=== PATIENT | male | born 1970 | race Caucasian/White ===

== ENCOUNTER → 2016-09-28 | Outpatient (CLI) | payer OTHER ==
[~2016-09-28] MED LIST: METO25TA2 PO; VALA500T17 PO
[2016-09-29 13:08] LABS: EHRLICHIA CHAFFEENSIS G ABY <1:16 (<1:16)
[2016-09-29 15:44] LABS: IGG ROCKY MOUNTAIN SPOTTED FEV <1:16 (<1:16); IGM ROCKY MOUNTAIN SPOTTED FEV <1:10 (<1:10); TULAREMIA ANTIBODY <1:20
== END ==
LOC: LAB 13:13
PROVIDERS: ATTEND Nurse Practitioner Community Health
DX: R53.82 Chronic fatigue, unspecified (principal); G89.29 Other chronic pain
CPT/HCPCS: 36415; 86618; 86666; 86668; 86757

== ENCOUNTER → 2017-06-21 | Outpatient (CLI) | payer SELFPAY ==
--- NOTE | 2017-06-21 13:15 | Diagnostic Imaging Report ---
CLINICAL INDICATION: Patient states he has neck/back pain with bilateral arm/hand numbness x6 months. Patient has bilateral hand/arm swelling upon waking up in the mornings. EXAM: MRI of the cervical spine performed without IV contrast. Sequences include sagittal T2, sagittal T1, sagittal T2 fat-sat, and axial T2. COMPARISON: None. FINDINGS: There is incompletely imaged left curvature of the thoracic spine. Limited visualization of the posterior fossa shows no significant abnormality. Cervical spinal cord has normal anatomic appearance and cord caliber. There is no significant paraspinal soft tissue abnormality. There is cervical spine degenerative disease with vertebral body spurs and facet arthropathy. C1-C2: Unremarkable. C2-C3: There is no significant central spinal canal or neuroforamen narrowing. C3-C4: There is a small left paracentral disc spur which causes mild central canal narrowing. There is mild bilateral facet arthropathy. There is rkeg-tb-gjvqicgc left neuroforamen narrowing. There is no significant right neuroforamen narrowing. C4-C5: There is a mild diffuse disc bulge and mild bilateral facet arthropathy. There is at least moderate left neuroforamen narrowing and hhts-qb-abfarknv right neuroforamen narrowing. There is no significant central canal narrowing. C5-C6: There is a mild diffuse disc bulge with small left paracentral and subarticular disc spur. There is at least moderate left neuroforamen narrowing. There is bilateral facet arthropathy (left side more than the right). There is mild central canal narrowing. C6-C7: There is diffuse disc bulge, moderate loss of intervertebral disc height. There is mild bilateral facet arthropathy. There is mild ligamentum flavum buckling. There is moderate central canal narrowing and moderate bilateral neuroforamen narrowing. C7-T1: Unremarkable. IMPRESSION: There is moderate multilevel cervical spine degenerative disc disease, described in detail above. Dictated by: Dictated on workstation # [id number]
== END ==
LOC: RAD 11:34
PROVIDERS: ATTEND Internal Medicine
DX: M50.121 Cervical disc disorder at C4-C5 level with radiculopathy (principal); M48.02 Spinal stenosis, cervical region; M46.92 Unspecified inflammatory spondylopathy, cervical region; M79.89 Other specified soft tissue disorders; R20.0 Anesthesia of skin
CPT/HCPCS: 72141

== ENCOUNTER 2018-10-10 05:39 | Outpatient (CLI) | payer OTHER ==
[~2018-10-10] VITALS: Ht 177.8 cm; Wt 113.4 kg
[2018-10-10] MEDS ORDERED: METO50TA15 PO (15:42)
[2018-10-10] MEDS ORDERED: DULO60CA58 PO (15:42)
[2018-10-10] MEDS ORDERED: BACL20TA PO (15:42)
== END 2018-10-10 15:43 | disposition home or self-care (01) ==
LOC: PREOP 05:39
PROVIDERS: ATTEND Surgery
DX: Z01.818 Encounter for other preprocedural examination (principal)

== ENCOUNTER 2018-10-14 10:46 | Day surgery (SDC) | payer OTHER ==
[~2018-10-14] VITALS: Ht 177.8 cm; Wt 113.4 kg
[~2018-10-14 10:46] MED LIST changes: +BACL20TA PO; +DULO60CA58 PO; +METO50TA15 PO
--- OUTSIDE RECORDS SUMMARY | 2018-10-14 10:54 | XMS REPORT ---
Author Author Migration, Doctor Organization [facility] Address Unknown Phone Unavailable Care Team Providers Care Interactive Account Manager Name Role Phone Migration, Doctor Unavailable Unavailable PROBLEMS Type Condition ICD9-CM Code PPW24-FS Code Onset Dates Condition Status SNOMED Code Problem Lumbago with sciatica, left side M54.42 Active 714136114 Problem Other chronic pain G89.29 Active 93145942 Problem Arthritis M19.90 Active 3804808 Problem Degenerative disc disease at L5-S1 level M51.36 Active 35095708 Problem Seasonal allergic rhinitis due to other allergic trigger J30.89 Active 815207174 Problem Polyneuropathy G62.9 Active 20272324 Problem Anxiety F41.9 Active 11219245 Problem Neuropathy G62.9 Active 134282328 Problem Cervical radiculopathy M54.12 Active 06081760 Problem Mucopurulent chronic bronchitis J41.1 Active 40632758 Problem Gingivitis K05.10 Active 24359270 Problem Hypertension, unspecified type I10 Active 92003971 ALLERGIES No Information ENCOUNTERS Encounter Location Date Diagnosis [facility] [id number] [place] [address] 65290- 7729 Sep, Hiatal hernia K44.9 ; Arthritis M19.90 and Anxiety F41.9 [facility] [id number] [place] [address] 24285 -5013 Jul, Strain of lumbar region, initial encounter S39.012A [facility] [id number] [place] [address] 37061- 8031 Dec, Polyneuropathy G62.9 ; 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 and Seasonal allergic rhinitis due to other allergic trigger J30.89 [facility] [id number] [place] [address] 79319- 6805 Sep, Common wart B07.8 and Hypertension, unspecified type I10 [facility] [id number] [place] [address] 40511- 2118 Aug, Dental examination Z01.20 ; Gingivitis K05.10 and Xerostomia R68.2 [facility] [id number] [place] [address] 28053- 5946 Aug, Dental caries extending into dentin K02.62 [facility] [address] 11636- 1612 Jul, Dental examination Z01.20 [facility] [id number] [place] [address] 54060- 3862 Jul, Mucopurulent chronic bronchitis J41.1 [facility] [id number] [place] [address] 82377- 4227 15 Jul, 2017 Cervical neuritis M54.12 ; Common wart B07.8 ; Actinic keratosis L57.0 ; Encounter for immunization Z23 and Mucopurulent chronic bronchitis J41.1 [facility] [id number] [place] [address] 82915- 7096 Jun, Radiculopathy of cervical region M54.12 [facility] [id number] [place] [address] 13145- 5945 May, Arthritis M19.90 ; Cervical radiculopathy M54.12 and Mucopurulent chronic bronchitis J41.1 [facility] [id number] [place] [address] 11573- 1347 Feb, Arthritis M19.90 [facility] [id number] [place] [address] 89303- 1316 Feb, Other chronic pain G89.29 [facility] [id number] [place] [address] 27910- 0362 19 Feb, 2017 Other chronic pain G89.29 [facility] [address] [place] [id number] [place] [address] [id number] 15 Feb, 2017 Dental examination Z01.20 [facility] [address] [address] 9979 07 Feb, 2017 Polyneuropathy G62.9 [facility] [id number] [place] [address] [id number] Jan, Dental examination Z01.20 [facility] [id number] [place] [address] 45785- 7706 Jan, Arthritis M19.90 [facility] [id number] [place] [address] [id number] Jan, Dental examination Z01.20 [facility] [id number] [place] [address] 50034- 5642 Dec, [facility] [id number] [place] [address] 97258- 6496 Dec, Arthritis M19.90 [facility] [id number] [place] [address] 13981- 3839 Dec, Sebaceous cyst L72.3 [facility] [id number] [place] [address] 73471- 4824 Dec, Sebaceous cyst L72.3 and Common wart B07.8 [facility] [id number] [place] [address] 90270- 0358 Nov, Arthritis M19.90 [facility] [id number] [place] [address] 31563- 9705 Nov, [facility] [id number] [place] [address] 52148- 4905 October, Arthritis M19.90 [facility] [id number] [place] [address] 95184- 3662 October, Polyneuropathy G62.9 and Arthritis M19.90 [facility] [address] [place] [address] 62491- 6552 October, Polyneuropathy G62.9 and Arthritis M19.90 [facility] [address] [facility] [id number] [address] 2851 October, Arthritis M19.90 and Polyneuropathy G62.9 [facility] [address] [address] [place] [address] [id number] October, Dental examination Z01.20 [facility] [id number] [place] [address] 54446- 9164 Sep, Polyuria R35.8 [facility] [id number] [place] [address] [id number] Sep, Dental examination Z01.20 [facility] [id number] [place] [address] 82062- 9921 Sep, [facility] [id number] [place] [address] 49730- 4145 Sep, Polyneuropathy G62.9 [facility] [id number] [place] [address] 17832- 9423 Aug, Polyuria R35.8 [facility] [address] [place] [address] [id number] Aug, Dental examination Z01.20 [facility] [address] [place] [address] 00603- 9127 Aug, Polyneuropathy G62.9 [facility] [id number] [place] [address] 29931- 7873 Aug, Polyuria R35.8 [facility] [address] [place] [address] [id number] Jul, Dental examination Z01.20 [facility] [id number] [place] [address] [id number] Jul, Dental examination Z01.20 [facility] [id number] [place] [address] 70463- 7421 Jul, Polyneuropathy G62.9 [facility] [id number] [place] [address] 58834- 0407 Jul, Polyuria R35.8 [facility] [id number] [place] [address] 37139 -5867 Jun, Lumbago with sciatica, left side M54.42 and Other chronic pain G89.29 [facility] [address] 49053- 6419 Jun, Polyneuropathic pain M79.2 and Other infective acute otitis externa of left ear H60.392 [facility] [id number] [place] [address] 83325- 7460 Jun, Polyuria R35.8 [facility] [address] 64157- 3902 May, Dental examination Z01.20 [facility] [address] 94202- 3178 May, Polyneuropathy G62.9 [facility] [id number] [place] [address] 35397- 2602 May, Polyuria R35.8 [facility] [id number] [place] [address] 36372- 2054 Apr, Polyuria R35.8 ; Weight loss R63.4 ; Arthralgia, unspecified joint M25.50 and Neuropathy G62.9 [facility] [id number] [place] [address] 82178- 1560 Apr, [facility] [id number] [place] [address] 85241- 4326 Apr, Dental examination Z01.20 [facility] [address] 94590- 1043 Mar, Polyuria R35.8 ; Weight loss R63.4 ; Arthralgia, unspecified joint M25.50 ; Neuropathy G62.9 ; Family history of rheumatoid arthritis Z82.61 and Family history of diabetes mellitus Z83.3 [facility] [address] [address]- 7843 Mar, [facility] [id number] [address]- 0555 Feb, [facility] [address] [address]- 2717 Feb, Encounter for dental examination and cleaning without abnormal findings Z01.20 [facility] [address] [address]- 8726 Jan, [facility] [id number] [place] [address] 34327- 2775 Dec, Degenerative disc disease at L5-S1 level M51.36 [facility] [address] [address] -6870 Dec, Degenerative disc disease at L5-S1 level M51.36 [facility] [address] [address]- 6351 Dec, [facility] [id number] [place] [address] 27201- 9073 Nov, [facility] [address] [address]- 5870 October, Arthritis M19.90 [facility] [address] [address]- 8560 07 Sep, 2015 Arthritis M19.90 and Family history of diabetes mellitus Z83.3 [facility] [address] [address]- 9118 08 Jul, 2015 [facility] [id number] 4976 Jun, [facility] [address] 3270 08 May, 2015 [facility] [id number] [address]- 7147 Apr, [facility] [id number] [place] [address] 50158- 3340 Feb, Actinic keratitis 370.24 [facility] [id number] [place] [address] 057827- 5586 Jan, Common wart 078.19 ; Back pain 724.5 and Fibromyalgia 729.1 [facility] [id number] [place] [address] 46327- 7783 Dec, Alcohol abuse 305.00 [facility] [id number] [place] [address] 19070- 3778 Dec, Lesion of neck 709.9 [facility] [id number] [place] [address] 95660- 7483 Dec, Back pain 724.5 [facility] [id number] [place] [address] 05725- 2711 Nov, Alcohol abuse 305.00 ; Basal cell carcinoma 173.91 and Common wart 078.19 [facility] [id number] [place] [address] 67087- 1348 Nov, [facility] [id number] [place] [address] 01633- 3097 Sep, [facility] [id number] [place] [address] 45177- 5050 Sep, [facility] [id number] [place] [address] 93221- 1025 Jun, [facility] [id number] [place] [address] 24405- 9722 Jun, [facility] [id number] [place] [address] 443253- 7045 May, [facility] [id number] [place] [address] 714961- 0677 May, [facility] [address] [facility] [id number] [place] [address]- 3939 Feb, [facility] [place] [facility] [address] [id number] [place] [address]- 7240 Feb, [facility] [place] [facility] [address] [id number] [place] [address]- 3155 Feb, [facility] [place] [facility] [address] [id number] [place] [address]- 8419 Feb, [facility] [place] [facility] [address] [id number] [place] [address]- 1402 Sep, [facility] [place] [facility] [address] [id number] [place] [address]- 0948 Sep, [facility] [place] [facility] [address] [id number] [place] [address]- 0949 Sep, [facility] [place] [facility] [address] [id number] [place] [address]- 9224 Sep, [facility] [place] [facility] [address] [id number] [place] [address]- 2743 Aug, [facility] [place] [facility] [address] [id number] [place] [address]- 5783 Aug, [facility] [place] [facility] [address] [id number] [place] [address]- 3201 Jul, [facility] [place] [facility] [address] [id number] [place] [address]- 4708 Jul, [facility] [place] [facility] [address] [id number] [place] [address]- 4950 Jul, [facility] [place] [facility] [address] [id number] [place] [address]- 8050 Jul, [facility] [place] [facility] [address] [id number] [place] [address]- 6884 Jun, [facility] [place] [facility] [address] [id number] [place] [address]- 6692 Jun, [facility] [place] [facility] [address] [id number] [place] [address]- 8262 Jun, [facility] [place] [facility] [address] [id number] [place] [address]- 2663 Jun, [facility] [place] [facility] [address] [id number] [place] [address]- 8540 May, [facility] [place] [facility] [address] [id number] [place] [address]- 3469 May, [facility] [place] [facility] [address] [id number] [place] [address]- 3928 Apr, [facility] [place] [facility] [address] [id number] [place] [address]- 7806 Apr, [facility] [place] [facility] [address] [id number] [place] [address]- 8399 Apr, [facility] [place] [facility] [address] [id number] [address]- 5207 Apr, [facility] [place] [facility] [address] [id number] [place] [address]- 6603 Apr, [facility] [place] [facility] [address] [id number] [place] [address]- 3514 Apr, [facility] [place] [facility] [address] [id number], [place] [address]- 8425 Mar, [facility] [place] [facility] [address] [id number] [address]- 2460 Mar, [facility] [place] [facility] [address] [id number] [place] [address]- 8227 Mar, [facility] [place] [facility] [address] [id number] [address]- 9619 Mar, [facility] [place] [facility] [address] [id number] [address]- 7231 Jan, [facility] [place] [facility] [address] [id number] [place] [address]- 7595 Jan, [facility] [place] [facility] [address] [id number] [place] [address]- 1104 Aug, [facility] [place] [facility] [address] [id number] [place] [address]- 2044 Aug, [facility] [place] [facility] [address] [id number] [place] [address]- 8821 Mar, [facility] [place] [facility] [address] [id number] [place] [address]- 9569 Mar, [facility] [place] [facility] [address] [id number] [place] [address]- 4114 Mar, [facility] [place] [facility] [address] [id number] [place] [address]- 8392 Mar, [facility] [place] [facility] [address] [id number] [place] [address]- 3370 Mar, [facility] [place] [facility] [address] [id number] [place] [address]- 8034 Mar, [facility] [place] [facility] [address] [id number] [place] [address]- 9852 Mar, [facility] [place] [facility] [address] [id number] [place] [address]- 2148 Mar, [facility] [place] [facility] [address] [id number] [place] [address]- 6492 Jan, [facility] [place] [facility] [address] [id number] [place] [address]- 3238 Jan, [facility] [place] [facility] [address] [id number] [place] [address]- 6942 Nov, [facility] [place] [facility] [address] [id number] [place] [address]- 7782 Nov, [facility] [place] [facility] [address] [id number] [place] [address]- 7519 October, [facility] [id number] [address]- 4443 Aug, [facility] [address], [place] [address]- 9676 Aug, [facility] [address] [address]- 0306 Aug, [facility] [address] [address] 2546 Jul, [facility] [address] [address]- 0665 Jul, [facility] [address] [address]- 6686 Apr, [facility] [address] [address]- 4091 Apr, [facility] [address], [place] [address]- 5534 Apr, [facility] [address] [address]- 8178 Jul, [facility] [address] [address]- 3568 Jun, [facility] [id number] [address]- 7806 Apr, IMMUNIZATIONS No Known Immunizations SOCIAL HISTORY Never Assessed REASON FOR VISIT [facility] PLAN OF CARE VITAL SIGNS MEDICATIONS Unknown Medications RESULTS No Results PROCEDURES No Known procedures INSTRUCTIONS MEDICATIONS ADMINISTERED No Known Medications MEDICAL (GENERAL) HISTORY Type Description Date Medical History irritable bowel syndrome Medical History orthopedic disorder-herniated disc, DJD Medical History esophageal reflux Medical History headache Medical History herpes (genital) Medical History backache Medical History fibromyalgia Surgical History tonsillectomy Hospitalization History Hospitalization for surgery only
--- OUTSIDE RECORDS SUMMARY | 2018-10-14 10:55 | XMS REPORT ---
Author Author Migration, Doctor Organization [facility] Address Unknown Phone Unavailable Care Team Providers Care Auditor Supervisor Name Role Phone Migration, Doctor Unavailable Unavailable PROBLEMS Type Condition ICD9-CM Code LNC20-FQ Code Onset Dates Condition Status SNOMED Code Problem Polyneuropathy G62.9 Active 96881808 Problem Lumbago with sciatica, left side M54.42 Active 388745412 Problem Other chronic pain G89.29 Active 00790217 Problem Hypertension, unspecified type I10 Active 14543062 Problem Neuropathy G62.9 Active 012434263 Problem Seasonal allergic rhinitis due to other allergic trigger J30.89 Active 011575215 Problem Degenerative disc disease at L5-S1 level M51.36 Active 18796439 Problem Arthritis M19.90 Active 4347244 Problem Cervical radiculopathy M54.12 Active 72601025 Problem Mucopurulent chronic bronchitis J41.1 Active 72613242 Problem Gingivitis K05.10 Active 81482141 ALLERGIES No Information ENCOUNTERS Encounter Location Date Diagnosis [place] [id number] [address] Sep, [facility] [id number] [place] [address]100 -7706 Jul, Strain of lumbar region, initial encounter S39.012A [facility] [id number] [place] [address] 41565- 1883 Dec, Polyneuropathy G62.9 ; 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 and Seasonal allergic rhinitis due to other allergic trigger J30.89 [facility] [address] 09047- 5589 Sep, Common wart B07.8 and Hypertension, unspecified type I10 [facility] [address] 91061- 4581 Aug, Dental examination Z01.20 ; Gingivitis K05.10 and Xerostomia R68.2 [facility] [id number] [place] [address] 97202- 8323 Aug, Dental caries extending into dentin K02.62 [facility] [id number] [place] [address] 69879- 2297 20 Jul, 2017 Dental examination Z01.20 [facility] [address] 97875- 9752 15 Jul, 2017 Mucopurulent chronic bronchitis J41.1 [place] [address] 12756- 9567 Jul, Cervical neuritis M54.12 ; Common wart B07.8 ; Actinic keratosis L57.0 ; Encounter for immunization Z23 and Mucopurulent chronic bronchitis J41.1 [facility] [address] 09461- 9846 Jun, Radiculopathy of cervical region M54.12 [facility] [id number] [place] [address] 50328- 3537 May, Arthritis M19.90 ; Cervical radiculopathy M54.12 and Mucopurulent chronic bronchitis J41.1 [place] [address] [id number] [place] [address] 23646- 2290 20 Feb, 2017 Arthritis M19.90 [facility] [id number] [place] [address] 73861- 2631 Feb, Other chronic pain G89.29 [facility] [id number] [place] [address] 75243- 0885 19 Feb, 2017 Other chronic pain G89.29 [facility] [address] [place] [address] [phone] 15 Feb, 2017 Dental examination Z01.20 [facility] [id number] [place] [address] 41088- 9001 Feb, Polyneuropathy G62.9 [facility] [address] [id number] Jan, Dental examination Z01.20 [facility] [id number] [place] [address] 35212- 9957 Jan, Arthritis M19.90 [facility] [address] [place] [address] [phone] Jan, Dental examination Z01.20 [facility] [id number] [place] [address] 09631- 6280 Dec, [facility] [address] 07358- 6760 Dec, Arthritis M19.90 [facility] [id number] [place] [address] 03940- 4302 Dec, Sebaceous cyst L72.3 [facility] [id number] [place] [address] 73651- 5478 Dec, Sebaceous cyst L72.3 and Common wart B07.8 [facility] [id number] [place] [address] 43536- 5272 Nov, Arthritis M19.90 [facility] [id number] [place] [address] 25087- 3461 Nov, [facility] [id number] [place] [address] 68957- 8021 October, Arthritis M19.90 [facility] [id number] [place] [address] 77286- 4927 October, Polyneuropathy G62.9 and Arthritis M19.90 [facility] [id number] [place] [address] 35594- 2468 October, Polyneuropathy G62.9 and Arthritis M19.90 [facility] [id number] [place] [address] 49226- 4980 October, Arthritis M19.90 and Polyneuropathy G62.9 [facility] [address] [place] [address] [phone] October, Dental examination Z01.20 [facility] [id number] [place] [address] 48829- 3025 Sep, Polyuria R35.8 [facility] [address] [id number] [place] [address] [phone] Sep, Dental examination Z01.20 [facility] [address] 35501- 5186 Sep, [facility] [address] 23982- 9822 Sep, Polyneuropathy G62.9 [facility] [id number] [place] [address] 94215- 1383 Aug, Polyuria R35.8 [facility] [id number] [place] [address] [phone] Aug, Dental examination Z01.20 [facility] [id number] [place] [address] 45116- 6207 Aug, Polyneuropathy G62.9 [facility] [id number] [place] [address] 05320- 6717 Aug, Polyuria R35.8 [facility] [id number] [place] [address] [phone] Jul, Dental examination Z01.20 [facility] [address] [place] [address] [phone] Jul, Dental examination Z01.20 [facility] [id number] [place] [address] 73630- 2061 Jul, Polyneuropathy G62.9 [facility] [id number] [place] [address] 97872- 1868 Jul, Polyuria R35.8 [facility] [id number] [place] [address] 02405 -0910 Jun, Lumbago with sciatica, left side M54.42 and Other chronic pain G89.29 [place] [address] [id number] [place] [address] 79027- 9012 Jun, Polyneuropathic pain M79.2 and Other infective acute otitis externa of left ear H60.392 [place] [address] 82035- 9509 Jun, Polyuria R35.8 [place] [address] 38788- 7565 May, Dental examination Z01.20 [place] [address] 17545- 7803 May, Polyneuropathy G62.9 [place] [address] 86639- 2437 May, Polyuria R35.8 [place] [address] 56118- 5196 Apr, Polyuria R35.8 ; Weight loss R63.4 ; Arthralgia, unspecified joint M25.50 and Neuropathy G62.9 [place] [address] [id number] [place] [address] 31708- 2065 Apr, [place] [address] [place] [id number] [place] [address] 98007- 3706 Apr, Dental examination Z01.20 [place] [address] [place] [id number] [place] [address] 91780- 1023 Mar, Polyuria R35.8 ; Weight loss R63.4 ; Arthralgia, unspecified joint M25.50 ; Neuropathy G62.9 ; Family history of rheumatoid arthritis Z82.61 and Family history of diabetes mellitus Z83.3 [place] [address] 52855- 7836 Mar, [facility] [address] [address]- 4028 Feb, [facility] [id number] [place] [address] 39856- 6892 Feb, Encounter for dental examination and cleaning without abnormal findings Z01.20 [facility] [id number] [place] [address] 59592- 4236 Jan, [facility] [id number] [place] [address] 08356- 4120 Dec, Degenerative disc disease at L5-S1 level M51.36 [facility] [id number] [place] [address] 13314 -1953 Dec, Degenerative disc disease at L5-S1 level M51.36 [facility] [id number] [place] [address] 74949- 2591 Dec, [facility] [id number] [place] [address] 95853- 4978 Nov, [facility] [id number] [place] [address] 16761- 0932 October, Arthritis M19.90 [facility] [id number] [place] [address] 64600- 1647 Sep, Arthritis M19.90 and Family history of diabetes mellitus Z83.3 [facility] [address] [address]- 9972 Jul, [facility] [address] [address]- 1235 Jun, [facility] [id number] [place] [address] 50247- 5826 May, [facility] [address], [place] [address]- 8536 Apr, [facility] [id number] [place] [address] 91985- 0322 29 Feb, 2015 Actinic keratitis 370.24 [facility] [id number] [place] [address] 72412- 6050 Jan, Common wart 078.19 ; Back pain 724.5 and Fibromyalgia 729.1 [facility] [id number] [place] [address] 43724- 9402 Dec, Alcohol abuse 305.00 [facility] [address] 67838- 3705 Dec, Lesion of neck 709.9 [facility] [address] 91331- 7191 Dec, Back pain 724.5 [facility] [id number] [place] [address] 60011- 4406 Nov, Alcohol abuse 305.00 ; Basal cell carcinoma 173.91 and Common wart 078.19 [facility] [id number] [place] [address] 41636- 0778 Nov, [facility] [id number] [place] [address] 42110- 4539 Sep, [facility] [id number] [place] [address] 99433- 6442 Sep, [facility] [id number] [place] [address] 06999- 9793 Jun, [facility] [id number] [place] [address] 92833- 2973 Jun, [facility] [id number] [place] [address] 990810- 5927 May, [facility] [id number] [place] [address] 712224- 0603 May, [facility] [id number] [place] [address] 02632- 9656 Feb, [facility] [place] [facility] [address] [id number] [place] [address]- 3631 Feb, [facility] [place] [facility] [address] [id number] [place] [address]- 1755 Feb, [facility] [place] [facility] [address] [id number] [place] [address]- 2905 Feb, [facility] [place] [facility] [address] [id number] [place] [address]- 8069 Sep, [facility] [place] [facility] [address] [id number] [place] [address]- 7303 Sep, [facility] [place] [facility] [address] [id number] [place] [address]- 7567 Sep, [facility] [place] [facility] [address] [id number] [place] [address]- 2386 Sep, [facility] [place] [facility] [address] [id number] [place] [address]- 0971 Aug, [facility] [place] [facility] [address] [id number] [place] [address]- 2095 Aug, [facility] [place] [facility] [address] [id number] [place] [address]- 9868 Jul, [facility] [place] [facility] [address] [id number] [place] [address]- 4220 Jul, [facility] [place] [facility] [address] [id number] [place] [address]- 5280 Jul, [facility] [place] [facility] [address] [id number] [place] [address]- 0076 Jul, [facility] [place] [facility] [address] [id number] [place] [address]- 1303 Jun, [facility] [place] [facility] [address] [id number] [place] [address]- 2248 Jun, [facility] [place] [facility] [address] [id number] [address]- 3900 Jun, [facility] [place] [facility] [address] [id number] [place] [address]- 2886 Jun, [facility] [place] [facility] [address] [id number] [place] [address]- 0926 May, [facility] [place] [facility] [address] [id number] [place] [address]- 7736 May, [facility] [place] [facility] [address] [id number] [place] [address]- 4837 Apr, [facility] [place] [facility] [address] [id number] [place] [address]- 0548 Apr, [facility] [place] [facility] [address] [id number] [place] [address]- 4567 Apr, [facility] [place] [facility] [address] [id number] [place] [address]- 3824 Apr, [facility] [place] [facility] [address] [id number] [place] [address]- 3222 Apr, [facility] [place] [facility] [address] [id number] [place] [address]- 7500 Apr, [facility] [place] [facility] [address] [id number] [place] [address]- 2728 Mar, [facility] [place] [facility] [address] [id number], [place] [address]- 1291 Mar, [facility] [place] [facility] [address] [id number], [place] [address]- 3363 Mar, [facility] [place] [facility] [address] [id number] [place] [address]- 7573 Mar, [facility] [place] [facility] [address] [id number] [place] [address]- 5952 Jan, [facility] [place] [facility] [address] [id number] [place] [address]- 8650 Jan, [facility] [place] [facility] [address] [id number] [place] [address]- 0951 Aug, [facility] [place] [facility] [address] [id number] [place] [address]- 9822 Aug, [facility] [place] [facility] [address] [id number] [place] [address]- 4236 Mar, [facility] [place] [facility] [address] [id number] [place] [address]- 8969 Mar, [facility] [place] [facility] [address] [id number] [place] [address]- 9859 Mar, [facility] [place] [facility] [address] [id number] [place] [address]- 6702 Mar, [facility] [place] [facility] [address] [id number] [place] [address]- 1260 Mar, [facility] [place] [facility] [address] [id number] [place] [address]- 6841 Mar, [facility] [place] [facility] [address] [id number] [place] [address]- 3723 Mar, [facility] [place] [facility] [address] [id number] [place] [address]- 6443 Mar, [facility] [place] [facility] [address] [id number] [place] [address]- 8645 Jan, [facility] [place] [facility] [address] [id number] [place] [address]- 9758 Jan, [facility] [place] [facility] [address] [id number] [place] [address]- 7617 Nov, [facility] [place] [facility] [address] [id number] [place] [address]- 6537 Nov, [facility] [place] [facility] [address] [id number] [place] [address]- 4976 October, [facility] [place] [facility] [address] [id number] [place] [address]- 7697 Aug, [facility] [id number] [address]- 0223 Aug, [facility] [address], [place] [address]- 1376 Aug, [facility] [address], [place] [address]- 2906 Jul, [facility] [address], [place] [address]- 3913 Jul, [facility] [address], [place] [address]- 5777 Apr, [facility] [address], [place] [address]- 0196 Apr, [facility] [address], [place] [address]- 5231 Apr, [facility] [address], [place] [address]- 5453 Jul, [facility] [id number], [place] [address]- 5045 Jun, [facility] [id number] [address]- 2961 Apr, IMMUNIZATIONS No Known Immunizations SOCIAL HISTORY Never Assessed REASON FOR VISIT EMR-[facility] PLAN OF CARE VITAL SIGNS MEDICATIONS Unknown [...]
--- OUTSIDE RECORDS SUMMARY | 2018-10-14 10:55 | XMS REPORT ---
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 Role Phone Migration, Doctor Unavailable Unavailable PROBLEMS Type Condition ICD9-CM Code GFR09-EU Code Onset Dates Condition Status SNOMED Code Problem Polyneuropathy G62.9 Active 20198269 Problem Lumbago with sciatica, left side M54.42 Active 411307155 Problem Other chronic pain G89.29 Active 77613554 Problem Hypertension, unspecified type I10 Active 73958204 Problem Neuropathy G62.9 Active 563626426 Problem Seasonal allergic rhinitis due to other allergic trigger J30.89 Active 686205930 Problem Degenerative disc disease at L5-S1 level M51.36 Active 41286155 Problem Arthritis M19.90 Active 9802162 Problem Cervical radiculopathy M54.12 Active 46535732 Problem Mucopurulent chronic bronchitis J41.1 Active 23357809 Problem Gingivitis K05.10 Active 95573105 ALLERGIES No Information ENCOUNTERS Encounter Location Date Diagnosis [place] [id number] [address] Sep, [facility] [address] [id number] [address] -[address]20 Jul, Strain of lumbar region, initial encounter S39.012A 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 [address] [address]- [address]369 Sep, Common wart B07.8 and Hypertension, unspecified type I10 [facility] [address] [address]- 8598 Aug, Dental examination Z01.20 ; Gingivitis K05.10 and Xerostomia R68.2 [facility] [id number] [place] [address] 11901- 9284 Aug, Dental caries extending into dentin K02.62 [facility] [id number] [address] 39575- 5420 20 Jul, 2017 Dental examination Z01.20 [facility] [address] [address]- 3986 15 Jul, 2017 Mucopurulent chronic bronchitis J41.1 [place] [address] [address]- 2334 Jul, Cervical neuritis M54.12 ; Common wart B07.8 ; Actinic keratosis L57.0 ; Encounter for immunization Z23 and Mucopurulent chronic bronchitis J41.1 [facility] [address] [address]- 6814 Jun, Radiculopathy of cervical region M54.12 [facility] [id number] [address] 87322- 0658 May, Arthritis M19.90 ; Cervical radiculopathy M54.12 and Mucopurulent chronic bronchitis J41.1 [place] [address] [id number] [address] 21133- 8654 20 Feb, 2017 Arthritis M19.90 [facility] [id number] [address] 38360- 4524 Feb, Other chronic pain G89.29 [facility] [id number] [address] 23715- 2211 19 Feb, 2017 Other chronic pain G89.29 [facility] [id number] [address] [phone] 15 Feb, 2017 Dental examination Z01.20 [facility] [id number] [address] 59140- 2818 Feb, Polyneuropathy G62.9 [facility] [address] [id number] Jan, Dental examination Z01.20 [facility] [id number] [address] 68690- 8630 Jan, Arthritis M19.90 [facility] [address] [address] [id number] Jan, Dental examination Z01.20 [facility] [id number] [place] [address] 53098- 8494 Dec, [facility] [address] 7[address]30- 2165 Dec, Arthritis M19.90 [facility] [id number] [place] [address] 39487- 2238 Dec, Sebaceous cyst L72.3 [facility] [id number] [address] 94109- 3036 Dec, Sebaceous cyst L72.3 and Common wart B07.8 [facility] [id number] [address] 58590- 0477 Nov, Arthritis M19.90 [facility] [id number] [address] 32156- 9234 Nov, [facility] [id number] [address] 56164- 1698 October, Arthritis M19.90 [facility] [id number] [place] [address] 61791- 9072 October, Polyneuropathy G62.9 and Arthritis M19.90 [facility] [id number] [place] [address] 15313- 3159 October, Polyneuropathy G62.9 and Arthritis M19.90 [facility] [id number] [address] 66671- 6778 October, Arthritis M19.90 and Polyneuropathy G62.9 [facility] [address] [address] [id number] October, Dental examination Z01.20 [facility] [id number] [address] 92537- 7471 Sep, Polyuria R35.8 [facility] [address] [place] [id number] [address] [phone] Sep, Dental examination Z01.20 [facility] [address] 20555- 3888 Sep, [facility] [address] 84183- 5128 Sep, Polyneuropathy G62.9 [facility] [id number] [address] 10220- 8271 Aug, Polyuria R35.8 [facility] [address] [place] [id number] [address] [id number] Aug, Dental examination Z01.20 [facility] [id number] [place] [address] 61349- 1480 Aug, Polyneuropathy G62.9 [facility] [id number] [place] [address] 27576- 8185 Aug, Polyuria R35.8 [facility] [address] [place] [id number] [place] [address] [id number] Jul, Dental examination Z01.20 [facility] [address] [address] [id number] Jul, Dental examination Z01.20 [facility] [id number] [place] [address] 56009- 9498 Jul, Polyneuropathy G62.9 [facility] [id number] [place] [address] 90903- 3076 Jul, Polyuria R35.8 [facility] [id number] [address] 84879 -6402 Jun, Lumbago with sciatica, left side M54.42 and Other chronic pain G89.29 [place] [address] [id number] [place] [address] 47978- 2755 Jun, Polyneuropathic pain M79.2 and Other infective acute otitis externa of left ear H60.392 [place] [address] 93424- 7338 Jun, Polyuria R35.8 [place] [address] 50460- 7358 May, Dental examination Z01.20 [place] [address] 41079- 2106 May, Polyneuropathy G62.9 [place] [address] 48495- 8302 May, Polyuria R35.8 [place] [address] 24579- 8032 Apr, Polyuria R35.8 ; Weight loss R63.4 ; Arthralgia, unspecified joint M25.50 and Neuropathy G62.9 [place] [address] [place] [id number] [place] [address] 62453- 7959 Apr, [place] [address] [id number] [address] 52753- 2251 Apr, Dental examination Z01.20 [place] [address] [id number] [place] [address] 61387- 7940 Mar, Polyuria R35.8 ; Weight loss R63.4 ; Arthralgia, unspecified joint M25.50 ; Neuropathy G62.9 ; Family history of rheumatoid arthritis Z82.61 and Family history of diabetes mellitus Z83.3 [place] [address] 14622- 4336 Mar, [facility] [address] [address]- 5821 Feb, [facility] [id number] [address] 87247- 4839 Feb, Encounter for dental examination and cleaning without abnormal findings Z01.20 [facility] [id number] [address] 15935- 5008 Jan, [facility] [id number] [place] [address] 27237- 3457 Dec, Degenerative disc disease at L5-S1 level M51.36 [facility] [id number] [address] 53933 -3212 Dec, Degenerative disc disease at L5-S1 level M51.36 [facility] [id number] [address] 07561- 1440 Dec, [facility] [id number] [place] [address] 47206- 7852 Nov, [facility] [id number] [address] 19287- 8172 October, Arthritis M19.90 [facility] [id number] [place] [address] 54833- 2984 Sep, Arthritis M19.90 and Family history of diabetes mellitus Z83.3 [facility] [address] [address]- 8403 Jul, [facility] [address] [address]- 7728 Jun, [facility] [id number] [address] 55898- 5966 May, [facility] [address] [address]- 2106 Apr, [facility] [id number] [address] 08508- 2682 29 Feb, 2015 Actinic keratitis 370.24 [facility] [id number] [address] 89028- 5221 Jan, Common wart 078.19 ; Back pain 724.5 and Fibromyalgia 729.1 [facility] [id number] [address] 00725- 3193 Dec, Alcohol abuse 305.00 [facility] [address] 63430- 2314 Dec, Lesion of neck 709.9 [facility] [address] 34163- 6501 Dec, Back pain 724.5 [facility] [id number] [address] 44193- 5366 Nov, Alcohol abuse 305.00 ; Basal cell carcinoma 173.91 and Common wart 078.19 [facility] [id number] [address] 91116- 3751 Nov, [facility] [id number] [place] [address] 78771- 8541 Sep, [facility] [id number] [address] 79101- 1418 Sep, [facility] [id number] [place] [address] 77739- 0309 Jun, [facility] [id number] [place] [address] 21424- 4352 Jun, [facility] [id number] [place] [address] 476679- 0922 May, [facility] [id number] [place] [address] 304109- 9539 May, [facility] [id number] [place] [address] 56710- 6410 Feb, [facility] [place] [facility] [address] [id number] [place] [address]- 9181 Feb, [facility] [place] [facility] [address] [id number] [place] [address]- 3199 Feb, [facility] [place] [facility] [address] [id number] [place] [address]- 3646 Feb, [facility] [place] [facility] [address] [id number] [place] [address]- 3395 Sep, [facility] [place] [facility] [address] [id number] [place] [address]- 9114 Sep, [facility] [place] [facility] [address] [id number] [place] [address]- 2394 Sep, [facility] [place] [facility] [address] [id number] [place] [address]- 2506 Sep, [facility] [place] [facility] [address] [id number] [place] [address]- 6555 Aug, [facility] [place] [facility] [address] [id number] [place] [address]- 6561 Aug, [facility] [place] [facility] [address] [id number] [place] [address]- 6679 Jul, [facility] [place] [facility] [address] [id number] [place] [address]- 9348 Jul, [facility] [place] [facility] [address] [id number] [place] [address]- 0465 Jul, [facility] [place] [facility] [address] [id number] [place] [address]- 0186 Jul, [facility] [place] [facility] [address] [id number] [place] [address]- 2212 Jun, [facility] [place] [facility] [address] [id number] [place] [address]- 1697 Jun, [facility] [place] [facility] [address] [id number] [place] [address]- 4595 Jun, [facility] [place] [facility] [address] [id number] [place] [address]- 4913 Jun, [facility] [place] [facility] [address] [id number] [place] [address]- 0301 May, [facility] [place] [facility] [address] [id number] [place] [address]- 0775 May, [facility] [place] [facility] [address] [id number] [place] [address]- 3509 Apr, [facility] [place] [facility] [address] [id number] [place] [address]- 6424 Apr, [facility] [place] [facility] [address] [id number] [place] [address]- 9751 Apr, [facility] [place] [facility] [address] [id number] [place] [address]- 5254 Apr, [facility] [place] [facility] [address] [id number] [place] [address]- 6341 Apr, [facility] [place] [facility] [address] [id number] [place] [address]- 8667 Apr, [facility] [place] [facility] [address] [id number] [place] [address]- 4326 Mar, [facility] [place] [facility] [address] [id number] [place] [address]- 1128 Mar, [facility] [place] [facility] [address] [id number] [place] [address]- 9080 Mar, [facility] [place] [facility] [address] [id number] [place] [address]- 5076 Mar, [facility] [place] [facility] [address] [id number] [place] [address]- 2874 Jan, [facility] [place] [facility] [address] [id number] [place] [address]- 0742 Jan, [facility] [place] [facility] [address] [id number] [place] [address]- 3449 Aug, [facility] [place] [facility] [address] [id number] [place] [address]- 9064 Aug, [facility] [place] [facility] [address] [id number] [place] [address]- 5727 Mar, [facility] [place] [facility] [address] [id number] [place] [address]- 2597 Mar, [facility] [place] [facility] [address] [id number] [place] [address]- 6070 Mar, [facility] [place] [facility] [address] [id number] [place] [address]- 1186 Mar, [facility] [place] [facility] [address] [id number] [place] [address]- 9467 Mar, [facility] [place] [facility] [address] [id number] [place] [address]- 5599 Mar, [facility] [place] [facility] [address] [id number] [place] [address]- 8894 Mar, [facility] [place] [facility] [address] [id number] [place] [address]- 7296 Mar, [facility] [place] [facility] [address] [id number] [place] [address]- 9314 Jan, [facility] [place] [facility] [address] [id number] [place] [address]- 3104 Jan, [facility] [place] [facility] [address] [id number] [place] [address]- 9607 Nov, [facility] [place] [facility] [address] [id number] [place] [address]- 5220 Nov, [facility] [place] [facility] [address] [id number] [place] [address]- 6526 October, [facility] [place] [facility] [address] [id number] [place] [address]- 8552 Aug, [facility] [id number] [address]- 0428 Aug, [facility] [address] [address]- 8046 Aug, [facility] [address] [address]- 9408 Jul, [facility] [address] [address]- 5487 Jul, [facility] [address] [address]- 4403 Apr, [facility] [address] [address]- 0869 Apr, [facility] [address] [address]- 3579 Apr, [facility] [address] [address]- 6063 Jul, [facility] [address] [address]- 7034 Jun, [facility] [id number] [address]- 3601 Apr, IMMUNIZATIONS No Known Immunizations SOCIAL HISTORY Never Assessed REASON FOR VISIT E[place] [place]AN OF CARE VITAL SIGNS MEDICATIONS Medication Instructions Dosage Frequency Start Date End Date Duration Status Metoprolol Tartrate 50 mg 1 tablet by Oral route 2 times per day MUST HAVE F/U APPT FOR REFILLS May, Active amitriptyline 150 mg 1 tablet by Oral route 1 time per day Feb, Active Flonase 50 mcg/actuation 1 sprays by Nasal route 2 times per day in each nostril May, Active Famotidine 20 mg 1 tablet by Oral route 2 times per day Sep, Active tramadol 50 mg take 1 tablet (50 mg) by oral route every 6 hours as needed PRN pain Jun, Active Baclofen 20 mg take 1 tablet (20 mg) by oral route 3 times per day PRN Aug, Active PredniSONE 20 mg 1 tablet by Oral route 2 times per day for 5 day(s) Aug, Active Acyclovir 400 mg take 1 tablet by Oral route 1 time per day Mar, Active Naprosyn 500 mg 1 tablet by Oral route 2 times per day Feb, Active RESULTS No Results PROCEDURES No Known procedures INSTRUCTIONS MEDICATIONS ADMINISTERED No Known Medications MEDICAL (GENERAL) HISTORY Type Description Date Medical History irritable bowel syndrome Medical History orthopedic disorder-herniated disc, DJD Medical History esophageal reflux Medical History headache Medical History herpes (genital) Medical History backache Medical History fibromyalgia Surgical History tonsillectomy Hospitalization History Hospitalization for surgery only
--- OUTSIDE RECORDS SUMMARY | 2018-10-14 10:55 | XMS REPORT ---
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 Name Role Phone Migration, Doctor Unavailable Unavailable PROBLEMS Type Condition ICD9-CM Code [id number] Code Onset Dates Condition Status SNOMED Code Problem Polyneuropathy G62.9 Active 52940011 Problem Lumbago with sciatica, left side M54.42 Active 773339667 Problem Other chronic pain G89.29 Active 22127141 Problem Hypertension, unspecified type I10 Active 05640758 Problem Neuropathy G62.9 Active 164046622 Problem Seasonal allergic rhinitis due to other allergic trigger J30.89 Active 380272882 Problem Degenerative disc disease at L5-S1 level M51.36 Active 60515934 Problem Arthritis M19.90 Active 4339823 Problem Cervical radiculopathy M54.12 Active 06335117 Problem Mucopurulent chronic bronchitis J41.1 Active 20542773 Problem Gingivitis K05.10 Active 46986713 ALLERGIES No Information ENCOUNTERS Encounter Location Date Diagnosis [place] [id number] [address] Sep, [facility] [id number] [place] [address]133 -8001 Jul, Strain of lumbar region, initial encounter S39.012A [facility] [place] [id number] [place] [address] 89732- 2787 Dec, Polyneuropathy G62.9 ; 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 and Seasonal allergic rhinitis due to other allergic trigger J30.89 [facility] [place] [address] [address]- [address] Sep, Common wart B07.8 and Hypertension, unspecified type I10 [facility] [place] [address] [address]- 7062 Aug, Dental examination Z01.20 ; Gingivitis K05.10 and Xerostomia R68.2 [facility] [place] [id number] [place] [address] 97786- 7617 Aug, Dental caries extending into dentin K02.62 [facility] [place] [id number] [place] [address] 38419- 3070 20 Jul, 2017 Dental examination Z01.20 [facility] [place] [address] 96204- 0613 15 Jul, 2017 Mucopurulent chronic bronchitis J41.1 [place] [address] [address]47- 1875 Jul, Cervical neuritis M54.12 ; Common wart B07.8 ; Actinic keratosis L57.0 ; Encounter for immunization Z23 and Mucopurulent chronic bronchitis J41.1 [facility] [place] [address] 97486- 6868 Jun, Radiculopathy of cervical region M54.12 [facility] [place] [id number] [place] [address] 58052- 2886 May, Arthritis M19.90 ; Cervical radiculopathy M54.12 and Mucopurulent chronic bronchitis J41.1 [place] [address] [id number] [place] [address] 45580- 2817 20 Feb, 2017 Arthritis M19.90 [facility] [place] [id number] [place] [address] 49162- 5445 Feb, Other chronic pain G89.29 [facility] [place] [id number] [place] [address] 08795- 0127 19 Feb, 2017 Other chronic pain G89.29 [facility] [address] [place] [address] [id number] 15 Feb, 2017 Dental examination Z01.20 [facility] [place] [id number] [place] [address] 68764- 2335 Feb, Polyneuropathy G62.9 [facility] [address] [id number] Jan, Dental examination Z01.20 [facility] [place] [id number] [place] [address] 51570- 4419 Jan, Arthritis M19.90 [facility] [id number] [place] [address] [id number] Jan, Dental examination Z01.20 [facility] [place] [id number] [place] [address] 43006- 1674 Dec, [facility] [place] [address] 15616- 4338 Dec, Arthritis M19.90 [facility] [place] [id number] [place] [address] 08238- 0676 Dec, Sebaceous cyst L72.3 [facility] [place] [id number] [place] [address] 39934- 1359 Dec, Sebaceous cyst L72.3 and Common wart B07.8 [facility] [place] [id number] [place] [address] 86492- 3532 Nov, Arthritis M19.90 [facility] [place] [id number] [place] [address] 13577- 7789 Nov, [facility] [place] [id number] [place] [address] 84509- 7351 October, Arthritis M19.90 [facility] [place] [id number] [place] [address] 52659- 8716 October, Polyneuropathy G62.9 and Arthritis M19.90 [facility] [place] [id number] [place] [address] 42217- 9184 October, Polyneuropathy G62.9 and Arthritis M19.90 [facility] [place] [id number] [place] [address] 49006- 5565 October, Arthritis M19.90 and Polyneuropathy G62.9 [facility] [address] [place] [address] [id number] October, Dental examination Z01.20 [facility] [place] [id number] [place] [address] 75600- 0084 Sep, Polyuria R35.8 [facility] [address] [place] [id number] [place] [address] [id number] Sep, Dental examination Z01.20 [facility] [place] [address] 44701- 4090 Sep, [facility] [place] [address] 32317- 2198 Sep, Polyneuropathy G62.9 [facility] [place] [id number] [place] [address] 52553- 2190 Aug, Polyuria R35.8 [facility] [id number] [place] [address] [id number] Aug, Dental examination Z01.20 [facility] [place] [id number] [place] [address] 89745- 5736 Aug, Polyneuropathy G62.9 [facility] [place] [id number] [place] [address] 64572- 1758 Aug, Polyuria R35.8 [facility] [id number] [place] [address] [id number] Jul, Dental examination Z01.20 [facility] [address] [place] [address] [id number] Jul, Dental examination Z01.20 [facility] [place] [id number] [place] [address] 56259- 4265 Jul, Polyneuropathy G62.9 [facility] [place] [id number] [place] [address] 27636- 3429 Jul, Polyuria R35.8 [facility] [id number] [place] [address] 86175 -9956 Jun, Lumbago with sciatica, left side M54.42 and Other chronic pain G89.29 [place] [address] [place] [id number] [place] [address] 69590- 5785 Jun, Polyneuropathic pain M79.2 and Other infective acute otitis externa of left ear H60.392 [place] [address] 03070- 3033 Jun, Polyuria R35.8 [place] [address] 68973- 7579 May, Dental examination Z01.20 [place] [address] 90022- 2228 May, Polyneuropathy G62.9 [place] [address] 93646- 9153 May, Polyuria R35.8 [place] [address] 56491- 8272 Apr, Polyuria R35.8 ; Weight loss R63.4 ; Arthralgia, unspecified joint M25.50 and Neuropathy G62.9 [place] [address] [id number] [place] [address] 56585- 9305 Apr, [place] [address] [id number] [place] [address] 40742- 0501 Apr, Dental examination Z01.20 [place] [address] [id number] [place] [address] 90655- 0271 Mar, Polyuria R35.8 ; Weight loss R63.4 ; Arthralgia, unspecified joint M25.50 ; Neuropathy G62.9 ; Family history of rheumatoid arthritis Z82.61 and Family history of diabetes mellitus Z83.3 [place] [address] 32707- 8566 Mar, [facility] [place] [address] [address]- 6625 Feb, [facility] [place] [id number] [place] [address] 09548- 3753 Feb, Encounter for dental examination and cleaning without abnormal findings Z01.20 [facility] [place] [id number] [place] [address] 79155- 7919 Jan, [facility] [place] [id number] [place] [address] 29500- 2760 Dec, Degenerative disc disease at L5-S1 level M51.36 [facility] [id number] [place] [address] 85822 -8168 Dec, Degenerative disc disease at L5-S1 level M51.36 [facility] [place] [id number] [place] [address] 12173- 7601 Dec, [facility] [place] [id number] [place] [address] 14646- 6439 Nov, [facility] [place] [id number] [place] [address] 67217- 6256 October, Arthritis M19.90 [facility] [place] [id number] [place] [address] 10671- 8773 Sep, Arthritis M19.90 and Family history of diabetes mellitus Z83.3 [facility] [place] [address] [address]- 8566 Jul, [facility] [place] [address] [address]- 4031 Jun, [facility] [place] [id number] [place] [address] 06359- 7406 May, [facility] [place] [address] [address]- 9326 Apr, [facility] [place] [id number] [place] [address] 88501- 8740 29 Feb, 2015 Actinic keratitis 370.24 [facility] [place] [id number] [place] [address] 79604- 9640 Jan, Common wart 078.19 ; Back pain 724.5 and Fibromyalgia 729.1 [facility] [place] [id number] [place] [address] 42580- 5212 Dec, Alcohol abuse 305.00 [facility] [place] [address] 85843- 0617 Dec, Lesion of neck 709.9 [facility] [place] [address] 75387- 3242 Dec, Back pain 724.5 [facility] [place] [id number] [place] [address] 63570- 7812 Nov, Alcohol abuse 305.00 ; Basal cell carcinoma 173.91 and Common wart 078.19 [facility] [place] [id number] [place] [address] 90982- 1930 Nov, [facility] [place] [id number] [place] [address] 85992- 0823 Sep, [facility] [place] [id number] [place] [address] 63144- 7779 Sep, [facility] [place] [id number] [place] [address] 62138- 7623 Jun, [facility] [place] [id number] [place] [address] 25895- 5459 Jun, [facility] [place] [id number] [place] [address] 574207- 5917 May, [facility] [place] [id number] [place] [address] 621569- 7912 May, [facility] [place] [id number] [place] [address] 15342- 9573 Feb, [facility] [place] [facility] [address] [id number] [place] [address]- 5458 Feb, [facility] [place] [facility] [address] [id number] [place] [address]- 7001 Feb, [facility] [place] [facility] [address] [id number] [place] [address]- 5289 Feb, [facility] [place] [facility] [address] [id number] [place] [address]- 1548 Sep, [facility] [place] [facility] [address] [id number] [place] [address]- 4547 Sep, [facility] [place] [facility] [address] [id number] [place] [address]- 9351 Sep, [facility] [place] [facility] [address] [id number] [place] [address]- 8479 Sep, [facility] [place] [facility] [address] [id number] [place] [address]- 0269 Aug, [facility] [place] [facility] [address] [id number] [place] [address]- 6013 Aug, [facility] [place] [facility] [address] [id number] [place] [address]- 3983 Jul, [facility] [place] [facility] [address] [id number] [place] [address]- 5752 Jul, [facility] [place] [facility] [address] [id number] [place] [address]- 3427 Jul, [facility] [place] [facility] [address] [id number] [place] [address]- 4583 Jul, [facility] [place] [facility] [address] [id number] [place] [address]- 4231 Jun, [facility] [place] [facility] [address] [id number] [place] [address]- 9356 Jun, [facility] [place] [facility] [address] [id number] [address]- 7673 Jun, [facility] [place] [facility] [address] [id number] [place] [address]- 6800 Jun, [facility] [place] [facility] [address] [id number] [place] [address]- 6168 May, [facility] [place] [facility] [address] [id number] [place] [address]- 3198 May, [facility] [place] [facility] [address] [id number] [place] [address]- 6447 Apr, [facility] [place] [facility] [address] [id number] [place] [address]- 6234 Apr, [facility] [place] [facility] [address] [id number] [place] [address]- 2495 Apr, [facility] [place] [facility] [address] [id number] [place] [address]- 3333 Apr, [facility] [place] [facility] [address] [id number] [place] [address]- 8203 Apr, [facility] [place] [facility] [address] [id number] [place] [address]- 4640 Apr, [facility] [place] [facility] [address] [id number] [place] [address]- 9392 Mar, [facility] [place] [facility] [address] [id number] [address]- 1506 Mar, [facility] [place] [facility] [address] [id number] [address]- 2326 Mar, [facility] [place] [facility] [address] [id number] [place] [address]- 7221 Mar, [facility] [place] [facility] [address] [id number] [place] [address]- 9685 Jan, [facility] [place] [facility] [address] [id number] [place] [address]- 1029 Jan, [facility] [place] [facility] [address] [id number] [place] [address]- 9033 Aug, [facility] [place] [facility] [address] [id number] [place] [address]- 0478 Aug, [facility] [place] [facility] [address] [id number] [place] [address]- 6801 Mar, [facility] [place] [facility] [address] [id number] [place] [address]- 1768 Mar, [facility] [place] [facility] [address] [id number] [place] [address]- 9646 Mar, [facility] [place] [facility] [address] [id number] [place] [address]- 8881 Mar, [facility] [place] [facility] [address] [id number] [place] [address]- 1809 Mar, [facility] [place] [facility] [address] [id number] [place] [address]- 1789 Mar, [facility] [place] [facility] [address] [id number] [place] [address]- 7672 Mar, [facility] [place] [facility] [address] [id number] [place] [address]- 9516 Mar, [facility] [place] [facility] [address] [id number] [place] [address]- 9442 Jan, [facility] [place] [facility] [address] [id number] [place] [address]- 5852 Jan, [facility] [place] [facility] [address] [id number] [place] [address]- 0198 Nov, [facility] [place] [facility] [address] [id number] [place] [address]- 2531 Nov, [facility] [place] [facility] [address] [id number] [place] [address]- 1246 October, [facility] [place] [facility] [address] [id number] [place] [address]- 6783 Aug, [facility] [place] [id number] [address]- 0619 Aug, [facility] [place] [address] [address]- 1456 Aug, [facility] [place] [address] [address]- 2005 Jul, [facility] [place] [address] [address]- 2258 Jul, [facility] [place] [address] [address]- 1488 Apr, [facility] [place] [address] [address]- 4334 Apr, [facility] [place] [address] [address]- 1046 Apr, [facility] [place] [address] [address]- 8859 Jul, [facility] [place] [id number] [address]- 7774 Jun, [facility] [place] [id number] [address]- 2298 Apr, IMMUNIZATIONS No Known Immunizations SOCIAL HISTORY Never Assessed REASON FOR VISIT EMR-[facility] [place] PLAN OF CARE VITAL SIGNS MEDICATIONS Unknown [...]
[2018-10-14] MEDS ORDERED: LACTATED RINGERS 1,000 ML IV STA (10:56)
--- OUTSIDE RECORDS SUMMARY | 2018-10-14 10:56 | XMS REPORT ---
Author Author Migration, Doctor Organization [facility] Address Unknown Phone Unavailable Care Team Providers Care Roll Forming Supervisor Name Role Phone Migration, Doctor Unavailable Unavailable PROBLEMS Type Condition ICD9-CM Code [id number] Code Onset Dates Condition Status SNOMED Code Problem Polyneuropathy G62.9 Active 84111751 Problem Lumbago with sciatica, left side M54.42 Active 579895545 Problem Other chronic pain G89.29 Active 72860124 Problem Hypertension, unspecified type I10 Active 86835169 Problem Neuropathy G62.9 Active 494903309 Problem Seasonal allergic rhinitis due to other allergic trigger J30.89 Active 242419659 Problem Degenerative disc disease at L5-S1 level M51.36 Active 53860544 Problem Arthritis M19.90 Active 0120922 Problem Cervical radiculopathy M54.12 Active 50519567 Problem Mucopurulent chronic bronchitis J41.1 Active 09658847 Problem Gingivitis K05.10 Active 34170556 ALLERGIES No Information ENCOUNTERS Encounter Location Date Diagnosis [place] [address] [address] Sep, [facility] [id number] [place] [address]23 -5741 Jul, Strain of lumbar region, initial encounter S39.012A [facility] [id number] [place] [address] 06557- 6217 Dec, Polyneuropathy G62.9 ; 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 and Seasonal allergic rhinitis due to other allergic trigger J30.89 [facility] [id number] [place] [address] 03798- 9556 Sep, Common wart B07.8 and Hypertension, unspecified type I10 [facility] [address] 7[address]- 8731 Aug, Dental examination Z01.20 ; Gingivitis K05.10 and Xerostomia R68.2 [facility] [id number] [place] [address] 45273- 3164 Aug, Dental caries extending into dentin K02.62 [facility] [id number] [place] [address] 43355- 8165 20 Jul, 2017 Dental examination Z01.20 [facility] [address] 52935- 8529 15 Jul, 2017 Mucopurulent chronic bronchitis J41.1 [place] [address] 6[address]- 4515 Jul, Cervical neuritis M54.12 ; Common wart B07.8 ; Actinic keratosis L57.0 ; Encounter for immunization Z23 and Mucopurulent chronic bronchitis J41.1 [facility] [address] 38038- 5613 Jun, Radiculopathy of cervical region M54.12 [facility] [id number] [place] [address] 46481- 2398 May, Arthritis M19.90 ; Cervical radiculopathy M54.12 and Mucopurulent chronic bronchitis J41.1 [place] [address] [id number] [place] [address] 53339- 6086 20 Feb, 2017 Arthritis M19.90 [facility] [id number] [place] [address] 83276- 5778 Feb, Other chronic pain G89.29 [facility] [id number] [place] [address] 55990- 2764 19 Feb, 2017 Other chronic pain G89.29 [facility] [address] [place] [address] [phone] 15 Feb, 2017 Dental examination Z01.20 [facility] [id number] [place] [address] 58004- 6603 Feb, Polyneuropathy G62.9 [facility] [address] [id number] Jan, Dental examination Z01.20 [facility] [id number] [place] [address] 52157- 0617 Jan, Arthritis M19.90 [facility] [address] [place] [address] [id number] Jan, Dental examination Z01.20 [facility] [id number] [place] [address] 96606- 6474 Dec, [facility] [address] 67031- 7398 Dec, Arthritis M19.90 [facility] [id number] [place] [address] 76124- 2182 Dec, Sebaceous cyst L72.3 [facility] [id number] [place] [address] 61011- 1589 Dec, Sebaceous cyst L72.3 and Common wart B07.8 [facility] [id number] [place] [address] 65470- 9967 Nov, Arthritis M19.90 [facility] [id number] [place] [address] 56698- 1592 Nov, [facility] [id number] [place] [address] 68667- 3791 October, Arthritis M19.90 [facility] [id number] [place] [address] 51303- 5732 October, Polyneuropathy G62.9 and Arthritis M19.90 [facility] [id number] [place] [address] 05793- 0981 October, Polyneuropathy G62.9 and Arthritis M19.90 [facility] [id number] [place] [address] 97312- 9212 October, Arthritis M19.90 and Polyneuropathy G62.9 [facility] [address] [place] [address] [phone] October, Dental examination Z01.20 [facility] [id number] [place] [address] 18813- 5533 Sep, Polyuria R35.8 [facility] [address] [id number] [place] [address] [phone] Sep, Dental examination Z01.20 [facility] [address] 78275- 6801 Sep, [facility] [address] 97097- 7627 Sep, Polyneuropathy G62.9 [facility] [id number] [place] [address] 27818- 6543 Aug, Polyuria R35.8 [facility] [id number] [place] [address] [id number] Aug, Dental examination Z01.20 [facility] [id number] [place] [address] 59520- 4354 Aug, Polyneuropathy G62.9 [facility] [id number] [place] [address] 83371- 4031 Aug, Polyuria R35.8 [facility] [address] [address] [id number] [place] [address] [id number] Jul, Dental examination Z01.20 [facility] [address] [place] [address] [phone] Jul, Dental examination Z01.20 [facility] [id number] [place] [address] 83048- 7129 Jul, Polyneuropathy G62.9 [facility] [id number] [place] [address] 93520- 7205 Jul, Polyuria R35.8 [facility] [id number] [place] [address] 97564 -0981 Jun, Lumbago with sciatica, left side M54.42 and Other chronic pain G89.29 [place] [address] [id number] [place] [address] 00420- 4291 Jun, Polyneuropathic pain M79.2 and Other infective acute otitis externa of left ear H60.392 [place] [address] 25705- 2798 Jun, Polyuria R35.8 [place] [address] 72994- 1197 May, Dental examination Z01.20 [place] [address] 68890- 4097 May, Polyneuropathy G62.9 [place] [address] 08769- 1594 May, Polyuria R35.8 [place] [address] 53956- 1135 Apr, Polyuria R35.8 ; Weight loss R63.4 ; Arthralgia, unspecified joint M25.50 and Neuropathy G62.9 [place] [address] [place] [id number] [place] [address] 06034- 8106 Apr, [place] [address] [place] [id number] [place] [address] 49348- 6220 Apr, Dental examination Z01.20 [place] [address] [place] [id number] [place] [address] 32891- 7242 Mar, Polyuria R35.8 ; Weight loss R63.4 ; Arthralgia, unspecified joint M25.50 ; Neuropathy G62.9 ; Family history of rheumatoid arthritis Z82.61 and Family history of diabetes mellitus Z83.3 [place] [address] 38770- 2316 Mar, [facility] [address] [address]- 7573 Feb, [facility] [id number] [place] [address] 15665- 9913 Feb, Encounter for dental examination and cleaning without abnormal findings Z01.20 [facility] [id number] [place] [address] 28201- 7444 Jan, [facility] [id number] [place] [address] 25055- 8496 Dec, Degenerative disc disease at L5-S1 level M51.36 [facility] [id number] [place] [address] 57095 -5793 Dec, Degenerative disc disease at L5-S1 level M51.36 [facility] [id number] [place] [address] 65238- 3670 Dec, [facility] [id number] [place] [address] 19124- 7302 Nov, [facility] [id number] [place] [address] 35691- 1753 October, Arthritis M19.90 [facility] [id number] [place] [address] 23008- 6167 Sep, Arthritis M19.90 and Family history of diabetes mellitus Z83.3 [facility] [address] [address]- 8965 Jul, [facility] [address] [address]- 3138 Jun, [facility] [id number] [place] [address] 54920- 3716 May, [facility] [address], [place] [address]- 0036 Apr, [facility] [id number] [place] [address] 22973- 5132 29 Feb, 2015 Actinic keratitis 370.24 [facility] [id number] [place] [address] 21704- 4477 Jan, Common wart 078.19 ; Back pain 724.5 and Fibromyalgia 729.1 [facility] [id number] [place] [address] 88716- 6087 Dec, Alcohol abuse 305.00 [facility] [address] 30827- 6231 Dec, Lesion of neck 709.9 [facility] [address] 12801- 4107 Dec, Back pain 724.5 [facility] [id number] [place] [address] 76426- 8302 Nov, Alcohol abuse 305.00 ; Basal cell carcinoma 173.91 and Common wart 078.19 [facility] [id number] [place] [address] 10802- 1245 Nov, [facility] [id number] [place] [address] 10275- 1255 Sep, [facility] [id number] [place] [address] 90525- 5515 Sep, [facility] [id number] [place] [address] 19141- 6501 Jun, [facility] [id number] [place] [address] 01148- 0921 Jun, [facility] [id number] [place] [address] 385547- 3631 May, [facility] [id number] [place] [address] 783793- 9103 May, [facility] [id number] [place] [address] 07611- 0597 Feb, [facility] [place] [facility] [address] [id number] [place] [address]- 3510 Feb, [facility] [place] [facility] [address] [id number] [place] [address]- 0831 Feb, [facility] [place] [facility] [address] [id number] [place] [address]- 4407 Feb, [facility] [place] [facility] [address] [id number] [place] [address]- 7652 Sep, [facility] [place] [facility] [address] [id number] [place] [address]- 4301 Sep, [facility] [place] [facility] [address] [id number] [place] [address]- 9274 Sep, [facility] [place] [facility] [address] [id number] [place] [address]- 8350 Sep, [facility] [place] [facility] [address] [id number] [place] [address]- 7042 Aug, [facility] [place] [facility] [address] [id number] [place] [address]- 4279 Aug, [facility] [place] [facility] [address] [id number] [place] [address]- 5535 Jul, [facility] [place] [facility] [address] [id number] [place] [address]- 6714 Jul, [facility] [place] [facility] [address] [id number] [place] [address]- 9606 Jul, [facility] [place] [facility] [address] [id number] [place] [address]- 1389 Jul, [facility] [place] [facility] [address] [id number] [place] [address]- 4971 Jun, [facility] [place] [facility] [address] [id number] [place] [address]- 1397 Jun, [facility] [place] [facility] [address] [id number], [place] [address]- 9178 Jun, [facility] [place] [facility] [address] [id number] [place] [address]- 1374 Jun, [facility] [place] [facility] [address] [id number] [place] [address]- 5464 May, [facility] [place] [facility] [address] [id number] [place] [address]- 5696 May, [facility] [place] [facility] [address] [id number] [place] [address]- 9226 Apr, [facility] [place] [facility] [address] [id number] [place] [address]- 8686 Apr, [facility] [place] [facility] [address] [id number] [place] [address]- 3668 Apr, [facility] [place] [facility] [address] [id number] [place] [address]- 9867 Apr, [facility] [place] [facility] [address] [id number] [place] [address]- 6433 Apr, [facility] [place] [facility] [address] [id number] [place] [address]- 3683 Apr, [facility] [place] [facility] [address] [id number] [place] [address]- 9451 Mar, [facility] [place] [facility] [address] [id number], [place] [address]- 3270 Mar, [facility] [place] [facility] [address] [id number], [place] [address]- 9484 Mar, [facility] [place] [facility] [address] [id number] [place] [address]- 4384 Mar, [facility] [place] [facility] [address] [id number] [place] [address]- 0840 Jan, [facility] [place] [facility] [address] [id number] [place] [address]- 7393 Jan, [facility] [place] [facility] [address] [id number] [place] [address]- 7903 Aug, [facility] [place] [facility] [address] [id number] [place] [address]- 1299 Aug, [facility] [place] [facility] [address] [id number] [place] [address]- 1602 Mar, [facility] [place] [facility] [address] [id number] [place] [address]- 2161 Mar, [facility] [place] [facility] [address] [id number] [place] [address]- 0792 Mar, [facility] [place] [facility] [address] [id number] [place] [address]- 5917 Mar, [facility] [place] [facility] [address] [id number] [place] [address]- 3323 Mar, [facility] [place] [facility] [address] [id number] [place] [address]- 1886 Mar, [facility] [place] [facility] [address] [id number] [place] [address]- 9122 Mar, [facility] [place] [facility] [address] [id number] [place] [address]- 2953 Mar, [facility] [place] [facility] [address] [id number] [place] [address]- 2838 Jan, [facility] [place] [facility] [address] [id number] [place] [address]- 5686 Jan, [facility] [place] [facility] [address] [id number] [place] [address]- 2761 Nov, [facility] [place] [facility] [address] [id number] [place] [address]- 0935 Nov, [facility] [place] [facility] [address] [id number] [place] [address]- 7896 October, [facility] [place] [facility] [address] [id number] [place] [address]- 4563 Aug, [facility] [id number] [address]- 1704 Aug, [facility] [address], [place] [address]- 3466 Aug, [facility] [address] [address]- 1712 Jul, [facility] [address], [place] [address]- 6372 Jul, [facility] [address], [place] [address]- 1946 Apr, [facility] [address], [place] [address]- 0993 Apr, [facility] [address], [place] [address]- 5640 Apr, [facility] [address] [place] [address]- 1122 Jul, [facility] [id number] [address]- 1536 Jun, [facility] [id number] [address]- 1597 Apr, IMMUNIZATIONS No Known Immunizations SOCIAL HISTORY Never Assessed REASON FOR VISIT EMR-[facility] PLAN OF CARE VITAL SIGNS MEDICATIONS Unknown [...]
--- OUTSIDE RECORDS SUMMARY | 2018-10-14 10:56 | XMS REPORT ---
Author Author SRINI LIMON Organization [facility] Address [address] [place] [address] Care Team Providers Care Animal Nurse Name Role Phone SRINI LIMON Unavailable PROBLEMS Type Condition ICD9-CM Code [id number] Code Onset Dates Condition Status SNOMED Code Problem Polyneuropathy G62.9 Active 02313414 Problem Other chronic pain G89.29 Active 31651222 Problem Lumbago with sciatica, left side M54.42 Active 375102746 Problem Degenerative disc disease at L5-S1 level M51.36 Active 84100688 Problem Neuropathy G62.9 Active 314688681 Problem Seasonal allergic rhinitis due to other allergic trigger J30.89 Active 112193374 Problem Hypertension, unspecified type I10 Active 58429687 Problem Cervical radiculopathy M54.12 Active 41545712 Problem Arthritis M19.90 Active 5325271 Problem Gingivitis K05.10 Active 78894300 Problem Mucopurulent chronic bronchitis J41.1 Active 87431878 ALLERGIES No Known Allergies ENCOUNTERS Encounter Location Date Diagnosis [address] [address] Dec, Polyneuropathy G62.9 ; 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 [id number] [place] [address] 75043- 4588 20 Jul, [address] [facility] [id number] [place] [address] 97967- 2881 15 Jul, 2017 Mucopurulent chronic bronchitis J41.1 [facility] [id number] [place] [address] 22267- 8348 15 Jul, 2017 Cervical neuritis M54.12 ; Common wart B07.8 ; Actinic keratosis L57.0 ; Encounter for immunization Z23 and Mucopurulent chronic bronchitis J41.1 [place] [address] [place] [id number] [place] [address] 62338- 0032 Jun, Radiculopathy of cervical region M54.12 [place] [address] [address]- [address] May, Arthritis M19.90 ; Cervical radiculopathy M54.12 and Mucopurulent chronic bronchitis J41.1 [place] [address] [id number] [place] [address] 62330- 8145 Feb, [address]19.90 [facility] [id number] [place] [address] 19168- 2895 20 Feb, 2017 Other chronic pain G89.29 [facility] [id number] [place] [address] 89449- 1519 19 Feb, 2017 Other chronic pain G89.29 [facility] [id number] [place] [address] [id number] 15 Feb, [address] [facility] [id number] [place] [address] 89676- 3211 07 Feb, 2017 Polyneuropathy G62.9 [facility] [id number] [place] [address] [id number] Jan, Dental examination Z01.20 [facility] [id number] [place] [address] 74159- 9890 Jan, Arthritis M19.90 [facility] [id number] [place] [address] [phone] Jan, Dental examination Z01.20 [facility] [id number] [place] [address] 33575- 9077 Dec, [facility] [id number] [place] [address] 05908- 1556 Dec, Arthritis [address]19.90 [facility] [id number] [place] [address] 59869- 7031 Dec, Sebaceous cyst L72.3 [facility] [id number] [place] [address] 32255- 3406 Dec, Sebaceous cyst L72.3 and Common wart B07.8 [facility] [id number] [place] [address] 60257- 5461 Nov, Arthritis M19.90 [facility] [id number] [place] [address] 42761- 3603 Nov, [facility] [id number] [place] [address] 96173- 5037 October, Arthritis M19.90 [facility] [id number] [place] [address] 39134- 9262 October, Polyneuropathy G62.[address] [facility] [id number] [place] [address] 40593- 0054 October, Polyneuropathy G62.[address] [facility] [id number] [place] [address] 93434- 7782 October, Arthritis M19.90 and Polyneuropathy G62.9 [facility] [address] [place] [address] [phone] October, Dental examination Z01.20 [place] [address] [address] 0[address] Sep, Polyuria R35.8 [facility] [id number] [place] [address] [phone] Sep, Dental examination Z01.20 [facility] [id number] [place] [address] 76420- 2874 Sep, [facility] [id number] [place] [address] 65139- 6195 Sep, Polyneuropathy G62.9 [facility] [id number] [place] [address] 89562- 3827 Aug, Polyuria R35.8 [facility] [id number] [place] [address] [phone] Aug, Dental examination Z01.20 [facility] [id number] [place] [address] 79586- 3492 Aug, Polyneuropathy G62.9 [facility] [id number] [place] [address] 62316- 2767 Aug, Polyuria R35.8 [facility] [id number] [place] [address] [id number] Jul, Dental examination Z01.20 [facility] [address] [place] [address] [id number] Jul, Dental examination Z01.20 [facility] [address] [place] [address] 51653- 2566 Jul, Polyneuropathy G62.9 [facility] [id number] [place] [address] 50950- 6801 Jul, Polyuria R35.8 [facility] [id number] [place] [address] 79567 -7887 Jun, Lumbago with sciatica, left side M54.42 and Other chronic pain G89.29 [place] [address] [id number] [place] [address] 41173- 8119 Jun, Polyneuropathic pain M79.2 and Other infective acute otitis externa of left ear H60.392 [place] [address] [id number] [place] [address] 36718- 5943 Jun, Polyuria R35.8 [place] [address] [address]- 1953 May, Dental examination Z01.20 [place] [address] 22822- 0486 May, Polyneuropathy G62.9 [place] [address] 04555- 4036 May, Polyuria R35.8 [place] [address] 49541- 1470 Apr, Polyuria R35.8 ; Weight loss R63.4 ; Arthralgia, unspecified joint M25.50 and Neuropathy G62.9 [place] [address] 44085- 5414 Apr, [place] [address] [id number] [place] [address] 89362- 9649 Apr, Dental examination Z01.20 [place] [address] [id number] [place] [address] 54128- 7624 Mar, Polyuria R35.8 ; Weight loss R63.4 ; Arthralgia, unspecified joint M25.50 ; Neuropathy G62.9 ; Family history of rheumatoid arthritis Z82.61 and Family history of diabetes mellitus Z83.3 [place] [address] 38446- 1140 24 Mar, 2016 [place] [address] [id number] [place] [address] 47162- 3961 Feb, [place] [address] [place] [address]- 2392 Feb, Encounter for dental examination and cleaning without abnormal findings Z01.20 [facility] [id number] [place] [address] 33348- 2160 Jan, [facility] [id number] [place] [address] 42714- 9211 Dec, Degenerative disc disease at L5-S1 level M51.36 [facility] [id number] [place] [address] 59876 -9915 Dec, Degenerative disc disease at L5-S1 level M51.36 [facility] [address] [id number] [place] [address] 98981- 0520 Dec, [facility] [id number] [place] [address] 38727- 0522 Nov, [facility] [id number] [place] [address] 94259- 1228 October, Arthritis M19.90 [facility] [id number] [place] [address] 89810- 4898 Sep, Arthritis M19.90 and Family history of diabetes mellitus Z83.3 [facility] [id number] [place] [address] 50776- 4513 Jul, [facility] [id number] [place] [address] 94740- 8497 Jun, [facility] [id number] [place] [address] 84748- 4795 May, [facility] [id number] [place] [address] 97083- 7774 Apr, [facility] [id number] [place] [address] 21338- 1560 Feb, Actinic keratitis 370.24 [facility] [id number] [place] [address] 60805- 4749 Jan, Common wart 078.19 ; Back pain 724.[address] [facility] [id number] [place] [address] 21800- 7526 Dec, Alcohol abuse 305.00 [facility] [id number] [address]- 2546 Dec, Lesion of neck 709.9 [facility] [id number] [place] [address] 42154 2546 Dec, Back pain 724.5 [facility] [id number] [place] [address] 70984- 4560 Nov, Alcohol abuse 305.00 ; Basal cell carcinoma 173.91 and Common wart 078.19 [facility] [id number] [place] [address] 25962- 8479 Nov, [facility] [id number] [place] [address] 36872- 0853 Sep, [facility] [address] [place] [address] 77885- 9710 Sep, [facility] [id number] [place] [address] 53171- 9881 Jun, [facility] [address] [address]- 3294 Jun, [facility] [id number] [address]- 7538 May, [facility] [address] [address] 2546 May, [facility] [id number] [place] [address] 68895 [address], [facility] [address] [place] [address] 2546 Feb, [facility] [id number] [place] [address] 47770- 6345 Feb, [facility] [place] [facility] [address] [id number] [place] [address]- 9367 Feb, [facility] [place] [facility] [address] [id number] [place] [address]- 4905 Sep, [facility] [place] [facility] [address] [id number] [place] [address]- 8410 Sep, [facility] [place] [facility] [address] [id number] [place] [address]- 9504 Sep, [facility] [place] [facility] [address] [id number] [place] [address]- 5909 Sep, [facility] [place] [facility] [address] [id number] [place] [address]- 6038 Aug, [facility] [place] [facility] [address] [id number] [place] [address]- 5926 Aug, [facility] [place] [facility] [address] [id number] [place] [address]- 5085 Jul, [facility] [place] [facility] [address] [id number] [place] [address]- 4835 Jul, [facility] [place] [facility] [address] [id number] [place] [address]- 6926 Jul, [facility] [place] [facility] [address] [id number] [place] [address]- 7059 Jul, [facility] [place] [facility] [address] [id number] [place] [address]- 9521 Jun, [facility] [place] [facility] [address] [id number] [place] [address]- 5797 Jun, [facility] [place] [facility] [address] [id number] [place] [address]- 5074 Jun, [facility] [place] [facility] [address] [id number] [place] [address]- 4738 Jun, [facility] [place] [facility] [address] [id number] [place] [address]- 7962 May, [facility] [address] [id number] [place] [address]- 4354 May, [facility] [place] [facility] [address] [id number] [place] [address]- 2979 Apr, [facility] [address] [id number] [place] 7351 Apr, [facility] [place] [facility] [address] [id number] [place] [address]- 2214 Apr, [facility] [address] [id number] [place] [address]- 6614 Apr, [facility] [address] [id number] [place] [address]- 4926 Apr, [facility] [address] [id number] [place] [address]- 7510 Apr, [facility] [address] [id number] [place] [address]- 3411 Mar, [facility] [place] [facility] [address] [id number] [place] [address]- 0338 Mar, [facility] [address] [id number] [place] [address]- 7256 Mar, [facility] [place] [facility] [address] [id number] [place] [address]- 6309 Mar, [facility] [place] [facility] [address] [id number] [place] [address]- 7478 Jan, [facility] [place] [facility] [address] [id number] [place] [address]- 1464 Jan, [facility] [place] [facility] [address] [id number] [place] [address]- 7992 Aug, [facility] [place] [facility] [address] [id number] [place]- 3621 Aug, [facility] [place] [facility] [address] [id number] [place] [address]- 7838 Mar, [facility] [place] [facility] [address] [id number] [place] [address]- 5096 Mar, [facility] [place] [facility] [address] [id number] [place]- 2128 Mar, [facility] [place] [facility] [address] [id number] [place] [address]- 0176 Mar, [facility] [place] [facility] [address] [id number] [place] [address]- 1867 Mar, [facility] [place] [facility] [address] [id number] [place] [address]- 3783 Mar, [facility] [place] [facility] [address] [id number] [place] [address]- 2516 Mar, [facility] [place] [facility] [address] [id number] [place] [address]- 2679 Mar, [facility] [place] [facility] [address] [id number] [place] [address]- 0855 Jan, [facility] [place] [facility] [address] [id number] [place] [address]- 4728 Jan, [facility] [place] [facility] [address] [id number] [place] [address]- 9679 Nov, [facility] [place] [facility] [address] [id number] [address]- 8592 Nov, [facility] [place] [facility] [address] [id number] [place] [address]- 7841 October, [facility] [place] [facility] [address] [id number] [place] [address]- 6946 Aug, [facility] [place] [facility] [address] [id number] [place] [address]- 8836 Aug, [facility] [place] [facility] [address] [id number], [place] [address]- 2536 Aug, [facility] [id number] [address]- 3006 Jul, [facility] [address] [address] 7826 Jul, [facility] [id number] [address] 3776 Apr, [facility] [address] [address]- 2961 Apr, [facility] [id number] [address]- 2889 Apr, [facility] [address] [place] [address]- 45[address] Jul, [facility] [id number] [address]- 0045 Jun, [facility] [id number] [address]- 1626 Apr, IMMUNIZATIONS No Known Immunizations SOCIAL HISTORY Never Assessed REASON FOR VISIT Pain management (chronic)-Arianna WERNER PLAN OF CARE VITAL SIGNS Height 70 in 2018-01-14 Weight 238.2 lbs 2018-01-14 Temperature 98.0 degrees Fahrenheit 2018-01-14 Heart Rate 76 bpm 2018-01-14 Respiratory Rate 18 2018-01-14 BMI 34.17 kg/m2 2018-01-14 Blood pressure systolic 132 mmHg 2018-01-14 Blood pressure diastolic 80 mmHg 2018-01-14 MEDICATIONS Medication Instructions Dosage Frequency Start Date End Date Duration Status Valtrex 1 GM Orally Once a day 1 tablet 24h Dec, Active Cymbalta 60 MG TAKE ONE CAPSULE BY MOUTH ONCE DAILY 30 Active Baclofen 20 MG TAKE ONE TABLET BY MOUTH THREE TIMES DAILY NEEDED 30 Active Naproxen 500 MG TAKE ONE TABLET BY MOUTH TWICE DAILY 30 Active Viagra 100 MG TAKE ONE TABLET BY MOUTH ONCE DAILY NEEDED (PROGRAM LIMITS 10 TABS/30 DAYS) 10 30 Active Gabapentin 400 mg Orally Three times a day 1 capsule 8h Dec, 30 day(s) Active Metoprolol Tartrate 100 mg Orally Twice a day TAKE ONE TABLET BY MOUTH TWICE DAILY (MUST HAVE APPOINTMENT FOR REFILL) 12h 30 Active Cetirizine HCl 10 mg Orally Once a day 1 tablet 24h Dec, May, 30 day(s) Active RESULTS No Results PROCEDURES No Known [...]
--- OUTSIDE RECORDS SUMMARY | 2018-10-14 10:57 | XMS REPORT ---
Author Author SRINI LIMON Organization [facility] Address [address] [place] [address] Care Team Providers Care Lock Setter Name Role Phone SRINI LIMON Unavailable PROBLEMS Type Condition ICD9-CM Code GCR67-ET Code Onset Dates Condition Status SNOMED Code Problem Polyneuropathy G62.9 Active 03295423 Problem Other chronic pain G89.29 Active 98738136 Problem Lumbago with sciatica, left side M54.42 Active 681499754 Problem Degenerative disc disease at L5-S1 level M51.36 Active 51116489 Problem Neuropathy G62.9 Active 697036266 Problem Seasonal allergic rhinitis due to other allergic trigger J30.89 Active 885196020 Problem Hypertension, unspecified type I10 Active 57033721 Problem Cervical radiculopathy M54.12 Active 69556623 Problem Arthritis M19.90 Active 2111031 Problem Gingivitis K05.10 Active 96262403 Problem Mucopurulent chronic bronchitis J41.1 Active 95794920 ALLERGIES No Known Allergies ENCOUNTERS Encounter Location Date Diagnosis [address] [address] Dec, Polyneuropathy G62.9 ; 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 and Seasonal allergic rhinitis due to other allergic trigger J30.89 [place] [id number] [place] [id number] [place] [address] 20772- 7746 Sep, Common wart B07.8 and Hypertension, unspecified type I10 [address] [address]- [address] Aug, Dental examination Z01.20 ; Gingivitis K05.10 and Xerostomia R68.2 [place] [id number] [place] [address] 51997- 3035 Aug, Dental caries extending into dentin K02.62 [facility] [id number] [place] [address] 66589- 7046 20 Jul, 2017 Dental examination Z01.20 [facility] [id number] [place] [address] 74654- 8457 15 Jul, 2017 Mucopurulent chronic bronchitis J41.1 [facility] [id number] [place] [address] 00743- 6594 15 Jul, 2017 Cervical neuritis M54.12 ; Common wart B07.8 ; Actinic keratosis L57.0 ; Encounter for immunization Z23 and Mucopurulent chronic bronchitis J41.1 [place] [address] [id number] [place] [address] 65648- 9230 Jun, Radiculopathy of cervical region M54.12 [place] [address] [address]37- 7409 May, Arthritis M19.90 ; Cervical radiculopathy M54.12 and Mucopurulent chronic bronchitis J41.1 [place] [address] [place] [id number] [place] [address] 60600- 3071 Feb, Arthritis M19.90 [facility] [id number] [place] [address] 73118- 2497 20 Feb, 2017 Other chronic pain G89.29 [facility] [id number] [place] [address] 26588- 3266 19 Feb, 2017 Other chronic pain G89.29 [facility] [id number] [place] [address] [phone] 15 Feb, 2017 Dental examination Z01.20 [facility] [id number] [place] [address] 80440- 4808 07 Feb, 2017 Polyneuropathy G62.9 [facility] [id number] [place] [address] [id number] Jan, Dental examination Z01.20 [facility] [id number] [place] [address] 26031- 4468 Jan, Arthritis M19.90 [facility] [id number] [place] [address] [id number] Jan, Dental examination Z01.20 [facility] [id number] [place] [address] 51030- 5296 Dec, [facility] [id number] [place] [address] 12174- 3007 Dec, Arthritis M19.90 [facility] [id number] [place] [address] 94645- 6362 Dec, Sebaceous cyst L72.3 [facility] [id number] [place] [address] 73322- 8829 Dec, Sebaceous cyst L72.3 and Common wart B07.8 [facility] [id number] [place] [address] 93276- 3153 Nov, Arthritis M19.90 [facility] [id number] [place] [address] 78380- 1772 Nov, [facility] [id number] [place] [address] 78557- 8086 October, Arthritis M19.90 [facility] [id number] [place] [address] 90636- 1851 October, Polyneuropathy G62.9 and Arthritis M19.90 [facility] [address] [place] [address] 95141- 8459 October, Polyneuropathy G62.9 and Arthritis M19.90 [facility] [id number] [place] [address] 77364- 2380 October, Arthritis M19.90 and Polyneuropathy G62.9 [facility] [address] [place] [address] [id number] October, Dental examination Z01.20 [place] [address], [place] [address]- 8394 Sep, Polyuria R35.8 [facility] [id number] [place] [address] [id number] Sep, Dental examination Z01.20 [facility] [id number] [place] [address] 45386- 0835 Sep, [facility] [id number] [place] [address] 67360- 9334 Sep, Polyneuropathy G62.9 [facility] [id number] [place] [address] 73085- 7720 Aug, Polyuria R35.8 [facility] [id number] [place] [address] [phone] Aug, Dental examination Z01.20 [facility] [id number] [place] [address] 79273- 0819 Aug, Polyneuropathy G62.9 [facility] [id number] [place] [address] 50703- 6903 Aug, Polyuria R35.8 [facility] [id number] [place] [address] [id number] Jul, Dental examination Z01.20 [facility] [address] [place] [address] [phone] Jul, Dental examination Z01.20 [facility] [address] [place] [address] 77247- 3479 Jul, Polyneuropathy G62.9 [facility] [id number] [place] [address] 98786- 4427 Jul, Polyuria R35.8 [facility] [address] [place] [address] 72183 -7801 Jun, Lumbago with sciatica, left side M54.42 and Other chronic pain G89.29 [place] [address] [id number] [place] [address] 62528- 1837 Jun, Polyneuropathic pain M79.2 and Other infective acute otitis externa of left ear H60.392 [place] [address] [id number] [place] [address] 98605- 2718 Jun, Polyuria R35.8 [place] [address] 86293- 1103 May, Dental examination Z01.20 [place] [address] 62149- 0228 May, Polyneuropathy G62.9 [place] [address] 38876- 1923 May, Polyuria R35.8 [place] [address] 79940- 8502 Apr, Polyuria R35.8 ; Weight loss R63.4 ; Arthralgia, unspecified joint M25.50 and Neuropathy G62.9 [place] [address] 54928- 3806 Apr, [place] [address] [place] [id number] [place] [address] 08694- 8804 Apr, Dental examination Z01.20 [place] [address] [id number] [place] [address] 06390- 0462 Mar, Polyuria R35.8 ; Weight loss R63.4 ; Arthralgia, unspecified joint M25.50 ; Neuropathy G62.9 ; Family history of rheumatoid arthritis Z82.61 and Family history of diabetes mellitus Z83.3 [place] [address] 23558- 9344 24 Mar, 2016 [place] [address] [place] [id number] [place] [address] 85280- 4381 Feb, [place] [address] [place] [address]- 1290 Feb, Encounter for dental examination and cleaning without abnormal findings Z01.20 [facility] [id number] [place] [address] 79003- 7766 Jan, [facility] [id number] [place] [address] 04351- 5421 Dec, Degenerative disc disease at L5-S1 level M51.36 [facility] [id number] [place] [address] 39763 -6928 Dec, Degenerative disc disease at L5-S1 level M51.36 [facility] [address] [id number] [place] [address] 80077- 4380 Dec, [facility] [id number] [place] [address] 28692- 1082 Nov, [facility] [address] [id number] [place] [address] 22326- 2329 October, Arthritis M19.90 [facility] [address] [id number] [place] [address] 84967- 8364 Sep, Arthritis M19.90 and Family history of diabetes mellitus Z83.3 [facility] [id number] [place] [address] 78696- 1118 Jul, [facility] [id number] [place] [address] 16768- 2710 Jun, [facility] [id number] [place] [address] 80249- 9515 May, [facility] [id number] [place] [address] 71352- 3380 Apr, [facility] [id number] [place] [address] 57822- 7007 Feb, Actinic keratitis 370.24 [facility] [id number] [place] [address] 79331- 2062 Jan, Common wart 078.19 ; Back pain 724.5 and Fibromyalgia 729.1 [facility] [id number] [place] [address] 78779- 2606 Dec, Alcohol abuse 305.00 [facility] [id number] [address]- 2546 Dec, Lesion of neck 709.9 [facility] [id number] [place] [address] 11047 2546 Dec, Back pain 724.5 [facility] [id number] [place] [address] 39082- 8202 Nov, Alcohol abuse 305.00 ; Basal cell carcinoma 173.91 and Common wart 078.19 [facility] [id number] [place] [address] 29771- 0035 Nov, [facility] [id number] [place] [address] 60736- 7374 Sep, [facility] [address] [place] [address] 46532- 0932 Sep, [facility] [id number] [place] [address] 00782- 7572 Jun, [facility] [address], [place] [address]- 8088 Jun, [facility] [id number] [address]- 9311 May, [facility] [address] [address] 2546 May, [facility] [id number] [place] [address] 72951 2546 Feb, [facility] [address] [address] 2546 Feb, [facility] [id number] [place] [address] 39912- 4959 Feb, [facility] [place] [facility] [address] [id number] [place] [address]- 8693 Feb, [facility] [place] [facility] [address] [id number] [place] [address]- 4019 Sep, [facility] [place] [facility] [address] [id number] [place] [address]- 2829 Sep, [facility] [place] [facility] [address] [id number] [place] [address]- 9091 Sep, [facility] [place] [facility] [address] [id number] [place] [address]- 8987 Sep, [facility] [place] [facility] [address] [id number] [place] [address]- 2398 Aug, [facility] [place] [facility] [address] [id number] [place] [address]- 7091 Aug, [facility] [place] [facility] [address] [id number] [place] [address]- 9013 Jul, [facility] [place] [facility] [address] [id number] [place] [address]- 6174 Jul, [facility] [place] [facility] [address] [id number] [place] [address]- 0432 Jul, [facility] [place] [facility] [address] [id number] [place] [address]- 7519 Jul, [facility] [place] [facility] [address] [id number] [place] [address]- 4398 Jun, [facility] [place] [facility] [address] [id number] [place] [address]- 9546 Jun, [facility] [place] [facility] [address] [id number] [place] [address]- 6663 Jun, [facility] [place] [facility] [address] [id number] [place] [address]- 0320 Jun, [facility] [place] [facility] [address] [id number] [place] [address]- 4489 May, [facility] [address] [id number] [place] [address]- 6124 May, [facility] [place] [facility] [address] [id number] [place] [address]- 2357 Apr, [facility] [address] [id number] [place]- 9784 Apr, [facility] [place] [facility] [address] [id number] [place] [address]- 0645 Apr, [facility] [address] [id number] [place] [address]- 7772 Apr, [facility] [address] [id number] [place] [address]- 1893 Apr, [facility] [address] [id number] [place] [address]- 9205 Apr, [facility] [address] [id number] [place] [address]- 4626 Mar, [facility] [place] [facility] [address] [id number] [place] [address]- 6399 Mar, [facility] [address] [id number] [place] [address]- 3879 Mar, [facility] [place] [facility] [address] [id number] [place] [address]- 0608 Mar, [facility] [place] [facility] [address] [id number] [place] [address]- 3391 Jan, [facility] [place] [facility] [address] [id number] [place] [address]- 8070 Jan, [facility] [place] [facility] [address] [id number] [place] [address]- 8115 Aug, [facility] [place] [facility] [address] [id number] [place] 2363 Aug, [facility] [place] [facility] [address] [id number] [place] [address]- 3113 Mar, [facility] [place] [facility] [address] [id number] [place] [address]- 4473 Mar, [facility] [place] [facility] [address] [id number] [place] 7224 Mar, [facility] [place] [facility] [address] [id number] [place] [address]- 5152 Mar, [facility] [place] [facility] [address] [id number] [place] [address]- 3180 Mar, [facility] [place] [facility] [address] [id number] [place] [address]- 5352 Mar, [facility] [place] [facility] [address] [id number] [place] [address]- 3049 Mar, [facility] [place] [facility] [address] [id number] [place] [address]- 3936 Mar, [facility] [place] [facility] [address] [id number] [place] [address]- 2056 Jan, [facility] [place] [facility] [address] [id number] [place] [address]- 8012 Jan, [facility] [place] [facility] [address] [id number] [place] [address]- 8548 Nov, [facility] [place] [facility] [address] [id number], [place] [address]- 7757 Nov, [facility] [place] [facility] [address] [id number] [place] [address]- 0711 October, [facility] [place] [facility] [address] [id number] [place] [address]- 1346 Aug, [facility] [place] [facility] [address] [id number] [place] [address]- 7986 Aug, [facility] [place] [facility] [address] [id number], [place] [address]- 2546 Aug, [facility] [id number] [address]- 7856 Jul, [facility] [id number] [address] 2546 Jul, [facility] [id number] [address] 2546 Apr, [facility] [address] [address] 2546 Apr, [facility] [id number] [address]- 3456 Apr, [facility] [id number] [address]- 8236 Jul, [facility] [id number], [place] [address]- 5536 Jun, [facility] [id number] [address]- 4736 Apr, IMMUNIZATIONS No Known Immunizations SOCIAL HISTORY Never Assessed REASON FOR VISIT Wart removal on right forearm and right hand. Has had cryo therapy on the one on forearm., Dental wanted him to ask Willem about his blood pressure. Reports always high when he goes in to them. CBrumbackRN PLAN OF CARE VITAL SIGNS Height 70 in 2017-09-25 Weight 248.1 lbs 2017-09-25 Temperature 97.7 degrees Fahrenheit 2017-09-25 Heart Rate 84 bpm 2017-09-25 Respiratory Rate 20 2017-09-25 BMI 35.59 kg/m2 2017-09-25 Blood pressure systolic 122 mmHg 2017-09-25 Blood pressure diastolic 76 mmHg 2017-09-25 MEDICATIONS Medication Instructions Dosage Frequency Start Date End Date Duration Status Viagra 100 MG TAKE ONE TABLET BY MOUTH ONCE DAILY NEEDED (PROGRAM LIMITS 10 TABS/30 DAYS) 30 Active Metoprolol Tartrate 100 mg Orally Twice a day TAKE ONE TABLET BY MOUTH TWICE DAILY (MUST HAVE APPOINTMENT FOR REFILL) 12h 30 Active Cymbalta 60 mg Orally Once a day 1 capsule 24h 30 Active Acyclovir 400 MG TAKE ONE TABLET BY MOUTH TWICE DAILY 30 Active Naproxen 500 MG TAKE ONE TABLET BY MOUTH TWICE DAILY 30 Active Neurontin 600 MG Orally 3 times a day 1 capsule 8h 30 Active Wellbutrin SR 150 MG Orally Twice a day 1 tablet 12h October, 30 day(s) Active Doxepin HCl 50 mg Orally Once a day at night 1 capsule Jun, Not-Taking Baclofen 20 MG TAKE ONE TABLET BY MOUTH THREE TIMES DAILY NEEDED 30 Active Neurontin 300 MG Orally Three times a day 1 capsule 8h 30 Not-Taking Metoprolol Tartrate 50 MG TAKE ONE TABLET BY MOUTH TWICE DAILY (MUST HAVE APPOINTMENT FOR REFILL) 30 Active RESULTS No Results PROCEDURES No Known [...]
--- OUTSIDE RECORDS SUMMARY | 2018-10-14 10:57 | XMS REPORT ---
Author Author ELISABETH CABA [facility] Address [address] [place] [address] Care Team Providers Care Software Design Engineer Name Role Phone ELISABETH CABA Unavailable PROBLEMS Type Condition ICD9-CM Code VIZ82-NS Code Onset Dates Condition Status SNOMED Code Problem Neuropathy G62.9 Active 374193454 Problem Lumbago with sciatica, left side M54.42 Active 891942023 Problem Polyneuropathy G62.9 Active 52594094 Problem Degenerative disc disease at L5-S1 level M51.36 Active 02456362 Problem Hypertension, unspecified type I10 Active 78031901 Problem Gingivitis K05.10 Active 42007158 Problem Arthritis M19.90 Active 3059845 Problem Other chronic pain G89.29 Active 54686268 Problem Cervical radiculopathy M54.12 Active 99450881 Problem Mucopurulent chronic bronchitis J41.1 Active 95401842 ALLERGIES No Known Allergies ENCOUNTERS Encounter Location Date Diagnosis [place] [address] [address] Dec, [place] [address] [address]- [address] Sep, Common wart B07.8 and Hypertension, unspecified type I10 [place] [address] [place] [id number] [place] [address] 65606- 2463 Aug, Dental examination Z01.20 ; Gingivitis K05.10 and Xerostomia R68.2 [place] [address] [place] [id number] [place] [address] 67052- 7450 Aug, Dental caries extending into dentin K02.62 [place] [address] 76878- 7727 Jul, Dental examination Z01.20 [facility] [address] [id number] [place] [address] 79561- 4155 15 Jul, 2017 Mucopurulent chronic bronchitis J41.1 [facility] [address] [address] [id number] [place] [address] 97367- 6582 15 Jul, 2017 Cervical neuritis M54.12 ; Common wart B07.8 ; Actinic keratosis L57.0 ; Encounter for immunization Z23 and Mucopurulent chronic bronchitis J41.1 [facility] [address] [address] [id number] [place] [address] 87008- 3894 Jun, Radiculopathy of cervical region M54.12 [facility] [address] 75496- 5071 May, Arthritis M19.90 ; Cervical radiculopathy M54.12 and Mucopurulent chronic bronchitis J41.1 [facility] [address] 16417- 2306 Feb, Arthritis M19.90 [facility] [address] 79363- 8376 Feb, Other chronic pain G89.29 [facility] [id number] [place] [address] 65358- 0037 19 Feb, 2017 Other chronic pain G89.29 [facility] [address] [place] [id number] [place] [address] [phone] 15 Feb, 2017 Dental examination Z01.20 [facility] [id number] [place] [address] 96907- 2474 07 Feb, 2017 Polyneuropathy G62.9 [facility] [address] [place] [address] [id number] [place] [address] [phone] Jan, Dental examination Z01.20 [facility] [address] [place] [id number] [place] [address] 76351- 4989 Jan, Arthritis M19.90 [facility] [address] [id number] Jan, Dental examination Z01.20 [facility] [address] [place] [id number] [place] [address] 58005- 4876 Dec, [facility] [address] [place] [id number] [place] [address] 75650- 0840 Dec, Arthritis M19.90 [facility] [address] 67292- 6252 Dec, Sebaceous cyst L72.3 [facility] [address] [place] [id number] [place] [address] 44837- 1469 Dec, Sebaceous cyst L72.3 and Common wart B07.8 [facility] [address] [id number] [place] [address] 24526- 1779 Nov, Arthritis M19.90 [facility] [address] [address] [id number] [place] [address] 53939- 5172 Nov, [facility] [address] [place] [id number] [place] [address] 22707- 1605 October, Arthritis M19.90 [facility] [address] [place] [id number] [place] [address] 01878- 9414 October, Polyneuropathy G62.9 and Arthritis M19.90 [facility] [address] [place] [id number] [place] [address] 92396- 7310 October, Polyneuropathy G62.9 and Arthritis M19.90 [facility] [address] [place] [id number] [place] [address] 50628- 6734 October, Arthritis M19.90 and Polyneuropathy G62.9 [facility] [address] [place] [address] [phone] October, Dental examination Z01.20 [facility] [address] [place] [address] 90443- 2128 Sep, Polyuria R35.8 [facility] [address] [place] [address] [id number] Sep, Dental examination Z01.20 [facility] [address] [place] [id number] [place] [address] [id number]- 4716 Sep, [facility] [address] [place] [id number] [place] [address] 87739- 2580 Sep, Polyneuropathy G62.9 [facility] [address] [place] [id number] [place] [address] 00732- 2713 Aug, Polyuria R35.8 [facility] [address] [place] [id number] [place] [address] [phone] Aug, Dental examination Z01.20 [facility] [address] [place] [id number] [place] [address] 46266- 7998 Aug, Polyneuropathy G62.9 [facility] [address] [place] [id number] [place] [address] 44476- 6008 Aug, Polyuria R35.8 [facility] [address] [place] [address] [phone] Jul, Dental examination Z01.20 [facility] [address] [place] [id number] [place] [address] [phone] Jul, Dental examination Z01.20 [facility] [address] [place] [address] 86972- 1956 Jul, Polyneuropathy G62.9 [facility] [address] [place] [id number] [place] [address] 58538- 4261 Jul, Polyuria R35.8 [facility] [address] [place] [id number] [place] [address] 87778 -1604 Jun, Lumbago with sciatica, left side M54.42 and Other chronic pain G89.29 [facility] [address] [place] [id number] [place] [address] 29478- 3625 Jun, Polyneuropathic pain M79.2 and Other infective acute otitis externa of left ear H60.392 [place] [address] [place] [id number] [place] [address] 58917- 5084 Jun, Polyuria R35.8 [place] [address] [place] [id number] [place] [address] 49297- 4668 May, Dental examination Z01.20 [place] [address] 57007- 8047 08 May, 2016 Polyneuropathy G62.9 [place] [address] [place] [id number] [place] [address] 63730- 8815 May, Polyuria R35.8 [place] [address] 70232- 6631 Apr, Polyuria R35.8 ; Weight loss R63.4 ; Arthralgia, unspecified joint M25.50 and Neuropathy G62.9 [place] [address] [place] [id number] [place] [address] 57832- 8105 Apr, [place] [address] [place] [id number] [place] [address] 34036- 5493 Apr, Dental examination Z01.20 [place] [address] [place] [id number] [place] [address] 06165- 0285 31 Mar, 2016 Polyuria R35.8 ; Weight loss R63.4 ; Arthralgia, unspecified joint M25.50 ; Neuropathy G62.9 ; Family history of rheumatoid arthritis Z82.61 and Family history of diabetes mellitus Z83.3 [place] [address] [place] [id number] [place] [address] 67750- 8088 Mar, [place] [address] 17531- 7325 Feb, [place] [address] [place] [id number] [place] [address] 65639- 6682 Feb, Encounter for dental examination and cleaning without abnormal findings Z01.20 [place] [address] [address]- 7[address] Jan, [facility] [address] [place] [id number] [place] [address] 99313- 7775 Dec, Degenerative disc disease at L5-S1 level M51.36 [facility] [address] [place] [address] 43070 -3491 Dec, Degenerative disc disease at L5-S1 level M51.36 [facility] [address] [place] [id number] [place] [address] 37524- 1721 Dec, [facility] [address] [place] [id number] [place] [address] 67333- 6269 Nov, [facility] [address] [place] [id number] [place] [address] 05820- 0619 October, Arthritis M19.90 [facility] [address] [place] [id number] [place] [address] 40592- 0736 Sep, Arthritis M19.90 and Family history of diabetes mellitus Z83.3 [facility] [address] [place] [id number] [place] [address] 88107- 8817 Jul, [facility] [address] [place] [id number] [place] [address] 43930- 1717 Jun, [facility] [address] [place] [id number] [place] [address] 57761- 5651 May, [facility] [address] [place] [id number] [place] [address] 44199- 1071 Apr, [facility] [address] [place] [address] 28202- 8000 Feb, Actinic keratitis 370.24 [facility] [address] [place] [id number] [place] [address] 29075- 0837 Jan, Common wart 078.19 ; Back pain 724.5 and Fibromyalgia 729.1 [facility] [address] [place] [id number] [place] [address] 02832- 8547 Dec, Alcohol abuse 305.00 [facility] [address] [address]- 1933 Dec, Lesion of neck 709.9 [facility] [address] [address]- 2756 Dec, Back pain 724.5 [facility] [address] [place] [id number] [place] [address] 09842- 0288 Nov, Alcohol abuse 305.00 ; Basal cell carcinoma 173.91 and Common wart 078.19 [facility] [address] [place] [id number] [place] [address] 03608- 6101 Nov, [facility] [address] [place] [id number] [place] [address] 83086- 4776 Sep, [facility] [address] [place] [id number] [place] [address] 75252- 0782 Sep, [facility] [address] [address]- 6732 Jun, [facility] [address] [place] [address] 76136- 2515 Jun, [facility] [address] [address]- 9299 May, [facility] [address] [address]- 1043 May, [facility] [address] [address]- 5209 Feb, [facility] [address] [address]- 4692 Feb, [facility] [address] [address]- 2541 Feb, [facility] [address] [address]- 2291 Feb, [facility] [address] [id number] [place] [address]- 9683 Sep, [facility] [place] [facility] [address] [id number] [place] [address]- 6006 Sep, [facility] [place] [facility] [address] [id number] [place] [address]- 8074 Sep, [facility] [place] [facility] [address] [id number] [place] [address]- 8037 Sep, [facility] [place] [facility] [address] [id number] [place] [address]- 6767 Aug, [facility] [place] [facility] [address] [id number] [place] [address]- 9352 Aug, [facility] [place] [facility] [address] [id number] [place] [address]- 5391 Jul, [facility] [place] [facility] [address] [id number] [place] [address]- 8861 Jul, [facility] [place] [facility] [address] [id number] [place] [address]- 9680 Jul, [facility] [place] [facility] [address] [id number] [place] [address]- 4183 Jul, [facility] [place] [facility] [address] [id number] [place] [address]- 8936 Jun, [facility] [place] [facility] [address] [id number] [address]- 5879 Jun, [facility] [place] [facility] [address] [id number] [place] [address]- 4125 Jun, [facility] [place] [facility] [address] [id number] [place] [address]- 3824 Jun, [facility] [place] [facility] [address] [id number] [place] [address]- 9594 May, [facility] [place] [facility] [address] [id number] [place] [address]- 8516 May, [facility] [place] [facility] [address] [id number] [place] [address]- 9424 Apr, [facility] [place] [facility] [address] [id number] [place] [address]- 6946 18 Apr, 2013 [facility] [place] [facility] [address] [id number] [place] [address]- 2845 14 Apr, 2013 [facility] [place] [facility] [address] [id number] [place] [address]- 2007 14 Apr, 2013 [facility] [place] [facility] [address] [id number] [place] [address]- 8511 Apr, [facility] [place] [facility] [address] [id number] [place] [address]- 7207 Apr, [facility] [place] [facility] [address] [id number] [place] [address]- 6231 Mar, [facility] [place] [facility] [address] [id number] [place] [address]- 3417 Mar, [facility] [place] [facility] [address] [id number] [place] [address]- 6836 Mar, [facility] [place] [facility] [address] [id number] [place] [address]- 0318 Mar, [facility] [place] [facility] [address] [id number] [place] [address]- 3290 Jan, [facility] [place] [facility] [address] [id number] [place] [address]- 7837 Jan, [facility] [place] [facility] [address] [id number] [place] [address]- 1816 Aug, [facility] [place] [facility] [address] [id number] [place] [address]- 1538 Aug, [facility] [place] [facility] [address] [id number] [place] [address]- 1244 Mar, [facility] [place] [facility] [address] [id number] [place] [address]- 1047 Mar, [facility] [place] [facility] [address] [id number] [place] [address]- 7552 Mar, [facility] [place] [facility] [address] [id number] [place] [address]- 9443 Mar, [facility] [place] [facility] [address] [id number] [place] [address]- 2149 Mar, [facility] [place] [facility] [address] [id number] [place] [address]- 2562 Mar, [facility] [place] [facility] [address] [id number] [place] [address]- 7694 Mar, [facility] [place] [facility] [address] [id number] [place] [address]- 8085 Mar, [facility] [place] [facility] [address] [id number] [place] [address]- 1053 Jan, [facility] [place] [facility] [address] [id number] [place] [address]- 9518 Jan, [facility] [place] [facility] [address] [id number] [place] [address]- 4102 Nov, [facility] [place] [facility] [address] [id number] [place] [address]- 5502 Nov, [facility] [place] [facility] [address] [id number] [place] [address]- 3791 October, [facility] [place] [facility] [address] [id number] [place] [address]- 1292 Aug, [facility] [place] [facility] [address] [id number] [place] [address]- 1360 Aug, [facility] [place] [facility] [address] [id number] [place] [address] 2546 Aug, [facility] [place] [facility] [address] [id number] [place] [address]- 8192 Jul, [facility] [address] [facility] [id number] [address]- 4057 Jul, [facility] [address] [id number] [address]- 8375 Apr, [facility] [address] [address]- 4680 Apr, [facility] [address] [address]- 2560 Apr, [facility] [address] [address]- 6629 Jul, [facility] [address] [address]- 1823 Jun, [facility] [address] [id number] [address]- 9321 Apr, IMMUNIZATIONS No Known Immunizations SOCIAL HISTORY Never Assessed REASON FOR VISIT Dental Hygiene/Exam PLAN OF CARE Activity Details Follow Up prn Reason:Restorative Care VITAL SIGNS Blood pressure systolic 140 mmHg 2017-09-13 Blood pressure diastolic 90 mmHg 2017-09-13 MEDICATIONS Medication Instructions Dosage Frequency Start Date End Date Duration Status Neurontin 600 MG Orally 3 times a day 1 capsule 8h 30 Active Neurontin 300 MG Orally Three times a day 1 capsule 8h 30 Not-Taking Cymbalta 60 mg Orally Once a day 1 capsule 24h 30 Active Metoprolol Tartrate 50 MG TAKE ONE TABLET BY MOUTH TWICE DAILY (MUST HAVE APPOINTMENT FOR REFILL) 30 Active Wellbutrin SR 150 MG Orally Twice a day 1 tablet 12h October, 30 day(s) Active Baclofen 20 MG TAKE ONE TABLET BY MOUTH THREE TIMES DAILY NEEDED 30 Active Viagra 100 MG TAKE ONE TABLET BY MOUTH ONCE DAILY NEEDED (PROGRAM LIMITS 10 TABS/30 DAYS) 30 Active Naproxen 500 MG TAKE ONE TABLET BY MOUTH TWICE DAILY 30 Active Doxepin HCl 50 mg Orally Once a day at night 1 capsule Jun, Not-Taking Acyclovir 400 MG TAKE ONE TABLET BY MOUTH TWICE DAILY 30 Active RESULTS No Results PROCEDURES Procedure Date Ordered Result Body Site PERIODIC ORAL EXAMINATION September 13, 2017 INTRAORL - CMPL SERIES CODE 57177 September 13, 2017 TOPICAL FLUORIDE VARNISH September 13, 2017 PROPHYLAXIS - ADULT September 13, 2017 INSTRUCTIONS MEDICATIONS ADMINISTERED No Known Medications MEDICAL (GENERAL) HISTORY Type Description Date Medical History irritable bowel syndrome Medical History orthopedic disorder-herniated disc, DJD Medical History esophageal reflux Medical History headache Medical History herpes (genital) Medical History backache Medical History fibromyalgia Surgical History tonsillectomy Hospitalization History Hospitalization for surgery only
--- OUTSIDE RECORDS SUMMARY | 2018-10-14 10:58 | XMS REPORT ---
Author Author SRINI LIMON [facility] Address [address] [place] [address] Care Team Providers Care Irish Moss Bleacher Name Role Phone SRINI LIMON Unavailable PROBLEMS Type Condition ICD9-CM Code [id number] Code Onset Dates Condition Status SNOMED Code Problem Arthritis M19.90 Active 2272203 Problem Other chronic pain G89.29 Active 74990989 Problem Neuropathy G62.9 Active 109336201 Problem Degenerative disc disease at L5-S1 level M51.36 Active 10729441 Problem Lumbago with sciatica, left side M54.42 Active 246724514 Problem Polyneuropathy G62.9 Active 80940063 ALLERGIES Substance Reaction Event Type Date Status N.K.D.A. Unknown Non Drug Allergy Jun, Unknown SOCIAL HISTORY No smoking Hx information available PLAN OF CARE Activity Details Follow Up 4 Weeks Reason:polyneuropathy VITAL SIGNS Height 70 in 2016-06-30 Weight 208 lbs 2016-06-30 Temperature 98.1 degrees Fahrenheit 2016-06-30 Heart Rate 66 bpm 2016-06-30 Respiratory Rate 18 2016-06-30 BMI 29.84 kg/m2 2016-06-30 Blood pressure systolic 148 mmHg 2016-06-30 Blood pressure diastolic 82 mmHg 2016-06-30 MEDICATIONS Medication Instructions Dosage Frequency Start Date End Date Duration Status Acyclovir 400 MG TAKE ONE TABLET BY MOUTH TWICE DAILY 30 Active Viagra 100 MG Orally Once a day 1 tablet as needed 24h 30 Active Cymbalta 60 mg Orally Once a day 1 capsule 24h May, 30 day(s) Active Doxepin HCl 50 mg Orally Once a day at night 1 capsule Jun, Active [place] 5-325 MG Orally every 6 hrs 1 tablet as needed 6h Jun, Active Metoprolol Tartrate 50 MG TAKE ONE TABLET BY MOUTH TWICE DAILY (MUST HAVE FOLLOW-UP APPOINTMENT FOR FURTHER REFILLS!!!) 30 Active Baclofen 20 MG take 1 tablet (20 mg) by oral route 3 times per day PRN Active Cortisporin 3.5-26865-7 Otic Three times a day 4 drops into affected ear 8h Jun, 07 days Active Naproxen 500 MG TAKE ONE TABLET BY MOUTH TWICE DAILY Active RESULTS No Results PROCEDURES Procedure Date Ordered Related Diagnosis Body Site Office Visit, Est Pt., Level 3 Jun 30, 2016 IMMUNIZATIONS No Known Immunizations
--- OUTSIDE RECORDS SUMMARY | 2018-10-14 10:58 | XMS REPORT ---
Author Author SRINI LIMON [facility] Address [address] [place] [address] Care Team Providers Care Hand Sander Name Role Phone SRINI LIMON Unavailable PROBLEMS Type Condition ICD9-CM Code FXF59-DU Code Onset Dates Condition Status SNOMED Code Problem Arthritis M19.90 Active 9166424 Problem Other chronic pain G89.29 Active 66138275 Problem Neuropathy G62.9 Active 467091291 Problem Degenerative disc disease at L5-S1 level M51.36 Active 76080107 Problem Lumbago with sciatica, left side M54.42 Active 733373745 Problem Polyneuropathy G62.9 Active 64292238 ALLERGIES No Information SOCIAL HISTORY Never Assessed PLAN OF CARE VITAL SIGNS MEDICATIONS Medication Instructions Dosage Frequency Start Date End Date Duration Status [place] 5-325 MG Orally every 6 hrs 1 tablet as needed 6h October, Nov, 28 days Active RESULTS No Results PROCEDURES No Known procedures IMMUNIZATIONS No Known Immunizations MEDICAL (GENERAL) HISTORY Type Description Date Medical History esophageal reflux Medical History irritable bowel syndrome Medical History orthopedic disorder-herniated disc, DJD Medical History headache Medical History herpes (genital) Medical History backache Medical History fibromyalgia Surgical History tonsillectomy Hospitalization History Hospitalization for surgery only
--- OUTSIDE RECORDS SUMMARY | 2018-10-14 10:58 | XMS REPORT ---
Author Author Meghana YESSI [facility] Address [address] [place] [address] Care Team Providers Care Executive Candidate Developer Name Role Phone eleuterioNicciNAVIDYESSI Unavailable PROBLEMS Type Condition ICD9-CM Code UXD73-BL Code Onset Dates Condition Status SNOMED Code Problem Neuropathy G62.9 Active 092729204 Problem Lumbago with sciatica, left side M54.42 Active 897288223 Problem Polyneuropathy G62.9 Active 42982190 Problem Degenerative disc disease at L5-S1 level M51.36 Active 14658358 Problem Hypertension, unspecified type I10 Active 50073459 Problem Gingivitis K05.10 Active 97390062 Problem Arthritis M19.90 Active 0764494 Problem Other chronic pain G89.29 Active 43814242 Problem Cervical radiculopathy M54.12 Active 40139644 Problem Mucopurulent chronic bronchitis J41.1 Active 13103404 ALLERGIES No Known Allergies ENCOUNTERS Encounter Location Date Diagnosis [place] [address] [address] Dec, [place] [address] [address]- [address] Sep, Common wart B07.8 and Hypertension, unspecified type I10 [place] [address] [place] [id number] [place] [address] 97676- 4226 Aug, Dental examination Z01.20 ; Gingivitis K05.10 and Xerostomia R68.2 [place] [address] [place] [id number] [place] [address] 18862- 2187 Aug, Dental caries extending into dentin K02.62 [place] [address] [address]70- 4469 Jul, Dental examination Z01.20 [facility] [address] [place] [address] [id number] [place] [address] 88409- 9939 15 Jul, 2017 Mucopurulent chronic bronchitis J41.1 [facility] [address] [place] [address] [id number] [place] [address] 41954- 6389 15 Jul, 2017 Cervical neuritis M54.12 ; Common wart B07.8 ; Actinic keratosis L57.0 ; Encounter for immunization Z23 and Mucopurulent chronic bronchitis J41.1 [facility] [address] [place] [id number] [place] [address] 70624- 7125 Jun, Radiculopathy of cervical region M54.12 [facility] [address] 95294- 8145 May, Arthritis M19.90 ; Cervical radiculopathy M54.12 and Mucopurulent chronic bronchitis J41.1 [facility] [address] 06038- 3485 Feb, Arthritis M19.90 [facility] [address] 47961- 0524 Feb, Other chronic pain G89.29 [facility] [address] [place] [address] [id number] [place] [address] 35327- 1324 19 Feb, 2017 Other chronic pain G89.29 [facility] [address] [id number] [place] [address] [id number] 15 Feb, 2017 Dental examination Z01.20 [facility] [address] [id number] [place] [address] 82464- 7331 07 Feb, 2017 Polyneuropathy G62.9 [facility] [id number] [place] [address] [id number] Jan, Dental examination Z01.20 [facility] [address] [place] [id number] [place] [address] 99658- 7640 Jan, Arthritis M19.90 [facility] [address] [id number] Jan, Dental examination Z01.20 [facility] [address] [place] [id number] [place] [address] 76792- 1389 Dec, [facility] [address] [address] [id number] [place] [address] 76963- 1331 Dec, Arthritis M19.90 [facility] [address] 04131- 0386 Dec, Sebaceous cyst L72.3 [facility] [address] [place] [id number] [place] [address] 34995- 6194 Dec, Sebaceous cyst L72.3 and Common wart B07.8 [facility] [address] [id number] [place] [address] 49729- 5671 Nov, Arthritis M19.90 [facility] [address] [id number] [place] [address] 95758- 4560 Nov, [facility] [address] [id number] [place] [address] 61038- 0047 October, Arthritis M19.90 [facility] [address] [id number] [place] [address] 66356- 5537 October, Polyneuropathy G62.9 and Arthritis M19.90 [facility] [address] [place] [address] [id number] [place] [address] 30803- 3994 October, Polyneuropathy G62.9 and Arthritis M19.90 [facility] [address] [place] [address] [id number] [place] [address] 12205- 2879 October, Arthritis M19.90 and Polyneuropathy G62.9 [facility] [id number] [place] [address] [id number] October, Dental examination Z01.20 [facility] [id number] [place] [address] 15903- 4794 Sep, Polyuria R35.8 [facility] [id number] [place] [address] [id number] Sep, Dental examination Z01.20 [facility] [address] [place] [id number] [place] [address] [id number]- 9996 Sep, [facility] [address] [place] [address] [id number] [place] [address] 00426- 8889 Sep, Polyneuropathy G62.9 [facility] [address] [place] [id number] [place] [address] 14956- 7915 Aug, Polyuria R35.8 [facility] [address] [place] [id number] [place] [address] [id number] Aug, Dental examination Z01.20 [facility] [address] [place] [address] [id number] [place] [address] 36781- 4219 Aug, Polyneuropathy G62.9 [facility] [address] [place] [id number] [place] [address] 09457- 5374 Aug, Polyuria R35.8 [facility] [id number] [place] [address] [id number] Jul, Dental examination Z01.20 [facility] [address] [place] [id number] [place] [address] [id number] Jul, Dental examination Z01.20 [facility] [id number] [place] [address] 71274- 9027 Jul, Polyneuropathy G62.9 [facility] [address] [place] [id number] [place] [address] 59200- 4578 Jul, Polyuria R35.8 [facility] [address] [place] [id number] [place] [address] 48202 -6890 Jun, Lumbago with sciatica, left side M54.42 and Other chronic pain G89.29 [facility] [address] [place] [id number] [place] [address] 97842- 3191 Jun, Polyneuropathic pain M79.2 and Other infective acute otitis externa of left ear H60.392 [place] [address] [place] [id number] [place] [address] 66142- 7510 Jun, Polyuria R35.8 [place] [address] [place] [id number] [place] [address] 96830- 2285 May, Dental examination Z01.20 [place] [address] 64094- 9977 08 May, 2016 Polyneuropathy G62.9 [place] [address] [place] [id number] [place] [address] 13973- 7290 May, Polyuria R35.8 [place] [address] 38425- 3703 Apr, Polyuria R35.8 ; Weight loss R63.4 ; Arthralgia, unspecified joint M25.50 and Neuropathy G62.9 [place] [address] [place] [id number] [place] [address] 96801- 6232 Apr, [place] [address] [place] [id number] [place] [address] 52972- 2586 Apr, Dental examination Z01.20 [place] [address] [place] [id number] [place] [address] 76401- 9947 31 Mar, 2016 Polyuria R35.8 ; Weight loss R63.4 ; Arthralgia, unspecified joint M25.50 ; Neuropathy G62.9 ; Family history of rheumatoid arthritis Z82.61 and Family history of diabetes mellitus Z83.3 [place] [address] [place] [id number] [place] [address] 97763- 6868 Mar, [place] [address] 72301- 0689 Feb, [place] [address] [place] [id number] [place] [address] 16785- 0211 Feb, Encounter for dental examination and cleaning without abnormal findings Z01.20 [place] [address], [place] [address]- 1191 Jan, [facility] [address] [place] [id number] [place] [address] 59103- 6815 Dec, Degenerative disc disease at L5-S1 level M51.36 [facility] [address] [place] [address] 82406 -9442 Dec, Degenerative disc disease at L5-S1 level M51.36 [facility] [address] [place] [id number] [place] [address] 17538- 0966 Dec, [facility] [address] [place] [id number] [place] [address] 85594- 3851 Nov, [facility] [address] [place] [id number] [place] [address] 50037- 2405 October, Arthritis M19.90 [facility] [address] [place] [id number] [place] [address] 40718- 3706 Sep, Arthritis M19.90 and Family history of diabetes mellitus Z83.3 [facility] [address] [place] [id number] [place] [address] 97144- 5981 Jul, [facility] [address] [place] [id number] [place] [address] 99340- 5162 Jun, [facility] [address] [place] [id number] [place] [address] 45130- 2504 May, [facility] [address] [place] [id number] [place] [address] 56310- 8468 Apr, [facility] [address] [place] [address] 67428- 7678 Feb, Actinic keratitis 370.24 [facility] [address] [place] [id number] [place] [address] 89765- 6897 Jan, Common wart 078.19 ; Back pain 724.5 and Fibromyalgia 729.1 [facility] [address] [place] [id number] [place] [address] 60685- 3319 Dec, Alcohol abuse 305.00 [facility] [address] [address]- 2062 Dec, Lesion of neck 709.9 [facility] [address], [place] [address]- 4358 Dec, Back pain 724.5 [facility] [address] [place] [id number] [place] [address] 91108- 3107 Nov, Alcohol abuse 305.00 ; Basal cell carcinoma 173.91 and Common wart 078.19 [facility] [address] [place] [id number] [place] [address] 26865- 6962 Nov, [facility] [address] [place] [id number] [place] [address] 66176- 4865 Sep, [facility] [address] [place] [id number] [place] [address] 47196- 3301 Sep, [facility] [address], [place] [address]- 6693 Jun, [facility] [address] [place] [address] 51357- 2149 Jun, [facility] [address] [address]- 4092 May, [facility] [address] [place] [address]- 0626 May, [facility] [address], [place] [address]- 8261 Feb, [facility] [address], [place] [address]- 1775 Feb, [facility] [address], [place] [address]- 2540 Feb, [facility] [address] [address]- 9146 Feb, [facility] [address] [id number] [place] [address]- 8909 Sep, [facility] [place] [facility] [address] [id number] [place] [address]- 8494 Sep, [facility] [place] [facility] [address] [id number] [place] [address]- 9059 Sep, [facility] [place] [facility] [address] [id number] [place] [address]- 9780 Sep, [facility] [place] [facility] [address] [id number] [place] [address]- 2840 Aug, [facility] [place] [facility] [address] [id number] [place] [address]- 7466 Aug, [facility] [place] [facility] [address] [id number] [place] [address]- 3216 Jul, [facility] [place] [facility] [address] [id number] [place] [address]- 8336 Jul, [facility] [place] [facility] [address] [id number] [place] [address]- 3879 Jul, [facility] [place] [facility] [address] [id number] [place] [address]- 4435 Jul, [facility] [place] [facility] [address] [id number] [place] [address]- 9531 Jun, [facility] [place] [facility] [address] [id number] [address]- 7922 Jun, [facility] [place] [facility] [address] [id number] [place] [address]- 9512 Jun, [facility] [place] [facility] [address] [id number] [place] [address]- 8008 Jun, [facility] [place] [facility] [address] [id number] [place] [address]- 3193 May, [facility] [place] [facility] [address] [id number] [place] [address]- 6678 May, [facility] [place] [facility] [address] [id number] [place] [address]- 3382 Apr, [facility] [place] [facility] [address] [id number] [place] [address]- 8969 18 Apr, 2013 [facility] [place] [facility] [address] [id number] [place] [address]- 2183 14 Apr, 2013 [facility] [place] [facility] [address] [id number] [place] [address]- 3159 14 Apr, 2013 [facility] [place] [facility] [address] [id number] [place] [address]- 2033 Apr, [facility] [place] [facility] [address] [id number] [place] [address]- 2882 Apr, [facility] [place] [facility] [address] [id number] [place] [address]- 8920 Mar, [facility] [place] [facility] [address] [id number] [place] [address]- 9796 Mar, [facility] [place] [facility] [address] [id number] [place] [address]- 6019 Mar, [facility] [place] [facility] [address] [id number] [place] [address]- 9369 Mar, [facility] [place] [facility] [address] [id number] [place] [address]- 9329 Jan, [facility] [place] [facility] [address] [id number] [place] [address]- 7123 Jan, [facility] [place] [facility] [address] [id number] [place] [address]- 9284 Aug, [facility] [place] [facility] [address] [id number] [place] [address]- 5064 Aug, [facility] [place] [facility] [address] [id number] [place] [address]- 8224 Mar, [facility] [place] [facility] [address] [id number] [place] [address]- 4824 Mar, [facility] [place] [facility] [address] [id number] [place] [address]- 5933 Mar, [facility] [place] [facility] [address] [id number] [place] [address]- 2879 Mar, [facility] [place] [facility] [address] [id number] [place] [address]- 5075 Mar, [facility] [place] [facility] [address] [id number] [place] [address]- 3712 Mar, [facility] [place] [facility] [address] [id number] [place] [address]- 8895 Mar, [facility] [place] [facility] [address] [id number] [place] [address]- 7493 Mar, [facility] [place] [facility] [address] [id number] [place] [address]- 6745 Jan, [facility] [place] [facility] [address] [id number] [place] [address]- 2443 Jan, [facility] [place] [facility] [address] [id number] [place] [address]- 1881 Nov, [facility] [place] [facility] [address] [id number] [place] [address]- 9146 Nov, [facility] [place] [facility] [address] [id number] [place] [address]- 1367 October, [facility] [place] [facility] [address] [id number] [place] [address]- 2043 Aug, [facility] [place] [facility] [address] [id number] [place] [address]- 9783 Aug, [facility] [place] [facility] [address] [id number] [place] [address] 2546 Aug, [facility] [place] [facility] [address] [id number] [place] [address]- 9140 Jul, [facility] [address] [facility] [id number] [address]- 3943 Jul, [facility] [id number] [address]059 Apr, [facility] [address] [place] [address]- 4370 Apr, [facility] [address] 6779 Apr, [facility] [address], [place] [address]- 4735 Jul, [facility] [address] [place] [address]- 1844 Jun, [facility] [id number] [address]- 6375 Apr, IMMUNIZATIONS No Known Immunizations SOCIAL HISTORY Never Assessed REASON FOR VISIT PLAN OF CARE Activity Details Follow Up prn Reason:KAMALA and hygiene VITAL SIGNS MEDICATIONS Medication Instructions Dosage Frequency Start Date End Date Duration Status Metoprolol Tartrate 50 MG TAKE ONE TABLET BY MOUTH TWICE DAILY (MUST HAVE FOLLOW-UP APPOINTMENT FOR FURTHER REFILLS!!!) 30 Active Acyclovir 400 MG 1 tablet 12h Active Wellbutrin SR 150 MG Orally Twice a day 1 tablet 12h October, 30 day(s) Active Neurontin 300 MG Orally Three times a day 1 capsule 8h 30 Active Cymbalta 60 mg Orally Once a day 1 capsule 24h 30 Active Neurontin 600 MG Orally 3 times a day 1 capsule 8h 30 Active Baclofen 20 MG TAKE ONE TABLET BY MOUTH THREE TIMES DAILY NEEDED 30 Active Naproxen 500 MG TAKE ONE TABLET BY MOUTH TWICE DAILY 30 Active Doxepin HCl 50 mg Orally Once a day at night 1 capsule Jun, Not-Taking Viagra 100 MG TAKE ONE TABLET BY MOUTH ONCE DAILY NEEDED (PROGRAM LIMITS 10 TABS/30 DAYS) 10 Active RESULTS No Results PROCEDURES Procedure Date Ordered Result Body Site RESIN COMPOS - 1 SURFACE POSTERIOR August 23, 2017 RESIN COMPOS - 1 SURFACE POSTERIOR August 23, 2017 INSTRUCTIONS MEDICATIONS ADMINISTERED No Known Medications MEDICAL (GENERAL) HISTORY Type Description Date Medical History irritable bowel syndrome Medical History orthopedic disorder-herniated disc, DJD Medical History esophageal reflux Medical History headache Medical History herpes (genital) Medical History backache Medical History fibromyalgia Surgical History tonsillectomy Hospitalization History Hospitalization for surgery only
--- OUTSIDE RECORDS SUMMARY | 2018-10-14 10:58 | XMS REPORT ---
Author Author SRINI LIMON Organization [facility] Address [address] [place] [address] Care Team Providers Care Nurse Practitioner Name Role Phone SRINI LIMON Unavailable PROBLEMS Type Condition ICD9-CM Code [id number] Code Onset Dates Condition Status SNOMED Code Problem Neuropathy G62.9 Active 101725361 Problem Lumbago with sciatica, left side M54.42 Active 022587620 Problem Polyneuropathy G62.9 Active 35076139 Problem Degenerative disc disease at L5-S1 level M51.36 Active 98236573 Problem Hypertension, unspecified type I10 Active 08367418 Problem Gingivitis K05.10 Active 66324188 Problem Arthritis M19.90 Active 5379185 Problem Other chronic pain G89.29 Active 90117592 Problem Cervical radiculopathy M54.12 Active 82684245 Problem Mucopurulent chronic bronchitis J41.1 Active 75895366 ALLERGIES No Information ENCOUNTERS Encounter Location Date Diagnosis [place] [id number] [place] [address] 47072- 0833 Sep, Common wart B07.8 and Hypertension, unspecified type I10 [place] [address] [place] [address] 47649- 7073 Aug, Dental examination Z01.20 ; Gingivitis K05.10 and Xerostomia R68.2 [place] [address] [place] [address] 61642- 9353 Aug, Dental caries extending into dentin K02.62 [place] [address] [place] [id number] [place] [address] 46315- 9114 20 Jul, 2017 Dental examination Z01.20 [place] [address] [place] [id number] [place] [address] 04021- 9075 15 Jul, 2017 Mucopurulent chronic bronchitis J41.1 [facility] [address] [place] [address] 09664- 4921 15 Jul, 2017 Cervical neuritis M54.12 ; Common wart B07.8 ; Actinic keratosis L57.0 ; Encounter for immunization Z23 and Mucopurulent chronic bronchitis J41.1 [facility] [id number] [place] [address] 80023- 3741 Jun, Radiculopathy of cervical region M54.12 [facility] [address] [place] [id number] [place] [address] 53871- 7715 May, Arthritis M19.90 ; Cervical radiculopathy M54.12 and Mucopurulent chronic bronchitis J41.1 [facility] [address] [id number] [place] [address] 82157- 9737 Feb, Arthritis M19.90 [facility] [address] [id number] [place] [address] 97259- 2818 Feb, Other chronic pain G89.29 [facility] [address] [id number] [place] [address] 81269- 1393 19 Feb, 2017 Other chronic pain G89.29 [facility] [address] [id number] [place] [address] [id number] Feb, Dental examination Z01.20 [facility] [address] [id number] [place] [address] 15465- 4617 07 Feb, 2017 Polyneuropathy G62.9 [facility] [address] [place] [address] [id number] Jan, Dental examination Z01.20 [facility] [address] [id number] [place] [address] 04770- 8670 Jan, Arthritis M19.90 [facility] [id number] [place] [address] [id number] Jan, Dental examination Z01.20 [facility] [id number] [place] [address] 41889- 8791 Dec, [facility] [address] [id number] [place] [address] 54963- 0631 Dec, Arthritis M19.90 [facility] [address] [id number] [place] [address] 78390- 9194 Dec, Sebaceous cyst L72.3 [facility] [address] 74501- 5297 Dec, Sebaceous cyst L72.3 and Common wart B07.8 [facility] [address] [id number] [place] [address] 90536- 6414 Nov, Arthritis M19.90 [facility] [address] [id number] [place] [address] 44150- 8123 Nov, [facility] [address] [id number] [place] [address] 77628- 4981 October, Arthritis M19.90 [facility] [address] [id number] [place] [address] 06509- 1013 October, Polyneuropathy G62.9 and Arthritis M19.90 [facility] [address] [id number] [place] [address] 43329- 0980 October, Polyneuropathy G62.9 and Arthritis M19.90 [facility] [address] [place] [id number] [place] [address] 93578- 6656 October, Arthritis M19.90 and Polyneuropathy G62.9 [facility] [address] [id number] [place] [address] [phone] October, Dental examination Z01.20 [facility] [address] [id number] [place] [address] 47761- 3290 Sep, Polyuria R35.8 [facility] [id number] [place] [address] [id number] Sep, Dental examination Z01.20 [facility] [address] [id number] [place] [address] 04038- 7800 Sep, [facility] [id number] [place] [address] 28597- 2817 Sep, Polyneuropathy G62.9 [facility] [address] [id number] [place] [address] 53280- 7642 Aug, Polyuria R35.8 [facility] [address] [id number] Aug, Dental examination Z01.20 [facility] [address] 96031- 3342 Aug, Polyneuropathy G62.9 [facility] [address] 59462- 8355 Aug, Polyuria R35.8 [facility] [address] [id number] Jul, Dental examination Z01.20 [facility] [address] [id number] [place] [address] [id number] Jul, Dental examination Z01.20 [facility] [address] [place] [id number] [place] [address] 96564- 4235 Jul, Polyneuropathy G62.9 [facility] [address] [place] [id number] [place] [address] 44436- 8014 Jul, Polyuria R35.8 [facility] [address] [id number] [place] [address] 78156 -6542 Jun, Lumbago with sciatica, left side M54.42 and Other chronic pain G89.29 [place] [address] [place] [id number] [place] [address] 72407- 6726 Jun, Polyneuropathic pain M79.2 and Other infective acute otitis externa of left ear H60.392 [place] [address] 11705- 8078 Jun, Polyuria R35.8 [facility] [address] [id number] [place] [address] 70992- 6362 May, Dental examination Z01.20 [place] [address] [id number] [place] [address] 96229- 3295 May, Polyneuropathy G62.9 [place] [address] [id number] [place] [address] 48800- 9331 May, Polyuria R35.8 [place] [address] [place] [id number] [place] [address] 70037- 9706 Apr, Polyuria R35.8 ; Weight loss R63.4 ; Arthralgia, unspecified joint M25.50 and Neuropathy G62.9 [place] [address] [place] [id number] [place] [address] 80824- 6276 Apr, [place] [address] 28221- 8330 Apr, Dental examination Z01.20 [place] [address] [place] [id number] [place] [address] 00886- 3654 Mar, Polyuria R35.8 ; Weight loss R63.4 ; Arthralgia, unspecified joint M25.50 ; Neuropathy G62.9 ; Family history of rheumatoid arthritis Z82.61 and Family history of diabetes mellitus Z83.3 [place] [address] [place] [id number] [place] [address] 77698- 1130 Mar, [place] [address] [place] [id number] [place] [address] 39736- 7176 Feb, [place] [address] 13466- 6472 Feb, Encounter for dental examination and cleaning without abnormal findings Z01.20 [place] [address] [place] [id number] [place] [address] 36082- 4416 Jan, [place] [address] [place] [address]- 0778 Dec, Degenerative disc disease at L5-S1 level M51.36 [facility] [address] [place] [id number] [place] [address] 57485 -0560 08 Dec, 2015 Degenerative disc disease at L5-S1 level M51.36 [facility] [address] [place] [id number] [place] [address] 188563- 3195 Dec, [facility] [address] 93400- 7885 Nov, [facility] [address] [place] [id number] [place] [address] 01551- 7275 October, Arthritis M19.90 [facility] [address] 33526- 1554 Sep, Arthritis M19.90 and Family history of diabetes mellitus Z83.3 [facility] [address] 92725- 2936 Jul, [facility] [address] [place] [id number] [place] [address] 16926- 2585 Jun, [facility] [address] 01158- 3155 May, [facility] [address] [place] [id number] [place] [address] 83574- 9393 Apr, [facility] [address] [place] [id number] [place] [address] 88046- 5897 Feb, Actinic keratitis 370.24 [facility] [address] [place] [id number] [place] [address] 49018- 3666 Jan, Common wart 078.19 ; Back pain 724.5 and Fibromyalgia 729.1 [facility] [address] [place] [id number] [place] [address] 06594- 8860 Dec, Alcohol abuse 305.00 [facility] [address] 08042- 0912 14 Dec, 2014 Lesion of neck 709.9 [facility] [address] [address]- 9390 Dec, Back pain 724.5 [facility] [address] [address]- 3241 24 Nov, 2014 Alcohol abuse 305.00 ; Basal cell carcinoma 173.91 and Common wart 078.19 [facility] [address] [facility] [id number] [address]- 7652 18 Nov, 2014 [facility] [address] [address]- 8932 14 Sep, 2014 [facility] [address] [address]- 0430 Sep, [facility] [address] [address]- 9684 15 Jun, 2014 [facility] [address] [address]- 3378 Jun, [facility] [address] [address]- 1666 May, [facility] [address] [address]- 5045 May, [facility] [address] [address]- 6044 Feb, [facility] [address] [place] [id number] [address]- 2556 Feb, [facility] [address] [id number] [address]- 0707 Feb, [facility] [address] [id number] [address]- 3469 Feb, [facility] [address] [id number] [address]- 9435 Sep, [facility] [address] [place] [address]- 7065 Sep, [facility] [place] [facility] [address] [id number] [place] [address]- 7973 Sep, [facility] [place] [facility] [address] [id number] [place] [address]- 3072 Sep, [facility] [place] [facility] [address] [id number] [place] [address]- 7489 Aug, [facility] [place] [facility] [address] [id number] [place] [address]- 1668 Aug, [facility] [place] [facility] [address] [id number] [place] [address]- 7460 Jul, [facility] [place] [facility] [address] [id number] [place] [address]- 7629 Jul, [facility] [place] [facility] [address] [id number] [place] [address]- 9970 Jul, [facility] [place] [facility] [address] [id number] [place] [address]- 2042 Jul, [facility] [place] [facility] [address] [id number] [place] [address]- 3454 Jun, [facility] [place] [facility] [address] [id number] [place] [address]- 7841 Jun, [facility] [place] [facility] [address] [id number] [place] [address]- 4453 Jun, [facility] [place] [facility] [address] [id number] [place] [address]- 9278 Jun, [facility] [place] [facility] [address] [id number] [place] 5836 May, [facility] [place] [facility] [address] [id number] [place] 0432 May, [facility] [place] [facility] [address] [id number] [place] [address]- 4966 Apr, [facility] [place] [facility] [address] [id number] [place] [address]- 7386 18 Apr, 2013 [facility] [place] [facility] [address] [id number] [place] [address]- 4350 Apr, [facility] [place] [facility] [address] [id number] [place] [address]- 5869 Apr, [facility] [place] [facility] [address] [id number] [place] [address]- 1602 Apr, [facility] [place] [facility] [address] [id number] [place] [address]- 9196 Apr, [facility] [place] [facility] [address] [id number] [place] [address]- 1006 Mar, [facility] [place] [facility] [address] [id number] [place] [address]- 4949 Mar, [facility] [place] [facility] [address] [id number] [place] [address]- 3394 Mar, [facility] [place] [facility] [address] [id number] [place] [address]- 3243 Mar, [facility] [place] [facility] [address] [id number] [place] [address]- 7947 Jan, [facility] [place] [facility] [address] [id number] [place] [address]- 7085 Jan, [facility] [place] [facility] [address] [id number] [address]- 5337 Aug, [facility] [place] [facility] [address] [id number] [place] [address]- 6453 Aug, [facility] [place] [facility] [address] [id number] [place] [address]- 0019 Mar, [facility] [place] [facility] [address] [id number] [place] [address]- 0037 Mar, [facility] [place] [facility] [address] [id number] [place] [address]- 6832 Mar, [facility] [place] [facility] [address] [id number] [place] [address]- 3593 Mar, [facility] [place] [facility] [address] [id number] [place] [address]- 1158 Mar, [facility] [place] [facility] [address] [id number] [place] [address]- 9336 Mar, [facility] [place] [facility] [address] [id number] [place] [address]- 0995 Mar, [facility] [place] [facility] [address] [id number] [place] [address]- 4327 Mar, [facility] [place] [facility] [address] [id number] [place] [address]- 4274 Jan, [facility] [place] [facility] [address] [id number] [place] [address]- 1344 Jan, [facility] [place] [facility] [address] [id number] [place] [address]- 0927 Nov, [facility] [place] [facility] [address] [id number] [place] [address]- 0444 Nov, [facility] [place] [facility] [address] [facility] [id number] [place] [address]- 5594 October, [facility] [place] [facility] [address] [id number] [place] [address]- 4436 Aug, [facility] [place] [facility] [address] [id number] [place] [address]- 2543 Aug, [facility] [place] [facility] [address] [id number] [place] [address]- 5060 Aug, [facility] [place] [facility] [address] [facility] [id number] [place] [address]- 7026 Jul, [facility] [place] [facility] [address] [id number] [place] [address]- 0016 Jul, [facility] [address] [facility] [id number] [address]- 4273 Apr, [facility] [id number] [address]- 1420 Apr, [facility] [id number] [address]- 9278 Apr, [facility] [address] [address]- 1037 Jul, [facility] [address] [address]- 2317 Jun, [facility] [id number] [address]- 0733 Apr, IMMUNIZATIONS No Known Immunizations SOCIAL HISTORY Never Assessed REASON FOR VISIT PFT-[facility] MANAGER FURNITURE/LPN OR MEDICAL ASSISTANT PLAN OF CARE Activity Details Follow Up prn Reason: VITAL SIGNS MEDICATIONS Unknown Medications RESULTS No Results PROCEDURES Procedure Date Ordered Result Body Site PULMONARY FUNCTION TEST (IN-HOUSE) 2017-08-09 Normal NEB/MDI DEMO Aug 09, 2017 SPIROMETRY Aug 09, 2017 INSTRUCTIONS MEDICATIONS ADMINISTERED No Known Medications MEDICAL (GENERAL) HISTORY Type Description Date Medical History irritable bowel syndrome Medical History orthopedic disorder-herniated disc, DJD Medical History esophageal reflux Medical History headache Medical History herpes (genital) Medical History backache Medical History fibromyalgia Surgical History tonsillectomy Hospitalization History Hospitalization for surgery only
--- OUTSIDE RECORDS SUMMARY | 2018-10-14 10:58 | XMS REPORT ---
Author Author [facility] Address Unknown Care Team Providers Care Camp Dishwasher Name Role Phone [address] [facility] Unavailable PROBLEMS Type Condition ICD9-CM Code NUP06-[place] Code Onset Dates Condition Status SNOMED Code Problem Arthritis M19.90 Active 7103893 Problem Other chronic pain G89.29 Active 63858043 Problem Neuropathy G62.9 Active 941723626 Problem Degenerative disc disease at L5-S1 level M51.36 Active 10484818 Problem Lumbago with sciatica, left side M54.42 Active 556086217 Problem Polyneuropathy G62.9 Active 47311212 ALLERGIES No Known Allergies SOCIAL HISTORY Never Assessed PLAN OF CARE Activity Details Follow Up prn Reason:#11 RCT VITAL SIGNS Height 70 in 2016-08-11 Blood pressure systolic 167 mmHg 2016-08-11 Blood pressure diastolic 103 mmHg 2016-08-11 MEDICATIONS Medication Instructions Dosage Frequency Start Date End Date Duration Status Baclofen 20 MG take 1 tablet (20 mg) by oral route 3 times per day PRN Active Naproxen 500 MG TAKE ONE TABLET BY MOUTH TWICE DAILY Active Doxepin HCl 50 mg Orally Once a day at night 1 capsule Jun, Active Neurontin 100 mg Orally Three times a day 1 capsule 8h Jul, Active Cymbalta 60 mg Orally Once a day 1 capsule 24h 60 Active Viagra 100 MG Orally Once a day 1 tablet as needed 24h 30 Active Metoprolol Tartrate 50 MG TAKE ONE TABLET BY MOUTH TWICE DAILY (MUST HAVE FOLLOW-UP APPOINTMENT FOR FURTHER REFILLS!!!) 30 Active [place] 5-325 MG Orally every 6 hrs 1 tablet as needed 6h Jul, 28 days Active Acyclovir 400 MG 1 tablet 12h Active Amoxicillin 500 MG Orally every 8 hrs 1 tablet 8h 7 days Active RESULTS No Results PROCEDURES Procedure Date Ordered Result Body Site LTD ORAL EVALUATION - PROBLEM FOCUS Aug 11, 2016 INTRAORL-PERIAPICAL 1 FILM [id number] Aug 11, 2016 IMMUNIZATIONS No Known Immunizations MEDICAL (GENERAL) HISTORY Type Description Date Medical History esophageal reflux Medical History irritable bowel syndrome Medical History orthopedic disorder-herniated disc, DJD Medical History headache Medical History herpes (genital) Medical History backache Medical History fibromyalgia Surgical History tonsillectomy Hospitalization History Hospitalization for surgery only
--- OUTSIDE RECORDS SUMMARY | 2018-10-14 10:58 | XMS REPORT ---
Author Author SRINI LIMON [facility] Address [address] [place] [address] Care Team Providers Care Glass Technician Name Role Phone BRAXTON SRINI Unavailable PROBLEMS Type Condition ICD9-CM Code [id number] Code Onset Dates Condition Status SNOMED Code Problem Arthritis M19.90 Active 3813189 Problem Other chronic pain G89.29 Active 12584907 Problem Neuropathy G62.9 Active 705426544 Problem Degenerative disc disease at L5-S1 level M51.36 Active 95847625 Problem Lumbago with sciatica, left side M54.42 Active 123278903 Problem Polyneuropathy G62.9 Active 54721789 ALLERGIES No Known Allergies SOCIAL HISTORY Never Assessed PLAN OF CARE Activity Details Follow Up 4 Weeks Reason:polyneuropathy VITAL SIGNS Height 70 in 2016-07-31 Weight 219.1 lbs 2016-07-31 Temperature 98.2 degrees Fahrenheit 2016-07-31 Heart Rate 76 bpm 2016-07-31 Respiratory Rate 20 2016-07-31 BMI 31.43 kg/m2 2016-07-31 Blood pressure systolic 132 mmHg 2016-07-31 Blood pressure diastolic 80 mmHg 2016-07-31 MEDICATIONS Medication Instructions Dosage Frequency Start Date End Date Duration Status Acyclovir 400 MG 1 tablet 12h Active Neurontin 100 mg Orally Three times a day 1 capsule 8h Jul, Active Naproxen 500 MG TAKE ONE TABLET BY MOUTH TWICE DAILY Active [place] 5-325 MG Orally every 6 hrs 1 tablet as needed 6h Jul, 28 days Active Metoprolol Tartrate 50 MG TAKE ONE TABLET BY MOUTH TWICE DAILY (MUST HAVE FOLLOW-UP APPOINTMENT FOR FURTHER REFILLS!!!) 30 Active Baclofen 20 MG take 1 tablet (20 mg) by oral route 3 times per day PRN Active Cymbalta 60 mg Orally Once a day 1 capsule 24h 60 Active Doxepin HCl 50 mg Orally Once a day at night 1 capsule Jun, Active Viagra 100 MG Orally Once a day 1 tablet as needed 24h 30 Active RESULTS No Results PROCEDURES No Known procedures IMMUNIZATIONS No Known Immunizations MEDICAL (GENERAL) HISTORY Type Description Date Medical History esophageal reflux Medical History irritable bowel syndrome Medical History orthopedic disorder-herniated disc, DJD Medical History headache Medical History herpes (genital) Medical History backache Medical History fibromyalgia Surgical History tonsillectomy Hospitalization History Hospitalization for surgery only
--- OUTSIDE RECORDS SUMMARY | 2018-10-14 10:59 | XMS REPORT ---
Author Author LAURYN GOYAL Organization [facility] Address [address] [place] [address] Care Team Providers Care Heavy Line Technician Name Role Phone LAURYN GOYAL Unavailable PROBLEMS Type Condition ICD9-CM Code FVG87-TQ Code Onset Dates Condition Status SNOMED Code Problem Neuropathy G62.9 Active 203284547 Problem Lumbago with sciatica, left side M54.42 Active 084529946 Problem Polyneuropathy G62.9 Active 87520128 Problem Degenerative disc disease at L5-S1 level M51.36 Active 02959733 Problem Hypertension, unspecified type I10 Active 95406520 Problem Gingivitis K05.10 Active 16707053 Problem Arthritis M19.90 Active 0475514 Problem Other chronic pain G89.29 Active 48913369 Problem Cervical radiculopathy M54.12 Active 04311018 Problem Mucopurulent chronic bronchitis J41.1 Active 14335430 ALLERGIES No Known Allergies ENCOUNTERS Encounter Location Date Diagnosis [place] [id number] [place] [address] 38500- 1002 Sep, Common wart B07.8 and Hypertension, unspecified type I10 [place] [id number] [place] [address] 89357- 6942 Aug, Dental examination Z01.20 ; Gingivitis K05.10 and Xerostomia R68.2 [place] [id number] [place] [address] 07920- 2879 Aug, Dental caries extending into dentin K02.62 [place] [address] 79107- 6140 20 Jul, 2017 Dental examination Z01.20 [place] [address] 81342- 7676 15 Jul, 2017 Mucopurulent chronic bronchitis J41.1 [facility] [id number] [place] [address] 26946- 6949 15 Jul, 2017 Cervical neuritis M54.12 ; Common wart B07.8 ; Actinic keratosis L57.0 ; Encounter for immunization Z23 and Mucopurulent chronic bronchitis J41.1 [facility] [id number] [place] [address] 68415- 9501 Jun, Radiculopathy of cervical region M54.12 [facility] [id number] [place] [address] 42909- 2626 May, Arthritis M19.90 ; Cervical radiculopathy M54.12 and Mucopurulent chronic bronchitis J41.1 [facility] [id number] [place] [address] 14431- 6757 20 Feb, 2017 Arthritis M19.90 [facility] [id number] [place] [address] 76498- 1306 Feb, Other chronic pain G89.29 [facility] [id number] [place] [address] 10998- 8559 19 Feb, 2017 Other chronic pain G89.29 [facility] [address] [place] [address] [phone] 15 Feb, 2017 Dental examination Z01.20 [facility] [address] [place] [address] 86943- 1544 07 Feb, 2017 Polyneuropathy G62.9 [facility] [id number] [place] [address] [id number] Jan, Dental examination Z01.20 [facility] [id number] [place] [address] 09926- 5075 Jan, Arthritis M19.90 [facility] [address] [place] [address] [phone] Jan, Dental examination Z01.20 [facility] [id number] [place] [address] 01081- 3799 Dec, [facility] [id number] [place] [address] 22992- 3702 Dec, Arthritis M19.90 [facility] [id number] [place] [address] 36786- 5558 Dec, Sebaceous cyst L72.3 [facility] [id number] [place] [address] 47739- 8664 Dec, Sebaceous cyst L72.3 and Common wart B07.8 [facility] [id number] [place] [address] 21881- 5795 Nov, Arthritis M19.90 [facility] [id number] [place] [address] 60837- 7207 Nov, [place] [id number] [place] [address] 40001- 4280 October, Arthritis M19.90 [facility] [id number] [place] [address] 53657- 5021 October, Polyneuropathy G62.9 and Arthritis M19.90 [facility] [id number] [place] [address] 59514- 6954 October, Polyneuropathy G62.9 and Arthritis M19.90 [place] [id number] [place] [address] 42807- 1452 October, Arthritis M19.90 and Polyneuropathy G62.9 [facility] [address] [place] [address] [phone] October, Dental examination Z01.20 [facility] [id number] [place] [address] 03654- 8401 Sep, Polyuria R35.8 [facility] [address] [place] [address] [id number] Sep, Dental examination Z01.20 [place] [id number] [place] [address] 78150- 7678 Sep, [facility] [id number] [place] [address] 92660- 1554 Sep, Polyneuropathy G62.9 [facility] [id number] [place] [address] 14351- 7659 Aug, Polyuria R35.8 [facility] [id number] [place] [address] [phone] Aug, Dental examination Z01.20 [facility] [id number] [place] [address] 31672- 7707 Aug, Polyneuropathy G62.9 [facility] [id number] [place] [address] 55993- 5469 Aug, Polyuria R35.8 [facility] [address] [id number] Jul, Dental examination Z01.20 [facility] [id number] [place] [address] [phone] Jul, Dental examination Z01.20 [facility] [id number] [place] [address] 97403- 3129 Jul, Polyneuropathy G62.9 [facility] [id number] [place] [address] 74478- 9289 Jul, Polyuria R35.8 [facility] [id number] [place] [address] 12257 -6261 Jun, Lumbago with sciatica, left side M54.42 and Other chronic pain G89.29 [place] [id number] [place] [address] 70021- 1716 Jun, Polyneuropathic pain M79.2 and Other infective acute otitis externa of left ear H60.392 [place] [id number] [place] [address] 61641- 9906 Jun, Polyuria R35.8 [place] [id number] [place] [address] 41176- 0684 May, Dental examination Z01.20 [place] [id number] [place] [address] 53239- 3452 May, Polyneuropathy G62.9 [place] [id number] [place] [address] 00096- 5378 May, Polyuria R35.8 [place] [id number] [place] [address] 35846- 6694 Apr, Polyuria R35.8 ; Weight loss R63.4 ; Arthralgia, unspecified joint M25.50 and Neuropathy G62.9 [place] [id number] [place] [address] 03197- 8467 Apr, [place] [id number] [place] [address] 95039- 6155 Apr, Dental examination Z01.20 [place] [id number] [place] [address] 08416- 6869 Mar, Polyuria R35.8 ; Weight loss R63.4 ; Arthralgia, unspecified joint M25.50 ; Neuropathy G62.9 ; Family history of rheumatoid arthritis Z82.61 and Family history of diabetes mellitus Z83.3 [place] [id number] [place] [address] 22289- 5155 Mar, [place] [id number] [place] [address] 25710- 9010 Feb, [place] [id number] [place] [address] 25487- 9925 Feb, Encounter for dental examination and cleaning without abnormal findings Z01.20 [place] [id number] [place] [address] 98941- 2486 Jan, [place] [address] [id number] [place] [address] 35358- 6011 Dec, Degenerative disc disease at L5-S1 level M51.36 [facility] [id number] [place] [address] 68606 -0772 Dec, Degenerative disc disease at L5-S1 level M51.36 [facility] [id number] [place] [address] 13642- 0881 Dec, [facility] [address] 60464- 2731 Nov, [facility] [address] 66963- 4889 October, Arthritis M19.90 [place] [address] 70272- 8940 Sep, Arthritis M19.90 and Family history of diabetes mellitus Z83.3 [place] [address] 25594- 1747 Jul, [facility] [id number] [place] [address] 17912- 1150 Jun, [facility] [id number] [place] [address] 84729- 5333 May, [facility] [id number] [place] [address] 52633- 1493 Apr, [facility] [id number] [place] [address] 99435- 8213 Feb, Actinic keratitis 370.24 [facility] [id number] [place] [address] 62415- 7102 Jan, Common wart 078.19 ; Back pain 724.5 and Fibromyalgia 729.1 [facility] [id number] [place] [address] 34080- 0768 Dec, Alcohol abuse 305.00 [facility] [address] 69728- 8283 14 Dec, 2014 Lesion of neck 709.9 [facility] [address] [place] [address] 01090- 0991 Dec, Back pain 724.5 [facility] [address] [address]- 2694 24 Nov, 2014 Alcohol abuse 305.00 ; Basal cell carcinoma 173.91 and Common wart 078.19 [facility] [id number] [place] [address] 28538- 2961 18 Nov, 2014 [facility] [id number] [place] [address] 45662- 2672 Sep, [facility] [id number] [place] [address] 12956- 8987 Sep, [facility] [id number] [place] [address] 41968- 3621 Jun, [facility] [address] [address]- 6121 Jun, [facility] [address] [place] [address]- 9398 May, [facility] [address] [place] [address]- 7293 May, [facility] [address] [place] [address]- 9596 Feb, [facility] [address] [address]- 2548 Feb, [facility] [address] [address]- 2375 Feb, [facility] [address] [place] [address]- 7095 Feb, [facility] [address] [place] [address]- 2415 Sep, [facility] [place] [facility] [address] [id number] [place] [address]- 9467 Sep, [facility] [place] [facility] [address] [id number] [place] [address]- 9150 Sep, [facility] [place] [facility] [address] [id number] [place] [address]- 4797 Sep, [facility] [place] [facility] [address] [id number] [place] [address]- 2299 Aug, [facility] [place] [facility] [address] [id number] [place] [address]- 0034 Aug, [facility] [place] [facility] [address] [id number] [place] [address]- 3918 Jul, [facility] [place] [facility] [address] [id number] [place] [address]- 0415 Jul, [facility] [place] [facility] [address] [id number] [place] [address]- 8221 Jul, [facility] [place] [facility] [address] [id number] [place] [address]- 2742 Jul, [facility] [place] [facility] [address] [id number] [place] [address]- 3754 Jun, [facility] [place] [facility] [address] [id number] [place] [address]- 1460 Jun, [facility] [place] [facility] [address] [id number] [place] [address]- 4277 Jun, [facility] [place] [facility] [address] [id number] [place] [address]- 2319 Jun, [facility] [place] [facility] [address] [id number] [place] [address]- 6925 May, [facility] [place] [facility] [address] [id number] [place] [address]- 0483 May, [facility] [place] [facility] [address] [id number] [place] [address]- 0389 Apr, [facility] [place] [facility] [address] [id number] [place] [address]- 3242 18 Apr, 2013 [facility] [place] [facility] [address] [id number] [place] [address]- 8190 Apr, [facility] [place] [facility] [address] [id number] [place] [address]- 3088 Apr, [facility] [place] [facility] [address] [id number] [place] [address]- 6676 Apr, [facility] [place] [facility] [address] [id number] [place] [address]- 3139 Apr, [facility] [place] [facility] [address] [id number] [place] [address]- 2823 Mar, [facility] [place] [facility] [address] [id number] [place] [address]- 9831 Mar, [facility] [place] [facility] [address] [id number] [place] [address]- 7528 Mar, [facility] [place] [facility] [address] [id number] [place] [address]- 1942 Mar, [facility] [place] [facility] [address] [id number] [place] [address]- 9178 Jan, [facility] [place] [facility] [address] [id number] [place] [address]- 6112 Jan, [facility] [place] [facility] [address] [id number] [place] [address]- 1714 Aug, [facility] [place] [facility] [address] [id number] [place] [address]- 9317 Aug, [facility] [place] [facility] [address] [id number] [place] [address]- 1451 Mar, [facility] [place] [facility] [address] [id number] [place] [address]- 5729 Mar, [facility] [place] [facility] [address] [id number] [place] [address] 2546 Mar, [facility] [place] [facility] [address] [id number] [place] [address]- 4308 Mar, [facility] [place] [facility] [address] [id number] [place] [address]- 2546 Mar, [facility] [place] [facility] [address] [id number] [place] [address]- 8396 Mar, [facility] [place] [facility] [address] [id number] [place] [address]- 2546 Mar, [facility] [place] [facility] [address] [id number] [place] [address]- 8696 Mar, [facility] [place] [facility] [address] [id number] [place] [address]- 1906 Jan, [facility] [place] [facility] [address] [id number] [place] [address]- 2996 Jan, [facility] [place] [facility] [address] [id number] [place] [address]- 1354 Nov, [facility] [place] [facility] [address] [id number] [place] [address]- 1216 Nov, [facility] [place] [facility] [address] [facility] [id number] [place] [address] 2546 October, [facility] [place] [facility] [address] [id number] [place] [address]- 2546 Aug, [facility] [place] [facility] [address] [id number] [place] [address]- 2546 Aug, [facility] [place] [facility] [address] [id number] [place] [address]- 2546 Aug, [facility] [place] [facility] [address] [id number] [place] [address]- 2546 Jul, [facility] [place] [facility] [address] [id number] [place] [address]- 2546 Jul, [facility] [address] [facility] [id number] [address]- 8386 Apr, [facility] [id number] [address]- 3256 Apr, [facility] [address] [facility] [id number], [place] [address]- 0856 Apr, [facility] [address] [facility] [id number], [place] [address]- 0326 Jul, [facility] [address] [facility] [id number], [place] [address]- 9617 Jun, [facility] [id number] [address]- 8596 Apr, IMMUNIZATIONS No Known Immunizations SOCIAL HISTORY Never Assessed REASON FOR VISIT arms falling asleep, with swollen hands. PT also has concerns that he his coughing up fluid simular to brown gravy, sore on the back of his tounge. The sore has been there for 4-5 months-Arianna WERNER PLAN OF CARE Activity Details Follow Up Will call after tests Reason: VITAL SIGNS Height 70 in 2017-06-14 Weight 231.6 lbs 2017-06-14 Temperature 98.3 degrees Fahrenheit 2017-06-14 Heart Rate 68 bpm 2017-06-14 Respiratory Rate 20 2017-06-14 BMI 33.23 kg/m2 2017-06-14 Blood pressure systolic 168 mmHg 2017-06-14 Blood pressure diastolic 98 mmHg 2017-06-14 MEDICATIONS Medication Instructions Dosage Frequency Start Date End Date Duration Status Baclofen 20 MG take 1 tablet (20 mg) by oral route 3 times per day PRN Active Metoprolol Tartrate 50 MG TAKE ONE TABLET BY MOUTH TWICE DAILY (MUST HAVE FOLLOW-UP APPOINTMENT FOR FURTHER REFILLS!!!) 30 Active Acyclovir 400 MG 1 tablet 12h Active Viagra 100 MG Orally Once a day 1 tablet as needed 24h 30 Active Doxepin HCl 50 mg Orally Once a day at night 1 capsule Jun, Active Doxycycline Hyclate 100 mg Orally every 12 hrs 1 capsule 12h May, May, 07 days Active Naproxen 500 MG TAKE ONE TABLET BY MOUTH TWICE DAILY 30 Active Wellbutrin SR 150 MG Orally Twice a day 1 tablet 12h 15 Oct, 2016 30 day(s) Active Neurontin 300 MG Orally Three times a day 1 capsule 8h 06 Jul, 2016 Active Cymbalta 60 mg Orally Once a day 1 capsule 24h 30 Active RESULTS Name Result Date Reference Range CRP 2017-06-14 C-REACTIVE PROTEIN 3.8 <8.0 RA (RHEUMATOID) FACTOR 2017-06-14 RHEUMATOID FACTOR <14 <14 MRI : Cervical w/o Contrast 2017-06-21 PROCEDURES Procedure Date Ordered Result Body Site RHEUMATOID FACTOR, QUANT Jun 14, 2017 C-REACTIVE PROTEIN Jun 14, 2017 VENIPUNCT, ROUTINE* Jun 14, 2017 INSTRUCTIONS MEDICATIONS ADMINISTERED No Known Medications MEDICAL (GENERAL) HISTORY Type Description Date Medical History irritable bowel syndrome Medical History orthopedic disorder-herniated disc, DJD Medical History esophageal reflux Medical History headache Medical History herpes (genital) Medical History backache Medical History fibromyalgia Surgical History tonsillectomy Hospitalization History Hospitalization for surgery only
--- OUTSIDE RECORDS SUMMARY | 2018-10-14 10:59 | XMS REPORT ---
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 Active 065883909 Problem Esophageal reflux 530.81 Active 993073010 Problem Chronic pain due to trauma 338.21 Active 065567468 Problem Unspecified otalgia 388.70 Active 50027445 Problem Degenerative disc disease at L5-S1 level M51.36 Active 77547129 Problem Dysphagia, unspecified 787.20 Active 10976284 Problem Unspecified myalgia and myositis 729.1 Active 119344314 Problem Dysuria 788.1 Active 71761287 Problem Psychosexual dysfunction with inhibited sexual excitement 302.72 Active 922300690753975 Problem Other abnormal blood chemistry 790.6 Active 045130912 ALLERGIES Unknown Allergies SOCIAL HISTORY No smoking Hx information available PLAN OF CARE VITAL SIGNS MEDICATIONS Medication Instructions Dosage Frequency Start Date End Date Duration Status Tramadol HCl 50 mg Orally 3 times a day 1 tablet as needed 8h Active RESULTS No Results PROCEDURES No Known procedures IMMUNIZATIONS No Known Immunizations
--- OUTSIDE RECORDS SUMMARY | 2018-10-14 10:59 | XMS REPORT ---
Author Author SRINI LIMON Organization [employer] Address Unknown Phone Unavailable Care Team Providers Care Clarification Operator Name Role Phone SRINI LIMON CP Unavailable Allergies No Known Allergies Problems Problem Type Condition Code Onset Dates Condition Status Problem Unspecified otalgia 388.70 Active Problem Esophageal reflux 530.81 Active Problem Dyskinesia of esophagus 530.5 Active Assessment Degenerative disc disease at L5-S1 level M51.36 Active Problem Chronic pain due to trauma 338.21 Active Problem Dysphagia, unspecified 787.20 Active Problem Psychosexual dysfunction with inhibited sexual excitement 302.72 Active Problem Degenerative disc disease at L5-S1 level M51.36 Active Problem Dysuria 788.1 Active Problem 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
--- OUTSIDE RECORDS SUMMARY | 2018-10-14 10:59 | XMS REPORT ---
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 Name Role Phone SRINI LIMON CP Unavailable Allergies No Known Allergies Problems Problem Type Condition Code Onset Dates Condition Status Problem Chronic pain due to trauma 338.21 Active Problem Dyskinesia of esophagus 530.5 Active Problem Unspecified otalgia 388.70 Active Problem Psychosexual dysfunction with inhibited sexual excitement 302.72 Active Problem Other abnormal blood chemistry 790.6 Active Problem Dysphagia, unspecified 787.20 Active Problem 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
--- OUTSIDE RECORDS SUMMARY | 2018-10-14 10:59 | XMS REPORT ---
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 857911758 Problem Esophageal reflux 530.81 Active 716562356 Assessment Encounter for dental examination and cleaning without abnormal findings Z01.20 Feb, Active 040284033 Problem Chronic pain due to trauma 338.21 Active 655584392 Problem Unspecified otalgia 388.70 Active 46220441 Problem Degenerative disc disease at L5-S1 level M51.36 Active 26375855 Problem Dysphagia, unspecified 787.20 Active 51340683 Problem Unspecified myalgia and myositis 729.1 Active 602625870 Problem Dysuria 788.1 Active 37758866 Problem Psychosexual dysfunction with inhibited sexual excitement 302.72 Active 854195773006643 Problem Other abnormal blood chemistry 790.6 Active 023500890 ALLERGIES Substance Reaction Event Type Date Status N.K.D.A. Unknown Non Drug Allergy Feb, Unknown SOCIAL HISTORY No smoking Hx information available PLAN OF CARE VITAL SIGNS MEDICATIONS Medication Instructions Dosage Frequency Start Date End Date Duration Status Baclofen 20 MG take 1 tablet (20 mg) by oral route 3 times per day PRN Active Viagra 100 MG Orally Once a day 1 tablet as needed 24h 10 Active Acyclovir 400 MG TAKE ONE TABLET BY MOUTH TWICE DAILY 30 Active Metoprolol Tartrate 50 MG TAKE ONE TABLET BY MOUTH TWICE DAILY (MUST HAVE FOLLOW-UP APPOINTMENT FOR FURTHER REFILLS!!!) 30 Active Naproxen 500 MG TAKE ONE TABLET BY MOUTH TWICE DAILY Active Tramadol HCl 50 mg Orally 3 times a day 1 tablet as needed 8h Active RESULTS No Results PROCEDURES Procedure Date Ordered Related Diagnosis Body Site COMP ORAL EVALUATION - NEW/EST PT Mar 13, 2016 INTRAORL-PERIAPICAL 1 FILM 91529 Mar 13, 2016 PROPHYLAXIS - ADULT Mar 13, 2016 INTRAORL-PERIAPICAL EA ADD FILM Mar 13, 2016 INTRAORL-PERIAPICAL EA ADD FILM Mar 13, 2016 BITEWINGS - FOUR FILMS Mar 13, 2016 INTRAORL-PERIAPICAL EA ADD FILM Mar 13, 2016 IMMUNIZATIONS No Known Immunizations
[2018-10-14] MEDS ORDERED: LACTATED RINGERS 1,000 ML IV ONE (11:00)
[2018-10-14] MEDS ORDERED: HURRICAINE EXT TUBE (BENZOCAINE) XX PRN (11:00)
--- OUTSIDE RECORDS SUMMARY | 2018-10-14 11:00 | XMS REPORT ---
Author Author SUSY LANE [facility] Address Unknown Care Team Providers Care Nuclear Plant Instrument Technician Name Role Phone SUSY LANE Unavailable PROBLEMS Type Condition ICD9-CM Code RMW97-LV Code Onset Dates Condition Status SNOMED Code Problem Arthritis M19.90 Active 8100225 Problem Other chronic pain G89.29 Active 53018892 Problem Neuropathy G62.9 Active 586641937 Problem Degenerative disc disease at L5-S1 level M51.36 Active 90860677 Problem Lumbago with sciatica, left side M54.42 Active 099710072 Problem Polyneuropathy G62.9 Active 56288273 ALLERGIES No Known Allergies SOCIAL HISTORY Never Assessed PLAN OF CARE Activity Details Follow Up prn Reason:crown prep #11 VITAL SIGNS Blood pressure systolic 130 mmHg 2016-10-25 Blood pressure diastolic 92 mmHg 2016-10-25 MEDICATIONS Medication Instructions Dosage Frequency Start Date End Date Duration Status Doxepin HCl 50 mg Orally Once a day at night 1 capsule Jun, Active Baclofen 20 MG take 1 tablet (20 mg) by oral route 3 times per day PRN Active Acyclovir 400 MG 1 tablet 12h Active Round Top 5-325 MG Orally every 6 hrs 1 tablet as needed 6h Sep, 28 days Active Naproxen 500 MG TAKE ONE TABLET BY MOUTH TWICE DAILY Active Neurontin 300 MG Orally Three times a day 1 capsule 8h Jul, Active Metoprolol Tartrate 50 MG TAKE ONE TABLET BY MOUTH TWICE DAILY (MUST HAVE FOLLOW-UP APPOINTMENT FOR FURTHER REFILLS!!!) 30 Active Viagra 100 MG Orally Once a day 1 tablet as needed 24h 10 Active Cymbalta 60 mg Orally Once a day 1 capsule 24h 60 Active RESULTS No Results PROCEDURES Procedure Date Ordered Result Body Site CORE BUILDUP INCLUDING ANY PINS October 25, 2016 ANTERIOR October 25, 2016 Billing Notes on claim October 25, 2016 IMMUNIZATIONS No Known Immunizations MEDICAL (GENERAL) HISTORY Type Description Date Medical History esophageal reflux Medical History irritable bowel syndrome Medical History orthopedic disorder-herniated disc, DJD Medical History headache Medical History herpes (genital) Medical History backache Medical History fibromyalgia Surgical History tonsillectomy Hospitalization History Hospitalization for surgery only
--- OUTSIDE RECORDS SUMMARY | 2018-10-14 11:00 | XMS REPORT ---
Author Author SRINI LIMON Organization [facility] Address [address] [place] [address] Care Team Providers Care Associate Professor Of Geography Name Role Phone SRINI LIMON Unavailable PROBLEMS Type Condition ICD9-CM Code [id number] Code Onset Dates Condition Status SNOMED Code Problem Neuropathy G62.9 Active 663467460 Problem Lumbago with sciatica, left side M54.42 Active 876724932 Problem Polyneuropathy G62.9 Active 12638618 Problem Degenerative disc disease at L5-S1 level M51.36 Active 30704658 Problem Hypertension, unspecified type I10 Active 06505201 Problem Gingivitis K05.10 Active 39610874 Problem Arthritis M19.90 Active 1897021 Problem Other chronic pain G89.29 Active 96440550 Problem Cervical radiculopathy M54.12 Active 49090498 Problem Mucopurulent chronic bronchitis J41.1 Active 19656612 ALLERGIES No Known Allergies ENCOUNTERS Encounter Location Date Diagnosis [place] [id number] [place] [address] 22183- 3401 Sep, Common wart B07.8 and Hypertension, unspecified type I10 [facility] [facility] [id number] [place] [address] 30919- 0541 Aug, Dental examination Z01.20 ; Gingivitis K05.10 and Xerostomia R68.2 [facility] [id number] [place] [address] 41915- 8938 Aug, Dental caries extending into dentin K02.62 [facility] [id number] [place] [address] 38297- 3154 20 Jul, 2017 Dental examination Z01.20 [facility] [id number] [place] [address] 81482- 3285 15 Jul, 2017 Mucopurulent chronic bronchitis J41.1 [facility] [id number] [place] [address] 75960- 2864 15 Jul, 2017 Cervical neuritis M54.12 ; Common wart B07.8 ; Actinic keratosis L57.0 ; Encounter for immunization Z23 and Mucopurulent chronic bronchitis J41.1 [facility] [id number] [place] [address] 52200- 2958 Jun, Radiculopathy of cervical region M54.12 [facility] [id number] [place] [address] 19815- 5040 May, Arthritis M19.90 ; Cervical radiculopathy M54.12 and Mucopurulent chronic bronchitis J41.1 [facility] [id number] [place] [address] 41701- 4549 20 Feb, 2017 Arthritis M19.90 [facility] [id number] [place] [address] 61731- 6421 Feb, Other chronic pain G89.29 [facility] [id number] [place] [address] 70837- 8595 19 Feb, 2017 Other chronic pain G89.29 [facility] [id number] [place] [address] [id number] 15 Feb, 2017 Dental examination Z01.20 [facility] [id number] [place] [address] 49448- 8338 07 Feb, 2017 Polyneuropathy G62.9 [facility] [id number] [place] [address] [id number] Jan, Dental examination Z01.20 [facility] [id number] [place] [address] 56170- 8319 Jan, Arthritis M19.90 [facility] [address] [place] [address] [id number] Jan, Dental examination Z01.20 [facility] [id number] [place] [address] 40576- 2488 Dec, [facility] [id number] [place] [address] 65490- 7634 Dec, Arthritis M19.90 [facility] [id number] [place] [address] 41711- 9934 Dec, Sebaceous cyst L72.3 [facility] [address] 67927- 5211 Dec, Sebaceous cyst L72.3 and Common wart B07.8 [facility] [id number] [place] [address] 84403- 3759 Nov, Arthritis M19.90 [facility] [id number] [place] [address] 70599- 2623 Nov, [facility] [address] 15363- 2777 October, Arthritis M19.90 [facility] [id number] [place] [address] 53602- 2278 October, Polyneuropathy G62.9 and Arthritis M19.90 [facility] [id number] [place] [address] 34211- 4924 October, Polyneuropathy G62.9 and Arthritis M19.90 [facility] [id number] [place] [address] 42104- 4638 October, Arthritis M19.90 and Polyneuropathy G62.9 [facility] [id number] [place] [address] [id number] October, Dental examination Z01.20 [facility] [id number] [place] [address] 80625- 1332 Sep, Polyuria R35.8 [facility] [id number] [place] [address] [id number] Sep, Dental examination Z01.20 [facility] [id number] [place] [address] 49838- 3245 Sep, [facility] [address] 17180- 7582 Sep, Polyneuropathy G62.9 [facility] [id number] [place] [address] 53090- 3536 Aug, Polyuria R35.8 [facility] [address] [id number] Aug, Dental examination Z01.20 [facility] [address] 26924- 9006 Aug, Polyneuropathy G62.9 [facility] [address] 01271- 0900 Aug, Polyuria R35.8 [facility] [address] [id number] Jul, Dental examination Z01.20 [facility] [id number] [place] [address] [id number] Jul, Dental examination Z01.20 [facility] [address] 08952- 6232 Jul, Polyneuropathy G62.9 [facility] [id number] [place] [address] 75374- 8767 Jul, Polyuria R35.8 [facility] [id number] [place] [address] 65531 -6248 Jun, Lumbago with sciatica, left side M54.42 and Other chronic pain G89.29 [place] [id number] [place] [address] 63018- 3375 Jun, Polyneuropathic pain M79.2 and Other infective acute otitis externa of left ear H60.392 [place] [address] 24106- 4008 Jun, Polyuria R35.8 [facility] [id number] [place] [address] 85599- 7356 May, Dental examination Z01.20 [place] [id number] [place] [address] 84306- 4123 May, Polyneuropathy G62.9 [facility] [place] [id number] [place] [address] 25578- 7616 May, Polyuria R35.8 [facility] [id number] [place] [address] 16399- 0532 Apr, Polyuria R35.8 ; Weight loss R63.4 ; Arthralgia, unspecified joint M25.50 and Neuropathy G62.9 [facility] [id number] [place] [address] 34748- 7143 Apr, [facility] [id number] [place] [address] 10851- 6016 Apr, Dental examination Z01.20 [facility] [id number] [place] [address] 54702- 2979 Mar, Polyuria R35.8 ; Weight loss R63.4 ; Arthralgia, unspecified joint M25.50 ; Neuropathy G62.9 ; Family history of rheumatoid arthritis Z82.61 and Family history of diabetes mellitus Z83.3 [place] [id number] [place] [address] 33919- 3462 Mar, [place] [id number] [place] [address] 90779- 1474 Feb, [place] [address] 54646- 8581 Feb, Encounter for dental examination and cleaning without abnormal findings Z01.20 [place] [id number] [place] [address] 93418- 4361 Jan, [place] [address] [place] [address]- 8324 18 Dec, 2015 Degenerative disc disease at L5-S1 level M51.36 [facility] [id number] [place] [address] 37502 -8776 08 Dec, 2015 Degenerative disc disease at L5-S1 level M51.36 [facility] [id number] [place] [address] 62849- 5418 07 Dec, 2015 [facility] [id number] [place] [address] 43735- 9114 Nov, [facility] [id number] [place] [address] 156979- 4442 October, Arthritis M19.90 [facility] [address] 216839- 3486 Sep, Arthritis M19.90 and Family history of diabetes mellitus Z83.3 [facility] [id number] [place] [address] 53930- 8534 Jul, [facility] [id number] [place] [address] 014975- 7188 Jun, [facility] [address] 280013- 0673 May, [facility] [id number] [place] [address] 14898- 7341 Apr, [facility] [id number] [place] [address] 55330- 6746 Feb, Actinic keratitis 370.24 [facility] [id number] [place] [address] 81405- 7172 Jan, Common wart 078.19 ; Back pain 724.5 and Fibromyalgia 729.1 [facility] [id number] [place] [address] 05498- 9929 Dec, Alcohol abuse 305.00 [facility] [address] 48933- 4277 14 Dec, 2014 Lesion of neck 709.9 [facility] [address] [address]- 0780 Dec, Back pain 724.5 [facility] [address] [address]- 7858 24 Nov, 2014 Alcohol abuse 305.00 ; Basal cell carcinoma 173.91 and Common wart 078.19 [facility] [address] [facility] [id number] [place] [address] 04946- 6110 18 Nov, 2014 [facility] [address] [facility] [id number] [address]- 3036 14 Sep, 2014 [facility] [id number] [place] [address] 09263- 9054 Sep, [facility] [address] [place] [address] 56188- 3298 15 Jun, 2014 [facility] [id number] [address]- 4517 Jun, [facility] [id number] [address]- 8651 May, [facility] [id number] [address]- 9631 May, [facility] [address] [address]- 1112 Feb, [facility] [address] [facility] [id number] [address]- 9763 Feb, [facility] [address] [facility] [id number] [address]- 0828 Feb, [facility] [address] [facility] [id number] [address]- 8670 Feb, [facility] [id number] [address]- 1846 Sep, [facility] [address] [facility] [id number] [place] [address]- 6128 Sep, [facility] [place] [facility] [address] [id number] [place] [address]- 3489 Sep, [facility] [place] [facility] [address] [id number] [place] [address]- 0758 Sep, [facility] [place] [facility] [address] [id number] [place] [address]- 9534 Aug, [facility] [place] [facility] [address] [id number] [place] [address]- 4060 Aug, [facility] [place] [facility] [address] [id number] [place] [address]- 0411 Jul, [facility] [place] [facility] [address] [id number] [place] [address]- 5655 Jul, [facility] [place] [facility] [address] [id number] [place] [address]- 3479 Jul, [facility] [place] [facility] [address] [id number] [place] [address]- 5557 Jul, [facility] [place] [facility] [address] [id number] [place] [address]- 7702 Jun, [facility] [place] [facility] [address] [id number] [place] [address]- 2556 Jun, [facility] [place] [facility] [address] [id number] [place] [address]- 6990 Jun, [facility] [place] [facility] [address] [id number] [place] [address]- 3322 Jun, [facility] [place] [facility] [address] [id number] [place] 7303 May, [facility] [place] [facility] [address] [id number] [place] 1974 May, [facility] [place] [facility] [address] [id number] [place] [address]- 5303 Apr, [facility] [place] [facility] [address] [id number] [place] [address]- 1983 18 Apr, 2013 [facility] [place] [facility] [address] [id number] [place] [address]- 6795 Apr, [facility] [place] [facility] [address] [id number] [place] [address]- 3731 Apr, [facility] [place] [facility] [address] [id number] [place] [address]- 3308 Apr, [facility] [place] [facility] [address] [id number] [place] [address]- 0806 Apr, [facility] [place] [facility] [address] [id number] [place] [address]- 8526 Mar, [facility] [place] [facility] [address] [id number] [place] [address]- 3897 Mar, [facility] [place] [facility] [address] [id number] [place] [address]- 4401 Mar, [facility] [place] [facility] [address] [id number] [place] [address]- 8148 Mar, [facility] [place] [facility] [address] [id number] [place] [address]- 2447 Jan, [facility] [place] [facility] [address] [id number], [place] [address]- 7858 Jan, [facility] [place] [facility] [address] [id number][place] [address]- 1554 Aug, [facility] [place] [facility] [address] [id number] [place] [address]- 6499 Aug, [facility] [place] [facility] [address] [id number] [address]- 8957 Mar, [facility] [place] [facility] [address] [id number] [place] [address]- 8826 Mar, [facility] [place] [facility] [address] [id number] [place] [address]- 4892 Mar, [facility] [place] [facility] [address] [id number] [place] [address]- 8083 Mar, [facility] [place] [facility] [address] [id number] [place] [address]- 4633 Mar, [facility] [place] [facility] [address] [id number] [place] [address]- 8122 Mar, [facility] [place] [facility] [address] [id number] [place] [address]- 7186 Mar, [facility] [place] [facility] [address] [id number] [place] [address]- 4826 Mar, [facility] [place] [facility] [address] [id number] [place] [address]- 8289 Jan, [facility] [place] [facility] [address] [facility] [id number] [place] [address]- 6727 Jan, [facility] [place] [facility] [address] [id number] [place] [address]- 6451 Nov, [facility] [place] [facility] [address] [id number] [place] [address]- 8347 Nov, [facility] [place] [facility] [address] [facility] [id number] [place] [address]- 8851 October, [facility] [place] [facility] [address] [facility] [id number] [place] [address]- 7566 Aug, [facility] [place] [facility] [address] [id number] [place] [address] 2547 Aug, [facility] [place] [facility] [address] [id number] [place] [address]- 5259 Aug, [facility] [place] [facility] [address] [facility] [id number] [place] [address]- 1231 Jul, [facility] [place] [facility] [address] [id number] [place] [address]- 3698 Jul, [facility] [address] [facility] [id number] [address]- 9420 Apr, [facility] [id number] [address]- 5986 Apr, [facility] [id number] [address]- 2327 Apr, [facility] [address], [place] [address]- 9066 Jul, [facility] [id number] [address]- 9736 Jun, [facility] [address], [place] [address]- 6896 Apr, IMMUNIZATIONS Vaccine Route Administration Date Status FLULAVAL QUAD (6 MO AND UP) 2016 IM Intramuscular Aug 09, 2017 Administered SOCIAL HISTORY Never Assessed REASON FOR VISIT Pain management (chronic)/htn, PT arms have been falling asleep and hands swelling. PT has a spot on hi left upper check that he has concerns of as well as posible cancer on his tounge, PT states he was told this by Ovidio WERNER PLAN OF CARE VITAL SIGNS Height 70 in 2017-08-09 Weight 233.6 lbs 2017-08-09 Temperature 98.2 degrees Fahrenheit 2017-08-09 Heart Rate 40 bpm 2017-08-09 Respiratory Rate 20 2017-08-09 BMI 33.51 kg/m2 2017-08-09 Blood pressure systolic 142 mmHg 2017-08-09 Blood pressure diastolic 106 mmHg 2017-08-09 MEDICATIONS Medication Instructions Dosage Frequency Start Date End Date Duration Status Wellbutrin SR 150 MG Orally Twice a day 1 tablet 12h October, 30 day(s) Active Doxepin HCl 50 mg Orally Once a day at night 1 capsule Jun, Unknown Acyclovir 400 MG 1 tablet 12h Active Cymbalta 60 mg Orally Once a day 1 capsule 24h 30 Active Viagra 100 MG TAKE ONE TABLET BY MOUTH ONCE DAILY NEEDED (PROGRAM LIMITS 10 TABS/30 DAYS) 10 Active Doxycycline Hyclate 100 MG Orally Twice a day 1 capsule 12h May, Jul, 07 days Active Neurontin 600 MG Orally 3 times a day 1 capsule 8h 30 Active Naproxen 500 MG TAKE ONE TABLET BY MOUTH TWICE DAILY 30 Active Baclofen 20 MG take 1 tablet (20 mg) by oral route 3 times per day PRN Active Neurontin 300 MG Orally Three times a day 1 capsule 8h 30 Active Metoprolol Tartrate 50 MG TAKE ONE TABLET BY MOUTH TWICE DAILY (MUST HAVE FOLLOW-UP APPOINTMENT FOR FURTHER REFILLS!!!) 30 Active RESULTS No Results PROCEDURES Procedure Date Ordered Result Body Site FLULAVAL QUAD (6 MO AND UP) 2017 Aug 09, 2017 SINGLE IMMUNIZATION ADMIN Aug 09, 2017 INSTRUCTIONS MEDICATIONS ADMINISTERED No Known Medications MEDICAL (GENERAL) HISTORY Type Description Date Medical History irritable bowel syndrome Medical History orthopedic disorder-herniated disc, DJD Medical History esophageal reflux Medical History headache Medical History herpes (genital) Medical History backache Medical History fibromyalgia Surgical History tonsillectomy Hospitalization History Hospitalization for surgery only
--- OUTSIDE RECORDS SUMMARY | 2018-10-14 11:00 | XMS REPORT ---
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 Name Role Phone SRINI LIMON Unavailable PROBLEMS Type Condition ICD9-CM Code DFB59-WR Code Onset Dates Condition Status SNOMED Code Problem Neuropathy G62.9 Active 899922813 Problem Lumbago with sciatica, left side M54.42 Active 444670154 Problem Polyneuropathy G62.9 Active 17161302 Problem Degenerative disc disease at L5-S1 level M51.36 Active 53157965 Problem Hypertension, unspecified type I10 Active 75412883 Problem Gingivitis K05.10 Active 66910683 Problem Arthritis M19.90 Active 2185325 Problem Other chronic pain G89.29 Active 74077272 Problem Cervical radiculopathy M54.12 Active 32061882 Problem Mucopurulent chronic bronchitis J41.1 Active 30817469 ALLERGIES No Information ENCOUNTERS Encounter Location Date Diagnosis [place] [id number] [place] [address] 26912- 7702 Sep, Common wart B07.8 and Hypertension, unspecified type I10 [place] [id number] [place] [address] 35376- 5464 Aug, Dental examination Z01.20 ; Gingivitis K05.10 and Xerostomia R68.2 [place] [id number] [place] [address] 05522- 3835 Aug, Dental caries extending into dentin K02.62 [facility] [facility] [id number] [place] [address] 30674- 4124 20 Jul, 2017 Dental examination Z01.20 [facility] [facility] [id number] [place] [address] 97290- 3197 15 Jul, 2017 Mucopurulent chronic bronchitis J41.1 [facility] [address] [place] [address] 57185- 4341 15 Jul, 2017 Cervical neuritis M54.12 ; Common wart B07.8 ; Actinic keratosis L57.0 ; Encounter for immunization Z23 and Mucopurulent chronic bronchitis J41.1 [facility] [id number] [place] [address] 97948- 6515 Jun, Radiculopathy of cervical region M54.12 [facility] [id number] [place] [address] 76528- 5527 May, Arthritis M19.90 ; Cervical radiculopathy M54.12 and Mucopurulent chronic bronchitis J41.1 [facility] [id number] [place] [address] 79176- 5563 Feb, Arthritis M19.90 [facility] [id number] [place] [address] 82830- 2019 Feb, Other chronic pain G89.29 [facility] [id number] [place] [address] 96949- 8520 19 Feb, 2017 Other chronic pain G89.29 [facility] [id number] [place] [address] [id number] Feb, Dental examination Z01.20 [facility] [id number] [place] [address] 97163- 5119 07 Feb, 2017 Polyneuropathy G62.9 [facility] [address] [place] [address] [id number] Jan, Dental examination Z01.20 [facility] [id number] [place] [address] 37754- 8015 Jan, Arthritis M19.90 [facility] [id number] [place] [address] [id number] Jan, Dental examination Z01.20 [facility] [id number] [place] [address] 91589- 5202 Dec, [facility] [id number] [place] [address] 03753- 3998 Dec, Arthritis M19.90 [facility] [id number] [place] [address] 55676- 1872 Dec, Sebaceous cyst L72.3 [facility] [address] 97073- 6481 Dec, Sebaceous cyst L72.3 and Common wart B07.8 [facility] [id number] [place] [address] 75337- 0842 Nov, Arthritis M19.90 [facility] [id number] [place] [address] 51175- 6315 Nov, [facility] [id number] [place] [address] 94991- 5225 October, Arthritis M19.90 [facility] [id number] [place] [address] 53578- 8080 October, Polyneuropathy G62.9 and Arthritis M19.90 [facility] [id number] [place] [address] 26553- 4920 October, Polyneuropathy G62.9 and Arthritis M19.90 [facility] [id number] [place] [address] 02172- 7436 October, Arthritis M19.90 and Polyneuropathy G62.9 [facility] [id number] [place] [address] [id number] October, Dental examination Z01.20 [facility] [id number] [place] [address] 45698- 3067 Sep, Polyuria R35.8 [facility] [id number] [place] [address] [id number] Sep, Dental examination Z01.20 [facility] [id number] [place] [address] 40710- 4247 Sep, [facility] [id number] [place] [address] 20811- 5996 Sep, Polyneuropathy G62.9 [facility] [id number] [place] [address] 70827- 7363 Aug, Polyuria R35.8 [facility] [address] [id number] Aug, Dental examination Z01.20 [facility] [address] 54462- 3116 Aug, Polyneuropathy G62.9 [facility] [address] 89792- 5614 Aug, Polyuria R35.8 [facility] [address] [id number] Jul, Dental examination Z01.20 [facility] [id number] [place] [address] [phone] Jul, Dental examination Z01.20 [facility] [id number] [place] [address] 16444- 5333 Jul, Polyneuropathy G62.9 [facility] [id number] [place] [address] 68047- 3210 Jul, Polyuria R35.8 [facility] [id number] [place] [address] 24577 -5122 Jun, Lumbago with sciatica, left side M54.42 and Other chronic pain G89.29 [place] [id number] [place] [address] 17090- 0456 Jun, Polyneuropathic pain M79.2 and Other infective acute otitis externa of left ear H60.392 [place] [address] 47263- 3133 Jun, Polyuria R35.8 [facility] [id number] [place] [address] 59681- 9520 May, Dental examination Z01.20 [place] [id number] [place] [address] 17038- 4206 May, Polyneuropathy G62.9 [place] [id number] [place] [address] 13207- 9781 May, Polyuria R35.8 [facility] [id number] [place] [address] 26212- 5963 Apr, Polyuria R35.8 ; Weight loss R63.4 ; Arthralgia, unspecified joint M25.50 and Neuropathy G62.9 [place] [id number] [place] [address] 39598- 1339 Apr, [place] [address] 51361- 1299 Apr, Dental examination Z01.20 [place] [id number] [place] [address] 43022- 0840 Mar, Polyuria R35.8 ; Weight loss R63.4 ; Arthralgia, unspecified joint M25.50 ; Neuropathy G62.9 ; Family history of rheumatoid arthritis Z82.61 and Family history of diabetes mellitus Z83.3 [place] [id number] [place] [address] 79842- 3348 Mar, [place] [id number] [place] [address] 21510- 1517 Feb, [place] [address] 85560- 3895 Feb, Encounter for dental examination and cleaning without abnormal findings Z01.20 [place] [id number] [place] [address] 24758- 6991 Jan, [place] [address] [place] [address]- 5820 Dec, Degenerative disc disease at L5-S1 level M51.36 [facility] [id number] [place] [address] 37347 -1081 08 Dec, 2015 Degenerative disc disease at L5-S1 level M51.36 [facility] [id number] [place] [address] 796880- 5374 Dec, [facility] [address] 08455- 3451 Nov, [facility] [id number] [place] [address] 98874- 3088 October, Arthritis M19.90 [facility] [address] 32293- 3843 Sep, Arthritis M19.90 and Family history of diabetes mellitus Z83.3 [facility] [address] 19542- 8813 Jul, [facility] [id number] [place] [address] 05696- 7122 Jun, [facility] [address] 74701- 6974 May, [facility] [id number] [place] [address] 75559- 2542 Apr, [facility] [id number] [place] [address] 51871- 7879 Feb, Actinic keratitis 370.24 [facility] [id number] [place] [address] 76655- 2586 Jan, Common wart 078.19 ; Back pain 724.5 and Fibromyalgia 729.1 [facility] [id number] [place] [address] 36681- 9808 Dec, Alcohol abuse 305.00 [facility] [address] 28048- 9709 14 Dec, 2014 Lesion of neck 709.9 [facility] [address] [address]- 2497 Dec, Back pain 724.5 [facility] [address] [place] [address]- 6089 24 Nov, 2014 Alcohol abuse 305.00 ; Basal cell carcinoma 173.91 and Common wart 078.19 [facility] [address] [facility] [id number] [address]- 4259 18 Nov, 2014 [facility] [address] [address]- 2165 14 Sep, 2014 [facility] [address] [address]- 1235 Sep, [facility] [address] [address]- 9081 15 Jun, 2014 [facility] [address] [place] [address]- 6411 Jun, [facility] [address] [address]- 2853 May, [facility] [address] [place] [address]- 8196 May, [facility] [address] [address]- 1843 Feb, [facility] [id number] [address]- 8555 Feb, [facility] [id number] [address]- 3274 Feb, [facility] [id number] [address]- 0033 Feb, [facility] [id number] [address]- 3856 Sep, [facility] [address] [place] [address]- 3384 Sep, [facility] [place] [facility] [address] [id number] [place] [address]- 3518 Sep, [facility] [place] [facility] [address] [id number] [place] [address]- 1294 Sep, [facility] [place] [facility] [address] [id number] [place] [address]- 7558 Aug, [facility] [place] [facility] [address] [id number] [place] [address]- 4933 Aug, [facility] [place] [facility] [address] [id number] [place] [address]- 0487 Jul, [facility] [place] [facility] [address] [id number] [place] [address]- 8933 Jul, [facility] [place] [facility] [address] [id number] [place] [address]- 5580 Jul, [facility] [place] [facility] [address] [id number] [place] [address]- 8305 Jul, [facility] [place] [facility] [address] [id number] [place] [address]- 9869 Jun, [facility] [place] [facility] [address] [id number] [place] [address]- 0775 Jun, [facility] [place] [facility] [address] [id number] [place] [address]- 2926 Jun, [facility] [place] [facility] [address] [id number] [place] [address]- 2276 Jun, [facility] [place] [facility] [address] [id number] [place] 6524 May, [facility] [place] [facility] [address] [id number] [place] 9431 May, [facility] [place] [facility] [address] [id number] [place] [address]- 8982 Apr, [facility] [place] [facility] [address] [id number] [place] [address]- 3617 18 Apr, 2013 [facility] [place] [facility] [address] [id number] [place] [address]- 1997 Apr, [facility] [place] [facility] [address] [id number] [place] [address]- 4248 Apr, [facility] [place] [facility] [address] [id number] [place] [address]- 3139 Apr, [facility] [place] [facility] [address] [id number] [place] [address]- 7816 Apr, [facility] [place] [facility] [address] [id number] [place] [address]- 3793 Mar, [facility] [place] [facility] [address] [id number] [place] [address]- 2364 Mar, [facility] [place] [facility] [address] [id number] [place] [address]- 9134 Mar, [facility] [place] [facility] [address] [id number] [place] [address]- 1016 Mar, [facility] [place] [facility] [address] [id number] [place] [address]- 0774 Jan, [facility] [place] [facility] [address] [id number] [place] [address]- 7080 Jan, [facility] [place] [facility] [address] [id number], [place] [address]- 7460 Aug, [facility] [place] [facility] [address] [id number] [place] [address]- 3830 Aug, [facility] [place] [facility] [address] [id number] [place] [address]- 6246 Mar, [facility] [place] [facility] [address] [id number] [place] [address]- 6208 Mar, [facility] [place] [facility] [address] [id number] [place] [address]- 9876 Mar, [facility] [place] [facility] [address] [id number] [place] [address]- 9104 Mar, [facility] [place] [facility] [address] [id number] [place] [address]- 6329 Mar, [facility] [place] [facility] [address] [id number] [place] [address]- 2076 Mar, [facility] [place] [facility] [address] [id number] [place] [address]- 8298 Mar, [facility] [place] [facility] [address] [id number] [place] [address]- 1388 Mar, [facility] [place] [facility] [address] [id number] [place] [address]- 8656 Jan, [facility] [place] [facility] [address] [id number] [place] [address]- 9511 Jan, [facility] [place] [facility] [address] [id number] [place] [address]- 2018 Nov, [facility] [place] [facility] [address] [id number] [place] [address]- 7969 Nov, [facility] [place] [facility] [address] [facility] [id number] [place] [address]- 4025 October, [facility] [place] [facility] [address] [id number] [place] [address]- 5456 Aug, [facility] [place] [facility] [address] [id number] [place] [address]- 2543 Aug, [facility] [place] [facility] [address] [id number] [place] [address]- 6097 Aug, [facility] [place] [facility] [address] [facility] [id number] [place] [address]- 9396 Jul, [facility] [place] [facility] [address] [id number] [place] [address]- 6586 Jul, [facility] [address] [facility] [id number], [place] [address]- 2046 Apr, [facility] [id number] [address]- 3206 Apr, [facility] [id number] [address]- 2376 Apr, [facility] [address] [place] [address]- 7186 Jul, [facility] [address] [place] [address]- 5557 Jun, [facility] [id number] [address]- 5363 Apr, IMMUNIZATIONS No Known Immunizations SOCIAL HISTORY Never Assessed REASON FOR VISIT Controlled Refill Request PLAN OF CARE VITAL SIGNS MEDICATIONS Medication Instructions Dosage Frequency Start Date End Date Duration Status [place] 5-325 MG Orally every 6 hrs 1 tablet as needed Dec, 28 days Active RESULTS No Results PROCEDURES [...]
--- OUTSIDE RECORDS SUMMARY | 2018-10-14 11:00 | XMS REPORT ---
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 Active Problem Other abnormal blood chemistry 790.6 Active Assessment Family history of diabetes mellitus Z83.3 Active Assessment Family history of rheumatoid arthritis Z82.61 Active Assessment Weight loss R63.4 Active Assessment Polyuria R35.8 Active Assessment Neuropathy G62.9 Active Problem Chronic pain due to trauma 338.21 Active Assessment Arthralgia, unspecified joint M25.50 Active Problem Unspecified otalgia 388.70 Active Medications Medication Code System Code Instructions Start Date End Date Status Dosage Metoprolol Tartrate [facility] 40802254073 50 MG TAKE ONE TABLET BY MOUTH TWICE DAILY (MUST HAVE FOLLOW-UP APPOINTMENT FOR FURTHER REFILLS!!!) Viagra [facility] 46139049416 100 MG Orally Once a day 1 tablet as needed Naprox[place] ND 28458670732 500 MG TAKE ONE TABLET BY MOUTH TWICE DAILY [place] [facility] [address]-64 5-325 MG Orally every 6 hrs Apr 24, 2016 1 tablet as needed Acyclovir ND 03174450865 400 MG TAKE ONE TABLET BY MOUTH TWICE DAILY Baclofen ND 08290275917 20 MG take 1 tablet (20 mg) by oral route 3 times per day PRN Procedures Procedure Coding System Code Date No Charge CPT-4 51417 Apr 24, 2016 VENIPUNCT, ROUTINE* CPT-4 75257 Apr 24, 2016 ANTISTREPTOLYSIN O, TITER CPT-4 33454 Apr 24, 2016 GLYCATED HEMOGLOBIN TEST CPT-4 87353 Apr 24, 2016 Office Visit, Est Pt., Level 3 CPT-4 42286 Apr 24, 2016 LIPID PANEL CPT-4 40328 Apr 24, 2016 ANTINUCLEAR ANTIBODIES CPT-4 69546 Apr 24, 2016 COMPREHEN METABOLIC PANEL CPT-4 59997 Apr 24, 2016 COMPLETE CBC W/AUTO DIFF WBC CPT-4 72843 Apr 24, 2016 ASSAY THYROID STIM HORMONE CPT-4 06368 Apr 24, 2016 C-REACTIVE PROTEIN CPT-4 70569 Apr 24, 2016 RBC SED RATE, AUTOMATED CPT-4 59066 Apr 24, 2016 Vital Signs Date/Time: Apr 24, 2016 Cardiac Monitoring Heart Rate 74 bpm Weight 197.0 lbs Height 70 in BMI 28.26 Index Blood Pressure Diastolic 101 mmHg Blood Pressure Systolic 143 mmHg Results Name Result Date Reference Range Unit Abnormality Flag A1C ----Hemoglobin A1c 5.3 00234286 4.8-5.6 % TSH ----TSH 2.140 30349660 0.450-4.500 uIU/mL ROUTINE VENIPUNCTURE ASO ----Antistreptolysin O Ab 34.5 61240746 0.0-200.0 IU/mL LIPID PANEL ----HDL Cholesterol 57 59457590 >39 mg/dL ----VLDL Cholesterol Stef 15 81963941 5-40 mg/dL ----Cholesterol, Total 192 11368989 100-199 mg/dL ----Triglycerides 75 22930152 0-149 mg/dL ----LDL Cholesterol Calc 120 78628482 0-99 mg/dL H CRP ----C-Reactive Protein, Quant 0.5 08578045 0.0-4.9 mg/L MARCO ----Antinuclear Antibodies, IFA Negative 20160424 CBC ----RDW 12.9 56783566 12.3-15.4 % ----MCHC 34.1 73861896 31.5-35.7 g/dL ----MCH 33.5 45640690 26.6-33.0 pg H ----MCV 98 82263995 79-97 fL H ----Hematocrit 50.4 05586744 37.5-51.0 % ----Hemoglobin 17.2 20160424 12.6-17.7 g/dL ----Immature Granulocytes 0 60722142 % ----RBC 5.14 58641374 4.14-5.80 x10E6/uL ----WBC 9.4 02836254 3.4-10.8 x10E3/uL ----Immature Grans (Abs) 0.0 40074075 0.0-0.1 x10E3/uL ----Eos (Absolute) 0.0 70845481 0.0-0.4 x10E3/uL ----Basos 0 60154470 % ----Baso (Absolute) 0.0 93597200 0.0-0.2 x10E3/uL ----Neutrophils (Absolute) 7.4 02396640 1.4-7.0 x10E3/uL H ----Lymphs (Absolute) 1.4 33318036 0.7-3.1 x10E3/uL ----Monocytes(Absolute) 0.6 30169921 0.1-0.9 x10E3/uL ----Neutrophils 80 26382861 % ----Lymphs 14 44323305 % ----Monocytes 6 34658064 % ----Eos 0 75699189 % ----Platelets 315 62349371 150-379 x10E3/uL CMP ----BUN/Creatinine Ratio 16 20160424 9-20 ----eGFR If Africn Am 124 39780022 >59 mL/min/1.73 ----eGFR If NonAfricn Am 107 43676305 >59 mL/min/1.73 ----Creatinine, Serum 0.80 20160424 0.76-1.27 mg/dL ----Chloride, Serum 97 20160424 97-106 mmol/L ----Potassium, Serum 4.3 20160424 3.5-5.2 mmol/L ----Sodium, Serum 139 20160424 136-144 mmol/L ----Alkaline Phosphatase, S 43 20160424 39-117 IU/L ----BUN 13 20160424 6-24 mg/dL ----Bilirubin, Total 0.6 20160424 0.0-1.2 mg/dL ----Glucose, Serum 95 20160424 65-99 mg/dL ----ALT (SGPT) 10 20160424 0-44 IU/L ----AST (SGOT) 12 20160424 0-40 IU/L ----Globulin, Total 2.1 20160424 1.5-4.5 g/dL ----A/G Ratio 2.4 20160424 1.1-2.5 ----Protein, Total, Serum 7.1 20160424 6.0-8.5 g/dL ----Albumin, Serum 5.0 20160424 3.5-5.5 g/dL ----Carbon Dioxide, Total 19 20160424 18-29 mmol/L ----Calcium, Serum 9.5 20160424 8.7-10.2 mg/dL ESR/SED RATE ----Sedimentation Rate-Meño 3 20160424 0-15 mm/hr Summary Purpose eClinicalWorks Submission
--- OUTSIDE RECORDS SUMMARY | 2018-10-14 11:01 | XMS REPORT ---
Author MACK Larson [facility] eClinicalWorks Address Unknown Phone Unavailable Care Team Providers Care Associate Agent Insurance Sales Name Role Phone MACK DOBBS CP Unavailable Allergies, Adverse Reactions, Alerts Substance [...] Instructions Start Date End Date Status Dosage Acyclovir [facility] [id number] 400 MG TAKE ONE TABLET BY MOUTH TWICE DAILY Metoprolol Tartrate [facility] [id number] 50 MG TAKE ONE TABLET BY MOUTH TWICE DAILY (MUST HAVE FOLLOW-UP APPOINTMENT FOR FURTHER REFILLS!!!) Baclofen [facility] 62196432501 20 MG take 1 tablet (20 mg) by oral route 3 times per day PRN Tramadol HCl [facility] [address]-92 50 mg Orally 3 times a day 1 tablet as needed Naproxen [facility] 36571483854 500 MG TAKE ONE TABLET BY MOUTH TWICE DAILY Viagra [facility] 59931763469 100 MG Orally Once a day 1 tablet as needed Procedures Procedure Coding System Code Date DEXAMETHASONE 4MG/ML (PER 1 MG) CPT-4 J1100 December 31, 2015 THER/PROPH/DIAG INJ, SC/IM CPT-4 89679 December 31, 2015 Office Visit, Est Pt., Level 3 CPT-4 13927 December 31, 2015 TORADOL (IM) 60 MG/2ML (UP TO 15 MG) CPT-4 J1885 December 31, 2015 DEPO MEDROL 40 MG/ML CPT-4 J1030 December 31, 2015 Vital Signs Date/Time: December 31, 2015 Cardiac Monitoring Heart Rate 64 bpm Weight 207.6 lbs Height 70 in Blood Pressure Diastolic 88 mmHg Blood Pressure Systolic 142 mmHg Results No Known Results Summary Purpose eClinicalWorks Submission
--- OUTSIDE RECORDS SUMMARY | 2018-10-14 11:01 | XMS REPORT ---
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 354187070 Assessment Dental examination Z01.20 Apr, Active 660514772 Problem Chronic pain due to trauma 338.21 Active 014866970 Problem Unspecified otalgia 388.70 Active 01559421 Problem Dyskinesia of esophagus 530.5 Active 50863456 Problem Neuropathy G62.9 Active 041430956 Problem Degenerative disc disease at L5-S1 level M51.36 Active 89497682 Problem Other abnormal blood chemistry 790.6 Active 604395231 Problem Unspecified myalgia and myositis 729.1 Active 484147584 Problem Dysphagia, unspecified 787.20 Active 44807991 Problem Psychosexual dysfunction with inhibited sexual excitement 302.72 Active [id number] ALLERGIES Substance Reaction Event Type Date Status N.K.D.A. Unknown Non Drug Allergy Apr, Unknown SOCIAL HISTORY No smoking Hx information available PLAN OF CARE VITAL SIGNS Height 70 in 2016-04-26 Blood pressure systolic 145 mmHg 2016-04-26 Blood pressure diastolic 85 mmHg 2016-04-26 MEDICATIONS Medication Instructions Dosage Frequency Start Date End Date Duration Status Naproxen 500 MG TAKE ONE TABLET BY MOUTH TWICE DAILY Active Acyclovir 400 MG TAKE ONE TABLET BY MOUTH TWICE DAILY 30 Active Grambling 5-325 MG Orally every 6 hrs 1 tablet as needed 6h Mar, Active Viagra 100 MG Orally Once a day 1 tablet as needed 24h 30 Active Metoprolol Tartrate 50 MG TAKE ONE TABLET BY MOUTH TWICE DAILY (MUST HAVE FOLLOW-UP APPOINTMENT FOR FURTHER REFILLS!!!) 30 Active Baclofen 20 MG take 1 tablet (20 mg) by oral route 3 times per day PRN Active RESULTS No Results PROCEDURES Procedure Date Ordered Related Diagnosis Body Site RSN COMPOS-4/> SURF/W/INCISAL ANG Apr 26, 2016 RESIN COMPOS - 1 SURFACE POSTERIOR Apr 26, 2016 RESIN COMPOS - 3 SURFACES POSTERIOR Apr 26, 2016 IMMUNIZATIONS No Known Immunizations
--- OUTSIDE RECORDS SUMMARY | 2018-10-14 11:01 | XMS REPORT ---
Author Author SRINI LIMON Organization [facility] Address [address] [place] [address] Care Team Providers Care Metal Flow Coordinator Name Role Phone SRINI LIMON Unavailable PROBLEMS Type Condition ICD9-CM Code GCX13-MT Code Onset Dates Condition Status SNOMED Code Problem Neuropathy G62.9 Active 578342767 Problem Lumbago with sciatica, left side M54.42 Active 052715093 Problem Polyneuropathy G62.9 Active 46968183 Problem Degenerative disc disease at L5-S1 level M51.36 Active 93222628 Problem Hypertension, unspecified type I10 Active 36053230 Problem Gingivitis K05.10 Active 85677765 Problem Arthritis M19.90 Active 4930691 Problem Other chronic pain G89.29 Active 11214176 Problem Cervical radiculopathy M54.12 Active 13031269 Problem Mucopurulent chronic bronchitis J41.1 Active 61975132 ALLERGIES No Information ENCOUNTERS Encounter Location Date Diagnosis [place] [id number] [place] [address] 35227- 2541 Sep, Common wart B07.8 and Hypertension, unspecified type I10 [place] [id number] [place] [address] 44066- 5908 Aug, Dental examination Z01.20 ; Gingivitis K05.10 and Xerostomia R68.2 [facility] [address] [place] [address] 23214- 1693 Aug, Dental caries extending into dentin K02.62 [place] [id number] [place] [address] 55866- 9202 20 Jul, 2017 Dental examination Z01.20 [place] [id number] [place] [address] 74273- 2697 15 Jul, 2017 Mucopurulent chronic bronchitis J41.1 [facility] [address] [place] [address] 64007- 8633 15 Jul, 2017 Cervical neuritis M54.12 ; Common wart B07.8 ; Actinic keratosis L57.0 ; Encounter for immunization Z23 and Mucopurulent chronic bronchitis J41.1 [facility] [id number] [place] [address] 30045- 3299 Jun, Radiculopathy of cervical region M54.12 [facility] [id number] [place] [address] 61410- 8083 May, Arthritis M19.90 ; Cervical radiculopathy M54.12 and Mucopurulent chronic bronchitis J41.1 [facility] [id number] [place] [address] 71913- 0952 Feb, Arthritis M19.90 [facility] [id number] [place] [address] 63208- 5187 Feb, Other chronic pain G89.29 [facility] [id number] [place] [address] 20512- 7384 19 Feb, 2017 Other chronic pain G89.29 [facility] [id number] [place] [address] [id number] Feb, Dental examination Z01.20 [facility] [id number] [place] [address] 73337- 8201 07 Feb, 2017 Polyneuropathy G62.9 [facility] [address] [place] [address] [id number] Jan, Dental examination Z01.20 [facility] [id number] [place] [address] 65417- 1512 Jan, Arthritis M19.90 [facility] [id number] [place] [address] [id number] Jan, Dental examination Z01.20 [facility] [id number] [place] [address] 97366- 4186 Dec, [facility] [id number] [place] [address] 13657- 0938 Dec, Arthritis M19.90 [facility] [id number] [place] [address] 39932- 9577 Dec, Sebaceous cyst L72.3 [facility] [address] 32264- 9010 Dec, Sebaceous cyst L72.3 and Common wart B07.8 [facility] [id number] [place] [address] 88748- 5749 Nov, Arthritis M19.90 [facility] [id number] [place] [address] 26509- 2419 Nov, [facility] [id number] [place] [address] 10563- 2038 October, Arthritis M19.90 [facility] [id number] [place] [address] 56918- 3432 October, Polyneuropathy G62.9 and Arthritis M19.90 [facility] [id number] [place] [address] 64613- 9020 October, Polyneuropathy G62.9 and Arthritis M19.90 [facility] [id number] [place] [address] 93929- 2541 October, Arthritis M19.90 and Polyneuropathy G62.9 [facility] [id number] [place] [address] [id number] October, Dental examination Z01.20 [facility] [id number] [place] [address] 72069- 0272 Sep, Polyuria R35.8 [facility] [id number] [place] [address] [id number] Sep, Dental examination Z01.20 [facility] [id number] [place] [address] 81824- 2308 Sep, [facility] [id number] [place] [address] 67729- 5268 Sep, Polyneuropathy G62.9 [facility] [id number] [place] [address] 75747- 8368 Aug, Polyuria R35.8 [facility] [address] [id number] Aug, Dental examination Z01.20 [facility] [address] 82632- 6029 Aug, Polyneuropathy G62.9 [facility] [address] 85205- 7571 Aug, Polyuria R35.8 [facility] [address] [id number] Jul, Dental examination Z01.20 [facility] [id number] [place] [address] [id number] Jul, Dental examination Z01.20 [facility] [id number] [place] [address] 20909- 0748 Jul, Polyneuropathy G62.9 [facility] [id number] [place] [address] 57514- 6073 Jul, Polyuria R35.8 [facility] [id number] [place] [address] 59513 -8925 Jun, Lumbago with sciatica, left side M54.42 and Other chronic pain G89.29 [place] [id number] [place] [address] 71589- 4858 Jun, Polyneuropathic pain M79.2 and Other infective acute otitis externa of left ear H60.392 [place] [address] 28314- 5980 Jun, Polyuria R35.8 [facility] [id number] [place] [address] 47425- 2534 May, Dental examination Z01.20 [place] [id number] [place] [address] 90832- 2367 May, Polyneuropathy G62.9 [place] [id number] [place] [address] 55740- 0762 May, Polyuria R35.8 [place] [id number] [place] [address] 05283- 9702 Apr, Polyuria R35.8 ; Weight loss R63.4 ; Arthralgia, unspecified joint M25.50 and Neuropathy G62.9 [place] [id number] [place] [address] 78727- 3003 Apr, [place] [address] 78072- 5725 Apr, Dental examination Z01.20 [place] [id number] [place] [address] 23108- 1422 Mar, Polyuria R35.8 ; Weight loss R63.4 ; Arthralgia, unspecified joint M25.50 ; Neuropathy G62.9 ; Family history of rheumatoid arthritis Z82.61 and Family history of diabetes mellitus Z83.3 [place] [id number] [place] [address] 43033- 4497 Mar, [place] [id number] [place] [address] 68700- 4259 Feb, [place] [address] 12309- 2160 Feb, Encounter for dental examination and cleaning without abnormal findings Z01.20 [place] [id number] [place] [address] 77628- 0902 Jan, [place] [address] [place] [address]- 5907 Dec, Degenerative disc disease at L5-S1 level M51.36 [facility] [id number] [place] [address] 07692 -0894 08 Dec, 2015 Degenerative disc disease at L5-S1 level M51.36 [facility] [id number] [place] [address] 079362- 8428 Dec, [facility] [address] 31379- 8527 Nov, [facility] [id number] [place] [address] 37713- 2263 October, Arthritis M19.90 [facility] [address] 32464- 6295 Sep, Arthritis M19.90 and Family history of diabetes mellitus Z83.3 [facility] [address] 53987- 0675 Jul, [facility] [id number] [place] [address] 74842- 1859 Jun, [facility] [address] 18661- 8415 May, [facility] [id number] [place] [address] 81436- 7738 Apr, [facility] [id number] [place] [address] 53318- 9873 Feb, Actinic keratitis 370.24 [facility] [id number] [place] [address] 82535- 9616 Jan, Common wart 078.19 ; Back pain 724.5 and Fibromyalgia 729.1 [facility] [id number] [place] [address] 75292- 8084 Dec, Alcohol abuse 305.00 [facility] [address] 63457- 6455 14 Dec, 2014 Lesion of neck 709.9 [facility] [address] [address]- 4388 Dec, Back pain 724.5 [facility] [address] [address]- 4455 24 Nov, 2014 Alcohol abuse 305.00 ; Basal cell carcinoma 173.91 and Common wart 078.19 [facility] [address] [facility] [id number] [address]- 1144 18 Nov, 2014 [facility] [address] [address]- 7676 14 Sep, 2014 [facility] [address] [address]- 5465 Sep, [facility] [address] [address]- 9237 15 Jun, 2014 [facility] [address] [address]- 1876 Jun, [facility] [address] [address]- 5266 May, [facility] [address] [address]- 6537 May, [facility] [address] [address]- 4817 Feb, [facility] [id number] [address]- 6775 Feb, [facility] [id number] [address]- 2369 Feb, [facility] [id number] [address]- 3851 Feb, [facility] [id number] [address]- 4736 Sep, [facility] [address] [place] [address]- 9544 Sep, [facility] [place] [facility] [address] [id number] [place] [address]- 7425 Sep, [facility] [place] [facility] [address] [id number] [place] [address]- 9107 Sep, [facility] [place] [facility] [address] [id number] [place] [address]- 1064 Aug, [facility] [place] [facility] [address] [id number] [place] [address]- 3453 Aug, [facility] [place] [facility] [address] [id number] [place] [address]- 4241 Jul, [facility] [place] [facility] [address] [id number] [place] [address]- 9049 Jul, [facility] [place] [facility] [address] [id number] [place] [address]- 7080 Jul, [facility] [place] [facility] [address] [id number] [place] [address]- 8100 Jul, [facility] [place] [facility] [address] [id number] [place] [address]- 2476 Jun, [facility] [place] [facility] [address] [id number] [place] [address]- 5731 Jun, [facility] [place] [facility] [address] [id number] [place] [address]- 5168 Jun, [facility] [place] [facility] [address] [id number] [place] [address]- 5256 Jun, [facility] [place] [facility] [address] [id number] [place]- 6736 May, [facility] [place] [facility] [address] [id number] [place] 8138 May, [facility] [place] [facility] [address] [id number] [place] [address]- 6192 Apr, [facility] [place] [facility] [address] [id number] [place] [address]- 4357 18 Apr, 2013 [facility] [place] [facility] [address] [id number] [place] [address]- 2032 Apr, [facility] [place] [facility] [address] [id number] [place] [address]- 4279 Apr, [facility] [place] [facility] [address] [id number] [place] [address]- 4684 Apr, [facility] [place] [facility] [address] [id number] [place] [address]- 2223 Apr, [facility] [place] [facility] [address] [id number] [place] [address]- 9223 Mar, [facility] [place] [facility] [address] [id number] [place] [address]- 8650 Mar, [facility] [place] [facility] [address] [id number] [place] [address]- 4471 Mar, [facility] [place] [facility] [address] [id number] [place] [address]- 3992 Mar, [facility] [place] [facility] [address] [id number] [place] [address]- 0936 Jan, [facility] [place] [facility] [address] [id number] [place] [address]- 7422 Jan, [facility] [place] [facility] [address] [id number] [address]- 8321 Aug, [facility] [place] [facility] [address] [id number] [place] [address]- 1882 Aug, [facility] [place] [facility] [address] [id number] [place] [address]- 8101 Mar, [facility] [place] [facility] [address] [id number] [place] [address]- 9049 Mar, [facility] [place] [facility] [address] [id number] [place] [address]- 4787 Mar, [facility] [place] [facility] [address] [id number] [place] [address]- 0949 Mar, [facility] [place] [facility] [address] [id number] [place] [address]- 7608 Mar, [facility] [place] [facility] [address] [id number] [place] [address]- 6636 Mar, [facility] [place] [facility] [address] [id number] [place] [address]- 8102 Mar, [facility] [place] [facility] [address] [id number] [place] [address]- 3576 Mar, [facility] [place] [facility] [address] [id number] [place] [address]- 4769 Jan, [facility] [place] [facility] [address] [id number] [place] [address]- 0656 Jan, [facility] [place] [facility] [address] [id number] [place] [address]- 0060 Nov, [facility] [place] [facility] [address] [id number] [place] [address]- 7856 Nov, [facility] [place] [facility] [address] [facility] [id number] [place] [address]- 9051 October, [facility] [place] [facility] [address] [id number] [place] [address]- 4326 Aug, [facility] [place] [facility] [address] [id number] [place] [address]- 2549 Aug, [facility] [place] [facility] [address] [id number] [place] [address]- 1845 Aug, [facility] [place] [facility] [address] [facility] [id number] [place] [address]- 9926 Jul, [facility] [place] [facility] [address] [id number] [place] [address]- 7536 Jul, [facility] [address] [facility] [id number], [place] [address]- 5669 Apr, [facility] [address] [place] [address]- 6937 Apr, [facility] [address] [address]- 7444 Apr, [facility] [address] [address]- 9158 Jul, [facility] [address] [place] [address]- 7021 Jun, [facility] [id number] [address]- 2550 Apr, IMMUNIZATIONS No Known Immunizations SOCIAL HISTORY Never Assessed REASON FOR VISIT PLAN OF CARE VITAL SIGNS MEDICATIONS Unknown [...]
--- OUTSIDE RECORDS SUMMARY | 2018-10-14 11:01 | XMS REPORT ---
Author Author LAURYN GOYAL Organization [facility] Address [address] [place] [address] Care Team Providers Care Tufter Hand Name Role Phone LAURYN GOYAL Unavailable PROBLEMS Type Condition ICD9-CM Code PCF60-ZU Code Onset Dates Condition Status SNOMED Code Problem Neuropathy G62.9 Active 169709585 Problem Lumbago with sciatica, left side M54.42 Active 084985601 Problem Polyneuropathy G62.9 Active 11523947 Problem Degenerative disc disease at L5-S1 level M51.36 Active 01573767 Problem Hypertension, unspecified type I10 Active 13693217 Problem Gingivitis K05.10 Active 36018986 Problem Arthritis M19.90 Active 5969349 Problem Other chronic pain G89.29 Active 56499598 Problem Cervical radiculopathy M54.12 Active 98747304 Problem Mucopurulent chronic bronchitis J41.1 Active 28792238 ALLERGIES No Information ENCOUNTERS Encounter Location Date Diagnosis [place] [address] [address] Sep, Common wart B07.8 and Hypertension, unspecified type I10 [place] [address] [place] [id number] [place] [address] 92452- 3955 Aug, Dental examination Z01.20 ; Gingivitis K05.10 and Xerostomia R68.2 [place] [address] [place] [id number] [place] [address] 57238- 1684 Aug, Dental caries extending into dentin K02.62 [place] [address] 22094- 2831 20 Jul, 2017 Dental examination Z01.20 [place] [address] 90938- 2225 15 Jul, 2017 Mucopurulent chronic bronchitis J41.1 [facility] [id number] [place] [address] 12683- 1166 15 Jul, 2017 Cervical neuritis M54.12 ; Common wart B07.8 ; Actinic keratosis L57.0 ; Encounter for immunization Z23 and Mucopurulent chronic bronchitis J41.1 [facility] [address] [id number] [place] [address] 88260- 2044 Jun, Radiculopathy of cervical region M54.12 [facility] [address] [place] [address] [id number] [place] [address] 93828- 5096 May, Arthritis M19.90 ; Cervical radiculopathy M54.12 and Mucopurulent chronic bronchitis J41.1 [facility] [address] [place] [id number] [place] [address] 43178- 2629 20 Feb, 2017 Arthritis M19.90 [facility] [address] [place] [id number] [place] [address] 89468- 8240 Feb, Other chronic pain G89.29 [facility] [address] [address] [id number] [place] [address] 78832- 1558 19 Feb, 2017 Other chronic pain G89.29 [facility] [address] [place] [address] [id number] [place] [address] [id number] 15 Feb, 2017 Dental examination Z01.20 [facility] [id number] [place] [address] 39591- 9354 07 Feb, 2017 Polyneuropathy G62.9 [facility] [id number] [place] [address] [id number] Jan, Dental examination Z01.20 [facility] [address] [place] [id number] [place] [address] 37640- 1632 Jan, Arthritis M19.90 [facility] [id number] [place] [address] [id number] Jan, Dental examination Z01.20 [facility] [address] [place] [address] [id number] [place] [address]- 1043 Dec, [facility] [address] [place] [address] [id number] [place] [address] 34108- 4471 Dec, Arthritis M19.90 [facility] [address] [place] [id number] [place] [address] 11469- 6915 Dec, Sebaceous cyst L72.3 [facility] [address] 59916- 4165 Dec, Sebaceous cyst L72.3 and Common wart B07.8 [facility] [address] [place] [id number] [place] [address] 31043- 2186 Nov, Arthritis M19.90 [facility] [address] [place] [id number] [place] [address] 66983- 4619 Nov, [facility] [address] [place] [id number] [place] [address] 78010- 1584 October, Arthritis M19.90 [facility] [address] [place] [id number] [place] [address] 06950- 7920 October, Polyneuropathy G62.9 and Arthritis M19.90 [facility] [address] [place] [id number] [place] [address] 55371- 7432 October, Polyneuropathy G62.9 and Arthritis M19.90 [facility] [address] [place] [id number] [place] [address] 24450- 3176 October, Arthritis M19.90 and Polyneuropathy G62.9 [facility] [address] [place] [address] [id number] October, Dental examination Z01.20 [facility] [address] [place] [id number] [place] [address] 00052- 9871 Sep, Polyuria R35.8 [facility] [id number] [place] [address] [id number] Sep, Dental examination Z01.20 [facility] [address] [place] [id number] [place] [address] 38384- 2972 Sep, [facility] [address] 25857- 1524 Sep, Polyneuropathy G62.9 [facility] [address] [place] [id number] [place] [address] 24031- 1562 Aug, Polyuria R35.8 [facility] [address] [id number] Aug, Dental examination Z01.20 [facility] [address] [place] [id number] [place] [address] 70149- 9140 Aug, Polyneuropathy G62.9 [facility] [address] [place] [id number] [place] [address] 14657- 0217 Aug, Polyuria R35.8 [facility] [address] [id number] Jul, Dental examination Z01.20 [facility] [address] [place] [id number] [place] [address] [id number] Jul, Dental examination Z01.20 [facility] [address] [place] [id number] [place] [address] 99449- 7969 Jul, Polyneuropathy G62.9 [facility] [address] [place] [id number] [place] [address] 77389- 4056 Jul, Polyuria R35.8 [facility] [address] [place] [id number] [place] [address] 20711 -2355 Jun, Lumbago with sciatica, left side M54.42 and Other chronic pain G89.29 [place] [address] [place] [id number] [place] [address] 37874- 0582 Jun, Polyneuropathic pain M79.2 and Other infective acute otitis externa of left ear H60.392 [place] [address] 22826- 1600 Jun, Polyuria R35.8 [place] [address] [place] [id number] [place] [address] 83446- 7465 May, Dental examination Z01.20 [place] [address] [place] [id number] [place] [address] 76666- 6590 May, Polyneuropathy G62.9 [place] [address] 47459- 6069 May, Polyuria R35.8 [place] [address] [place] [id number] [place] [address] 31574- 0375 Apr, Polyuria R35.8 ; Weight loss R63.4 ; Arthralgia, unspecified joint M25.50 and Neuropathy G62.9 [place] [address] [place] [id number] [place] [address] 56476- 6473 Apr, [place] [address] 67831- 9655 Apr, Dental examination Z01.20 [place] [address] [place] [id number] [place] [address] 16116- 1058 Mar, Polyuria R35.8 ; Weight loss R63.4 ; Arthralgia, unspecified joint M25.50 ; Neuropathy G62.9 ; Family history of rheumatoid arthritis Z82.61 and Family history of diabetes mellitus Z83.3 [place] [address] [place] [id number] [place] [address] 32234- 7998 Mar, [place] [address] [place] [id number] [place] [address] 44350- 7330 Feb, [place] [address] [place] [id number] [place] [address] 19310- 2264 Feb, Encounter for dental examination and cleaning without abnormal findings Z01.20 [place] [address] [place] [id number] [place] [address] 43782- 6618 Jan, [place] [address] [place] [id number] [place] [address]- 0729 Dec, Degenerative disc disease at L5-S1 level M51.36 [facility] [address] [place] [id number] [place] [address] 82690 -5285 08 Dec, 2015 Degenerative disc disease at L5-S1 level M51.36 [facility] [address] [place] [id number] [place] [address] 44237- 6495 Dec, [facility] [address] [place] [id number] [place] [address] 07341- 3679 Nov, [facility] [address] [place] [id number] [place] [address] 40241- 1109 October, Arthritis M19.90 [facility] [address] [place] [id number] [place] [address] 90915- 6256 Sep, Arthritis M19.90 and Family history of diabetes mellitus Z83.3 [facility] [address] [place] [id number] [place] [address] 99726- 2202 Jul, [facility] [address] [place] [id number] [place] [address] 89886- 0000 Jun, [facility] [address] [place] [id number] [place] [address] 17317- 3359 May, [facility] [address] [place] [id number] [place] [address] 24253- 0014 Apr, [facility] [address] [place] [id number] [place] [address] 56239- 2787 Feb, Actinic keratitis 370.24 [facility] [address] [place] [id number] [place] [address] 86974- 6487 Jan, Common wart 078.19 ; Back pain 724.5 and Fibromyalgia 729.1 [facility] [address] [place] [id number] [place] [address] 96997- 7769 Dec, Alcohol abuse 305.00 [facility] [address] [place] [id number] [place] [address] 14488- 9852 14 Dec, 2014 Lesion of neck 709.9 [facility] [address] [address]- 0863 Dec, Back pain 724.5 [facility] [address] [address]- 6331 24 Nov, 2014 Alcohol abuse 305.00 ; Basal cell carcinoma 173.91 and Common wart 078.19 [facility] [address] [place] [address] 73172- 8553 18 Nov, 2014 [facility] [address] [place] [address] 87745- 5309 14 Sep, 2014 [facility] [address] [place] [id number] [place] [address] 39261- 5771 Sep, [facility] [address] [place] [id number] [place] [address] 21860- 1846 Jun, [facility] [address] [address]- 5351 Jun, [facility] [address] [address]- 5666 May, [facility] [address] [address]- 4698 May, [facility] [address] [address]- 4124 Feb, [facility] [address] [address]- 9688 Feb, [facility] [address] [address]- 4914 Feb, [facility] [address] [address]- 5958 Feb, [facility] [address] [place] [address]- 7135 Sep, [facility] [place] [facility] [address] [id number] [place] [address]- 0968 Sep, [facility] [place] [facility] [address] [id number] [place] [address]- 0613 Sep, [facility] [place] [facility] [address] [id number] [place] [address]- 5498 Sep, [facility] [place] [facility] [address] [id number] [place] [address]- 3230 Aug, [facility] [place] [facility] [address] [id number] [place] [address]- 6461 Aug, [facility] [place] [facility] [address] [id number] [place] [address]- 6802 Jul, [facility] [place] [facility] [address] [id number] [place] [address]- 8595 Jul, [facility] [place] [facility] [address] [id number] [place] [address]- 2225 Jul, [facility] [place] [facility] [address] [id number] [place] [address]- 4517 Jul, [facility] [place] [facility] [address] [id number] [place] [address]- 5757 Jun, [facility] [place] [facility] [address] [id number] [place] [address]- 7260 Jun, [facility] [place] [facility] [address] [id number] [place] [address]- 8726 Jun, [facility] [place] [facility] [address] [id number] [place] [address]- 8742 Jun, [facility] [place] [facility] [address] [id number] [place] [address]- 6841 May, [facility] [place] [facility] [address] [id number] [place] [address]- 1804 May, [facility] [place] [facility] [address] [id number] [place] [address]- 0265 Apr, [facility] [place] [facility] [address] [id number] [place] [address]- 6625 18 Apr, 2013 [facility] [place] [facility] [address] [id number] [place] [address]- 5337 Apr, [facility] [place] [facility] [address] [id number] [place] [address]- 8412 Apr, [facility] [place] [facility] [address] [id number] [place] [address]- 1449 Apr, [facility] [place] [facility] [address] [id number] [place] [address]- 8937 Apr, [facility] [place] [facility] [address] [id number] [place] [address]- 1876 Mar, [facility] [place] [facility] [address] [id number] [place] [address]- 2933 Mar, [facility] [place] [facility] [address] [id number] [place] [address]- 6914 Mar, [facility] [place] [facility] [address] [id number] [place] [address]- 5882 Mar, [facility] [place] [facility] [address] [id number] [place] [address]- 5869 Jan, [facility] [place] [facility] [address] [id number], [place] [address]- 0322 Jan, [facility] [place] [facility] [address] [id number], [place] [address]- 5441 Aug, [facility] [place] [facility] [address] [id number] [place] [address]- 8646 Aug, [facility] [place] [facility] [address] [id number] [place] [address]- 6852 Mar, [facility] [place] [facility] [address] [id number] [place] [address]- 5379 Mar, [facility] [place] [facility] [address] [id number] [place] [address]- 5422 Mar, [facility] [address] [id number] [place] [address]- 6472 Mar, [facility] [place] [facility] [address] [id number] [place] [address]- 8836 Mar, [facility] [address] [id number] [place] [address]- 0046 Mar, [facility] [place] [facility] [address] [id number] [place] [address]- 7453 Mar, [facility] [address] [id number] [place] [address]- 4918 Mar, [facility] [place] [facility] [address] [id number] [place] [address]- 2670 Jan, [facility] [place] [facility] [address] [facility] [id number] [place] [address]- 0463 Jan, [facility] [place] [facility] [address] [facility] [id number] [place] [address]- 5696 Nov, [facility] [place] [facility] [address] [facility] [id number] [place] [address]- 9610 Nov, [facility] [place] [facility] [address] [facility] [id number] [place] [address]- 2075 October, [facility] [place] [facility] [address] [facility] [id number] [place] [address] 2546 Aug, [facility] [place] [facility] [address] [facility] [id number] [place] [address]- 2546 Aug, [facility] [place] [facility] [address] [id number] [place] [address] 2546 Aug, [facility] [place] [facility] [address] [facility] [id number] [place] [address]- 2546 Jul, [facility] [place] [facility] [address] [facility] [id number] [place] [address]- 3986 Jul, [facility] [address] [facility] [id number], [place] [address]- 8514 Apr, [facility] [address], [place] [address]- 7408 Apr, [facility] [id number], [place] [address]- 2612 Apr, [facility] [address], [place] [address]- 5281 Jul, [facility] [id number], [place] [address]- 3572 Jun, [facility] [address] [place] [address]- 8214 Apr, IMMUNIZATIONS No Known Immunizations SOCIAL HISTORY [...]
--- OUTSIDE RECORDS SUMMARY | 2018-10-14 11:02 | XMS REPORT ---
Author Author SRINI LIMON [facility] Address [address] [place] [address] Care Team Providers Care Allergist/Immunologist Name Role Phone BRAXTON SRINI Unavailable PROBLEMS Type Condition ICD9-CM Code [id number] Code Onset Dates Condition Status SNOMED Code Problem Arthritis M19.90 Active 7015127 Problem Other chronic pain G89.29 Active 45086040 Problem Neuropathy G62.9 Active 080278887 Problem Degenerative disc disease at L5-S1 level M51.36 Active 50089512 Problem Lumbago with sciatica, left side M54.42 Active 086943309 Problem Polyneuropathy G62.9 Active 67061062 ALLERGIES No Known Allergies SOCIAL HISTORY Never Assessed PLAN OF CARE VITAL SIGNS Height 70 in 2016-08-28 Weight 215.1 lbs 2016-08-28 Temperature 97.6 degrees Fahrenheit 2016-08-28 Heart Rate 72 bpm 2016-08-28 Respiratory Rate 18 2016-08-28 BMI 30.86 kg/m2 2016-08-28 Blood pressure systolic 132 mmHg 2016-08-28 Blood pressure diastolic 84 mmHg 2016-08-28 MEDICATIONS Medication Instructions Dosage Frequency Start Date End Date Duration Status Cymbalta 60 mg Orally Once a day 1 capsule 24h 60 Active Baclofen 20 MG take 1 tablet (20 mg) by oral route 3 times per day PRN Active Neurontin 100 mg Orally Three times a day 1 capsule 8h Jul, Active Boaz 5-325 MG Orally every 6 hrs 1 tablet as needed 6h Aug, 28 days Active Doxepin HCl 50 mg Orally Once a day at night 1 capsule Jun, Active Naproxen 500 MG TAKE ONE TABLET BY MOUTH TWICE DAILY Active Metoprolol Tartrate 50 MG TAKE ONE TABLET BY MOUTH TWICE DAILY (MUST HAVE FOLLOW-UP APPOINTMENT FOR FURTHER REFILLS!!!) 30 Active Viagra 100 MG Orally Once a day 1 tablet as needed 24h 30 Active Acyclovir 400 MG 1 tablet 12h Active RESULTS No Results PROCEDURES Procedure Date Ordered Result Body Site TORADOL (IM) 60 MG/2ML (UP TO 15 MG) August 28, 2016 THER/PROPH/DIAG INJ, SC/IM August 28, 2016 IMMUNIZATIONS Vaccine Route Administration Date Status TORADOL (IM) 60 MG/2ML (UP TO 15 MG) IM Intramuscular August 28, 2016 Administered MEDICAL (GENERAL) HISTORY Type Description Date Medical History esophageal reflux Medical History irritable bowel syndrome Medical History orthopedic disorder-herniated disc, DJD Medical History headache Medical History herpes (genital) Medical History backache Medical History fibromyalgia Surgical History tonsillectomy Hospitalization History Hospitalization for surgery only
--- OUTSIDE RECORDS SUMMARY | 2018-10-14 11:02 | XMS REPORT ---
Author Author SRINI LIMON [facility] Address [address] [place] [address] Care Team Providers Care Speedometer Mechanic Name Role Phone SRINI LIMON Unavailable PROBLEMS Type Condition ICD9-CM Code MZP09-CE Code Onset Dates Condition Status SNOMED Code Problem Arthritis M19.90 Active 1277966 Problem Other chronic pain G89.29 Active 71420698 Problem Neuropathy G62.9 Active 637198512 Problem Degenerative disc disease at L5-S1 level M51.36 Active 25618843 Problem Lumbago with sciatica, left side M54.42 Active 684723156 Problem Polyneuropathy G62.9 Active 43631926 ALLERGIES No Known Allergies SOCIAL HISTORY No smoking Hx information available PLAN OF CARE VITAL SIGNS MEDICATIONS Medication Instructions Dosage Frequency Start Date End Date Duration Status Mccall 5-325 MG Orally every 6 hrs 1 tablet as needed 6h Jul, 28 days Active RESULTS No Results PROCEDURES No Known procedures IMMUNIZATIONS No Known Immunizations
--- OUTSIDE RECORDS SUMMARY | 2018-10-14 11:02 | XMS REPORT ---
Author Author SRINI LIMON [facility] Address [address] [place] [address] Care Team Providers Care Auditor Medical Claims Name Role Phone SRINI LIMON Unavailable PROBLEMS Type Condition ICD9-CM Code [id number] Code Onset Dates Condition Status SNOMED Code Problem Arthritis M19.90 Active 9036134 Problem Other chronic pain G89.29 Active 47949112 Problem Neuropathy G62.9 Active 683697136 Problem Degenerative disc disease at L5-S1 level M51.36 Active 39537643 Problem Lumbago with sciatica, left side M54.42 Active 726248448 Problem Polyneuropathy G62.9 Active [id number] ALLERGIES No Information SOCIAL HISTORY Never Assessed PLAN OF CARE VITAL SIGNS MEDICATIONS Unknown Medications RESULTS Name Result Date Reference Range TSH 2016-11-08 TSH 4.000 0.450-4.500 CBC 2016-11-08 WBC 7.9 3.4-10.8 RBC 4.75 4.14-5.80 Hemoglobin 15.9 12.6-17.7 Hematocrit 46.9 37.5-51.0 MCV 99 79-97 MCH 33.5 26.6-33.0 MCHC 33.9 31.5-35.7 RDW 12.9 12.3-15.4 Platelets 313 150-379 Neutrophils 64 Lymphs 26 Monocytes 9 Eos 1 Basos 0 Neutrophils (Absolute) 5.0 1.4-7.0 Lymphs (Absolute) 2.1 0.7-3.1 Monocytes(Absolute) 0.7 0.1-0.9 Eos (Absolute) 0.1 0.0-0.4 Baso (Absolute) 0.0 0.0-0.2 Immature Granulocytes 0 Immature Grans (Abs) 0.0 0.0-0.1 CMP 2016-11-08 Glucose, Serum 94 65-99 BUN 15 6-24 Creatinine, Serum 0.85 0.76-1.27 eGFR If NonAfricn Am 104 >59 eGFR If Africn Am 120 >59 BUN/Creatinine Ratio 18 9-20 Sodium, Serum 141 134-144 Potassium, Serum 4.4 3.5-5.2 Chloride, Serum 102 96-106 Carbon Dioxide, Total 21 18-29 Calcium, Serum 9.2 8.7-10.2 Protein, Total, Serum 6.8 6.0-8.5 Albumin, Serum 5.0 3.5-5.5 Globulin, Total 1.8 1.5-4.5 A/G Ratio 2.8 1.2-2.2 Bilirubin, Total 0.5 0.0-1.2 Alkaline Phosphatase, S 36 39-117 AST (SGOT) 19 0-40 ALT (SGPT) 17 0-44 PROCEDURES Procedure Date Ordered Result Body Site ASSAY THYROID STIM HORMONE November 08, 2016 COMPLETE CBC W/AUTO DIFF WBC November 08, 2016 VENIPUNCT, ROUTINE* November 08, 2016 COMPREHEN METABOLIC PANEL November 08, 2016 IMMUNIZATIONS No Known Immunizations MEDICAL (GENERAL) HISTORY Type Description Date Medical History esophageal reflux Medical History irritable bowel syndrome Medical History orthopedic disorder-herniated disc, DJD Medical History headache Medical History herpes (genital) Medical History backache Medical History fibromyalgia Surgical History tonsillectomy Hospitalization History Hospitalization for surgery only
--- OUTSIDE RECORDS SUMMARY | 2018-10-14 11:02 | XMS REPORT ---
Author Author MIGUEL Diaz Organization [facility] Address Unknown Care Team Providers Care Data Warehouse Administrator Name Role Phone MIGUEL Diaz Unavailable PROBLEMS Type Condition ICD9-CM Code QGA97-JD Code Onset Dates Condition Status SNOMED Code Problem Neuropathy G62.9 Active 663938288 Problem Lumbago with sciatica, left side M54.42 Active 991461930 Problem Polyneuropathy G62.9 Active 57473526 Problem Degenerative disc disease at L5-S1 level M51.36 Active 90649443 Problem Hypertension, unspecified type I10 Active 49023307 Problem Gingivitis K05.10 Active 06653176 Problem Arthritis M19.90 Active 9163949 Problem Other chronic pain G89.29 Active 56899027 Problem Cervical radiculopathy M54.12 Active 25926955 Problem Mucopurulent chronic bronchitis J41.1 Active 99193762 ALLERGIES No Known Allergies ENCOUNTERS Encounter Location Date Diagnosis [place] [address] [address] Sep, Common wart B07.8 and Hypertension, unspecified type I10 [place] [address] [address]- [address] Aug, Dental examination Z01.20 ; Gingivitis K05.10 and Xerostomia R68.2 [place] [address] [place] [id number] [place] [address] 29619- 6102 Aug, Dental caries extending into dentin K02.62 [place] [address] [address]- 6[address] 20 Jul, 2017 Dental examination Z01.20 [place] [address] 20[address]- 2629 15 Jul, 2017 Mucopurulent chronic bronchitis J41.1 [facility] [id number] [place] [address] 37284- 2685 15 Jul, 2017 Cervical neuritis M54.12 ; Common wart B07.8 ; Actinic keratosis L57.0 ; Encounter for immunization Z23 and Mucopurulent chronic bronchitis J41.1 [facility] [address] [place] [id number] [place] [address] 04943- 2299 Jun, Radiculopathy of cervical region M54.12 [facility] [address] [place] [id number] [place] [address] 50648- 7976 May, Arthritis M19.90 ; Cervical radiculopathy M54.12 and Mucopurulent chronic bronchitis J41.1 [facility] [address] [place] [id number] [place] [address] 78777- 2404 20 Feb, 2017 Arthritis M19.90 [facility] [address] [place] [id number] [place] [address] 66295- 4728 Feb, Other chronic pain G89.29 [facility] [address] [place] [id number] [place] [address] 59740- 1126 19 Feb, 2017 Other chronic pain G89.29 [facility] [address] [place] [id number] [place] [address] [id number] 15 Feb, 2017 Dental examination Z01.20 [facility] [id number] [place] [address] 42600- 4348 07 Feb, 2017 Polyneuropathy G62.9 [facility] [address] [place] [id number] [place] [address] [id number] Jan, Dental examination Z01.20 [facility] [address] [place] [id number] [place] [address] 67545- 6325 Jan, Arthritis M19.90 [facility] [address] [place] [id number] [place] [address] [id number] Jan, Dental examination Z01.20 [facility] [address] [place] [id number] [place] [address] 83613- 6500 Dec, [facility] [address] [place] [id number] [place] [address] 63196- 2507 Dec, Arthritis M19.90 [facility] [address] [place] [id number] [place] [address] 81942- 1289 Dec, Sebaceous cyst L72.3 [facility] [address] [place] [id number] [place] [address] 86338- 4614 Dec, Sebaceous cyst L72.3 and Common wart B07.8 [facility] [address] [place] [id number] [place] [address] 46142- 0558 Nov, Arthritis M19.90 [facility] [address] [place] [id number] [place] [address] 96965- 3760 Nov, [facility] [address] [place] [id number] [place] [address] 67082- 5695 October, Arthritis M19.90 [facility] [address] [place] [id number] [place] [address] 51759- 0747 October, Polyneuropathy G62.9 and Arthritis M19.90 [facility] [address] [place] [id number] [place] [address] 75308- 9727 October, Polyneuropathy G62.9 and Arthritis M19.90 [facility] [address] [place] [id number] [place] [address] 13080- 9810 October, Arthritis M19.90 and Polyneuropathy G62.9 [facility] [id number] [place] [address] [id number] October, Dental examination Z01.20 [facility] [address] [place] [id number] [place] [address] 99828- 8610 Sep, Polyuria R35.8 [facility] [address] [place] [id number] [place] [address] [id number] Sep, Dental examination Z01.20 [facility] [address] [place] [address]- 2664 Sep, [facility] [address] 24797- 2873 Sep, Polyneuropathy G62.9 [facility] [address] [place] [id number] [place] [address] 09788- 8654 Aug, Polyuria R35.8 [facility] [address] [id number] Aug, Dental examination Z01.20 [facility] [address] 08288- 3680 Aug, Polyneuropathy G62.9 [facility] [address] 82093- 4467 Aug, Polyuria R35.8 [facility] [address] [id number] Jul, Dental examination Z01.20 [facility] [address] [id number] Jul, Dental examination Z01.20 [facility] [address] 64987- 2131 Jul, Polyneuropathy G62.9 [facility] [address] [place] [id number] [place] [address] 00554- 8359 Jul, Polyuria R35.8 [facility] [address] [address] Jun, Lumbago with sciatica, left side M54.42 and Other chronic pain G89.29 [facility] [address] 87234- 0976 Jun, Polyneuropathic pain M79.2 and Other infective acute otitis externa of left ear H60.392 [facility] [address] 19757- 7433 Jun, Polyuria R35.8 [place] [address] [place] [id number] [place] [address] 15797- 4274 May, Dental examination Z01.20 [place] [address] [place] [id number] [place] [address] 70447- 9897 May, Polyneuropathy G62.9 [place] [address] 86272- 2744 May, Polyuria R35.8 [place] [address] 38206- 6699 Apr, Polyuria R35.8 ; Weight loss R63.4 ; Arthralgia, unspecified joint M25.50 and Neuropathy G62.9 [place] [address] 67323- 1778 Apr, [place] [address] 09637- 0144 Apr, Dental examination Z01.20 [place] [address] [place] [id number] [place] [address] 58938- 3231 Mar, Polyuria R35.8 ; Weight loss R63.4 ; Arthralgia, unspecified joint M25.50 ; Neuropathy G62.9 ; Family history of rheumatoid arthritis Z82.61 and Family history of diabetes mellitus Z83.3 [place] [address] [place] [id number] [place] [address] 69420- 5044 Mar, [place] [address] [place] [id number] [place] [address] 59418- 6819 Feb, [place] [address] 31008- 2296 Feb, Encounter for dental examination and cleaning without abnormal findings Z01.20 [place] [address] [place] [id number] [place] [address] 85020- 5259 Jan, [place] [address] 52577- 7680 Dec, Degenerative disc disease at L5-S1 level M51.36 [facility] [address] [place] [id number] [place] [address] 35185 -3059 08 Dec, 2015 Degenerative disc disease at L5-S1 level M51.36 [facility] [address] [place] [id number] [place] [address] 102323- 5132 07 Dec, 2015 [facility] [address] 27119- 6934 Nov, [facility] [address] [place] [id number] [place] [address] 78021- 0755 October, Arthritis M19.90 [facility] [address] 928568- 4577 Sep, Arthritis M19.90 and Family history of diabetes mellitus Z83.3 [facility] [address] 04250- 0011 Jul, [facility] [address] [place] [id number] [place] [address] 69063- 0543 Jun, [facility] [address] [place] [id number] [place] [address] 24832- 4426 May, [facility] [address] [place] [id number] [place] [address] 07621- 2856 Apr, [facility] [address] [place] [id number] [place] [address] 19761- 9055 Feb, Actinic keratitis 370.24 [facility] [address] [place] [id number] [place] [address] 21389- 2579 Jan, Common wart 078.19 ; Back pain 724.5 and Fibromyalgia 729.1 [facility] [address] [place] [id number] [place] [address] 90917- 9475 Dec, Alcohol abuse 305.00 [facility] [address] [place] [id number] [place] [address] 54176- 4664 14 Dec, 2014 Lesion of neck 709.9 [facility] [address] [address]- 3053 Dec, Back pain 724.5 [facility] [address] [place] [id number] [address]- 5994 24 Nov, 2014 Alcohol abuse 305.00 ; Basal cell carcinoma 173.91 and Common wart 078.19 [facility] [address] [place] [id number] [place] [address] 00304- 8217 Nov, [facility] [address] [place] [address] 88393- 2191 Sep, [facility] [address] [place] [id number] [place] [address] 24043- 3766 Sep, [facility] [address] [place] [id number] [place] [address] 82361- 1041 15 Jun, 2014 [facility] [address] [place] [address] 42019- 2439 Jun, [facility] [address] [address]- 8898 May, [facility] [address] [address]- 3998 May, [facility] [address] [address]- 7064 Feb, [facility] [address] [place] [id number] [address]- 4753 Feb, [facility] [address] [place] [id number] [address]- 0764 Feb, [facility] [address] [address]- 4386 Feb, [facility] [address] [address]- 5330 Sep, [facility] [address] [place] [id number] [place] [address]- 5259 Sep, [facility] [place] [facility] [address] [id number] [place] [address]- 0757 Sep, [facility] [place] [facility] [address] [id number] [place] [address]- 1010 Sep, [facility] [place] [facility] [address] [id number] [place] [address]- 6023 Aug, [facility] [place] [facility] [address] [id number] [place] [address]- 8287 Aug, [facility] [place] [facility] [address] [id number] [place] [address]- 8997 Jul, [facility] [place] [facility] [address] [id number] [place] [address]- 1208 Jul, [facility] [place] [facility] [address] [id number] [place] [address]- 2592 Jul, [facility] [place] [facility] [address] [id number] [place] [address]- 3361 Jul, [facility] [place] [facility] [address] [id number] [place] [address]- 8006 Jun, [facility] [place] [facility] [address] [id number] [place] [address]- 7221 Jun, [facility] [place] [facility] [address] [id number] [place] [address]- 8963 Jun, [facility] [place] [facility] [address] [id number] [place] [address]- 3209 Jun, [facility] [place] [facility] [address] [id number] [place] 5381 May, [facility] [place] [facility] [address] [id number] [place] [address]- 6900 May, [facility] [place] [facility] [address] [id number] [place] 3969 Apr, [facility] [place] [facility] [address] [id number] [place] [address]- 9469 18 Apr, 2013 [facility] [place] [facility] [address] [id number] [place] [address]- 4976 Apr, [facility] [place] [facility] [address] [id number] [place] [address]- 8909 Apr, [facility] [place] [facility] [address] [id number] [place] [address]- 0229 Apr, [facility] [place] [facility] [address] [id number] [place] [address]- 1116 Apr, [facility] [place] [facility] [address] [id number] [place] [address]- 0937 Mar, [facility] [place] [facility] [address] [id number] [place] [address]- 3398 Mar, [facility] [place] [facility] [address] [id number] [place] [address]- 7640 Mar, [facility] [place] [facility] [address] [id number] [place] [address]- 6621 Mar, [facility] [place] [facility] [address] [id number], [place] [address]- 3476 Jan, [facility] [place] [facility] [address] [id number], [place] [address]- 5808 Jan, [facility] [place] [facility] [address] [id number], [place] [address]- 6521 Aug, [facility] [place] [facility] [address] [id number] [place] [address]- 4959 Aug, [facility] [place] [facility] [address] [id number] [address]- 8314 Mar, [facility] [place] [facility] [address] [id number], [place] [address]- 2375 Mar, [facility] [place] [facility] [address] [id number], [place] [address]- 2602 Mar, [facility] [place] [facility] [address] [id number] [place] [address]- 0134 Mar, [facility] [place] [facility] [address] [facility] [id number] [place] [address]- 5686 Mar, [facility] [place] [facility] [address] [facility] [id number] [place] [address]- 9976 Mar, [facility] [place] [facility] [address] [facility] [id number] [place] [address]- 4011 Mar, [facility] [place] [facility] [address] [place] [id number] [place] [address]- 1499 Mar, [facility] [place] [facility] [address] [facility] [id number] [place] [address]- 2543 Jan, [facility] [place] [facility] [id number] [place] [address]- 1903 Jan, [facility] [place] [facility] [address] [place] [id number] [place] [address]- 3371 Nov, [facility] [place] [facility] [address] [place] [id number] [place] [address]- 6815 Nov, [facility] [place] [facility] [id number] [place] [address]- 4873 October, [facility] [place] [facility] [address] [place] [id number] [place] [address]- 3868 Aug, [facility] [place] [facility] [address] [facility] [id number], [place] [address]- 4004 Aug, [facility] [place] [facility] [address] [place] [id number] [place] [address]- 6221 Aug, [facility] [place] [facility] [address] [facility] [id number], [place] [address]- 3136 Jul, [facility] [place] [facility] [address] [id number] [address]- 7128 Jul, [facility] [place] [facility] [address] [facility] [id number], [place] [address]- 4668 Apr, [facility] [address] [address]- 9560 Apr, [facility] [address], [place] [address]- 3587 Apr, [facility] [address] [address]- 5512 Jul, [facility] [address] [facility] [id number], [place] [address]- 0827 Jun, [facility] [address] [address]- 4769 Apr, IMMUNIZATIONS No Known Immunizations SOCIAL HISTORY Never Assessed REASON FOR VISIT fillings PLAN OF CARE VITAL SIGNS Height 70 in 2016-10-09 Blood pressure systolic 126 mmHg 2016-10-09 Blood pressure diastolic 75 mmHg 2016-10-09 MEDICATIONS Medication Instructions Dosage Frequency Start Date End Date Duration Status Baclofen 20 MG take 1 tablet (20 mg) by oral route 3 times per day PRN Active Naproxen 500 MG TAKE ONE TABLET BY MOUTH TWICE DAILY Active Acyclovir 400 MG 1 tablet 12h Active Viagra 100 MG Orally Once a day 1 tablet as needed 24h 10 Active Doxepin HCl 50 mg Orally Once a day at night 1 capsule Jun, Active Neurontin 300 MG Orally Three times a day 1 capsule 8h Jul, Active Cymbalta 60 mg Orally Once a day 1 capsule 24h 60 Active Metoprolol Tartrate 50 MG TAKE ONE TABLET BY MOUTH TWICE DAILY (MUST HAVE FOLLOW-UP APPOINTMENT FOR FURTHER REFILLS!!!) 30 Active [place] 5-325 MG Orally every 6 hrs 1 tablet as needed 6h Aug, 28 days Active RESULTS No Results PROCEDURES Procedure Date Ordered Result Body Site RESIN COMPOS - 3 SURFACES ANTERIOR October 09, 2016 RESIN COMPOS - 3 SURFACES POSTERIOR October 09, 2016 RESIN COMPOS - 3 SURFACES POSTERIOR October 09, 2016 INSTRUCTIONS MEDICATIONS ADMINISTERED No Known Medications MEDICAL (GENERAL) HISTORY Type Description Date Medical History irritable bowel syndrome Medical History orthopedic disorder-herniated disc, DJD Medical History esophageal reflux Medical History headache Medical History herpes (genital) Medical History backache Medical History fibromyalgia Surgical History tonsillectomy Hospitalization History Hospitalization for surgery only
--- OUTSIDE RECORDS SUMMARY | 2018-10-14 11:02 | XMS REPORT ---
Author Author SRINI LIMON [facility] Address [address] [place] [address] Care Team Providers Care Postmaster Name Role Phone SRINI LIMON Unavailable PROBLEMS Type Condition ICD9-CM Code [id number] Code Onset Dates Condition Status SNOMED Code Problem Arthritis M19.90 Active 8119590 Problem Lumbago with sciatica, left side M54.42 Active 753468286 Problem Neuropathy G62.9 Active 052600266 Problem Degenerative disc disease at L5-S1 level M51.36 Active 20003683 Problem Other chronic pain G89.29 Active 00679160 Problem Polyneuropathy G62.9 Active 09122061 ALLERGIES Unknown Allergies SOCIAL HISTORY No smoking Hx information available PLAN OF CARE VITAL SIGNS MEDICATIONS Medication Instructions Dosage Frequency Start Date End Date Duration Status [place] 5-325 MG Orally every 6 hrs 1 tablet as needed 6h Jun, Active RESULTS No Results PROCEDURES No Known procedures IMMUNIZATIONS No Known Immunizations
--- OUTSIDE RECORDS SUMMARY | 2018-10-14 11:03 | XMS REPORT ---
Author Author SRINI LIMON Organization [employer] Address Unknown Phone Unavailable Care Team Providers Care Fan Blade Aligner Name Role Phone SRINI LIMON CP Unavailable [...] 729.1 Active Problem Dysuria 788.1 Active Medications Medication Code System Code Instructions Start Date End Date Status Dosage Tramadol HCl [facility] [address]-16 50 MG Orally every 6 hrs 1 tablet as needed Viagra [facility] [id number] 100 MG Orally Once a day 1 tablet as needed Results No Known Results Summary Purpose [employer] Submission
--- OUTSIDE RECORDS SUMMARY | 2018-10-14 11:03 | XMS REPORT ---
Author Author MIGUEL Diaz [facility] Address Unknown Care Team Providers Care Referral Clerk Name Role Phone MIGUEL Diaz Unavailable PROBLEMS Type Condition ICD9-CM Code [id number] Code Onset Dates Condition Status SNOMED Code Problem Arthritis M19.90 Active 8803461 Problem Other chronic pain G89.29 Active 33078138 Problem Neuropathy G62.9 Active 578992174 Problem Degenerative disc disease at L5-S1 level M51.36 Active 96948422 Problem Lumbago with sciatica, left side M54.42 Active 278352594 Problem Polyneuropathy G62.9 Active 16604568 ALLERGIES No Known Allergies SOCIAL HISTORY Never Assessed PLAN OF CARE Activity Details Follow Up prn Reason:Restorative 1hr Per DDS VITAL SIGNS Height 70 in 2016-08-07 Blood pressure systolic 143 mmHg 2016-08-07 Blood pressure diastolic 93 mmHg 2016-08-07 MEDICATIONS Medication Instructions Dosage Frequency Start Date End Date Duration Status Metoprolol Tartrate 50 MG TAKE ONE TABLET BY MOUTH TWICE DAILY (MUST HAVE FOLLOW-UP APPOINTMENT FOR FURTHER REFILLS!!!) 30 Active [place] 5-325 MG Orally every 6 hrs 1 tablet as needed 6h Jul, 28 days Active Baclofen 20 MG take 1 tablet (20 mg) by oral route 3 times per day PRN Active Neurontin 100 mg Orally Three times a day 1 capsule 8h Jul, Active Naproxen 500 MG TAKE ONE TABLET BY MOUTH TWICE DAILY Active Viagra 100 MG Orally Once a day 1 tablet as needed 24h 30 Active Doxepin HCl 50 mg Orally Once a day at night 1 capsule Jun, Active Cymbalta 60 mg Orally Once a day 1 capsule 24h 60 Active Acyclovir 400 MG 1 tablet 12h Active RESULTS No Results PROCEDURES Procedure Date Ordered Result Body Site RESIN COMPOS - 2 SURFACES ANTERIOR Aug 07, 2016 RESIN COMPOS - 3 SURFACES ANTERIOR Aug 07, 2016 RESIN COMPOS - 3 SURFACES ANTERIOR Aug 07, 2016 IMMUNIZATIONS No Known Immunizations MEDICAL (GENERAL) HISTORY Type Description Date Medical History esophageal reflux Medical History irritable bowel syndrome Medical History orthopedic disorder-herniated disc, DJD Medical History headache Medical History herpes (genital) Medical History backache Medical History fibromyalgia Surgical History tonsillectomy Hospitalization History Hospitalization for surgery only
--- OUTSIDE RECORDS SUMMARY | 2018-10-14 11:03 | XMS REPORT ---
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 Name Role Phone SRINI LIMON Unavailable PROBLEMS Type Condition ICD9-CM Code GSS13-KN Code Onset Dates Condition Status SNOMED Code Problem Neuropathy G62.9 Active 503897264 Problem Lumbago with sciatica, left side M54.42 Active 645598285 Problem Polyneuropathy G62.9 Active 66396371 Problem Degenerative disc disease at L5-S1 level M51.36 Active 43907229 Problem Hypertension, unspecified type I10 Active 39294537 Problem Gingivitis K05.10 Active 53535600 Problem Arthritis M19.90 Active 8999949 Problem Other chronic pain G89.29 Active 75758355 Problem Cervical radiculopathy M54.12 Active 13905249 Problem Mucopurulent chronic bronchitis J41.1 Active 38804362 ALLERGIES No Known Allergies ENCOUNTERS Encounter Location Date Diagnosis [place] [facility] [id number] [place] [address] 25143- 7047 Sep, Common wart B07.8 and Hypertension, unspecified type I10 [place] [id number] [place] [address] 45072- 5874 Aug, Dental examination Z01.20 ; Gingivitis K05.10 and Xerostomia R68.2 [place] [id number] [place] [address] 58116- 1552 Aug, Dental caries extending into dentin K02.62 [place] [id number] [place] [address] 60002- 7302 20 Jul, 2017 Dental examination Z01.20 [place] [id number] [place] [address] 85800- 8392 15 Jul, 2017 Mucopurulent chronic bronchitis J41.1 [facility] [id number] [place] [address] 42061- 0374 15 Jul, 2017 Cervical neuritis M54.12 ; Common wart B07.8 ; Actinic keratosis L57.0 ; Encounter for immunization Z23 and Mucopurulent chronic bronchitis J41.1 [facility] [id number] [place] [address] 78153- 8217 Jun, Radiculopathy of cervical region M54.12 [facility] [id number] [place] [address] 44039- 9355 May, Arthritis M19.90 ; Cervical radiculopathy M54.12 and Mucopurulent chronic bronchitis J41.1 [facility] [id number] [place] [address] 10359- 2508 20 Feb, 2017 Arthritis M19.90 [facility] [id number] [place] [address] 01200- 6823 Feb, Other chronic pain G89.29 [facility] [id number] [place] [address] 11128- 5141 19 Feb, 2017 Other chronic pain G89.29 [facility] [id number] [place] [address] [id number] 15 Feb, 2017 Dental examination Z01.20 [facility] [id number] [place] [address] 81552- 2857 07 Feb, 2017 Polyneuropathy G62.9 [facility] [id number] [place] [address] [id number] Jan, Dental examination Z01.20 [facility] [id number] [place] [address] 47113- 4748 Jan, Arthritis M19.90 [facility] [id number] [place] [address] [id number] Jan, Dental examination Z01.20 [facility] [id number] [place] [address] 34242- 5884 Dec, [facility] [id number] [place] [address] 53205- 7056 Dec, Arthritis M19.90 [facility] [id number] [place] [address] 21185- 0336 Dec, Sebaceous cyst L72.3 [facility] [address] 74532- 5495 Dec, Sebaceous cyst L72.3 and Common wart B07.8 [facility] [id number] [place] [address] 28622- 9559 Nov, Arthritis M19.90 [facility] [id number] [place] [address] 00147- 4217 Nov, [facility] [address] 20796- 3206 October, Arthritis M19.90 [facility] [id number] [place] [address] 36719- 4465 October, Polyneuropathy G62.9 and Arthritis M19.90 [facility] [id number] [place] [address] 54713- 9778 October, Polyneuropathy G62.9 and Arthritis M19.90 [facility] [id number] [place] [address] 52533- 6512 October, Arthritis M19.90 and Polyneuropathy G62.9 [facility] [id number] [place] [address] [id number] October, Dental examination Z01.20 [facility] [id number] [place] [address] 78975- 9578 Sep, Polyuria R35.8 [facility] [id number] [place] [address] [id number] Sep, Dental examination Z01.20 [facility] [id number] [place] [address] 89708- 1040 Sep, [facility] [address] 70572- 3461 Sep, Polyneuropathy G62.9 [facility] [id number] [place] [address] 53832- 9144 Aug, Polyuria R35.8 [facility] [address] [id number] Aug, Dental examination Z01.20 [facility] [address] 80295- 3531 Aug, Polyneuropathy G62.9 [facility] [address] 85629- 7245 Aug, Polyuria R35.8 [facility] [address] [id number] Jul, Dental examination Z01.20 [facility] [id number] [place] [address] [id number] Jul, Dental examination Z01.20 [facility] [address] 14412- 1245 Jul, Polyneuropathy G62.9 [facility] [id number] [place] [address] 85877- 5167 Jul, Polyuria R35.8 [facility] [id number] [place] [address] 37080 -1394 Jun, Lumbago with sciatica, left side M54.42 and Other chronic pain G89.29 [place] [id number] [place] [address] 69086- 7945 Jun, Polyneuropathic pain M79.2 and Other infective acute otitis externa of left ear H60.392 [place] [address] 85751- 4733 Jun, Polyuria R35.8 [facility] [id number] [place] [address] 92102- 9509 May, Dental examination Z01.20 [place] [id number] [place] [address] 04128- 2639 May, Polyneuropathy G62.9 [place] [id number] [place] [address] 93127- 1108 May, Polyuria R35.8 [place] [id number] [place] [address] 65180- 1346 Apr, Polyuria R35.8 ; Weight loss R63.4 ; Arthralgia, unspecified joint M25.50 and Neuropathy G62.9 [place] [id number] [place] [address] 02779- 0801 Apr, [place] [id number] [place] [address] 49109- 9246 Apr, Dental examination Z01.20 [place] [id number] [place] [address] 63419- 5694 Mar, Polyuria R35.8 ; Weight loss R63.4 ; Arthralgia, unspecified joint M25.50 ; Neuropathy G62.9 ; Family history of rheumatoid arthritis Z82.61 and Family history of diabetes mellitus Z83.3 [place] [id number] [place] [address] 84996- 2998 Mar, [place] [id number] [place] [address] 34202- 3539 Feb, [place] [address] 30163- 3541 Feb, Encounter for dental examination and cleaning without abnormal findings Z01.20 [place] [id number] [place] [address] 65411- 9821 Jan, [place] [address] [place] [address]- 9436 18 Dec, 2015 Degenerative disc disease at L5-S1 level M51.36 [facility] [id number] [place] [address] 46703 -4117 08 Dec, 2015 Degenerative disc disease at L5-S1 level M51.36 [facility] [id number] [place] [address] 69551- 7820 07 Dec, 2015 [facility] [id number] [place] [address] 55532- 2624 Nov, [facility] [id number] [place] [address] 975749- 1661 October, Arthritis M19.90 [facility] [address] 013973- 3558 Sep, Arthritis M19.90 and Family history of diabetes mellitus Z83.3 [facility] [id number] [place] [address] 34698- 0626 Jul, [facility] [id number] [place] [address] 375214- 0995 Jun, [facility] [address] 226652- 9225 May, [facility] [id number] [place] [address] 65824- 1328 Apr, [facility] [id number] [place] [address] 42738- 2664 Feb, Actinic keratitis 370.24 [facility] [id number] [place] [address] 67655- 3447 Jan, Common wart 078.19 ; Back pain 724.5 and Fibromyalgia 729.1 [facility] [id number] [place] [address] 16903- 3315 Dec, Alcohol abuse 305.00 [facility] [address] 50696- 2752 14 Dec, 2014 Lesion of neck 709.9 [facility] [address] [address]- 6640 Dec, Back pain 724.5 [facility] [address] [address]- 8656 24 Nov, 2014 Alcohol abuse 305.00 ; Basal cell carcinoma 173.91 and Common wart 078.19 [facility] [address] [facility] [id number] [place] [address] 66950- 8418 18 Nov, 2014 [facility] [address] [facility] [id number] [address]- 4968 14 Sep, 2014 [facility] [id number] [place] [address] 49339- 1221 Sep, [facility] [address] [place] [address] 41276- 4799 15 Jun, 2014 [facility] [id number] [address]- 1865 Jun, [facility] [id number] [address]- 0572 May, [facility] [id number] [address]- 5331 May, [facility] [address] [address]- 9416 Feb, [facility] [address] [facility] [id number], [place] [address]- 0300 Feb, [facility] [address] [facility] [id number] [address]- 1687 Feb, [facility] [address] [facility] [id number], [place] [address]- 3296 Feb, [facility] [id number] [address]- 3638 Sep, [facility] [address] [facility] [id number] [place] [address]- 2995 Sep, [facility] [place] [facility] [address] [id number] [place] [address]- 5395 Sep, [facility] [place] [facility] [address] [id number] [place] [address]- 9853 Sep, [facility] [place] [facility] [address] [id number] [place] [address]- 3062 Aug, [facility] [place] [facility] [address] [id number] [place] [address]- 5492 Aug, [facility] [place] [facility] [address] [id number] [place] [address]- 0976 Jul, [facility] [place] [facility] [address] [id number] [place] [address]- 1953 Jul, [facility] [place] [facility] [address] [id number] [place] [address]- 5547 Jul, [facility] [place] [facility] [address] [id number] [place] [address]- 4803 Jul, [facility] [place] [facility] [address] [id number] [place] [address]- 6169 Jun, [facility] [place] [facility] [address] [id number] [place] [address]- 8249 Jun, [facility] [place] [facility] [address] [id number] [place] [address]- 9457 Jun, [facility] [place] [facility] [address] [id number] [place] [address]- 5422 Jun, [facility] [place] [facility] [address] [id number] [place] 9035 May, [facility] [place] [facility] [address] [id number] [place] 9993 May, [facility] [place] [facility] [address] [id number] [place] [address]- 1308 Apr, [facility] [place] [facility] [address] [id number] [place] [address]- 6475 18 Apr, 2013 [facility] [place] [facility] [address] [id number] [place] [address]- 8911 Apr, [facility] [place] [facility] [address] [id number] [place] [address]- 8476 Apr, [facility] [place] [facility] [address] [id number] [place] [address]- 6358 Apr, [facility] [place] [facility] [address] [id number] [place] [address]- 4637 Apr, [facility] [place] [facility] [address] [id number] [place] [address]- 0185 Mar, [facility] [place] [facility] [address] [id number] [place] [address]- 8530 Mar, [facility] [place] [facility] [address] [id number] [place] [address]- 3495 Mar, [facility] [place] [facility] [address] [id number] [place] [address]- 7437 Mar, [facility] [place] [facility] [address] [id number] [place] [address]- 5041 Jan, [facility] [place] [facility] [address] [id number], [place] [address]- 5418 Jan, [facility] [place] [facility] [address] [id number], [place] [address]- 9232 Aug, [facility] [place] [facility] [address] [id number] [place] [address]- 0750 Aug, [facility] [place] [facility] [address] [id number], [place] [address]- 6190 Mar, [facility] [place] [facility] [address] [id number] [place] [address]- 4709 Mar, [facility] [place] [facility] [address] [id number] [place] [address]- 7684 Mar, [facility] [place] [facility] [address] [id number] [place] [address]- 0118 Mar, [facility] [place] [facility] [address] [id number] [place] [address]- 4164 Mar, [facility] [place] [facility] [address] [id number] [place] [address]- 3147 Mar, [facility] [place] [facility] [address] [id number] [place] [address]- 3342 Mar, [facility] [place] [facility] [address] [id number] [place] [address]- 8848 Mar, [facility] [place] [facility] [address] [id number] [place] [address]- 7956 Jan, [facility] [place] [facility] [address] [facility] [id number] [place] [address]- 9713 Jan, [facility] [place] [facility] [address] [id number] [place] [address]- 9217 Nov, [facility] [place] [facility] [address] [id number] [place] [address]- 4231 Nov, [facility] [place] [facility] [address] [facility] [id number] [place] [address]- 8288 October, [facility] [place] [facility] [address] [facility] [id number] [place] [address]- 0158 Aug, [facility] [place] [facility] [address] [id number] [place] [address] 2541 Aug, [facility] [place] [facility] [address] [id number] [place] [address]- 9495 Aug, [facility] [place] [facility] [address] [facility] [id number] [place] [address]- 1833 Jul, [facility] [place] [facility] [address] [id number] [place] [address]- 6158 Jul, [facility] [address] [facility] [id number], [place] [address]- 3855 Apr, [facility] [id number] [address]- 0540 Apr, [facility] [id number], [place] [address]- 2472 Apr, [facility] [id number], [place] [address]- 7363 Jul, [facility] [id number], [place] [address]- 5786 Jun, [facility] [id number], [place] [address]- 6867 Apr, IMMUNIZATIONS No Known Immunizations SOCIAL HISTORY Never Assessed REASON FOR VISIT UDS CbrumbackRN PLAN OF CARE VITAL SIGNS MEDICATIONS Unknown Medications RESULTS Name Result Date Reference Range URINE DRUG SCREEN (IN HOUSE) 2017-03-14 Lot # [id number] Exp date Control + COCAINE negative AMPH negative MTD negative THC positive OPIATE negative BENZO negative PCP negative BAR negative OXY negative MAMP negative TCA negative BUP negative MDMA negative PROCEDURES Procedure Date Ordered Result Body Site DRUG TEST PRSMV DIR OPT OBS Mar 14, 2017 INSTRUCTIONS MEDICATIONS ADMINISTERED No Known Medications MEDICAL (GENERAL) HISTORY Type Description Date Medical History irritable bowel syndrome Medical History orthopedic disorder-herniated disc, DJD Medical History esophageal reflux Medical History headache Medical History herpes (genital) Medical History backache Medical History fibromyalgia Surgical History tonsillectomy Hospitalization History Hospitalization for surgery only
--- OUTSIDE RECORDS SUMMARY | 2018-10-14 11:03 | XMS REPORT ---
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 Tender Helper Name Role Phone SRINI LIMON Unavailable PROBLEMS Type Condition ICD9-CM Code [id number] Code Onset Dates Condition Status SNOMED Code Problem Neuropathy G62.9 Active 899829977 Problem Degenerative disc disease at L5-S1 level M51.36 Active 06458812 Problem Mucopurulent chronic bronchitis J41.1 Active 02420814 Problem Cervical radiculopathy M54.12 Active 88638471 Problem Lumbago with sciatica, left side M54.42 Active 020707313 Problem Polyneuropathy G62.9 Active 78297657 Problem Arthritis M19.90 Active 0785178 Problem Other chronic pain G89.29 Active 04782374 ALLERGIES No Information ENCOUNTERS Encounter Location Date Diagnosis [place] [address] [address] Sep, [place] [address] 75694- 1405 Aug, [place] [address] 37221- 2352 Aug, Dental caries extending into dentin K02.62 [place] [address] 06479- 9109 Jul, Dental examination Z01.20 [place] [address] 21595- 7260 Jul, Mucopurulent chronic bronchitis J41.1 [place] [address] 70894- 4025 Jul, Cervical neuritis M54.12 ; Common wart B07.8 ; Actinic keratosis L57.0 ; Encounter for immunization Z23 and Mucopurulent chronic bronchitis J41.1 [facility] [address] [facility] [id number] [place] [address] 99676- 6932 Jun, Radiculopathy of cervical region M54.12 [facility] [address] [place] [id number] [place] [address] 46019- 4753 May, Arthritis M19.90 ; Cervical radiculopathy M54.12 and Mucopurulent chronic bronchitis J41.1 [facility] [id number] [place] [address] 94217- 8699 Feb, Arthritis M19.90 [facility] [address] [place] [id number] [place] [address] 13252- 8162 Feb, Other chronic pain G89.29 [facility] [address] [place] [id number] [place] [address] 77896- 5173 19 Feb, 2017 Other chronic pain G89.29 [facility] [address] [place] [id number] [place] [address] [phone] 15 Feb, 2017 Dental examination Z01.20 [facility] [address] [place] [id number] [place] [address] 45900- 2428 Feb, Polyneuropathy G62.9 [facility] [address] [id number] [place] [address] [phone] Jan, Dental examination Z01.20 [facility] [id number] [place] [address] 29499- 1333 Jan, Arthritis M19.90 [facility] [id number] [place] [address] [phone] Jan, Dental examination Z01.20 [facility] [address] [place] [id number] [place] [address] 16297- 6530 Dec, [facility] [address] [place] [id number] [place] [address] 02462- 7882 Dec, Arthritis M19.90 [facility] [address] [place] [id number] [place] [address] 06371- 2222 Dec, Sebaceous cyst L72.3 [facility] [address] 86517- 7278 Dec, Sebaceous cyst L72.3 and Common wart B07.8 [facility] [address] [place] [id number] [place] [address] 02911- 9653 Nov, Arthritis M19.90 [facility] [address] [place] [id number] [place] [address] 62778- 7335 Nov, [facility] [address] 01467- 8313 October, Arthritis M19.90 [facility] [address] [place] [id number] [place] [address] 10871- 4229 October, Polyneuropathy G62.9 and Arthritis M19.90 [facility] [address] [place] [id number] [place] [address] 64178- 5821 October, Polyneuropathy G62.9 and Arthritis M19.90 [facility] [address] [place] [id number] [place] [address] 02593- 0300 October, Arthritis M19.90 and Polyneuropathy G62.9 [facility] [address] [place] [id number] [place] [address] [phone] October, Dental examination Z01.20 [facility] [address] [place] [id number] [place] [address] 63732- 0779 Sep, Polyuria R35.8 [facility] [address] [place] [id number] [place] [address] [phone] Sep, Dental examination Z01.20 [facility] [address] [place] [id number] [place] [address] 94026- 9881 Sep, [facility] [address] [place] [id number] [place] [address] 42502- 4044 Sep, Polyneuropathy G62.9 [facility] [id number] [place] [address] 82793- 5529 Aug, Polyuria R35.8 [facility] [address] [place] [id number] [place] [address] [phone] Aug, Dental examination Z01.20 [facility] [address] [place] [id number] [place] [address] 55123- 1966 Aug, Polyneuropathy G62.9 [facility] [address] [place] [id number] [place] [address] 78944- 3001 Aug, Polyuria R35.8 [facility] [address] [place] [id number] [place] [address] [phone] Jul, Dental examination Z01.20 [facility] [address] [place] [id number] [place] [address] [phone] Jul, Dental examination Z01.20 [facility] [address] [place] [id number] [place] [address] 31542- 3057 Jul, Polyneuropathy G62.9 [facility] [address] [place] [address] 23768- 9026 Jul, Polyuria R35.8 [facility] [address] [place] [address] 36962 -7357 Jun, Lumbago with sciatica, left side M54.42 and Other chronic pain G89.29 [facility] [address] [place] [address] 17126- 4195 Jun, Polyneuropathic pain M79.2 and Other infective acute otitis externa of left ear H60.392 [facility] [address] [place] [id number] [place] [address] 44669- 6842 Jun, Polyuria R35.8 [facility] [id number] [place] [address] 96009- 9502 May, Dental examination Z01.20 [facility] [address] [place] [id number] [place] [address]- 5586 May, Polyneuropathy G62.9 [facility] [address] [place] [id number] [place] [address] 27565- 5822 May, Polyuria R35.8 [facility] [address] [place] [id number] [place] [address] 05632- 1730 Apr, Polyuria R35.8 ; Weight loss R63.4 ; Arthralgia, unspecified joint M25.50 and Neuropathy G62.9 [facility] [address] [place] [id number] [place] [address] 28823- 5194 Apr, [place] [address] 37781- 3388 Apr, Dental examination Z01.20 [place] [address] [place] [id number] [place] [address] 30141- 1669 Mar, Polyuria R35.8 ; Weight loss R63.4 ; Arthralgia, unspecified joint M25.50 ; Neuropathy G62.9 ; Family history of rheumatoid arthritis Z82.61 and Family history of diabetes mellitus Z83.3 [facility] [address] [place] [id number] [place] [address] 61650- 9392 Mar, [place] [address] [place] [id number] [place] [address] 90007- 8011 Feb, [facility] [address] [place] [id number] [place] [address] 73078- 3959 Feb, Encounter for dental examination and cleaning without abnormal findings Z01.20 [place] [address] [place] [id number] [place] [address] 16834- 0701 Jan, [place] [address] 55747- 1608 Dec, Degenerative disc disease at L5-S1 level M51.36 [facility] [address] [place] [id number] [place] [address] 33360 -5786 Dec, Degenerative disc disease at L5-S1 level M51.36 [facility] [address] [place] [id number] [place] [address] 71220- 4283 Dec, [facility] [address] [place] [id number] [place] [address] 933550- 9002 Nov, [facility] [address] [place] [id number] [place] [address] 622473- 2153 October, Arthritis M19.90 [facility] [address] 97231- 3222 Sep, Arthritis M19.90 and Family history of diabetes mellitus Z83.3 [place] [address] 03974- 1685 Jul, [facility] [address] [place] [id number] [place] [address] 654875- 9174 Jun, [facility] [address] 42427- 7926 May, [facility] [address] [place] [id number] [place] [address] 39069- 3934 Apr, [place] [address] [place] [id number] [place] [address] 07435- 9999 Feb, Actinic keratitis 370.24 [place] [address] [place] [id number] [place] [address] 27435- 1855 Jan, Common wart 078.19 ; Back pain 724.5 and Fibromyalgia 729.1 [facility] [address] [place] [id number] [place] [address] 94868- 4381 Dec, Alcohol abuse 305.00 [place] [address] 86508- 0100 14 Dec, 2014 Lesion of neck 709.9 [facility] [address] [place] [id number] [place] [address] 55206- 6885 Dec, Back pain 724.5 [place] [address] [id number] [address]- 2106 24 Nov, 2014 Alcohol abuse 305.00 ; Basal cell carcinoma 173.91 and Common wart 078.19 [facility] [address] [id number], [place] [address]- 2326 18 Nov, 2014 [facility] [address] [place] [id number] [address]- 5499 14 Sep, 2014 [facility] [address] [facility] [id number], [place] [address]- 5729 Sep, [facility] [address] [facility] [id number] [place] [address]- 4647 15 Jun, 2014 [facility] [address] [facility] [id number] [place] [address]- 6892 Jun, [facility] [address] [place] [address]- 5102 May, [facility] [address] [place] [id number] [place] [address]- 7749 May, [facility] [address] [place] [id number] [place] [address]- 0345 Feb, [facility] [address] [place] [id number] [place] [address]- 7394 Feb, [facility] [address] [address]- 0572 Feb, [facility] [address] [facility] [id number], [place] [address]- 6029 Feb, [facility] [address] [facility] [id number] [place] [address]- 2963 Sep, [facility] [address] [facility] [id number] [place] [address]- 4966 Sep, [facility] [address] [facility] [id number] [place] [address]- 0089 Sep, [facility] [place] [facility] [address] [id number] [place] [address]- 2723 18 Sep, 2013 [facility] [place] [facility] [address] [id number] [place] [address]- 1183 Aug, [facility] [place] [facility] [address] [id number] [place] [address]- 9631 Aug, [facility] [place] [facility] [address] [id number] [place] [address]- 7379 Jul, [facility] [place] [facility] [address] [id number] [place] [address]- 8501 Jul, [facility] [place] [facility] [address] [id number] [place] [address]- 1213 Jul, [facility] [place] [facility] [address] [id number] [place] [address]- 8005 Jul, [facility] [place] [facility] [address] [id number] [place] [address]- 7145 Jun, [facility] [place] [facility] [address] [id number] [place] [address]- 9213 Jun, [facility] [place] [facility] [address] [id number] [place] [address]- 8090 Jun, [facility] [place] [facility] [address] [id number] [place] [address]- 0438 Jun, [facility] [place] [facility] [address] [id number] [place] [address]- 3758 May, [facility] [place] [facility] [address] [id number] [place] [address]- 8038 May, [facility] [place] [facility] [address] [id number] [place] [address]- 6219 Apr, [facility] [place] [facility] [address] [id number] [place] [address]- 3269 18 Apr, 2013 [facility] [place] [facility] [address] [id number] [place] [address]- 5802 14 Apr, 2013 [facility] [place] [facility] [address] [id number] [place] [address]- 1745 14 Apr, 2013 [facility] [place] [facility] [address] [id number] [place] [address]- 1790 Apr, [facility] [place] [facility] [address] [id number] [place] [address]- 1958 Apr, [facility] [place] [facility] [address] [id number] [place] [address]- 7385 Mar, [facility] [place] [facility] [address] [id number] [place] [address]- 8407 Mar, [facility] [place] [facility] [address] [id number] [place] [address]- 6074 Mar, [facility] [place] [facility] [address] [id number] [place] [address]- 6207 Mar, [facility] [place] [facility] [address] [id number], [place] [address]- 7564 Jan, [facility] [place] [facility] [address] [id number] [place] [address]- 3609 Jan, [facility] [place] [facility] [address] [id number] [place] [address]- 4517 Aug, [facility] [place] [facility] [address] [id number], [place] [address]- 4579 Aug, [facility] [place] [facility] [address] [id number], [place] [address]- 2620 Mar, [facility] [place] [facility] [address] [id number] [place] [address]- 7596 Mar, [facility] [place] [facility] [address] [id number], [place] [address]- 8874 Mar, [facility] [place] [facility] [address] [id number], [place] [address]- 6697 18 Mar, 2012 [facility] [place] [facility] [address] [id number] [place] [address]- 6118 Mar, [facility] [place] [facility] [address] [id number] [place] [address]- 9692 Mar, [facility] [place] [facility] [address] [id number] [place] [address]- 2976 Mar, [facility] [place] [facility] [address] [id number] [place] [address]- 6510 Mar, [facility] [place] [facility] [address] [id number] [place] [address]- 0881 Jan, [facility] [place] [facility] [address] [id number] [place] [address]- 5698 Jan, [facility] [place] [facility] [address] [facility] [id number] [place] [address]- 1215 Nov, [facility] [place] [facility] [address] [facility] [id number] [place] [address]- 0015 Nov, [facility] [place] [facility] [address] [facility] [id number] [place] [address]- 1064 October, [facility] [place] [facility] [address] [facility] [id number] [place] [address]- 0529 Aug, [facility] [place] [facility] [address] [facility] [id number] [place] [address]- 9284 Aug, [facility] [place] [facility] [address] [facility] [id number] [place] [address]- 7906 Aug, [facility] [place] [facility] [address] [facility] [id number] [place] [address]- 2357 Jul, [facility] [place] [facility] [address] [id number] [place] [address]- 9094 Jul, [facility] [place] [facility] [address] [facility] [id number] [place] [address]- 2546 Apr, [facility] [place] [facility] [address] [facility] [id number] [place] [address]- 6032 Apr, [facility] [address] [facility] [id number], [place] [address]- 3326 Apr, [facility] [address] [facility] [id number], [place] [address]- 2546 Jul, [facility] [address] [facility] [id number], [place] [address]- 2546 Jun, [facility] [address] [facility] [id number], [place] [address]- 1456 Apr, IMMUNIZATIONS No Known Immunizations SOCIAL HISTORY Never Assessed REASON FOR VISIT Controlled Med Refill 12/15/16 PLAN OF CARE VITAL SIGNS MEDICATIONS Medication Instructions Dosage Frequency Start Date End Date Duration Status [place] 5-325 MG Orally every 6 hrs 1 tablet as needed 6h Nov, 28 days Active RESULTS No Results [...]
--- OUTSIDE RECORDS SUMMARY | 2018-10-14 11:03 | XMS REPORT ---
Author Author SRINI LIMON Organization [employer] Address Unknown Phone Unavailable Care Team Providers Care Bulker Name Role Phone SRINI LIMON CP Unavailable [...] Date End Date Status Dosage Tramadol HCl [facility] [address]-22 50 MG Orally every 6 hrs. MUST HAVE APPT FOR FURTHER REFILLS 1 tablet as needed Results No Known Results Summary Purpose [employer] Submission
--- OUTSIDE RECORDS SUMMARY | 2018-10-14 11:04 | XMS REPORT ---
Author Author SRINI LIMON Organization [facility] [place] Address [address] [place] [address] Care Team Providers Care Retail Buyer Name Role Phone SRINI LIMON Unavailable PROBLEMS Type Condition ICD9-CM Code NIS14-VM Code Onset Dates Condition Status SNOMED Code Problem Neuropathy G62.9 Active 407522207 Problem Lumbago with sciatica, left side M54.42 Active 696498873 Problem Polyneuropathy G62.9 Active 38313210 Problem Degenerative disc disease at L5-S1 level M51.36 Active 04798214 Problem Hypertension, unspecified type I10 Active 86434074 Problem Gingivitis K05.10 Active 38729359 Problem Arthritis M19.90 Active 8799976 Problem Other chronic pain G89.29 Active 25379320 Problem Cervical radiculopathy M54.12 Active 45714968 Problem Mucopurulent chronic bronchitis J41.1 Active 79729099 ALLERGIES No Information ENCOUNTERS Encounter Location Date Diagnosis [place] [id number] [place] [address] 58426- 2336 Sep, Common wart B07.8 and Hypertension, unspecified type I10 [place] [id number] [place] [address] 28199- 1297 Aug, Dental examination Z01.20 ; Gingivitis K05.10 and Xerostomia R68.2 [place] [id number] [place] [address] 31587- 2838 Aug, Dental caries extending into dentin K02.62 [place] [id number] [place] [address] 96150- 5079 20 Jul, 2017 Dental examination Z01.20 [place] [id number] [place] [address] 13899- 2791 15 Jul, 2017 Mucopurulent chronic bronchitis J41.1 [facility] [place] [id number] [place] [address] 29885- 9402 15 Jul, 2017 Cervical neuritis M54.12 ; Common wart B07.8 ; Actinic keratosis L57.0 ; Encounter for immunization Z23 and Mucopurulent chronic bronchitis J41.1 [facility] [place] [id number] [place] [address] 88925- 9856 Jun, Radiculopathy of cervical region M54.12 [facility] [place] [id number] [place] [address] 50815- 0886 May, Arthritis M19.90 ; Cervical radiculopathy M54.12 and Mucopurulent chronic bronchitis J41.1 [facility] [place] [id number] [place] [address] 55664- 9800 Feb, Arthritis M19.90 [facility] [place] [id number] [place] [address] 25995- 5762 Feb, Other chronic pain G89.29 [facility] [place] [id number] [place] [address] 15720- 8910 19 Feb, 2017 Other chronic pain G89.29 [facility] [id number] [place] [address] [id number] Feb, Dental examination Z01.20 [facility] [place] [id number] [place] [address] 97945- 0806 07 Feb, 2017 Polyneuropathy G62.9 [facility] [address] [place] [address] [id number] Jan, Dental examination Z01.20 [facility] [place] [id number] [place] [address] 83918- 2886 Jan, Arthritis M19.90 [facility] [id number] [place] [address] [id number] Jan, Dental examination Z01.20 [facility] [place] [id number] [place] [address] 75436- 0145 Dec, [facility] [place] [id number] [place] [address] 66357- 0543 Dec, Arthritis M19.90 [facility] [place] [id number] [place] [address] 02854- 8272 Dec, Sebaceous cyst L72.3 [facility] [place] [address] 52293- 2612 Dec, Sebaceous cyst L72.3 and Common wart B07.8 [facility] [place] [id number] [place] [address] 99618- 0385 Nov, Arthritis M19.90 [facility] [place] [id number] [place] [address] 76428- 3485 Nov, [facility] [place] [id number] [place] [address] 42671- 9827 October, Arthritis M19.90 [facility] [place] [id number] [place] [address] 24699- 5847 October, Polyneuropathy G62.9 and Arthritis M19.90 [facility] [place] [id number] [place] [address] 88445- 4378 October, Polyneuropathy G62.9 and Arthritis M19.90 [facility] [place] [id number] [place] [address] 43698- 2012 October, Arthritis M19.90 and Polyneuropathy G62.9 [facility] [id number] [place] [address] [id number] October, Dental examination Z01.20 [facility] [place] [id number] [place] [address] 38102- 7412 Sep, Polyuria R35.8 [facility] [id number] [place] [address] [id number] Sep, Dental examination Z01.20 [facility] [place] [id number] [place] [address] 22534- 7550 Sep, [facility] [place] [id number] [place] [address] 36915- 4570 Sep, Polyneuropathy G62.9 [facility] [place] [id number] [place] [address] 61287- 5224 Aug, Polyuria R35.8 [facility] [address] [id number] Aug, Dental examination Z01.20 [facility] [place] [address] 91630- 8828 Aug, Polyneuropathy G62.9 [facility] [place] [address] 22279- 5264 Aug, Polyuria R35.8 [facility] [address] [id number] Jul, Dental examination Z01.20 [facility] [id number] [place] [address] [id number] Jul, Dental examination Z01.20 [facility] [place] [id number] [place] [address] 36296- 1866 Jul, Polyneuropathy G62.9 [facility] [place] [id number] [place] [address] 29541- 9455 Jul, Polyuria R35.8 [facility] [id number] [place] [address] 25583 -0257 Jun, Lumbago with sciatica, left side M54.42 and Other chronic pain G89.29 [place] [id number] [place] [address] 97948- 6194 Jun, Polyneuropathic pain M79.2 and Other infective acute otitis externa of left ear H60.392 [place] [address] 13326- 3419 Jun, Polyuria R35.8 [facility] [place] [id number] [place] [address] 37143- 7841 May, Dental examination Z01.20 [place] [id number] [place] [address] 83750- 8659 May, Polyneuropathy G62.9 [place] [id number] [place] [address] 95329- 0758 May, Polyuria R35.8 [place] [id number] [place] [address] 56694- 7022 Apr, Polyuria R35.8 ; Weight loss R63.4 ; Arthralgia, unspecified joint M25.50 and Neuropathy G62.9 [place] [id number] [place] [address] 34297- 0638 Apr, [place] [address] 00086- 9464 Apr, Dental examination Z01.20 [place] [id number] [place] [address] 31920- 2015 Mar, Polyuria R35.8 ; Weight loss R63.4 ; Arthralgia, unspecified joint M25.50 ; Neuropathy G62.9 ; Family history of rheumatoid arthritis Z82.61 and Family history of diabetes mellitus Z83.3 [place] [id number] [place] [address] 26116- 6030 Mar, [place] [id number] [place] [address] 78291- 6338 Feb, [place] [address] 73263- 2477 Feb, Encounter for dental examination and cleaning without abnormal findings Z01.20 [place] [id number] [place] [address] 79013- 4711 Jan, [place] [address] [place] [address]- 1954 Dec, Degenerative disc disease at L5-S1 level M51.36 [facility] [id number] [place] [address] 02404 -8342 08 Dec, 2015 Degenerative disc disease at L5-S1 level M51.36 [facility] [place] [id number] [place] [address] 720223- 3716 Dec, [facility] [place] [address] 96224- 8217 Nov, [facility] [place] [id number] [place] [address] 60277- 7099 October, Arthritis M19.90 [facility] [place] [address] 84161- 4544 Sep, Arthritis M19.90 and Family history of diabetes mellitus Z83.3 [facility] [place] [address] 70407- 2844 Jul, [facility] [place] [id number] [place] [address] 73753- 0140 Jun, [facility] [place] [address] 49437- 5526 May, [facility] [place] [id number] [place] [address] 35281- 9500 Apr, [facility] [place] [id number] [place] [address] 17688- 8436 Feb, Actinic keratitis 370.24 [facility] [place] [id number] [place] [address] 26483- 5787 Jan, Common wart 078.19 ; Back pain 724.5 and Fibromyalgia 729.1 [facility] [place] [id number] [place] [address] 65880- 7160 Dec, Alcohol abuse 305.00 [facility] [place] [address] 82067- 9835 14 Dec, 2014 Lesion of neck 709.9 [facility] [place] [address] [address]- 8105 Dec, Back pain 724.5 [facility] [place] [address] [address]- 6100 24 Nov, 2014 Alcohol abuse 305.00 ; Basal cell carcinoma 173.91 and Common wart 078.19 [facility] [place] [address] [facility] [id number] [address]- 4833 18 Nov, 2014 [facility] [place] [address] [address]- 3680 14 Sep, 2014 [facility] [place] [address] [address]- 9966 Sep, [facility] [place] [address] [address]- 7124 15 Jun, 2014 [facility] [place] [address] [address]- 1922 Jun, [facility] [place] [address] [address]- 2973 May, [facility] [place] [address] [address]- 1035 May, [facility] [place] [address] [address]- 0799 Feb, [facility] [place] [id number] [address]- 9733 Feb, [facility] [id number] [address]- 1321 Feb, [facility] [id number] [address]- 7428 Feb, [facility] [place] [id number] [address]- 8759 Sep, [facility] [place] [id number] [place] [address]- 5811 Sep, [facility] [place] [facility] [address] [id number] [place] [address]- 3250 Sep, [facility] [place] [facility] [address] [id number] [place] [address]- 8694 Sep, [facility] [place] [facility] [address] [id number] [place] [address]- 4010 Aug, [facility] [place] [facility] [address] [id number] [place] [address]- 9827 Aug, [facility] [place] [facility] [address] [id number] [place] [address]- 8236 Jul, [facility] [place] [facility] [address] [id number] [place] [address]- 5345 Jul, [facility] [place] [facility] [address] [id number] [place] [address]- 9860 Jul, [facility] [place] [facility] [address] [id number] [place] [address]- 0317 Jul, [facility] [place] [facility] [address] [id number] [place] [address]- 3032 Jun, [facility] [place] [facility] [address] [id number] [place] [address]- 3971 Jun, [facility] [place] [facility] [address] [id number] [place] [address]- 4549 Jun, [facility] [place] [facility] [address] [id number] [place] [address]- 9605 Jun, [facility] [place] [facility] [address] [id number] [place] 4753 May, [facility] [place] [facility] [address] [id number] [place] 1361 May, [facility] [place] [facility] [address] [id number] [place] [address]- 7952 Apr, [facility] [place] [facility] [address] [id number] [place] [address]- 7185 18 Apr, 2013 [facility] [place] [facility] [address] [id number] [place] [address]- 5819 Apr, [facility] [place] [facility] [address] [id number] [place] [address]- 6269 Apr, [facility] [place] [facility] [address] [id number] [place] [address]- 4353 Apr, [facility] [place] [facility] [address] [id number] [place] [address]- 0161 Apr, [facility] [place] [facility] [address] [id number] [place] [address]- 3633 Mar, [facility] [place] [facility] [address] [id number] [place] [address]- 5391 Mar, [facility] [place] [facility] [address] [id number] [place] [address]- 0319 Mar, [facility] [place] [facility] [address] [id number] [place] [address]- 8476 Mar, [facility] [place] [facility] [address] [id number] [place] [address]- 5583 Jan, [facility] [place] [facility] [address] [id number] [place] [address]- 0328 Jan, [facility] [place] [facility] [address] [id number], [place] [address]- 6137 Aug, [facility] [place] [facility] [address] [id number] [place] [address]- 0792 Aug, [facility] [place] [facility] [address] [id number] [place] [address]- 2628 Mar, [facility] [place] [facility] [address] [id number] [place] [address]- 2476 Mar, [facility] [place] [facility] [address] [id number] [place] [address]- 0158 Mar, [facility] [place] [facility] [address] [id number] [place] [address]- 1592 Mar, [facility] [place] [facility] [address] [id number] [place] [address]- 5459 Mar, [facility] [place] [facility] [address] [id number] [place] [address]- 0085 Mar, [facility] [place] [facility] [address] [id number] [place] [address]- 7473 Mar, [facility] [place] [facility] [address] [id number] [place] [address]- 4334 Mar, [facility] [place] [facility] [address] [id number] [place] [address]- 8832 Jan, [facility] [place] [facility] [address] [id number] [place] [address]- 9576 Jan, [facility] [place] [facility] [address] [id number] [place] [address]- 8003 Nov, [facility] [place] [facility] [address] [id number] [place] [address]- 6136 Nov, [facility] [place] [facility] [address] [facility] [id number] [place] [address]- 3409 October, [facility] [place] [facility] [address] [id number] [place] [address]- 4766 Aug, [facility] [place] [facility] [address] [id number] [place] [address]- 2548 Aug, [facility] [place] [facility] [address] [id number] [place] [address]- 7595 Aug, [facility] [place] [facility] [address] [facility] [id number] [place] [address]- 0046 Jul, [facility] [place] [facility] [address] [id number] [place] [address]- 8406 Jul, [facility] [place] [address] [facility] [id number], [place] [address]- 2546 Apr, [facility] [place] [id number] [address]- 2546 Apr, [facility] [place] [id number] [address]- 2546 Apr, [facility] [place] [address], [place] [address]- 2546 Jul, [facility] [place] [id number] [address]- 3905 Jun, [facility] [place] [id number] [address]- 9156 Apr, IMMUNIZATIONS No Known Immunizations SOCIAL HISTORY Never Assessed REASON FOR VISIT Suture removal- 5 sutures removed from back, there is a small area that is open , cleaned area with alcholol prior to removing sutures, applied 3 steri strips over the area- Delmi Bedolla RN PLAN OF CARE VITAL SIGNS MEDICATIONS Unknown [...]
--- OUTSIDE RECORDS SUMMARY | 2018-10-14 11:04 | XMS REPORT ---
Author SRINI Upton [facility] eClinical[employer] Address Unknown Phone Unavailable Care Team Providers Care Improvement Leader Name Role Phone SRINI LIMON CP Unavailable Allergies, Adverse Reactions, Alerts Substance Reaction Event Type N.K.D.A. 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 Problem Dysuria 788.1 Active Assessment Fibromyalgia 729.1 Active Assessment Back pain 724.5 Active Assessment Common wart 078.19 Active Medications Medication Code System Code Instructions Start Date End Date Status Dosage Acyclovir ND 0 400 mg orally 2 times a day December 16, 2014 one tab Metoprolol Tartrate [facility] 66288414598 50 MG TAKE ONE TABLET BY MOUTH TWICE DAILY (MUST HAVE FOLLOW-UP APPOINTMENT FOR FURTHER REFILLS!!!) Baclofen [facility] [address]-40 20 MG September 13, 2012 take 1 tablet (20 mg) by oral route 3 times per day PRN Lyrica [facility] [address]-39 50 MG Orally Three times a day Feb 09, 2015 1 capsule Naprosyn [facility] [address]-86 500 MG Orally every 12 hrs 1 tablet as needed Tramadol HCl [facility] [address]-55 50 MG Orally every 6 hrs 1 tablet as needed Procedures Procedure Coding System Code Date Office Visit, Est Pt., Level 3 CPT-4 78419 Feb 09, 2015 DESTRUCT LESION, 1-14 CPT-4 41370 Feb 09, 2015 Vital Signs Date/Time: Feb 09, 2015 Temperature 96.7 F Weight 235.3 lbs Height 70 in BMI 33.76 Index Blood Pressure Diastolic 98 mmHg Blood Pressure Systolic 140 mmHg Cardiac Monitoring Heart Rate 68 bpm Results No Known Results Summary Purpose eClinicalWorks Submission
--- OUTSIDE RECORDS SUMMARY | 2018-10-14 11:04 | XMS REPORT ---
Author Author SRINI LIMON Organization [facility] Address [address] [place] [address] Care Team Providers Care Parking Enforcer Name Role Phone SRINI LIMON Unavailable PROBLEMS Type Condition ICD9-CM Code JHE62-GX Code Onset Dates Condition Status SNOMED Code Problem Neuropathy G62.9 Active 148974831 Problem Lumbago with sciatica, left side M54.42 Active 341768113 Problem Polyneuropathy G62.9 Active 77978941 Problem Degenerative disc disease at L5-S1 level M51.36 Active 12761359 Problem Hypertension, unspecified type I10 Active 08437427 Problem Gingivitis K05.10 Active 65532281 Problem Arthritis M19.90 Active 2255204 Problem Other chronic pain G89.29 Active 31269938 Problem Cervical radiculopathy M54.12 Active 52924089 Problem Mucopurulent chronic bronchitis J41.1 Active 57520510 ALLERGIES No Information ENCOUNTERS Encounter Location Date Diagnosis [place] [id number] [place] [address] 84333- 4652 Sep, Common wart B07.8 and Hypertension, unspecified type I10 [place] [id number] [place] [address] 44432- 6622 Aug, Dental examination Z01.20 ; Gingivitis K05.10 and Xerostomia R68.2 [place] [id number] [place] [address] 49848- 1636 Aug, Dental caries extending into dentin K02.62 [place] [id number] [place] [address] 20369- 8068 20 Jul, 2017 Dental examination Z01.20 [place] [id number] [place] [address] 07472- 8299 15 Jul, 2017 Mucopurulent chronic bronchitis J41.1 [facility] [id number] [place] [address] 30229- 8068 15 Jul, 2017 Cervical neuritis M54.12 ; Common wart B07.8 ; Actinic keratosis L57.0 ; Encounter for immunization Z23 and Mucopurulent chronic bronchitis J41.1 [facility] [id number] [place] [address] 72685- 0379 Jun, Radiculopathy of cervical region M54.12 [facility] [id number] [place] [address] 46600- 2348 May, Arthritis M19.90 ; Cervical radiculopathy M54.12 and Mucopurulent chronic bronchitis J41.1 [facility] [id number] [place] [address] 84684- 7332 Feb, Arthritis M19.90 [facility] [id number] [place] [address] 18898- 2563 Feb, Other chronic pain G89.29 [facility] [id number] [place] [address] 54490- 4102 19 Feb, 2017 Other chronic pain G89.29 [facility] [id number] [place] [address] [id number] Feb, Dental examination Z01.20 [facility] [id number] [place] [address] 80594- 3792 07 Feb, 2017 Polyneuropathy G62.9 [facility] [id number] [place] [address] [id number] Jan, Dental examination Z01.20 [facility] [id number] [place] [address] 92478- 3989 Jan, Arthritis M19.90 [facility] [id number] [place] [address] [id number] Jan, Dental examination Z01.20 [facility] [id number] [place] [address] 89104- 2813 Dec, [facility] [id number] [place] [address] 51747- 7850 Dec, Arthritis M19.90 [facility] [id number] [place] [address] 88019- 5524 Dec, Sebaceous cyst L72.3 [facility] [address] 82173- 1990 Dec, Sebaceous cyst L72.3 and Common wart B07.8 [facility] [id number] [place] [address] 91845- 6116 Nov, Arthritis M19.90 [facility] [id number] [place] [address] 08353- 6900 Nov, [facility] [id number] [place] [address] 11317- 8181 October, Arthritis M19.90 [facility] [id number] [place] [address] 71841- 3582 October, Polyneuropathy G62.9 and Arthritis M19.90 [facility] [id number] [place] [address] 68420- 4123 October, Polyneuropathy G62.9 and Arthritis M19.90 [facility] [id number] [place] [address] 93230- 7814 October, Arthritis M19.90 and Polyneuropathy G62.9 [facility] [id number] [place] [address] [id number] October, Dental examination Z01.20 [facility] [id number] [place] [address] 34496- 5524 Sep, Polyuria R35.8 [facility] [id number] [place] [address] [id number] Sep, Dental examination Z01.20 [facility] [id number] [place] [address] 23560- 4931 Sep, [facility] [id number] [place] [address] 19544- 7559 Sep, Polyneuropathy G62.9 [facility] [id number] [place] [address] 58888- 0632 Aug, Polyuria R35.8 [facility] [address] [id number] Aug, Dental examination Z01.20 [facility] [address] 99950- 3572 Aug, Polyneuropathy G62.9 [facility] [address] 82047- 9422 Aug, Polyuria R35.8 [facility] [address] [id number] Jul, Dental examination Z01.20 [facility] [id number] [place] [address] [id number] Jul, Dental examination Z01.20 [facility] [id number] [place] [address] 98176- 7631 Jul, Polyneuropathy G62.9 [facility] [id number] [place] [address] 16668- 2113 Jul, Polyuria R35.8 [facility] [id number] [place] [address] 63615 -8446 Jun, Lumbago with sciatica, left side M54.42 and Other chronic pain G89.29 [place] [id number] [place] [address] 21478- 9558 Jun, Polyneuropathic pain M79.2 and Other infective acute otitis externa of left ear H60.392 [place] [address] 98579- 7677 Jun, Polyuria R35.8 [facility] [id number] [place] [address] 92853- 8520 May, Dental examination Z01.20 [place] [id number] [place] [address] 21214- 2752 May, Polyneuropathy G62.9 [place] [id number] [place] [address] 29562- 9074 May, Polyuria R35.8 [place] [id number] [place] [address] 09886- 4298 Apr, Polyuria R35.8 ; Weight loss R63.4 ; Arthralgia, unspecified joint M25.50 and Neuropathy G62.9 [place] [id number] [place] [address] 91185- 0893 Apr, [place] [address] 27996- 6773 Apr, Dental examination Z01.20 [place] [id number] [place] [address] 29222- 9819 Mar, Polyuria R35.8 ; Weight loss R63.4 ; Arthralgia, unspecified joint M25.50 ; Neuropathy G62.9 ; Family history of rheumatoid arthritis Z82.61 and Family history of diabetes mellitus Z83.3 [place] [id number] [place] [address] 92516- 9472 Mar, [place] [id number] [place] [address] 33263- 9718 Feb, [place] [address] 74996- 6396 Feb, Encounter for dental examination and cleaning without abnormal findings Z01.20 [place] [id number] [place] [address] 42432- 1612 Jan, [place] [address] [place] [address]- 8968 Dec, Degenerative disc disease at L5-S1 level M51.36 [facility] [id number] [place] [address] 24789 -3855 08 Dec, 2015 Degenerative disc disease at L5-S1 level M51.36 [facility] [id number] [place] [address] 997117- 9739 Dec, [facility] [address] 85889- 6578 Nov, [facility] [id number] [place] [address] 31188- 2257 October, Arthritis M19.90 [facility] [address] 72226- 3109 Sep, Arthritis M19.90 and Family history of diabetes mellitus Z83.3 [facility] [address] 29189- 5163 Jul, [facility] [id number] [place] [address] 42310- 7901 Jun, [facility] [address] 18748- 0977 May, [facility] [id number] [place] [address] 93514- 6029 Apr, [facility] [id number] [place] [address] 20974- 3617 Feb, Actinic keratitis 370.24 [facility] [id number] [place] [address] 13851- 3313 Jan, Common wart 078.19 ; Back pain 724.5 and Fibromyalgia 729.1 [facility] [id number] [place] [address] 73138- 7347 Dec, Alcohol abuse 305.00 [facility] [address] 64435- 4926 14 Dec, 2014 Lesion of neck 709.9 [facility] [address] [address]- 0497 Dec, Back pain 724.5 [facility] [address] [address]- 9420 24 Nov, 2014 Alcohol abuse 305.00 ; Basal cell carcinoma 173.91 and Common wart 078.19 [facility] [address] [facility] [id number] [address]- 5375 18 Nov, 2014 [facility] [address] [address]- 1067 14 Sep, 2014 [facility] [address] [address]- 0551 Sep, [facility] [address] [address]- 2398 15 Jun, 2014 [facility] [address] [address]- 2335 Jun, [facility] [address] [address]- 0328 May, [facility] [address] [address]- 2306 May, [facility] [address] [address]- 5443 Feb, [facility] [id number] [address]- 2348 Feb, [facility] [id number] [address]- 8309 Feb, [facility] [id number] [address]- 3410 Feb, [facility] [id number] [address]- 6698 Sep, [facility] [address] [place] [address]- 4638 Sep, [facility] [place] [facility] [address] [id number] [place] [address]- 7078 Sep, [facility] [place] [facility] [address] [id number] [place] [address]- 4844 Sep, [facility] [place] [facility] [address] [id number] [place] [address]- 3951 Aug, [facility] [place] [facility] [address] [id number] [place] [address]- 5480 Aug, [facility] [place] [facility] [address] [id number] [place] [address]- 9798 Jul, [facility] [place] [facility] [address] [id number] [place] [address]- 8596 Jul, [facility] [place] [facility] [address] [id number] [place] [address]- 6868 Jul, [facility] [place] [facility] [address] [id number] [place] [address]- 6169 Jul, [facility] [place] [facility] [address] [id number] [place] [address]- 3116 Jun, [facility] [place] [facility] [address] [id number] [place] [address]- 9565 Jun, [facility] [place] [facility] [address] [id number] [place] [address]- 6894 Jun, [facility] [place] [facility] [address] [id number] [place] [address]- 2679 Jun, [facility] [place] [facility] [address] [id number] [place] 2483 May, [facility] [place] [facility] [address] [id number] [place] 2073 May, [facility] [place] [facility] [address] [id number] [place] [address]- 0166 Apr, [facility] [place] [facility] [address] [id number] [place] [address]- 3996 18 Apr, 2013 [facility] [place] [facility] [address] [id number] [place] [address]- 0108 Apr, [facility] [place] [facility] [address] [id number] [place] [address]- 5932 Apr, [facility] [place] [facility] [address] [id number] [place] [address]- 2671 Apr, [facility] [place] [facility] [address] [id number] [place] [address]- 9460 Apr, [facility] [place] [facility] [address] [id number] [place] [address]- 1126 Mar, [facility] [place] [facility] [address] [id number] [place] [address]- 6663 Mar, [facility] [place] [facility] [address] [id number] [place] [address]- 8064 Mar, [facility] [place] [facility] [address] [id number] [place] [address]- 2076 Mar, [facility] [place] [facility] [address] [id number] [place] [address]- 3849 Jan, [facility] [place] [facility] [address] [id number] [place] [address]- 2923 Jan, [facility] [place] [facility] [address] [id number] [place] [address]- 4574 Aug, [facility] [place] [facility] [address] [id number] [place] [address]- 1302 Aug, [facility] [place] [facility] [address] [id number] [place] [address]- 5467 Mar, [facility] [place] [facility] [address] [id number] [place] [address]- 0554 Mar, [facility] [place] [facility] [address] [id number] [place] [address]- 9846 Mar, [facility] [place] [facility] [address] [id number] [place] [address]- 6648 Mar, [facility] [place] [facility] [address] [id number] [place] [address]- 6435 Mar, [facility] [place] [facility] [address] [id number] [place] [address]- 8197 Mar, [facility] [place] [facility] [address] [id number] [place] [address]- 5606 Mar, [facility] [place] [facility] [address] [id number] [place] [address]- 2890 Mar, [facility] [place] [facility] [address] [id number] [place] [address]- 4879 Jan, [facility] [place] [facility] [address] [id number] [place] [address]- 3130 Jan, [facility] [place] [facility] [address] [id number] [place] [address]- 2801 Nov, [facility] [place] [facility] [address] [id number] [place] [address]- 7681 Nov, [facility] [place] [facility] [address] [facility] [id number] [place] [address]- 9060 October, [facility] [place] [facility] [address] [id number] [place] [address]- 7986 Aug, [facility] [place] [facility] [address] [id number] [place] [address]- 2544 Aug, [facility] [place] [facility] [address] [id number] [place] [address]- 7797 Aug, [facility] [place] [facility] [address] [facility] [id number] [place] [address]- 0866 Jul, [facility] [place] [facility] [address] [id number] [place] [address]- 2026 Jul, [facility] [address] [facility] [id number] [place] [address]- 2976 Apr, [facility] [address] [address]- 6929 Apr, [facility] [address] [address]- 8704 Apr, [facility] [address] [address]- 8735 Jul, [facility] [address] [address]- 2721 Jun, [facility] [id number] [address]- 0757 Apr, IMMUNIZATIONS No Known Immunizations SOCIAL HISTORY Never Assessed REASON FOR VISIT Controlled Med Refill PLAN OF CARE VITAL SIGNS MEDICATIONS Unknown [...]
[2018-10-14 11:05] VITALS: BP 136/94
--- OUTSIDE RECORDS SUMMARY | 2018-10-14 11:05 | XMS REPORT ---
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
--- OUTSIDE RECORDS SUMMARY | 2018-10-14 11:05 | XMS REPORT ---
Author SRINI Upton [facility] [employer] Address Unknown Phone Unavailable Care Team Providers Care Freight Checker Name Role Phone SRINI LIMON CP Unavailable [...] Other abnormal blood chemistry 790.6 Active Assessment Weight loss R63.4 Active Assessment Polyuria R35.8 Active Assessment Neuropathy G62.9 Active Problem Chronic pain due to trauma 338.21 Active Assessment Arthralgia, unspecified joint M25.50 Active Problem Unspecified otalgia 388.70 Active Medications No Known Medications Procedures Procedure Coding System Code Date No Charge CPT-4 33401 May 05, 2016 Results Name Result Date Reference Range Unit Abnormality Flag GC/CHLAM URINE (STATE) Summary Purpose eClinicalWorks Submission
--- OUTSIDE RECORDS SUMMARY | 2018-10-14 11:05 | XMS REPORT ---
Author Author [facility] Address Unknown Care Team Providers Care Executive Officer Name Role Phone [facility] Unavailable PROBLEMS Type Condition ICD9-CM Code YNY43-VU Code Onset Dates Condition Status SNOMED Code Problem Neuropathy G62.9 Active 234546192 Problem Lumbago with sciatica, left side M54.42 Active 454458738 Problem Polyneuropathy G62.9 Active 20180482 Problem Degenerative disc disease at L5-S1 level M51.36 Active 30452443 Problem Hypertension, unspecified type I10 Active 18236675 Problem Gingivitis K05.10 Active 62989141 Problem Arthritis M19.90 Active 1005116 Problem Other chronic pain G89.29 Active 14556579 Problem Cervical radiculopathy M54.12 Active 34266678 Problem Mucopurulent chronic bronchitis J41.1 Active 76445818 ALLERGIES No Known Allergies ENCOUNTERS Encounter Location Date Diagnosis [place] [address] [address] Sep, Common wart B07.8 and Hypertension, unspecified type I10 [place] [address] [place] [id number] [place] [address] 69756- 4371 Aug, Dental examination Z01.20 ; Gingivitis K05.10 and Xerostomia R68.2 [place] [address] [id number] [place] [address] 56012- 1182 Aug, Dental caries extending into dentin K02.62 [place] [address] [id number] [place] [address] 68671- 3228 20 Jul, 2017 Dental examination Z01.20 [place] [address] [id number] [place] [address] 33454- 6261 15 Jul, 2017 Mucopurulent chronic bronchitis J41.1 [facility] [id number] [place] [address] 43700- 5624 15 Jul, 2017 Cervical neuritis M54.12 ; Common wart B07.8 ; Actinic keratosis L57.0 ; Encounter for immunization Z23 and Mucopurulent chronic bronchitis J41.1 [facility] [address] [id number] [place] [address] 84253- 9083 Jun, Radiculopathy of cervical region M54.12 [facility] [id number] [place] [address] 15280- 7873 May, Arthritis M19.90 ; Cervical radiculopathy M54.12 and Mucopurulent chronic bronchitis J41.1 [facility] [id number] [place] [address] 52715- 5260 20 Feb, 2017 Arthritis M19.90 [facility] [id number] [place] [address] 80159- 1561 Feb, Other chronic pain G89.29 [facility] [id number] [place] [address] 75275- 8607 19 Feb, 2017 Other chronic pain G89.29 [facility] [id number] [place] [address] [phone] Feb, Dental examination Z01.20 [facility] [id number] [place] [address] 74149- 9490 07 Feb, 2017 Polyneuropathy G62.9 [facility] [address] [id number] [place] [address] [phone] Jan, Dental examination Z01.20 [facility] [id number] [place] [address] 43960- 5700 Jan, Arthritis M19.90 [facility] [id number] [place] [address] [phone] Jan, Dental examination Z01.20 [facility] [id number] [place] [address] 84283- 2611 Dec, [facility] [id number] [place] [address] 83454- 9672 Dec, Arthritis M19.90 [facility] [id number] [place] [address] 46031- 7656 Dec, Sebaceous cyst L72.3 [facility] [id number] [place] [address] 02442- 7907 Dec, Sebaceous cyst L72.3 and Common wart B07.8 [facility] [address] [id number] [place] [address] 92797- 6564 Nov, Arthritis M19.90 [facility] [address] [place] [id number] [place] [address] 37168- 1281 Nov, [facility] [id number] [place] [address] 43423- 4639 October, Arthritis M19.90 [facility] [address] [id number] [place] [address] 89606- 6256 October, Polyneuropathy G62.9 and Arthritis M19.90 [facility] [id number] [place] [address] 61633- 1425 October, Polyneuropathy G62.9 and Arthritis M19.90 [facility] [address] [id number] [place] [address] 52154- 8206 October, Arthritis M19.90 and Polyneuropathy G62.9 [facility] [id number] [place] [address] [phone] October, Dental examination Z01.20 [facility] [address] [id number] [place] [address] 69761- 3751 Sep, Polyuria R35.8 [facility] [address] [id number] [place] [address] [phone] Sep, Dental examination Z01.20 [facility] [address] [place] [address] [id number] [place] [id number] 9949 Sep, [facility] [address] [id number] [place] [address] 33509- 7699 Sep, Polyneuropathy G62.9 [facility] [address] [place] [address] [id number] [place] [id number] 3291 Aug, Polyuria R35.8 [facility] [address] [id number] Aug, Dental examination Z01.20 [facility] [address] 24097- 8216 Aug, Polyneuropathy G62.9 [facility] [address] 03283- 9313 Aug, Polyuria R35.8 [facility] [address] [id number] [place] [address] [phone] Jul, Dental examination Z01.20 [facility] [id number] [place] [address] [phone] Jul, Dental examination Z01.20 [facility] [address] 41270- 2514 Jul, Polyneuropathy G62.9 [facility] [address] [id number] [place] [address] 17087- 4639 Jul, Polyuria R35.8 [facility] [id number] [place] [address] 87102 -6021 Jun, Lumbago with sciatica, left side M54.42 and Other chronic pain G89.29 [facility] [address] 41620- 7089 Jun, Polyneuropathic pain M79.2 and Other infective acute otitis externa of left ear H60.392 [facility] [address] [place] [id number] [place] [address] 06546- 9266 Jun, Polyuria R35.8 [facility] [id number] [place] [address] 11099- 9547 May, Dental examination Z01.20 [place] [address] [address] [id number] [place] [address] 18090- 7244 May, Polyneuropathy G62.9 [place] [address] [address] [id number] [place] [address] 38489- 0025 May, Polyuria R35.8 [place] [address] 10855- 8043 Apr, Polyuria R35.8 ; Weight loss R63.4 ; Arthralgia, unspecified joint M25.50 and Neuropathy G62.9 [place] [address] [id number] [place] [address] 57219- 8999 Apr, [place] [address] 74593- 4372 Apr, Dental examination Z01.20 [place] [address] [id number] [place] [address] 82654- 8744 31 Mar, 2016 Polyuria R35.8 ; Weight loss R63.4 ; Arthralgia, unspecified joint M25.50 ; Neuropathy G62.9 ; Family history of rheumatoid arthritis Z82.61 and Family history of diabetes mellitus Z83.3 [place] [address] [id number] [place] [address] 55862- 8976 Mar, [place] [address] [place] [id number] [place] [address] 30302- 0123 Feb, [place] [address] [place] [id number] [place] [address] 37727- 9658 19 Feb, 2016 Encounter for dental examination and cleaning without abnormal findings Z01.20 [place] [address] [place] [id number] [place] [address] 05326- 4121 Jan, [place] [address] [place] [id number] [place] [address] 98950- 8298 Dec, Degenerative disc disease at L5-S1 level M51.36 [facility] [address] [address] [id number] [place] [address] 89005 -6351 08 Dec, 2015 Degenerative disc disease at L5-S1 level M51.36 [facility] [address] [id number] [place] [address] 06439- 8286 07 Dec, 2015 [facility] [address] 31780- 8780 Nov, [facility] [address] [place] [id number] [place] [address] 396024- 1413 October, Arthritis M19.90 [place] [address] 662637- 1326 Sep, Arthritis M19.90 and Family history of diabetes mellitus Z83.3 [facility] [address] 90209- 5826 Jul, [facility] [address] 822917- 8609 Jun, [facility] [address] 19900- 2281 May, [facility] [address] [id number] [place] [address] 76535- 6663 Apr, [facility] [address] [place] [id number] [place] [address] 47322- 3596 Feb, Actinic keratitis 370.24 [facility] [address] [place] [id number] [place] [address] 810924- 7057 Jan, Common wart 078.19 ; Back pain 724.5 and Fibromyalgia 729.1 [facility] [address] [place] [id number] [place] [address] 36975- 9954 Dec, Alcohol abuse 305.00 [place] [address] 74414- 8224 14 Rosendo, 2015 Lesion of neck 709.9 [facility] [address] [address]- 2430 Dec, Back pain 724.5 [facility] [address] [address]- 5852 24 Nov, 2014 Alcohol abuse 305.00 ; Basal cell carcinoma 173.91 and Common wart 078.19 [facility] [address] [place] [id number] [place] [address] 77893- 4013 Nov, [facility] [address] [address]- 8362 Sep, [facility] [address] [place] [id number] [place] [address] 69900- 3947 Sep, [facility] [address] [place] [id number] [place] [address] 46117- 1560 15 Jun, 2014 [facility] [id number] [place] [address] 08356- 4409 Jun, [facility] [id number] [address]- 2349 May, [facility] [address] [address]- 4587 May, [facility] [address] [address]- 7115 Feb, [facility] [address] [address]- 4876 Feb, [facility] [id number] [address]- 1672 Feb, [facility] [address] [address]- 9875 Feb, [facility] [address] [address]- 8451 Sep, [facility] [address] [address]- 6305 Sep, [facility] [place] [facility] [address] [id number] [place] [address]- 6408 Sep, [facility] [place] [facility] [address] [id number] [place] [address]- 8018 Sep, [facility] [place] [facility] [address] [id number] [place] [address]- 8465 Aug, [facility] [place] [facility] [address] [id number] [place] [address]- 9574 Aug, [facility] [place] [facility] [address] [id number] [place] [address]- 5405 Jul, [facility] [place] [facility] [address] [id number] [place] [address]- 2403 Jul, [facility] [place] [facility] [address] [id number] [place] [address]- 1326 Jul, [facility] [place] [facility] [address] [id number] [place] [address]- 8022 Jul, [facility] [place] [facility] [address] [id number] [place] [address]- 3275 Jun, [facility] [place] [facility] [address] [id number] [place] [address]- 1177 Jun, [facility] [place] [facility] [address] [id number] [place] [address]- 3339 Jun, [facility] [place] [facility] [address] [id number] [place] [address]- 7762 Jun, [facility] [place] [facility] [address] [id number] [place] [address]- 2299 May, [facility] [place] [facility] [address] [id number] [place] [address]- 9332 May, [facility] [place] [facility] [address] [id number] [place] [address]- 7541 Apr, [facility] [place] [facility] [address] [id number] [place] [address]- 9979 18 Apr, 2013 [facility] [place] [facility] [address] [id number] [place] [address]- 6880 Apr, [facility] [place] [facility] [address] [id number] [place] [address]- 4678 Apr, [facility] [place] [facility] [address] [id number] [place] [address]- 1728 Apr, [facility] [place] [facility] [address] [id number] [place] [address]- 5131 Apr, [facility] [place] [facility] [address] [id number] [place] [address]- 3577 Mar, [facility] [place] [facility] [address] [id number] [place] [address]- 2739 Mar, [facility] [place] [facility] [address] [id number] [place] [address]- 7679 Mar, [facility] [place] [facility] [address] [id number] [place] [address]- 2616 Mar, [facility] [place] [facility] [address] [id number] [place] [address]- 1206 Jan, [facility] [place] [facility] [address] [id number] [place] [address]- 7907 Jan, [facility] [place] [facility] [address] [id number] [place] [address]- 2047 Aug, [facility] [place] [facility] [address] [id number] [place] [address]- 8556 Aug, [facility] [place] [facility] [address] [id number] [place] [address]- 4525 Mar, [facility] [place] [facility] [address] [id number] [place] [address]- 6322 Mar, [facility] [place] [facility] [address] [id number] [place] [address]- 4316 Mar, [facility] [place] [facility] [address] [id number] [place] [address]- 9268 Mar, [facility] [place] [facility] [address] [id number] [place] [address]- 8226 Mar, [facility] [place] [facility] [address] [id number] [place] [address]- 2432 Mar, [facility] [place] [facility] [address] [id number] [place] [address]- 0001 Mar, [facility] [place] [facility] [address] [id number] [place] [address]- 3597 Mar, [facility] [place] [facility] [address] [id number] [place] [address]- 0226 Jan, [facility] [place] [facility] [address] [id number] [place] [address]- 0429 Jan, [facility] [place] [facility] [address] [id number] [place] [address]- 1856 Nov, [facility] [place] [facility] [address] [id number] [place] [address]- 2970 Nov, [facility] [place] [facility] [address] [id number] [place] [address]- 9825 October, [facility] [place] [facility] [address] [id number] [place] [address]- 1440 Aug, [facility] [place] [facility] [address] [id number] [place] [address] 2542 Aug, [facility] [place] [facility] [address] [id number] [place] [address]- 7146 Aug, [facility] [place] [facility] [address] [facility] [id number] [place] [address]- 8241 Jul, [facility] [place] [facility] [address] [id number] [place] [address]- 4056 Jul, [facility] [place] [facility] [address] [facility] [id number] [place] [address]- 9715 Apr, [facility] [address] [facility] [id number] [address]- 6239 Apr, [facility] [id number] [address]- 2214 Apr, [facility] [address] [facility] [id number] [address]- 4640 Jul, [facility] [id number] [address]- 0977 Jun, [facility] [address] [address]- 8852 Apr, IMMUNIZATIONS No Known Immunizations SOCIAL HISTORY Never Assessed REASON FOR VISIT crown seat PLAN OF CARE Activity Details Follow Up prn Reason:filling #5. VITAL SIGNS MEDICATIONS Medication Instructions Dosage Frequency Start Date End Date Duration Status Naproxen 500 MG TAKE ONE TABLET BY MOUTH TWICE DAILY Active Baclofen 20 MG take 1 tablet (20 mg) by oral route 3 times per day PRN Active Doxepin HCl 50 mg Orally Once a day at night 1 capsule Jun, Active [place] 5-325 MG Orally every 6 hrs 1 tablet as needed 6h Jan, 28 days Active Acyclovir 400 MG 1 tablet 12h Active Viagra 100 MG Orally Once a day 1 tablet as needed 24h 30 Active Cymbalta 60 mg Orally Once a day 1 capsule 24h 30 Active Neurontin 300 MG Orally Three times a day 1 capsule 8h Jul, Active Wellbutrin SR 150 MG Orally Twice a day 1 tablet 12h October, 30 day(s) Active Metoprolol Tartrate 50 MG TAKE ONE TABLET BY MOUTH TWICE DAILY (MUST HAVE FOLLOW-UP APPOINTMENT FOR FURTHER REFILLS!!!) 30 Active RESULTS No Results PROCEDURES Procedure Date Ordered Result Body Site Dental no charge Feb 16, 2017 INSTRUCTIONS MEDICATIONS ADMINISTERED No Known Medications MEDICAL (GENERAL) HISTORY Type Description Date Medical History irritable bowel syndrome Medical History orthopedic disorder-herniated disc, DJD Medical History esophageal reflux Medical History headache Medical History herpes (genital) Medical History backache Medical History fibromyalgia Surgical History tonsillectomy Hospitalization History Hospitalization for surgery only
--- OUTSIDE RECORDS SUMMARY | 2018-10-14 11:05 | XMS REPORT ---
Author Author SRINI LIMON [facility] Address [address] [place] [address] Care Team Providers Care Delivery Engineer Name Role Phone SRINI LMION Unavailable PROBLEMS Type Condition ICD9-CM Code GHG52-KN Code Onset Dates Condition Status SNOMED Code Problem Arthritis M19.90 Active 8106021 Problem Other chronic pain G89.29 Active 00346902 Problem Neuropathy G62.9 Active 268944279 Problem Degenerative disc disease at L5-S1 level M51.36 Active 36745212 Problem Lumbago with sciatica, left side M54.42 Active 291361592 Problem Polyneuropathy G62.9 Active 36063238 ALLERGIES No Information SOCIAL HISTORY Never Assessed PLAN OF CARE VITAL SIGNS MEDICATIONS Medication Instructions Dosage Frequency Start Date End Date Duration Status [place] 5-325 MG Orally every 6 hrs 1 [...]
--- OUTSIDE RECORDS SUMMARY | 2018-10-14 11:05 | XMS REPORT ---
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 Name Role Phone [facility] Unavailable PROBLEMS Type Condition ICD9-CM Code ZGW01-JA Code Onset Dates Condition Status SNOMED Code Problem Neuropathy G62.9 Active 981593644 Problem Lumbago with sciatica, left side M54.42 Active 772384586 Problem Polyneuropathy G62.9 Active 00355969 Problem Degenerative disc disease at L5-S1 level M51.36 Active 22586333 Problem Hypertension, unspecified type I10 Active 95089599 Problem Gingivitis K05.10 Active 16871627 Problem Arthritis M19.90 Active 5169454 Problem Other chronic pain G89.29 Active 97061127 Problem Cervical radiculopathy M54.12 Active 13142158 Problem Mucopurulent chronic bronchitis J41.1 Active 94170222 ALLERGIES No Known Allergies ENCOUNTERS Encounter Location Date Diagnosis [place] [address] [address] Sep, Common wart B07.8 and Hypertension, unspecified type I10 [place] [address] [id number] [place] [address] 76551- 5160 Aug, Dental examination Z01.20 ; Gingivitis K05.10 and Xerostomia R68.2 [place] [address] [place] [id number] [place] [address] 98721- 2938 Aug, Dental caries extending into dentin K02.62 [place] [address] [id number] [place] [address] 74238- 6413 20 Jul, 2017 Dental examination Z01.20 [place] [address] [id number] [place] [address] 74912- 6047 15 Jul, 2017 Mucopurulent chronic bronchitis J41.1 [facility] [address] [place] [address] 49160- 4135 15 Jul, 2017 Cervical neuritis M54.12 ; Common wart B07.8 ; Actinic keratosis L57.0 ; Encounter for immunization Z23 and Mucopurulent chronic bronchitis J41.1 [facility] [id number] [place] [address] 79569- 0392 Jun, Radiculopathy of cervical region M54.12 [facility] [id number] [place] [address] 80662- 9564 May, Arthritis M19.90 ; Cervical radiculopathy M54.12 and Mucopurulent chronic bronchitis J41.1 [facility] [id number] [place] [address] 68122- 3159 20 Feb, 2017 Arthritis M19.90 [facility] [id number] [place] [address] 78367- 3152 Feb, Other chronic pain G89.29 [facility] [id number] [place] [address] 46959- 7986 19 Feb, 2017 Other chronic pain G89.29 [facility] [id number] [place] [address] [phone] Feb, Dental examination Z01.20 [facility] [id number] [place] [address] 22695- 2082 07 Feb, 2017 Polyneuropathy G62.9 [facility] [id number] [place] [address] [id number] Jan, Dental examination Z01.20 [facility] [id number] [place] [address] 40270- 1485 Jan, Arthritis M19.90 [facility] [id number] [place] [address] [id number] Jan, Dental examination Z01.20 [facility] [id number] [place] [address] 07088- 7031 Dec, [facility] [id number] [place] [address] 76016- 3442 Dec, Arthritis M19.90 [facility] [id number] [place] [address] 72950- 9284 Dec, Sebaceous cyst L72.3 [facility] [id number] [place] [address] 85687- 2904 Dec, Sebaceous cyst L72.3 and Common wart B07.8 [facility] [id number] [place] [address] 51449- 5353 Nov, Arthritis M19.90 [facility] [address] [place] [id number] [place] [address] 43707- 1828 Nov, [facility] [id number] [place] [address] 58067- 7859 October, Arthritis M19.90 [facility] [id number] [place] [address] 28057- 8503 October, Polyneuropathy G62.9 and Arthritis M19.90 [facility] [id number] [place] [address] 47686- 4040 October, Polyneuropathy G62.9 and Arthritis M19.90 [facility] [id number] [place] [address] 73498- 5788 October, Arthritis M19.90 and Polyneuropathy G62.9 [facility] [address] [id number] [place] [address] [phone] October, Dental examination Z01.20 [facility] [address] [place] [id number] [place] [address] 86075- 1598 Sep, Polyuria R35.8 [facility] [id number] [place] [address] [phone] Sep, Dental examination Z01.20 [facility] [address] [place] [id number] [place] [address]- [address] Sep, [facility] [id number] [place] [address] 29031- 1970 Sep, Polyneuropathy G62.9 [facility] [address] [place] [id number] [place] [address]- 0185 Aug, Polyuria R35.8 [facility] [address] [id number] Aug, Dental examination Z01.20 [facility] [address] 49157- 5408 Aug, Polyneuropathy G62.9 [facility] [address] 94045- 2382 Aug, Polyuria R35.8 [facility] [address] [place] [address] [id number] [place] [address] [phone] Jul, Dental examination Z01.20 [facility] [address] [place] [address] [id number] [place] [address] [phone] Jul, Dental examination Z01.20 [facility] [address] 03041- 0737 Jul, Polyneuropathy G62.9 [facility] [address] [place] [id number] [place] [address] 40806- 1966 Jul, Polyuria R35.8 [facility] [id number] [place] [address] 46167 -7411 Jun, Lumbago with sciatica, left side M54.42 and Other chronic pain G89.29 [facility] [address] 68431- 6438 Jun, Polyneuropathic pain M79.2 and Other infective acute otitis externa of left ear H60.392 [facility] [address] [place] [id number] [place] [address] 62379- 6005 Jun, Polyuria R35.8 [facility] [address] [place] [address] 61084- 8093 May, Dental examination Z01.20 [place] [address] [id number] [place] [address] 17318- 4628 May, Polyneuropathy G62.9 [place] [address] [place] [id number] [place] [address] 23860- 1929 May, Polyuria R35.8 [place] [address] 58354- 0102 Apr, Polyuria R35.8 ; Weight loss R63.4 ; Arthralgia, unspecified joint M25.50 and Neuropathy G62.9 [place] [address] [id number] [place] [address] 59004- 1008 Apr, [place] [address] 89708- 7824 Apr, Dental examination Z01.20 [place] [address] [place] [id number] [place] [address] 85289- 5792 31 Mar, 2016 Polyuria R35.8 ; Weight loss R63.4 ; Arthralgia, unspecified joint M25.50 ; Neuropathy G62.9 ; Family history of rheumatoid arthritis Z82.61 and Family history of diabetes mellitus Z83.3 [place] [address] [place] [id number] [place] [address] 11474- 8210 Mar, [place] [address] [place] [id number] [place] [address] 29675- 2376 Feb, [place] [address] [place] [id number] [place] [address] 61103- 9133 19 Feb, 2016 Encounter for dental examination and cleaning without abnormal findings Z01.20 [place] [address] [place] [id number] [place] [address] 04348- 5137 Jan, [place] [address] [place] [id number] [place] [address] 20586- 9097 Dec, Degenerative disc disease at L5-S1 level M51.36 [facility] [address] [id number] [place] [address] 39264 -6251 08 Dec, 2015 Degenerative disc disease at L5-S1 level M51.36 [facility] [address] [place] [id number] [place] [address] 16599- 6046 07 Dec, 2015 [facility] [address] 03964- 2565 Nov, [facility] [address] [place] [id number] [place] [address] 654738- 3240 October, Arthritis M19.90 [place] [address] 782616- 9616 Sep, Arthritis M19.90 and Family history of diabetes mellitus Z83.3 [facility] [address] 20593- 2700 Jul, [facility] [address] 663382- 9731 Jun, [facility] [address] 68623- 0328 May, [facility] [address] [place] [id number] [place] [address] 34034- 6739 Apr, [facility] [address] [place] [id number] [place] [address] 41579- 1290 Feb, Actinic keratitis 370.24 [facility] [address] [place] [id number] [place] [address] 119636- 6740 Jan, Common wart 078.19 ; Back pain 724.5 and Fibromyalgia 729.1 [facility] [address] [place] [id number] [place] [address] 05820- 4350 Dec, Alcohol abuse 305.00 [place] [address] 09812- 2771 14 Rosendo, 2015 Lesion of neck 709.9 [facility] [address] [address]- 0180 Dec, Back pain 724.5 [facility] [address] [address]- 3212 24 Nov, 2014 Alcohol abuse 305.00 ; Basal cell carcinoma 173.91 and Common wart 078.19 [facility] [address] [place] [id number] [place] [address] 68266- 8319 Nov, [facility] [address] [address]- 7385 Sep, [facility] [address] [place] [id number] [place] [address] 64425- 6355 Sep, [facility] [address] [place] [id number] [place] [address] 05798- 7869 15 Jun, 2014 [facility] [address] [place] [address] 39960- 7260 Jun, [facility] [address] [address]- 9503 May, [facility] [address] [address]- 9296 May, [facility] [address] [address]- 1944 Feb, [facility] [address] [address]- 9859 Feb, [facility] [address] [address]- 0690 Feb, [facility] [address] [address]- 6976 Feb, [facility] [address] [address]- 5488 Sep, [facility] [address] [address]- 3166 Sep, [facility] [place] [facility] [address] [id number] [place] [address]- 9291 Sep, [facility] [place] [facility] [address] [id number] [place] [address]- 8103 Sep, [facility] [place] [facility] [address] [id number] [place] [address]- 4492 Aug, [facility] [place] [facility] [address] [id number] [place] [address]- 9845 Aug, [facility] [place] [facility] [address] [id number] [place] [address]- 1976 Jul, [facility] [place] [facility] [address] [id number] [place] [address]- 3551 Jul, [facility] [place] [facility] [address] [id number] [place] [address]- 2219 Jul, [facility] [place] [facility] [address] [id number] [place] [address]- 2283 Jul, [facility] [place] [facility] [address] [id number] [place] [address]- 7659 Jun, [facility] [place] [facility] [address] [id number] [place] [address]- 2187 Jun, [facility] [place] [facility] [address] [id number] [place] [address]- 3930 Jun, [facility] [place] [facility] [address] [id number] [place] [address]- 4288 Jun, [facility] [place] [facility] [address] [id number] [place] [address]- 1511 May, [facility] [place] [facility] [address] [id number] [place] [address]- 0123 May, [facility] [place] [facility] [address] [id number] [place] [address]- 7594 Apr, [facility] [place] [facility] [address] [id number] [place] [address]- 6334 18 Apr, 2013 [facility] [place] [facility] [address] [id number] [place] [address]- 5184 Apr, [facility] [place] [facility] [address] [id number] [place] [address]- 8101 Apr, [facility] [place] [facility] [address] [id number] [place] [address]- 7147 Apr, [facility] [place] [facility] [address] [id number] [place] [address]- 4572 Apr, [facility] [place] [facility] [address] [id number] [place] [address]- 4104 Mar, [facility] [place] [facility] [address] [id number] [place] [address]- 0823 Mar, [facility] [place] [facility] [address] [id number] [place] [address]- 5279 Mar, [facility] [place] [facility] [address] [id number] [place] [address]- 1446 Mar, [facility] [place] [facility] [address] [id number] [place] [address]- 6619 Jan, [facility] [place] [facility] [address] [id number] [place] [address]- 5629 Jan, [facility] [place] [facility] [address] [id number] [place] [address]- 2960 Aug, [facility] [place] [facility] [address] [id number] [place] [address]- 2516 Aug, [facility] [place] [facility] [address] [id number] [place] [address]- 4810 Mar, [facility] [place] [facility] [address] [id number] [place] [address]- 4485 Mar, [facility] [place] [facility] [address] [id number] [place] [address]- 3806 Mar, [facility] [place] [facility] [address] [id number] [place] [address]- 3474 Mar, [facility] [place] [facility] [address] [id number] [place] [address]- 2306 Mar, [facility] [place] [facility] [address] [id number] [place] [address]- 7389 Mar, [facility] [place] [facility] [address] [id number] [place] [address]- 7579 Mar, [facility] [place] [facility] [address] [id number] [place] [address]- 2505 Mar, [facility] [place] [facility] [address] [id number] [place] [address]- 4392 Jan, [facility] [place] [facility] [address] [id number] [place] [address]- 3430 Jan, [facility] [place] [facility] [address] [id number] [place] [address]- 1379 Nov, [facility] [place] [facility] [address] [id number] [place] [address]- 4442 Nov, [facility] [place] [facility] [address] [id number] [place] [address]- 5711 October, [facility] [place] [facility] [address] [id number] [place] [address]- 5103 Aug, [facility] [place] [facility] [address] [id number] [place] [address] 2547 Aug, [facility] [place] [facility] [address] [id number] [place] [address]- 0646 Aug, [facility] [place] [facility] [address] [facility] [id number] [place] [address]- 4905 Jul, [facility] [place] [facility] [address] [id number] [place] [address]- 2676 Jul, [facility] [place] [facility] [id number] [address]- 7733 Apr, [facility] [address] [address]- 3046 Apr, [facility] [address] [address]- 3157 Apr, [facility] [address] [address]- 1328 Jul, [facility] [address] [address]- 7624 Jun, [facility] [address] [address]- 9606 Apr, IMMUNIZATIONS No Known Immunizations SOCIAL HISTORY Never Assessed REASON FOR VISIT FILLING #5 PLAN OF CARE Activity Details Follow Up prn Reason: VITAL SIGNS Height 70 in 2017-03-09 Blood pressure systolic 140 mmHg 2017-03-09 Blood pressure diastolic 89 mmHg 2017-03-09 MEDICATIONS Medication Instructions Dosage Frequency Start Date End Date Duration Status Wellbutrin SR 150 MG Orally Twice a day 1 tablet 12h October, 30 day(s) Active Neurontin 300 MG Orally Three times a day 1 capsule 8h Jul, Active Doxepin HCl 50 mg Orally Once a day at night 1 capsule Jun, Active Metoprolol Tartrate 50 MG TAKE ONE TABLET BY MOUTH TWICE DAILY (MUST HAVE FOLLOW-UP APPOINTMENT FOR FURTHER REFILLS!!!) 30 Active Baclofen 20 MG take 1 tablet (20 mg) by oral route 3 times per day PRN Active [place] 5-325 MG Orally every 6 hrs 1 tablet as needed 6h Jan, 28 days Active Acyclovir 400 MG 1 tablet 12h Active Naproxen 500 MG TAKE ONE TABLET BY MOUTH TWICE DAILY Active Cymbalta 60 mg Orally Once a day 1 capsule 24h 30 Active Viagra 100 MG Orally Once a day 1 tablet as needed 24h 30 Active RESULTS No Results PROCEDURES Procedure Date Ordered Result Body Site RESIN COMPOS - 2 SURFACES POSTERIOR Mar 09, 2017 Dental no charge Mar 09, 2017 Billing Notes on claim Mar 09, 2017 INSTRUCTIONS MEDICATIONS ADMINISTERED No Known Medications MEDICAL (GENERAL) HISTORY Type Description Date Medical History irritable bowel syndrome Medical History orthopedic disorder-herniated disc, DJD Medical History esophageal reflux Medical History headache Medical History herpes (genital) Medical History backache Medical History fibromyalgia Surgical History tonsillectomy Hospitalization History Hospitalization for surgery only
--- OUTSIDE RECORDS SUMMARY | 2018-10-14 11:06 | XMS REPORT ---
Author Author SRINI LIMON Organization [facility] Address [address] [place] [address] Care Team Providers Care President Celebrity Acquistion Name Role Phone SRINI LIMON Unavailable PROBLEMS Type Condition ICD9-CM Code VZA51-HX Code Onset Dates Condition Status SNOMED Code Problem Degenerative disc disease at L5-S1 level M51.36 Active 58003882 Problem Polyneuropathy G62.9 Active 47742043 Problem Neuropathy G62.9 Active 016473172 Problem Gingivitis K05.10 Active 86368948 Problem Cervical radiculopathy M54.12 Active 30795938 Problem Other chronic pain G89.29 Active 39681158 Problem Lumbago with sciatica, left side M54.42 Active 665798735 Problem Mucopurulent chronic bronchitis J41.1 Active 26656504 Problem Arthritis M19.90 Active 5618740 ALLERGIES No Known Allergies ENCOUNTERS Encounter Location Date Diagnosis [place] [address] [address]- [address] 03 Sep, 2017 [place] [address] [place] [id number] [place] [address] 04790- 1980 Aug, Dental examination Z01.20 ; Gingivitis K05.10 and Xerostomia R68.2 [place] [address] [place] [id number] [place] [address] 20344- 9587 Aug, Dental caries extending into dentin K02.62 [place] [address] [place] [id number] [place] [address] 48900- 6471 20 Jul, 2017 Dental examination Z01.20 [place] [address] [place] [id number] [place] [address] 99546- 7576 15 Jul, 2017 Mucopurulent chronic bronchitis J41.1 [place] [address] [place] [id number] [place] [address] 07116- 5456 Jul, Cervical neuritis M54.12 ; Common wart B07.8 ; Actinic keratosis L57.0 ; Encounter for immunization Z23 and Mucopurulent chronic bronchitis J41.1 [facility] [id number] [place] [address] 32485- 9970 Jun, Radiculopathy of cervical region M54.12 [facility] [address] [place] [id number] [place] [address] 02108- 8899 May, Arthritis M19.90 ; Cervical radiculopathy M54.12 and Mucopurulent chronic bronchitis J41.1 [facility] [address] [place] [id number] [place] [address] 80420- 3275 Feb, Arthritis M19.90 [facility] [address] [place] [id number] [place] [address] 90827- 5227 Feb, Other chronic pain G89.29 [facility] [address] [place] [id number] [place] [address] 85175- 9572 19 Feb, 2017 Other chronic pain G89.29 [facility] [address] [place] [id number] [place] [address] [id number] 15 Feb, 2017 Dental examination Z01.20 [facility] [id number] [place] [address] 13443- 8410 Feb, Polyneuropathy G62.9 [facility] [address] [place] [id number] [place] [address] [id number] Jan, Dental examination Z01.20 [facility] [id number] [place] [address] 87187- 6140 Jan, Arthritis M19.90 [facility] [address] [place] [id number] [place] [address] [id number] Jan, Dental examination Z01.20 [facility] [id number] [place] [address] 81898- 4508 Dec, [facility] [address] [place] [id number] [place] [address] 75276- 8231 Dec, Arthritis M19.90 [facility] [address] [place] [id number] [place] [address] 98851- 4738 Dec, Sebaceous cyst L72.3 [facility] [address] [place] [id number] [place] [address] 64832- 6351 Dec, Sebaceous cyst L72.3 and Common wart B07.8 [facility] [address] [place] [id number] [place] [address] 42044- 0781 Nov, Arthritis M19.90 [facility] [address] [place] [id number] [place] [address] 64293- 8320 Nov, [facility] [address] [place] [id number] [place] [address] 45260- 9139 October, Arthritis M19.90 [facility] [address] [place] [id number] [place] [address] 96265- 3039 October, Polyneuropathy G62.9 and Arthritis M19.90 [facility] [address] [place] [id number] [place] [address] 77946- 8028 October, Polyneuropathy G62.9 and Arthritis M19.90 [facility] [address] [place] [id number] [place] [address] 11806- 0674 October, Arthritis M19.90 and Polyneuropathy G62.9 [facility] [address] [place] [id number] [place] [address] [phone] October, Dental examination Z01.20 [facility] [address] [place] [id number] [place] [address] 22455- 3637 Sep, Polyuria R35.8 [facility] [address] [place] [id number] [place] [address] [id number] Sep, Dental examination Z01.20 [facility] [address] [place] [id number] [place] [address] 69141- 5530 Sep, [facility] [id number] [place] [address] 88955- 8076 Sep, Polyneuropathy G62.9 [facility] [address] [place] [id number] [place] [address] 71129- 3275 Aug, Polyuria R35.8 [facility] [address] [place] [id number] [place] [address] [id number] Aug, Dental examination Z01.20 [facility] [address] 26541- 8353 Aug, Polyneuropathy G62.9 [facility] [address] 29253- 7794 Aug, Polyuria R35.8 [facility] [address] [place] [id number] [place] [address] [id number] Jul, Dental examination Z01.20 [facility] [address] [place] [id number] [place] [address] [id number] Jul, Dental examination Z01.20 [facility] [address] [place] [id number] [place] [address] 38893- 1743 Jul, Polyneuropathy G62.9 [facility] [address] [place] [id number] [place] [address] 31794- 9045 Jul, Polyuria R35.8 [facility] [address] [place] [id number] [place] [address] 48418 -6135 Jun, Lumbago with sciatica, left side M54.42 and Other chronic pain G89.29 [facility] [address] [place] [id number] [place] [address] 15272- 3801 Jun, Polyneuropathic pain M79.2 and Other infective acute otitis externa of left ear H60.392 [facility] [address] [place] [id number] [place] [address] 42410- 3658 Jun, Polyuria R35.8 [facility] [address] [place] [address]- 2403 May, Dental examination Z01.20 [place] [address] 93333- 4949 May, Polyneuropathy G62.9 [place] [address] [place] [id number] [place] [address] 00034- 0490 May, Polyuria R35.8 [place] [address] 73384- 4412 Apr, Polyuria R35.8 ; Weight loss R63.4 ; Arthralgia, unspecified joint M25.50 and Neuropathy G62.9 [place] [address] 06755- 9064 Apr, [place] [address] 29969- 3249 Apr, Dental examination Z01.20 [place] [address] 17316- 1071 Mar, Polyuria R35.8 ; Weight loss R63.4 ; Arthralgia, unspecified joint M25.50 ; Neuropathy G62.9 ; Family history of rheumatoid arthritis Z82.61 and Family history of diabetes mellitus Z83.3 [place] [address] [place] [id number] [place] [address] 83255- 0803 Mar, [place] [address] [place] [id number] [place] [address] 09551- 6667 Feb, [place] [address] [place] [id number] [place] [address] 87585- 5188 Feb, Encounter for dental examination and cleaning without abnormal findings Z01.20 [place] [address] [place] [id number] [place] [address] 62971- 2572 Jan, [place] [address] [place] [id number] [place] [address] 18972- 1328 Dec, Degenerative disc disease at L5-S1 level M51.36 [facility] [address] [place] [address] 24444 -6479 08 Dec, 2015 Degenerative disc disease at L5-S1 level M51.36 [facility] [address] [place] [id number] [place] [address] 78057- 1787 07 Dec, 2015 [facility] [address] [place] [id number] [place] [address] 03746- 5145 Nov, [facility] [address] 73067- 5024 October, Arthritis M19.90 [facility] [address] 87436- 6961 Sep, Arthritis M19.90 and Family history of diabetes mellitus Z83.3 [facility] [address] [place] [id number] [place] [address] 17946- 4668 08 Jul, 2015 [facility] [address] 65349- 7107 Jun, [facility] [address] [place] [id number] [place] [address] 79211- 6929 May, [facility] [address] [place] [id number] [place] [address] 38631- 4571 Apr, [facility] [address] [place] [address] 47576- 2920 Feb, Actinic keratitis 370.24 [facility] [address] [place] [id number] [place] [address] 95908- 3457 18 Jan, 2015 Common wart 078.19 ; Back pain 724.5 and Fibromyalgia 729.1 [facility] [address] [place] [id number] [place] [address] 79538- 0018 28 Dec, 2014 Alcohol abuse 305.00 [facility] [address] [place] [id number] [place] [address] 63263- 9705 14 Dec, 2015 Lesion of neck 709.9 [facility] [address] [place] [address] [address]- 5554 Dec, Back pain 724.5 [facility] [address] [place] [id number] [place] [address] 48812- 5995 Nov, Alcohol abuse 305.00 ; Basal cell carcinoma 173.91 and Common wart 078.19 [facility] [address] [address]- 3223 Nov, [facility] [address] [place] [id number] [place] [address] 45665- 5819 14 Sep, 2014 [facility] [address] [place] [id number] [place] [address] 67494- 7620 Sep, [facility] [address] [place] [id number] [place] [address] 13572- 3446 Jun, [facility] [address] [place] [address] 97480- 1187 Jun, [facility] [address] [address]- 1796 May, [facility] [address] [address]- 7048 May, [facility] [address] [address]- 2470 Feb, [facility] [address] [address]- 2160 Feb, [facility] [address] [place] [address]- 8645 Feb, [facility] [address] [address]- 4278 Feb, [facility] [address] [address]- 5336 Sep, [facility] [address] [place] [id number] [address]- 4177 Sep, [facility] [place] [facility] [address] [id number] [place] [address]- 5921 Sep, [facility] [place] [facility] [address] [id number] [place] [address]- 5873 Sep, [facility] [place] [facility] [address] [id number] [place] [address]- 7327 Aug, [facility] [place] [facility] [address] [id number] [place] [address]- 0296 Aug, [facility] [place] [facility] [address] [id number] [place] [address]- 3259 Jul, [facility] [place] [facility] [address] [id number] [place] [address]- 9871 Jul, [facility] [place] [facility] [address] [id number] [place] [address]- 1827 Jul, [facility] [place] [facility] [address] [id number] [place] [address]- 9923 Jul, [facility] [place] [facility] [address] [id number] [place] [address]- 0194 Jun, [facility] [place] [facility] [address] [id number] [place] [address]- 5901 Jun, [facility] [place] [facility] [address] [id number] [place] [address]- 5689 Jun, [facility] [place] [facility] [address] [id number] [place] [address]- 6207 Jun, [facility] [place] [facility] [address] [id number] [place] [address]- 9676 May, [facility] [place] [facility] [address] [id number] [place] [address]- 2426 May, [facility] [place] [facility] [address] [id number] [place] 3530 Apr, [facility] [place] [facility] [address] [id number], [place] [address]- 2809 Apr, [facility] [place] [facility] [address] [id number] [place] [address]- 9391 Apr, [facility] [place] [facility] [address] [id number] [place] [address]- 0470 Apr, [facility] [place] [facility] [address] [id number] [place] [address]- 1767 Apr, [facility] [place] [facility] [address] [id number] [place] [address]- 4570 Apr, [facility] [place] [facility] [address] [id number] [place] [address]- 1766 Mar, [facility] [place] [facility] [address] [id number] [place] [address]- 5850 Mar, [facility] [place] [facility] [address] [id number] [place] [address]- 9404 Mar, [facility] [place] [facility] [address] [id number] [place] [address]- 3132 Mar, [facility] [place] [facility] [address] [id number] [place] [address]- 6175 Jan, [facility] [place] [facility] [address] [id number] [place] [address]- 6826 Jan, [facility] [place] [facility] [address] [id number], [place] [address]- 4848 Aug, [facility] [place] [facility] [address] [id number] [place] [address]- 0525 Aug, [facility] [place] [facility] [address] [id number] [place] [address]- 7130 Mar, [facility] [place] [facility] [address] [id number] [place] [address]- 9559 Mar, [facility] [place] [facility] [address] [id number] [place] [address]- 2386 Mar, [facility] [place] [facility] [address] [id number] [place] [address]- 2546 Mar, [facility] [place] [facility] [address] [id number] [place] [address]- 0546 Mar, [facility] [place] [facility] [address] [id number] [place] [address]- 2546 Mar, [facility] [place] [facility] [address] [id number] [place] [address]- 2546 Mar, [facility] [place] [facility] [address] [id number] [place] [address]- 2546 Mar, [facility] [place] [facility] [address] [id number] [place] [address]- 6486 Jan, [facility] [place] [facility] [address] [id number] [place] [address]- 3866 Jan, [facility] [place] [facility] [address] [id number] [place] [address]- 2566 Nov, [facility] [place] [facility] [address] [id number] [place] [address]- 7641 Nov, [facility] [place] [facility] [address] [id number] [place] [address]- 1316 October, [facility] [place] [facility] [address] [id number] [place] [address]- 2546 Aug, [facility] [place] [facility] [address] [id number] [place] [address]- 2546 Aug, [facility] [place] [facility] [address] [id number] [place] [address]- 2546 Aug, [facility] [place] [facility] [address] [id number] [place] [address]- 2546 Jul, [facility] [place] [facility] [address] [id number] [place] [address]- 2546 Jul, [facility] [place] [facility] [address] [id number] [place] [address]- 8527 Apr, [facility] [address] [facility] [id number], [place] [address]- 7468 Apr, [facility] [address] [facility] [id number], [place] [address]- 3736 Apr, [facility] [address] [facility] [id number], [place] [address]- 4347 Jul, [facility] [address] [facility] [id number], [place] [address]- 8007 Jun, [facility] [address] [facility] [id number], [place] [address]- 5379 Apr, IMMUNIZATIONS No Known Immunizations SOCIAL HISTORY Never Assessed REASON FOR VISIT cyst on back, lower left- Sunray [employer] PL[employer] OF CARE VITAL SIGNS Height 70 in 2016-12-29 Weight 210.5 lbs 2016-12-29 Temperature 97.9 degrees Fahrenheit 2016-12-29 Heart Rate 70 bpm 2016-12-29 Respiratory Rate 20 2016-12-29 BMI 30.20 kg/m2 2016-12-29 Blood pressure systolic 140 mmHg 2016-12-29 Blood pressure diastolic 92 mmHg 2016-12-29 MEDICATIONS Medication Instructions Dosage Frequency Start Date End Date Duration Status Naproxen 500 MG TAKE ONE TABLET BY MOUTH TWICE DAILY Active Neurontin 300 MG Orally Three times a day 1 capsule 8h Jul, Active Acyclovir 400 MG 1 tablet 12h Active Sophia 5-325 MG Orally every 6 hrs 1 tablet as needed 6h Nov, 28 days Active Bactrim DS 800-160 MG Orally Twice a day 1 tablet 12h Dec,Dec 10 day(s) Active Doxepin HCl 50 mg Orally Once a day at night 1 capsule Jun, Active Metoprolol Tartrate 50 mg Orally Twice a day 1 tablet with food 12h October 30 day(s) Active Wellbutrin SR 150 MG Orally Twice a day 1 tablet 12h October, 30 day(s) Active Baclofen 20 MG take 1 tablet (20 mg) by oral route 3 times per day PRN Active Viagra 100 MG Orally Once a day 1 tablet as needed 24h 30 Active Cymbalta 60 mg Orally Once a day 1 capsule 24h 30 Active RESULTS No Results PROCEDURES [...]
--- OUTSIDE RECORDS SUMMARY | 2018-10-14 11:06 | XMS REPORT ---
Author Author SRINI LIMON [facility] Address [address] [place] [address] Care Team Providers Care Silviculturist Name Role Phone SRINI LIMON Unavailable PROBLEMS Type Condition ICD9-CM Code QXC48-MZ Code Onset Dates Condition Status SNOMED Code Problem Arthritis M19.90 Active 7449653 Problem Other chronic pain G89.29 Active 54715869 Problem Neuropathy G62.9 Active 362855452 Problem Degenerative disc disease at L5-S1 level M51.36 Active 23108800 Problem Lumbago with sciatica, left side M54.42 Active 797823516 Problem Polyneuropathy G62.9 Active 06303651 ALLERGIES No Information SOCIAL HISTORY Never Assessed [...]
--- OUTSIDE RECORDS SUMMARY | 2018-10-14 11:06 | XMS REPORT ---
Author Author SRINI LIMON Organization [employer] Address Unknown Phone Unavailable Care Team Providers Care Handicraft Or Hobby Shop Manager Name Role Phone SRINI LIMON CP Unavailable [...] Date End Date Status Dosage Tramadol HCl [facility] [address]-68 50 MG Orally every 6 hrs 1 tablet as needed Results No Known Results Summary Purpose [employer] Submission
--- OUTSIDE RECORDS SUMMARY | 2018-10-14 11:06 | XMS REPORT ---
Author Author SRINI LIMON Organization [employer] Address Unknown Phone Unavailable Care Team Providers Care Movement Assembly Final Inspector Name Role Phone SRINI LIMON CP Unavailable [...] Date End Date Status Dosage Tramadol HCl [facility] [address]-09 50 MG Orally every 6 hrs 1 tablet as needed Results No Known Results Summary Purpose [employer] Submission
--- OUTSIDE RECORDS SUMMARY | 2018-10-14 11:07 | XMS REPORT | Continuity of Care Document ---
Author Organization Unknown Address Unknown Allergies Active Description Code Type Severity Reaction Onset Reported/Identified Relationship to Patient Clinical Status Yes NKDA NKDA Mild N/ A 03/06/2009 Yes No Known Drug Allergies [id number] Drug Allergy Unknown N/A 10/10/2018 Medications There is no data. Problems Date Dx Coded Attending Type Code Diagnosis Diagnosed By 09/21/2008 SRINI LIMNO APRN 368.9 UNSPECIFIED VISUAL DISTURBANCE 09/21/2008 SRINI LIMON APRN 719.49 PAIN IN JOINT INVOLVING MULTIPLE SITES 09/21/2008 SRINI LIMON APRN 780.79 OTHER MALAISE AND FATIGUE 09/21/2008 SANAM MANN APRN 368.9 UNSPECIFIED VISUAL DISTURBANCE 09/21/2008 SANAM MANN APRN S 719.49 PAIN IN JOINT INVOLVING MULTIPLE SITES 09/21/2008 SANAM MANN APRN S 780.79 OTHER MALAISE AND FATIGUE 09/21/2008 PATY GARZA DOA K 368.9 UNSPECIFIED VISUAL DISTURBANCE 09/21/2008 PATY GARZA DOA K 719.49 PAIN IN JOINT INVOLVING MULTIPLE SITES 09/21/2008 GREG RANDOLPH RIGOBERTO K 780.79 OTHER MALAISE AND FATIGUE 09/21/2008 LAURYN GOYAL MD 368.9 UNSPECIFIED VISUAL DISTURBANCE 09/21/2008 LAURYN GOYAL MD 719.49 PAIN IN JOINT INVOLVING MULTIPLE SITES 09/21/2008 LAURYN GOYAL MD 780.79 OTHER MALAISE AND FATIGUE 09/21/2008 SRINI LIMON APRN 368.9 UNSPECIFIED VISUAL DISTURBANCE 09/21/2008 SRINI LIMON APRN 719.49 PAIN IN JOINT INVOLVING MULTIPLE SITES 09/21/2008 SRINI LIMON APRN 780.79 OTHER MALAISE AND FATIGUE 09/21/2008 SRINI LIMON APRN 368.9 UNSPECIFIED VISUAL DISTURBANCE 09/21/2008 SRINI LIMON APRN 719.49 PAIN IN JOINT INVOLVING MULTIPLE SITES 09/21/2008 SRINI LIMON APRN 780.79 OTHER MALAISE AND FATIGUE 09/21/2008 SRINI LIMON APRN 368.9 UNSPECIFIED VISUAL DISTURBANCE 09/21/2008 SRINI LIMON APRN 719.49 PAIN IN JOINT INVOLVING MULTIPLE SITES 09/21/2008 SRINI LIMON APRN 780.79 OTHER MALAISE AND FATIGUE 09/21/2008 SRINI LIMON APRN 368.9 UNSPECIFIED VISUAL DISTURBANCE 09/21/2008 SRINI LIMON APRN 719.49 PAIN IN JOINT INVOLVING MULTIPLE SITES 09/21/2008 SRINI LIMON APRN 780.79 OTHER MALAISE AND FATIGUE 09/21/2008 SRINI LIMON APRN 368.9 UNSPECIFIED VISUAL DISTURBANCE 09/21/2008 SRINI LIMON APRN 719.49 PAIN IN JOINT INVOLVING MULTIPLE SITES 09/21/2008 SRINI LIMON APRN 780.79 OTHER MALAISE AND FATIGUE 10/29/2008 SRINI LIMON APRN 054.10 GENITAL HERPES UNSPECIFIED 10/29/2008 SRINI LIMON APRN 715.90 OSTEOARTHROSIS UNSPECIFIED WHETHER GENERALIZED OR LOCALIZED INVOLVING UNSPECIFIED SITE 10/29/2008 SRINI LIMON APRN 739.3 NONALLOPATHIC LESIONS OF LUMBAR REGION NOT ELSEWHERE CLASSIFIED 10/29/2008 SRINI LIMON APRN 739.4 NONALLOPATHIC LESIONS OF SACRAL REGION NOT ELSEWHERE CLASSIFIED 10/29/2008 SANAM MANN APRN S 054.10 GENITAL HERPES UNSPECIFIED 10/29/2008 SANAM MANN APRN S 715.90 OSTEOARTHROSIS UNSPECIFIED WHETHER GENERALIZED OR LOCALIZED INVOLVING UNSPECIFIED SITE 10/29/2008 SANAM MANN APRN S 739.3 NONALLOPATHIC LESIONS OF LUMBAR REGION NOT ELSEWHERE CLASSIFIED 10/29/2008 SANAM MANN APRN S 739.4 NONALLOPATHIC LESIONS OF SACRAL REGION NOT ELSEWHERE CLASSIFIED 10/29/2008 GARZA DO RIGOBERTO K 054.10 GENITAL HERPES UNSPECIFIED 10/29/2008 GARZA DO RIGOBERTO K 715.90 OSTEOARTHROSIS UNSPECIFIED WHETHER GENERALIZED OR LOCALIZED INVOLVING UNSPECIFIED SITE 10/29/2008 GARZA DO RIGOBERTO K 739.3 NONALLOPATHIC LESIONS OF LUMBAR REGION NOT ELSEWHERE CLASSIFIED 10/29/2008 GARZA DO RIGOBERTO K 739.4 NONALLOPATHIC LESIONS OF SACRAL REGION NOT ELSEWHERE CLASSIFIED 10/29/2008 LAURYN GOYAL MD 054.10 GENITAL HERPES UNSPECIFIED 10/29/2008 LAURYN GOYAL MD 715.90 OSTEOARTHROSIS UNSPECIFIED WHETHER GENERALIZED OR LOCALIZED INVOLVING UNSPECIFIED SITE 10/29/2008 LAURYN GOYAL MD 739.3 NONALLOPATHIC LESIONS OF LUMBAR REGION NOT ELSEWHERE CLASSIFIED 10/29/2008 LAURYN GOYAL MD 739.4 NONALLOPATHIC LESIONS OF SACRAL REGION NOT ELSEWHERE CLASSIFIED 10/29/2008 SRINI LIMON APRN 054.10 GENITAL HERPES UNSPECIFIED 10/29/2008 SRINI LIMON APRN 715.90 OSTEOARTHROSIS UNSPECIFIED WHETHER GENERALIZED OR LOCALIZED INVOLVING UNSPECIFIED SITE 10/29/2008 SRINI LIMON APRN 739.3 NONALLOPATHIC LESIONS OF LUMBAR REGION NOT ELSEWHERE CLASSIFIED 10/29/2008 SRINI LIMON APRN 739.4 NONALLOPATHIC LESIONS OF SACRAL REGION NOT ELSEWHERE CLASSIFIED 10/29/2008 SRINI LIMON APRN 054.10 GENITAL HERPES UNSPECIFIED 10/29/2008 SRINI LIOMN APRN 715.90 OSTEOARTHROSIS UNSPECIFIED WHETHER GENERALIZED OR LOCALIZED INVOLVING UNSPECIFIED SITE 10/29/2008 SRINI LIMON APRN 739.3 NONALLOPATHIC LESIONS OF LUMBAR REGION NOT ELSEWHERE CLASSIFIED 10/29/2008 SRINI LIMON APRN 739.4 NONALLOPATHIC LESIONS OF SACRAL REGION NOT ELSEWHERE CLASSIFIED 10/29/2008 SRINI LIMON APRN 054.10 GENITAL HERPES UNSPECIFIED 10/29/2008 SRINI LIMON APRN 715.90 OSTEOARTHROSIS UNSPECIFIED WHETHER GENERALIZED OR LOCALIZED INVOLVING UNSPECIFIED SITE 10/29/2008 SRINI LIMON APRN 739.3 NONALLOPATHIC LESIONS OF LUMBAR REGION NOT ELSEWHERE CLASSIFIED 10/29/2008 SRINI LIMON APRN 739.4 NONALLOPATHIC LESIONS OF SACRAL REGION NOT ELSEWHERE CLASSIFIED 10/29/2008 SRINI LIMON APRN 054.10 GENITAL HERPES UNSPECIFIED 10/29/2008 SRINI LIMON APRN 715.90 OSTEOARTHROSIS UNSPECIFIED WHETHER GENERALIZED OR LOCALIZED INVOLVING UNSPECIFIED SITE 10/29/2008 SRINI LIMON APRN 739.3 NONALLOPATHIC LESIONS OF LUMBAR REGION NOT ELSEWHERE CLASSIFIED 10/29/2008 SRINI LIMON APRN 739.4 NONALLOPATHIC LESIONS OF SACRAL REGION NOT ELSEWHERE CLASSIFIED 10/29/2008 SRINI LIMON APRN 054.10 GENITAL HERPES UNSPECIFIED 10/29/2008 SRINI LIMON APRN 715.90 OSTEOARTHROSIS UNSPECIFIED WHETHER GENERALIZED OR LOCALIZED INVOLVING UNSPECIFIED SITE 10/29/2008 SRINI LIMON APRN 739.3 NONALLOPATHIC LESIONS OF LUMBAR REGION NOT ELSEWHERE CLASSIFIED 10/29/2008 SRINI LIMON APRN 739.4 NONALLOPATHIC LESIONS OF SACRAL REGION NOT ELSEWHERE CLASSIFIED 11/30/2008 SRINI LIMON APRN 724.2 lower back pain 11/30/2008 SANAM MANN APRN 724.2 lower back pain 11/30/2008 RIGOBERTO GARZA DO 724.2 lower back pain 11/30/2008 LAURYN GOYAL MD 724.2 lower back pain 11/30/2008 SRINI LIMON APRN 724.2 lower back pain 11/30/2008 SRINI LIMON APRN 724.2 lower back pain 11/30/2008 SRINI LIMON APRN 724.2 lower back pain 11/30/2008 SRINI LIMON APRN 724.2 lower back pain 11/30/2008 SRINI LIMON APRN 724.2 lower back pain 05/01/2009 SRINI LIMON APRN V06.5 DT, TETANUS-DIPHTHERIA [Td] ,TDAP 05/01/2009 SANAM MANN APRN V06.5 DT, TETANUS-DIPHTHERIA [Td] ,TDAP 05/01/2009 RIGOBERTO GARZA DO V06.5 DT, TETANUS-DIPHTHERIA [Td] ,TDAP 05/01/2009 LAURYN GOYAL MD V06.5 DT, TETANUS-DIPHTHERIA [TD] ,TDAP 05/01/2009 SRINI LIMON APRN V06.5 DT, TETANUS-DIPHTHERIA [TD] ,TDAP 05/01/2009 SRINI LIMON APRN V06.5 DT, TETANUS-DIPHTHERIA [TD] ,TDAP 05/01/2009 SRINI LIMON APRN V06.5 DT, TETANUS-DIPHTHERIA [TD] ,TDAP 05/01/2009 SRINI LIMON APRN V06.5 DT, TETANUS-DIPHTHERIA [TD] ,TDAP 05/01/2009 SRINI LIMON APRN V06.5 DT, TETANUS-DIPHTHERIA [TD] ,TDAP 07/12/2009 BRAXTON DETECTIVE CAPTAIN, SRINI T 530.81 ESOPHAGEAL REFLUX 07/12/2009 BRAXTON ALFORD, SRINI T 786.05 SHORTNESS OF BREATH 07/12/2009 SANAM MANN APRN S 530.81 ESOPHAGEAL REFLUX 07/12/2009 SANAM MANN APRN S 786.05 SHORTNESS OF BREATH 07/12/2009 GARZA DO, RIGOBERTO K 530.81 ESOPHAGEAL REFLUX 07/12/2009 GARZA DO, RIGOBERTO K 786.05 SHORTNESS OF BREATH 07/12/2009 LAURYN GOYAL MD 530.81 ESOPHAGEAL REFLUX 07/12/2009 LAURYN GOYAL MD 786.05 SHORTNESS OF BREATH 07/12/2009 BRAXTON ALFORD SRINI T 530.81 ESOPHAGEAL REFLUX 07/12/2009 BRAXTON ALFORD SRINI T 786.05 SHORTNESS OF BREATH 07/12/2009 BRAXTON ALFORD SRINI T 530.81 ESOPHAGEAL REFLUX 07/12/2009 BRAXTON ALFORD SRINI T 786.05 SHORTNESS OF BREATH 07/12/2009 BRAXTON ALFORD SRINI T 530.81 ESOPHAGEAL REFLUX 07/12/2009 BRAXTON ALFORD SRINI T 786.05 SHORTNESS OF BREATH 07/12/2009 BRAXTON ALFORD SRINI T 530.81 ESOPHAGEAL REFLUX 07/12/2009 BRAXTON ALFORD, SRINI T 786.05 SHORTNESS OF BREATH 07/12/2009 BRAXTON ALFORD SRINI T 530.81 ESOPHAGEAL REFLUX 07/12/2009 BRAXTON ALFORD SRINI T 786.05 SHORTNESS OF BREATH 05/06/2010 BRAXTON ALFORD SRINI T V74.5 STD SCREEN 05/06/2010 SANAM MANN APRN S V74.5 STD SCREEN 05/06/2010 GREG RANDOLPH RIGOBERTO K V74.5 STD SCREEN 05/06/2010 LAURYN GOYAL MD V74.5 STD SCREEN 05/06/2010 BRAXTON ALFORD SRINI T V74.5 STD SCREEN 05/06/2010 BRAXTON ALFORD SRINI T V74.5 STD SCREEN 05/06/2010 BRAXTON ALFORD SRINI T V74.5 STD SCREEN 05/06/2010 BRAXTON ALFORD SRINI T V74.5 STD SCREEN 05/06/2010 BRAXTON ALFORD SRINI T V74.5 STD SCREEN 08/23/2011 SRINI LIMON APRN T 788.32 STRESS INCONTINENCE MALE 08/23/2011 SANAM MANN APRN S 788.32 STRESS INCONTINENCE MALE 08/23/2011 PATY GARZA DOA K 788.32 STRESS INCONTINENCE MALE 08/23/2011 LAURYN GOYAL MD 788.32 STRESS INCONTINENCE MALE 08/23/2011 SRINI LIMON APRN 788.32 STRESS INCONTINENCE MALE 08/23/2011 SRINI LIMON APRN 788.32 STRESS INCONTINENCE MALE 08/23/2011 SRINI LIMON APRN 788.32 STRESS INCONTINENCE MALE 08/23/2011 SRINI LIMON APRN 788.32 STRESS INCONTINENCE MALE 08/23/2011 SRINI LIMON APRN 788.32 STRESS INCONTINENCE MALE 12/18/2011 SRINI LIMON APRN 338.21 CHRONIC PAIN DUE TO TRAUMA 12/18/2011 SANAM MANN APRN 338.21 CHRONIC PAIN DUE TO TRAUMA 12/18/2011 RIGOBERTO GARZA DO K 338.21 CHRONIC PAIN DUE TO TRAUMA 12/18/2011 LAURYN GOYAL MD 338.21 CHRONIC PAIN DUE TO TRAUMA 12/18/2011 SRINI LIMON APRN 338.21 CHRONIC PAIN DUE TO TRAUMA 12/18/2011 SRINI LIMON APRN 338.21 CHRONIC PAIN DUE TO TRAUMA 12/18/2011 SRINI LIMON APRN 338.21 CHRONIC PAIN DUE TO TRAUMA 12/18/2011 SRINI LIMON APRN 338.21 CHRONIC PAIN DUE TO TRAUMA 12/18/2011 SRINI LIMON APRN 338.21 CHRONIC PAIN DUE TO TRAUMA 04/10/2012 SRINI LIMON APRN 357.9 NEUROPATHY UNSP 04/10/2012 SRINI LIMON APRN 788.1 DYSURIA 04/10/2012 SANAM MANN APRN S 357.9 NEUROPATHY UNSP 04/10/2012 SANAM MANN APRN S 788.1 DYSURIA 04/10/2012 GARZA DO RIGOBERTO K 357.9 NEUROPATHY UNSP 04/10/2012 GARZA DO RIGOBERTO K 788.1 DYSURIA 04/10/2012 LAURYN GOYAL MD 357.9 NEUROPATHY UNSP 04/10/2012 LAURYN GOYAL MD 788.1 DYSURIA 04/10/2012 SRINI LIMON APRN 357.9 NEUROPATHY UNSP 04/10/2012 SRINI LIMON APRN 788.1 DYSURIA 04/10/2012 SRINI LIMON APRN 357.9 NEUROPATHY UNSP 04/10/2012 SRINI LIMON APRN T 788.1 DYSURIA 04/10/2012 SRINI LIMON APRN T 357.9 NEUROPATHY UNSP 04/10/2012 SRINI LIMON APRN T 788.1 DYSURIA 04/10/2012 SRINI LIMON APRN T 357.9 NEUROPATHY UNSP 04/10/2012 SRINI LIMON APRN T 788.1 DYSURIA 04/10/2012 SRINI LIMON APRN T 357.9 NEUROPATHY UNSP 04/10/2012 SRINI LIMON APRN T 788.1 DYSURIA 09/13/2012 SRINI LIMON APRN T 388.70 OTALGIA 09/13/2012 SANAM MANN APRN S 388.70 OTALGIA 09/13/2012 GREG DO, RIGOBERTO K 388.70 OTALGIA 09/13/2012 LARUYN GOYAL MD 388.70 OTALGIA 09/13/2012 SRINI LIMON APRN 388.70 OTALGIA 09/13/2012 SRINI LIMON APRN 388.70 OTALGIA 09/13/2012 SRINI LIMON APRN T 388.70 OTALGIA 09/13/2012 SRINI LIMON APRN T 388.70 OTALGIA 09/13/2012 SRINI LIMON APRN T 388.70 OTALGIA 04/14/2013 SANAM MANN APRN S 530.5 DYSPHAGIA 04/14/2013 ALLISON MANN APRNA S 787.01 NAUSEA WITH VOMITING 04/14/2013 GARZA DO, RIGOBERTO K 530.5 DYSPHAGIA 04/14/2013 GARZA DO, RIGOBERTO K 787.01 NAUSEA WITH VOMITING 04/14/2013 LAURYN GOYAL MD 530.5 DYSPHAGIA 04/14/2013 LAURYN GOYAL MD 787.01 NAUSEA WITH VOMITING 04/14/2013 SRINI LIMON APRN 530.5 DYSPHAGIA 04/14/2013 SRINI LIMON APRN 787.01 NAUSEA WITH VOMITING 04/14/2013 SRINI LIMON APRN 530.5 DYSPHAGIA 04/14/2013 SRINI LIMON APRN 787.01 NAUSEA WITH VOMITING 04/14/2013 SRINI LIMON APRN 530.5 DYSPHAGIA 04/14/2013 SRINI LIMON APRN 787.01 NAUSEA WITH VOMITING 04/14/2013 SRINI LIMON APRN 530.5 DYSPHAGIA 04/14/2013 SRINI LIMON APRN 787.01 NAUSEA WITH VOMITING 04/14/2013 SRINI LIMON APRN T 530.5 DYSPHAGIA 04/14/2013 SRINI LIMON APRN T 787.01 NAUSEA WITH VOMITING 05/05/2013 GREG RANDOLPH RIGOBERTO K 787.20 DYSPHAGIA, UNSPECIFIED 05/05/2013 LAURYN GOYAL MD 787.20 DYSPHAGIA, UNSPECIFIED 05/05/2013 SRINI LIMON APRN T 787.20 DYSPHAGIA, UNSPECIFIED 05/05/2013 SRINI LIMON APRN T 787.20 DYSPHAGIA, UNSPECIFIED 05/05/2013 SRINI LIMON APRN T 787.20 DYSPHAGIA, UNSPECIFIED 05/05/2013 SRINI LIMON APRN T 787.20 DYSPHAGIA, UNSPECIFIED 05/05/2013 SRINI LIMON APRN T 787.20 DYSPHAGIA, UNSPECIFIED 05/08/2013 LAURYN GOYAL MD 729.1 MYALGIA AND MYOSITIS UNSPECIFIED 05/08/2013 SRINI LIMON APRN 729.1 MYALGIA AND MYOSITIS UNSPECIFIED 05/08/2013 SRINI LIMON APRN T 729.1 MYALGIA AND MYOSITIS UNSPECIFIED 05/08/2013 SRINI LIMON APRN T 729.1 MYALGIA AND MYOSITIS UNSPECIFIED 05/08/2013 SRINI LIMON APRN T 729.1 MYALGIA AND MYOSITIS UNSPECIFIED 05/08/2013 SRINI LIMON APRN T 729.1 MYALGIA AND MYOSITIS UNSPECIFIED 08/06/2013 SRINI LIMON APRN T 302.72 ERECTILE DISORDER 08/06/2013 SRINI LIMON APRN T 302.72 ERECTILE DISORDER 08/06/2013 SRINI LIMON APRN T 302.72 ERECTILE DISORDER 08/06/2013 SRINI LIMON APRN T 302.72 ERECTILE DISORDER 10/10/2013 SRINI LIMON APRN 530.81 GERD 10/10/2013 SRINI LIMON APRN 530.81 GERD 03/06/2014 SRINI LIMON APRN 790.6 LIVER FUNCTION TEST, ABNORMAL 09/29/2016 SRINI LIMON Ot G89.29 OTHER CHRONIC PAIN 09/29/2016 SRINI LIMON Ot R53.82 CHRONIC FATIGUE, UNSPECIFIED 09/29/2016 SRINI LIMON Ot G89.29 OTHER CHRONIC PAIN 09/29/2016 SRINI LIMON [employer] PRESS HAND Ot R53.82 CHRONIC FATIGUE, UNSPECIFIED 10/12/2016 BRAXTON SRINI Carlos [employer] Ot G89.29 OTHER CHRONIC PAIN 10/12/2016 SRINI LIMON [employer] HAND Ot R53.82 CHRONIC FATIGUE, UNSPECIFIED 10/13/2016 SRINI LIMON [employer] HAND Ot G89.29 OTHER CHRONIC PAIN 10/13/2016 SRINI LIMON [employer] HAND Ot R53.82 CHRONIC FATIGUE, UNSPECIFIED 06/22/2017 LAURYN GOYAL MD, Ot M46.92 UNSPECIFIED INFLAMMATORY SPONDYLOPATHY, 06/22/2017 LAURYN GOYAL MD, Ot M48.02 SPINAL STENOSIS, CERVICAL REGION 06/22/2017 LAURYN GOYAL MD Ot M50.121 CERVICAL DISC DISORDER AT C4-C5 LEVEL [place] 06/22/2017 LAURYN GOYAL MD Ot M79.89 OTHER SPECIFIED SOFT TISSUE DISORDERS 06/22/2017 LAURYN GOYAL MD Ot R20.0 ANESTHESIA OF SKIN 10/10/2018 SRINI LIMON [employer] HAND Ot G89.29 OTHER CHRONIC PAIN 10/10/2018 SRINI LIMON [employer] HAND Ot R53.82 CHRONIC FATIGUE, UNSPECIFIED 10/10/2018 LAURYN GOYAL MD, Ot M46.92 UNSPECIFIED INFLAMMATORY SPONDYLOPATHY, 10/10/2018 LAURYN GOYAL MD, Ot M48.02 SPINAL STENOSIS, CERVICAL REGION 10/10/2018 LAURYN GOYAL MD Ot M50.121 CERVICAL DISC DISORDER AT C4-C5 LEVEL [place] 10/10/2018 LAURYN GOYAL MD Ot M79.89 OTHER SPECIFIED SOFT TISSUE DISORDERS 10/10/2018 LAURYN GOYAL MD Ot R20.0 ANESTHESIA OF SKIN 10/10/2018 SRINI LIMONP Ot G89.29 OTHER CHRONIC PAIN 10/10/2018 SRINI LIMON [employer] HAND Ot R53.82 CHRONIC FATIGUE, UNSPECIFIED 10/10/2018 LAURYN GOYAL MD Ot M46.92 UNSPECIFIED INFLAMMATORY SPONDYLOPATHY, 10/10/2018 LAURYN GOYAL MD Ot M48.02 SPINAL STENOSIS, CERVICAL REGION 10/10/2018 LAURYN GOYAL MD Ot M50.121 CERVICAL DISC DISORDER AT C4-C5 LEVEL [place] 10/10/2018 LAURYN GOYAL MD Ot M79.89 OTHER SPECIFIED SOFT TISSUE DISORDERS 10/10/2018 LAURYN GOYAL MD Ot R20.0 ANESTHESIA OF SKIN 10/10/2018 SRINI LIMON Ot 530.81 ESOPHAGEAL REFLUX 10/10/2018 SRINI LIMON Ot 553.3 DIAPHRAGMATIC HERNIA 10/10/2018 SRINI LIMON Ot 787.21 DYSPHAGIA, ORAL PHASE 10/10/2018 LAURYN GOYAL MD, Ot M46.92 UNSPECIFIED INFLAMMATORY SPONDYLOPATHY, 10/10/2018 LAURYN GOYAL MD, Ot M48.02 SPINAL STENOSIS, CERVICAL REGION 10/10/2018 LAURYN GOYAL MD, Ot M50.121 CERVICAL DISC DISORDER AT C4-C5 LEVEL [place] 10/10/2018 LAURYN GOYAL MD, Ot M79.89 OTHER SPECIFIED SOFT TISSUE DISORDERS 10/10/2018 LAURYN GOYAL MD, Ot R20.0 ANESTHESIA OF SKIN 10/10/2018 TANIA HERNANDEZ DO Ot Z01.818 ENCOUNTER FOR OTHER PREPROCEDURAL EXAMIN 10/14/2018 SRINI LIMON Ot 530.81 ESOPHAGEAL REFLUX 10/14/2018 SRINI LIMON Ot 553.3 DIAPHRAGMATIC HERNIA 10/14/2018 SRINI LIMON Ot 787.21 DYSPHAGIA, ORAL PHASE 10/14/2018 LAURYN GOYAL MD, Ot M46.92 UNSPECIFIED INFLAMMATORY SPONDYLOPATHY, 10/14/2018 LAURYN GOYAL MD Ot M48.02 SPINAL STENOSIS, CERVICAL REGION 10/14/2018 LAURYN GOYAL MD Ot M50.121 CERVICAL DISC DISORDER AT C4-C5 LEVEL [place] 10/14/2018 LAURYN GOYAL MD Ot M79.89 OTHER SPECIFIED SOFT TISSUE DISORDERS 10/14/2018 LAURYN GOYAL MD Ot R20.0 ANESTHESIA OF SKIN Procedures Code Description [place] [address] MRI SPINE (LUMBAR) W/O CONTRAST 09/16/2012 21469 ROUTINE VENIPUNCTURE 05/08/2013 68666 ESR/SED RATE 05/08/2013 33746 UA LONG DIP 05/08/2013 41965 CMP 05/08/2013 [id number] GFR CALC (RESULT ONLY) 05/08/2013 10144 BARIUM SWALLOW XRAY 07/07/2013 94167 ROUTINE VENIPUNCTURE 08/06/2013 41907 TESTOSTERONE TOTAL MALES 08/06/2013 32604 TSH 08/06/2013 10674 CBC 08/06/2013 [id number] GFR CALC (RESULT ONLY) 08/06/2013 64004 CMP 08/06/2013 92725 LIPID PANEL 08/06/2013 91320 ROUTINE VENIPUNCTURE 10/10/2013 48288 AMYLASE 10/10/2013 24303 LIPASE 10/10/2013 63257 CBC 10/10/2013 98153 LIVER PANEL (LFT) 10/10/2013 47136 ROUTINE VENIPUNCTURE 03/06/2014 51312 CMP 03/06/2014 54362 HEPATITIS PROFILE 03/06/2014 06038 CBC 03/06/2014 Results Test Result Range Tick identification panel - 09/28/16 13:33 Serum Ehrlichia chaffeensis IgG antibody detection <1:16 <1:16 Serum Ehrlichia chaffeensis IgM antibody detection <1:10 <1:10 Serum Rickettsia rickettsii IgG antibody assay (units/volume) < <1:16 [place] spotted fever panel < <1:10 Francisella tularensis antibody assay <1:20 NRG Borrelia burgdorferi (Lyme disease) antibody 0.30 0.00- 0.90 CRP - 06/14/17 11:07 C-REACTIVE PROTEIN 3.8 mg/L <8.0 RA (RHEUMATOID) FACTOR - 06/14/17 11:07 RHEUMATOID FACTOR <14 IU/mL <14 Encounters ACCT No. Visit Date/Time Discharge Status Pt. Type Provider Facility Loc./Unit Complaint [id number] 03/06/2014 15:16:00 03/06/2014 23:59:59 CLS Outpatient SRINI LIMON APRN [id number] 10/10/2013 08:56:00 10/10/2013 23:59:59 CLS Outpatient SRINI LIMON APRN [id number] 09/03/2013 15:15:00 09/03/2013 23:59:59 CLS Outpatient SRINI LIMON APRN [id number] 08/06/2013 10:59:00 08/06/2013 23:59:59 CLS Outpatient SRINI LIMON APRN [id number] 07/07/2013 10:10:00 07/07/2013 23:59:59 CLS Outpatient SRINI LIMON APRN [id number] 05/08/2013 14:13:00 05/08/2013 23:59:59 CLS Outpatient LAURYN GOYAL MD [id number] 05/05/2013 16:13:00 05/05/2013 23:59:59 CLS Outpatient RIGOBERTO GARZA DO [id number] 04/14/2013 10:57:00 04/14/2013 23:59:59 CLS Outpatient JOHNATHAN ROCÍO SANAM Pancho [id number] 09/13/2012 12:22:00 09/13/2012 23:59:59 CLS Outpatient SRINI LIMON APRN [id number] 10/10/2018 05:39:00 10/10/2018 15:43:00 DIS Outpatient TANIA HERNANDEZ DO [facility] PREOP EGD [id number] 06/29/2017 11:18:00 06/29/2017 23:59:59 CLS Preadmit LAURYN GOYAL MD [facility] REHAB CERVICAL PAIN WITH RADICULOPATHY [id number] 06/21/2017 11:34:00 06/21/2017 23:59:59 CLS Outpatient LAURYN GOYAL MD [facility] RAD CERVICAL RADICULOPATHY [id number] 09/28/2016 13:13:00 09/28/2016 23:59:59 CLS Outpatient SRINI LIMON [facility] LAB CHRONIC FATIGUE, CHRONIC PAIN SYNDROME [id number] 07/11/2013 09:48:00 07/11/2013 23:59:59 CLS Outpatient SRINI LIMON [facility] RAD SWALLOW ISSUES [id number] 10/14/2018 10:46:00 ACT Outpatient TANIA HERNANDEZ DO [facility] ENDO DYSPHAGIA [id number] 09/27/2018 09:00:00 09/27/2018 23:59:59 CLS Outpatient SRINI LIMON APRN [facility] [id number] 06/14/2017 10:40:00 Document Registration
--- NOTE | 2018-10-14 11:30 | Progress Note-Pre Operative ---
Pre-Operative Progress Note H&P Reviewed The H&P was reviewed, patient examined and no changes noted. Time Seen by Provider: 11:28 Date H&P Reviewed: Oct 14, 2018 Time H&P Reviewed: 11:29 Pre-Operative Diagnosis: dysphagia TANIA HERNANDEZ DO Oct 14, 2018 11:30
[2018-10-14] MEDS ORDERED: proPOfol 200 MG/20 ML (DIPRIVAN) VIAL IV ONE ×2 (11:53→12:00)
[2018-10-14] MEDS ORDERED: MIDAZOLAM 2 MG/2 ML (VERSED) VIAL ONE (11:53)
[2018-10-14] MEDS ORDERED: HURRICAINE EXT TUBE (BENZOCAINE) ONE (12:14)
--- NOTE | 2018-10-14 12:14 | Progress Note-Post Operative ---
Post-Operative Progess Note Surgeon (s)/Insole Lip Turner (s) Surgeon TANIA HERNANDEZ DO Insole Lip Turner: none Pre-Operative Diagnosis dysphagia Post-Operative Diagnosis Same plus Gastritis Hiatal Hernia Procedure & Operative Findings Date of Procedure 10/14/18 Procedure Performed/Findings EGD wit bx Anesthesia Type IV sedation by SAT INSTRUCTOR Estimated Blood Loss Estimated blood loss (mL): scant Specimens/Packing Specimens Removed antral bx GE jxn bx TANIA HERNANDEZ DO Oct 14, 2018 12:14
--- NOTE | 2018-10-14 12:15 | Endoscopy Discharge Instruct ---
Endo Procedure/Findings Findings 1.: Gastritis 2.: Hiatal Hernia Discharge Instructions - Activity: You might feel a little sleepy until tomorrow. This is due to the medicine you received to relax you. Until tomorrow, you should: NOT drive a car, operate machinery or power tools. NOT drink any alcoholic beverages. NOT make any important decisions or sign importortant papers. Do not return to work until tomorrow, unless otherwise instructed. Resume previous activities tomorrow. Diet: Start by taking liquids. If you tolerate liquids, advance to solid food. make an appointment for one week Notify Physician - If you experience excessive bleeding, unusual abdominal pain, fever, or chest pain, contact your doctor immediately. Follow-Up: - I have received and understand the above instructions and will call my doctor if I have any further questions. Patient Signature Date Nurse Signature Other (Relationship) TANIA HERNANDEZ DO Oct 14, 2018 12:15
--- NOTE | 2018-10-14 12:17 | Anesthesia-General Post-Op ---
MAC Patient Condition Mental Status/LOC: Same as Preop Cardiovascular: Satisfactory Nausea/Vomiting: Absent Respiratory: Satisfactory Pain: Controlled Complications: Absent Post Op Complications Complications None Follow Up Care/Instructions Patient Instructions None needed. Anesthesiology Discharge Order Discharge Order Patient is doing well, no complaints, stable vital signs, no apparent adverse anesthesia problems. No complications reported per nursing. ROSITA GRANT CRNA Oct 14, 2018 12:17
[2018-10-14 12:25] VITALS: BP 112/78
[2018-10-14 12:51] VITALS: BP 121/87
--- NOTE | 2018-10-15 02:22 | OPERATIVE REPORT ---
DATE OF SERVICE: PREOPERATIVE DIAGNOSIS: Dysphagia. POSTOPERATIVE DIAGNOSES: 1. Gastritis. 2. Sliding hiatal hernia. PROCEDURE: EGD with biopsy. SURGEON: Cody Ng DO. DENTAL EQUIPMENT INSTALLER AND SERVICER: None. ANESTHESIA: IV sedation by AUTOMOTIVE DESIGN DRAFTER. SPECIMEN: One biopsy from the antrum and one biopsy from the GE junction. BLOOD LOSS: Scant. FLUIDS: Per anesthesia. POSTOPERATIVE CONDITION: Stable. INDICATION FOR PROCEDURE: The patient is a 47-year-old male who has been having some trouble swallowing and 1 need to get this worked up. FINDINGS: The patient had some mild gastritis. He had a sliding hiatal hernia. Biopsies done, sent to pathology. PROCEDURE NOTE: After informed consent was obtained, the patient was brought to the endoscopy suite, placed in the bed lateral decubitus position and administered IV sedation by the AUTOMOTIVE DESIGN DRAFTER who then monitored his vitals the entire time, heart rate, blood pressure, pulse ox and the scope was inserted down the mouth through the esophagus into the stomach, all the way down noted a hiatal hernia, pushed towards the antrum, saw some mild gastritis, took a picture, then did a biopsy here, pushed in the duodenum. Duodenum looked fine, then pulled the scope back and retroflexed to look at the GE junction, could see as the patient the tissue go in and out. This was a sliding hiatal hernia. Pulled the scope back towards the GE junction, took a picture and then did a biopsy of the GE junction, then pulled the scope up the esophagus, took another picture of the esophagus. There were no other strictures or reasons for dysphagia. At this point, then pulled the scope out of the mouth and the patient was then recovered in endoscopy suite. Job ID: [id number] DocumentID: [id number] Dictated Date: 10/14/2018 18:40:47 Java Security Architect Date: 10/15/2018 02:21:42 Dictated By: CODY NG DO
== END 2018-10-14 12:53 | disposition home or self-care (01) ==
LOC: ENDO 10:46
PROVIDERS: ATTEND Surgery
DX: K29.70 Gastritis, unspecified, without bleeding (principal); K44.9 Diaphragmatic hernia without obstruction or gangrene; K22.70 Barrett's esophagus without dysplasia; I10 Essential (primary) hypertension; M79.7 Fibromyalgia; G62.9 Polyneuropathy, unspecified; R01.1 Cardiac murmur, unspecified; Z79.899 Other long term (current) drug therapy

== ENCOUNTER 2019-04-14 06:38 | Outpatient (CLI) | payer OTHER ==
[~2019-04-14] VITALS: Ht 177 cm; Wt 110.0 kg
[~2019-04-14 06:38] MED LIST changes: -DULO60CA58 PO; +DULO60CA59 PO
[2019-04-14] MEDS ORDERED: OMEP20TA33 PO (14:15)
== END 2019-04-14 14:39 | disposition home or self-care (01) ==
LOC: PREOP 06:38
PROVIDERS: ATTEND Surgery
DX: Z01.818 Encounter for other preprocedural examination (principal)

== ENCOUNTER 2019-04-21 09:19 | Day surgery (SDC) | payer OTHER ==
[~2019-04-21] VITALS: Ht 177.8 cm; Wt 110.0 kg
[2019-04-21] VITALS (7 sets, daily range): BP systolic 113–138; BP diastolic 64–94
[~2019-04-21 09:19] MED LIST changes: +OMEP20TA33 PO
[2019-04-21] MEDS ORDERED: LACTATED RINGERS 1,000 ML IV STA (09:31)
[2019-04-21] MEDS ORDERED: LACTATED RINGERS 1,000 ML IV ONE (09:36)
[2019-04-21] MEDS ORDERED: fentaNYL INJECTION 100 MCG/2 ML AMP IVP ONE (09:45)
[2019-04-21] MEDS ORDERED: MIDAZOLAM 5 MG/5 ML (VERSED) VIAL IV PRN (09:45)
--- NOTE | 2019-04-21 09:48 | Progress Note-Pre Operative ---
Pre-Operative Progress Note H&P Reviewed The H&P was reviewed, patient examined and no changes noted. Time Seen by Provider: 09:48 Date H&P Reviewed: Apr 21, 2019 Time H&P Reviewed: 09:47 Pre-Operative Diagnosis: Gastritis TANIA HERNANDEZ DO Apr 21, 2019 09:48
[2019-04-21] MEDS ORDERED: PROPOFOL INJECTION 50 ML IV ONE (10:16)
[2019-04-21] MEDS ORDERED: MIDAZOLAM 2 MG/2 ML (VERSED) VIAL ONE (10:16)
[2019-04-21] MEDS ORDERED: KETAMINE/NaCl 50 MG/5 ML SYRINGE (ED ONLY) ONE (10:16)
--- NOTE | 2019-04-21 10:33 | Progress Note-Post Operative ---
Post-Operative Progess Note Surgeon (s)/Yarn Skeins Examiner (s) Surgeon TANIA HERNANDEZ DO Yarn Skeins Examiner: none Pre-Operative Diagnosis Gastritis Post-Operative Diagnosis Gastritis Hiatal Hernia Esophagitis Procedure & Operative Findings Date of Procedure 04/21/19 Procedure Performed/Findings EGD with bx Anesthesia Type IV sedation by VINYL CUTTER Estimated Blood Loss Estimated blood loss (mL): scant Specimens/Packing Specimens Removed antral bx Body of stomach bx GE jxn bx TANIA HERNANDEZ DO Apr 21, 2019 10:33
--- NOTE | 2019-04-21 10:34 | Endoscopy Discharge Instruct ---
Endo Procedure/Findings Findings 1.: Gastritis 2.: Hiatal Hernia Discharge Instructions - Activity: You might feel a little sleepy until tomorrow. This is due to the medicine you received to relax you. Until tomorrow, you should: NOT drive a car, operate machinery or power tools. NOT drink any alcoholic beverages. NOT make any important decisions or sign importortant papers. Do not return to work until tomorrow, unless otherwise instructed. Resume previous activities tomorrow. Diet: Start by taking liquids. If you tolerate liquids, advance to solid food. make an appointment for one week 1.: EGD in 3 years Notify Physician - If you experience excessive bleeding, unusual abdominal pain, fever, or chest pain, contact your doctor immediately. TANIA HERNANDEZ DO Apr 21, 2019 10:34
[2019-04-21] MEDS ORDERED: HURRICAINE EXT TUBE (BENZOCAINE) ONE (10:45)
[2019-04-21] MEDS ORDERED: HURRICAINE EXT TUBE (BENZOCAINE) XX ONE (11:00)
--- NOTE | 2019-04-21 15:00 | OPERATIVE REPORT ---
DATE OF SERVICE: 04/21/2019 PREOPERATIVE DIAGNOSES: Gastritis, abdominal pain. POSTOPERATIVE DIAGNOSES: Gastritis, hiatal hernia, esophagitis. PROCEDURE: EGD with biopsy. SURGEON: Cody Ng DO IMPROVEMENT DIRECTOR: None. ANESTHESIA: IV sedation by the FUEL TECHNICIAN. SPECIMEN: Biopsy from the antrum, biopsy of body of stomach, and biopsy of the GE junction. BLOOD LOSS: Scant. FLUIDS: Per anesthesia. POSTOPERATIVE CONDITION: Stable. INDICATION FOR PROCEDURE: The patient is a 48-year-old male who had previous EGD, which showed pretty severe gastritis and needed a repeat. He was still having abdominal pain. FINDINGS: The patient had some mild gastritis, small hiatal hernia, also had some mild esophagitis. Picture taken. Biopsy done. PROCEDURE NOTE: After informed consent was obtained, the patient was brought to the endoscopy suite and placed in the left lateral decubitus position. He was administered IV sedation by the FUEL TECHNICIAN who then monitored his vitals the entire time, heart rate, blood pressure and pulse ox and the scope was inserted down the mouth through the esophagus into the stomach, noted some mild gastritis, took a picture then pushed into the duodenum. Duodenum looked fine. Pulled back and took a picture of the antrum, did a biopsy of the antrum, then pulled back and did a biopsy of the stomach and then retroflexed the scope, saw a small hiatal hernia. Pulled the scope into the GE junction, saw some mild creeping up of the Z line and did a biopsy of the GE junction. Suctioned the area of the stomach and then pulled the scope up the esophagus out of the mouth. The patient tolerated the procedure, recovered in endoscopy suite. Job ID: [id number] DocumentID: [id number] Dictated Date: 04/21/2019 10:37:48 Operating Systems Programmer Date: 04/21/2019 15:00:06 Dictated By: CODY NG DO
--- NOTE | 2019-04-21 15:07 | Anesthesia-General Post-Op ---
MAC Patient Condition Mental Status/LOC: Same as Preop Cardiovascular: Satisfactory Nausea/Vomiting: Absent Respiratory: Satisfactory Pain: Controlled Complications: Absent Post Op Complications Complications None Follow Up Care/Instructions Patient Instructions None needed. Anesthesiology Discharge Order Discharge Order Patient is doing well, no complaints, stable vital signs, no apparent adverse anesthesia problems. No complications reported per nursing. KLEBER RUFF CRNA Apr 21, 2019 15:07 POS
== END 2019-04-21 11:30 | disposition home or self-care (01) ==
LOC: ENDO 09:19
PROVIDERS: ATTEND Surgery
DX: K21.0 Gastro-esophageal reflux disease with esophagitis (principal); K44.9 Diaphragmatic hernia without obstruction or gangrene; I10 Essential (primary) hypertension; E66.9 Obesity, unspecified; Z68.34 Body mass index [BMI] 34.0-34.9, adult; M79.7 Fibromyalgia; K29.50 Unspecified chronic gastritis without bleeding; G62.9 Polyneuropathy, unspecified; Z79.899 Other long term (current) drug therapy
CPT/HCPCS: 88305

== ENCOUNTER 2020-04-01 05:39 | Outpatient (RCR) | payer OTHER ==
[~2020-04-01] VITALS: Ht 177.8 cm; Wt 118.2 kg
[~2020-04-01 05:39] MED LIST changes: +ARIP2TAB3 PO; +CETI10TA17 PO
== END 2020-04-01 09:55 | disposition home or self-care (01) ==
LOC: PREOP 05:39
PROVIDERS: ATTEND Surgery
DX: Z01.818 Encounter for other preprocedural examination (principal); Z01.812 Encounter for preprocedural laboratory examination; K20.90 Esophagitis, unspecified without bleeding; R10.13 Epigastric pain; Z86.010 Personal history of colon polyps; Z20.828 Contact with and (suspected) exposure to other viral communicable diseases
CPT/HCPCS: 87635

== ENCOUNTER → 2020-04-02 | Outpatient (CLI) | payer OTHER ==
--- NOTE | 2020-04-02 10:09 | Diagnostic Imaging Report ---
PROCEDURE: US Gallbladder. TECHNIQUE: Multiple real-time grayscale images were obtained over the right upper quadrant in various projections. INDICATION: Epigastric tenderness. FINDINGS: Echodense liver is consistent with its fatty infiltration; this limits sensitivity and sonographic penetration. No identifiable liver mass. The unobstructed right kidney measured 11.7 cm and appeared normal. There is no pathological dilatation of intra or extrahepatic bile ducts. The gallbladder appeared normal. The pancreas was obscured. IMPRESSION: Fatty liver, otherwise negative. Dictated by: Dictated on workstation # [id number]
== END ==
LOC: RAD 09:00
PROVIDERS: ATTEND Surgery
DX: K76.0 Fatty (change of) liver, not elsewhere classified (principal); R10.816 Epigastric abdominal tenderness
CPT/HCPCS: 76705

== ENCOUNTER 2020-04-05 09:49 | Day surgery (SDC) | payer OTHER ==
[2020-04-05] VITALS (8 sets, daily range): BP systolic 70–129; BP diastolic 43–94
[~2020-04-05] VITALS: Ht 177 cm; Wt 118.0 kg
[~2020-04-05 09:49] MED LIST changes: +LACTATED RINGERS 1,000 ML IV ONE
[2020-04-05] MEDS ORDERED: LACTATED RINGERS 1,000 ML IV STA (09:50)
[2020-04-05] MEDS ORDERED: HURRICAINE EXT TUBE (BENZOCAINE) XX PRN (10:00)
--- NOTE | 2020-04-05 10:04 | Progress Note-Pre Operative ---
Pre-Operative Progress Note H&P Reviewed The H&P was reviewed, patient examined and no changes noted. Time Seen by Provider: 10:02 Date H&P Reviewed: Apr 05, 2020 Time H&P Reviewed: 10:02 Pre-Operative Diagnosis: GERD, Hx of polyps, >10yrs since last colon TANIA HERNANDEZ DO Apr 05, 2020 10:04
[2020-04-05] MEDS ORDERED: MIDAZOLAM 2 MG/2 ML (VERSED) VIAL ONE (10:10)
[2020-04-05] MEDS ORDERED: PROPOFOL INJECTION 50 ML IV ONE ×3 (10:10→10:53)
[2020-04-05] MEDS ORDERED: HURRICAINE EXT TUBE (BENZOCAINE) ONE (10:29)
[2020-04-05] MEDS ORDERED: KETAMINE/NaCl 50 MG/5 ML SYRINGE (ED ONLY) ONE (10:45)
--- NOTE | 2020-04-05 11:45 | Progress Note-Post Operative ---
Post-Operative Progess Note Surgeon (s)/Contractor General Engineering (s) Surgeon TANIA HERNANDEZ DO Contractor General Engineering: EDDA Gomez Pre-Operative Diagnosis GERD, Hx of polyps, >10yrs since last colon Post-Operative Diagnosis Gastritis Hiatal hernia Esophagitis Polyp Diverticula int hemorrhoids Procedure & Operative Findings Date of Procedure 04/05/20 Procedure Performed/Findings EGD with bx Colon with snare colon with cold bx Tattoo of polyp location Anesthesia Type IV sedation by PUBLIC HEALTH TEACHER Estimated Blood Loss Estimated blood loss (mL): scant Specimens/Packing Specimens Removed antral bx GE jxn bx Descending colon polyp in 3 pieces asc colon polyp x 2 sigmoid polyp TANIA HERNANDEZ DO Apr 05, 2020 11:45
--- NOTE | 2020-04-05 11:47 | Endoscopy Discharge Instruct ---
Endo Procedure/Findings Findings 1.: Hiatal Hernia, Gastritis 2.: Polyp 3.: Diverticulosis 4.: Internal Hemorrhoids Discharge Instructions - Activity: You might feel a little sleepy until tomorrow. This is due to the medicine you received to relax you. Until tomorrow, you should: NOT drive a car, operate machinery or power tools. NOT drink any alcoholic beverages. NOT make any important decisions or sign importortant papers. Do not return to work until tomorrow, unless otherwise instructed. Resume previous activities tomorrow. Diet: Start by taking liquids. If you tolerate liquids, advance to solid food. 1.: Colonoscopy in 1 year, EGD in 1 year Notify Physician - If you experience excessive bleeding, unusual abdominal pain, fever, or chest pain, contact your doctor immediately. TANIA HERNANDEZ DO Apr 05, 2020 11:47
--- NOTE | 2020-04-05 14:16 | Anesthesia-General Post-Op ---
MAC Patient Condition Mental Status/LOC: Same as Preop Cardiovascular: Satisfactory Nausea/Vomiting: Absent Respiratory: Satisfactory Pain: Controlled Complications: Absent Post Op Complications Complications None Follow Up Care/Instructions Patient Instructions None needed. Anesthesiology Discharge Order Discharge Order Patient is doing well, no complaints, stable vital signs, no apparent adverse anesthesia problems. No complications reported per nursing. KLEBER RUFF CRNA Apr 05, 2020 14:16
--- NOTE | 2020-04-06 03:03 | OPERATIVE REPORT ---
DATE OF SERVICE: 04/05/2020 PREOPERATIVE DIAGNOSES: Gastroesophageal reflux disease and history of polyps. POSTOPERATIVE DIAGNOSES: Gastritis, hiatal hernia, esophagitis, colon polyps, diverticula, internal hemorrhoids. PROCEDURES: 1. EGD with biopsy. 2. Colonoscopy with snare polypectomy. 3. Colonoscopy with cold biopsy. 4. Colonoscopy with injection of tattooing. SURGEON: Cody Ng, EYEGLASS FRAME TRUER: Josse Jacques, MS3 ANESTHESIA: IV sedation by the ANGIOGRAPHER. SPECIMEN: 1. Biopsy from the antrum. 2. Biopsies from the GE junction as well as large descending colon polyp taken in 3 pieces, ascending polyps x2 and the sigmoid colon polyp. BLOOD LOSS: Scant. FLUIDS: Per anesthesia. POSTOPERATIVE CONDITION: Stable. INDICATION FOR PROCEDURE: The patient is a 49-year-old male who had a history of GERD symptoms and a history of colon polyps, needed a workup. FINDINGS: The patient had some gastritis, hiatal hernia and some esophagitis. Also in the colon, noted to have a large polyp in the descending colon, a couple of small polyps in the ascending colon and one another larger polyp in the sigmoid colon. PROCEDURE NOTE: After informed consent was obtained, the patient was brought to the endoscopy suite, placed in bed in left lateral decubitus position. He was administered IV sedation by the ANGIOGRAPHER who then monitored his vitals the entire time, heart rate, blood pressure and pulse ox. He was started with the EGD, placing scope down the mouth through the esophagus into the stomach, noted some mild gastritis in the stomach, pushed into the duodenum. Duodenum looked fine. Pulled back and did a biopsy of the antrum. Retroflexed the scope, saw hiatal hernia. The body of stomach looked okay. Pulled the scope into the GE junction, noted some changes in the Z line, creeping up of this GE junction, did a biopsy of the GE junction in two pieces because the first one was rather small and then pushed the scope into the stomach, suctioned the air out and then pulled the scope up the esophagus and out the mouth. Switched camera, switched gloves, went down below, started the colonoscopy, pushed in, on the way in the descending colon, saw a large flat polyp, I elected to do snare polypectomy, able to get this polyp removed in 3 snares, suctioned these up and sent to pathology, then continued up to the ascending colon where we saw another 2 small flat polyps, I elected to do a cold biopsy these, removed them and get all the way to the cecum. In the cecum, noted the appendiceal orifice, took a picture and then slowly withdrew the scope, insufflating to look circumferentially at the engel looking the cecum, up the ascending colon to the hepatic flexure and then down the transverse colon, splenic flexure, into the descending colon, saw this area of where we had removed a large polyp, I elected to do place some ink in case we need to go back and either find this again from the inside or if we needed to do our colon resection. Continued down in the sigmoid colon, saw another polyp, elected to do a snare polypectomy of this and then down into the rectum, retroflexed in rectal vault, saw some internal hemorrhoids, took a picture and then removed the scope. The patient tolerated the procedure. He was recovered in endoscopy suite. Job ID: [id number] DocumentID: [id number] Dictated Date: 04/05/2020 16:41:59 Project Hire Date: 04/06/2020 03:03:07 Dictated By: CODY NG DO
== END 2020-04-05 12:38 | disposition home or self-care (01) ==
LOC: ENDO 09:49
PROVIDERS: ATTEND Surgery
DX: Z12.11 Encounter for screening for malignant neoplasm of colon (principal); D12.4 Benign neoplasm of descending colon; D12.2 Benign neoplasm of ascending colon; K29.50 Unspecified chronic gastritis without bleeding; K44.9 Diaphragmatic hernia without obstruction or gangrene; K21.00 Gastro-esophageal reflux disease with esophagitis, without bleeding; K63.5 Polyp of colon; K57.90 Diverticulosis of intestine, part unspecified, without perforation or abscess without bleeding; K64.8 Other hemorrhoids; I10 Essential (primary) hypertension; M79.7 Fibromyalgia; G62.9 Polyneuropathy, unspecified; M06.9 Rheumatoid arthritis, unspecified; F32.9 Major depressive disorder, single episode, unspecified; K58.9 Irritable bowel syndrome, unspecified; R01.1 Cardiac murmur, unspecified; F41.9 Anxiety disorder, unspecified; Z79.899 Other long term (current) drug therapy; Z86.010 Personal history of colon polyps
CPT/HCPCS: 88305

== ENCOUNTER → 2020-04-13 | Outpatient (CLI) | payer OTHER ==
[~2020-04-13] MED LIST changes: +CATHETER FLUSH 10 ML SYR IV PRN; -LACTATED RINGERS 1,000 ML IV ONE
--- NOTE | 2020-04-13 13:46 | Diagnostic Imaging Report ---
EXAMINATION: Nuclear medicine hepatobiliary scan. INDICATION: Abdominal pain. TECHNIQUE: This study was performed following administration of 5.4 mCi of 99M technetium Choletec. 60 minutes following the injection, one can of Ensure was also administered. COMPARISON: There are no prior Nuclear Medicine hepatobiliary scans available for comparison. The gallbladder ultrasound exam of 04/02/2020 failed to show any evidence for cholelithiasis or acute cholecystitis. FINDINGS: On this exam, there is uptake of the radiotracer by the gallbladder before 30 minutes. This would weigh against the diagnosis of acute cholecystitis. There is also extension of the radiotracer into the small bowel indicating the common bile duct is not obstructed. The ejection fraction is 51.6% (normal greater than 35%). IMPRESSION: 1. There is no evidence for an acute cholecystitis or for obstruction of the common bile duct. 2. The ejection fraction is 51.6% and within normal limits. Dictated by: Dictated on workstation # [id number]
== END ==
LOC: CARD 04-08 09:31
PROVIDERS: ATTEND Surgery
DX: R10.816 Epigastric abdominal tenderness (principal)
CPT/HCPCS: 78227; A9537

== ENCOUNTER 2021-03-28 06:06 | Outpatient (CLI) | payer OTHER ==
[~2021-03-28] VITALS: Ht 177.8 cm; Wt 110.3 kg
[~2021-03-28 06:06] MED LIST changes: -CATHETER FLUSH 10 ML SYR IV PRN
[2021-03-28] MEDS ORDERED: DICL35CA3 PO (13:44)
== END 2021-03-28 14:51 | disposition home or self-care (01) ==
LOC: PREOP 06:06
PROVIDERS: ATTEND Surgery
DX: Z01.818 Encounter for other preprocedural examination (principal)

== ENCOUNTER 2021-04-04 07:55 | Day surgery (SDC) | payer OTHER ==
[~2021-04-04] VITALS: Ht 177 cm; Wt 110.0 kg
[~2021-04-04 07:55] MED LIST changes: +DICL35CA3 PO
[2021-04-04] MEDS ORDERED: LACTATED RINGERS 1,000 ML IV STA (08:00)
[2021-04-04] MEDS ORDERED: LACTATED RINGERS 1,000 ML IV ONE (08:04)
[2021-04-04 08:10] VITALS: BP 128/83
--- NOTE | 2021-04-04 08:12 | Progress Note-Pre Operative ---
Pre-Operative Progress Note H&P Reviewed The H&P was reviewed, patient examined and no changes noted. Time Seen by Provider: 08:09 Date H&P Reviewed: Apr 04, 2021 Time H&P Reviewed: 08:09 Pre-Operative Diagnosis: GERD, Hx of colon polyp TANIA HERNANDEZ DO Apr 04, 2021 08:12
[2021-04-04] MEDS ORDERED: PROPOFOL INJECTION 50 ML IV ONE (08:51)
[2021-04-04] MEDS ORDERED: MIDAZOLAM 2 MG/2 ML (VERSED) VIAL ONE (08:51)
[2021-04-04] MEDS ORDERED: proPOfol 200 MG/20 ML (DIPRIVAN) VIAL IV ONE (09:19)
[2021-04-04 09:30] VITALS: BP 113/67
[2021-04-04 09:35] VITALS: BP 120/57
--- NOTE | 2021-04-04 09:40 | Progress Note-Post Operative ---
Post-Operative Progess Note Surgeon (s)/Die Maker Bench Stamping (s) Surgeon TANIA HERNANDEZ DO Die Maker Bench Stamping: Freddy Mario, MSIII Pre-Operative Diagnosis GERD, Hx of colon polyp Post-Operative Diagnosis Gastritis Hiatal hernia Polyps Diverticula Int hemorrhoids Procedure & Operative Findings Date of Procedure 04/04/21 Procedure Performed/Findings EGD with bx Colon with snare PROCEDURE NOTE: After informed consent was obtained, the patient was brought to the endoscopy suite, placed in bed in left lateral decubitus position. He was administered IV sedation by the WOOL AND PELT GRADER who then monitored vitals the entire time, heart rate, blood pressure and pulse ox and the scope was inserted down the mouth through the esophagus into the stomach. On the way down, noted some mild esophagitis, took a picture, pushed into the stomach, pushed past the antrum into the duodenum. Duodenum looked good. Pulled back and did a biopsy of antrum, then retroflexed the scope, saw a small hiatal hernia, took a picture of this and then pulled the scope into the GE junction and did a biopsy. Pushed the scope back into the stomach, suctioned all the air out of the stomach. At this point pulled the scope up the esophagus and out the mouth. Switched camera, switched gloves, went down below and started the colonoscopy. Pushed all the way into about 140 cm to get all the way to cecum, took a picture of the appendiceal orifice and noted the ileocecal valve. On the way in noted some diverticula and a polyp at previous biopsy site (it was right next to/inside of previously tattooed area. Slowly withdrew the scope, insufflating to look circumferentially at the engel starting in the cecum, up the ascending colon to the hepatic flexure, then down the transverse colon to the splenic flexure. Into the descending colon and at the site of tattoo, elected to do a hot snare of the polyp seen; able to remove in one piece. Then continued down into the sigmoid and saw two small polyps; removed them with snare. Finally into the r ectum and as I pulled out saw some minimal internal hemorrhoids and took a picture of this. The patient tolerated the procedure and he recovered in the endoscopy suite. Anesthesia Type IV sedation by WOOL AND PELT GRADER Estimated Blood Loss Estimated blood loss (mL): scant Specimens/Packing Specimens Removed antral bx body of stomach bx GE jxn bx Desc colon polyp sigmoid polyp x 2 TANIA HERNANDEZ DO Apr 04, 2021 09:40
--- NOTE | 2021-04-04 09:41 | Endoscopy Discharge Instruct ---
Endo Procedure/Findings Findings 1.: Hiatal Hernia, Gastritis 2.: Polyp 3.: Diverticulosis 4.: Internal Hemorrhoids Discharge Instructions - Activity: You might feel a little sleepy until tomorrow. This is due to the medicine you received to relax you. Until tomorrow, you should: NOT drive a car, operate machinery or power tools. NOT drink any alcoholic beverages. NOT make any important decisions or sign importortant papers. Do not return to work until tomorrow, unless otherwise instructed. Resume previous activities tomorrow. Diet: Start by taking liquids. If you tolerate liquids, advance to solid food. 1.: EGD in 3 years 2.: Colonscopy in 3 years Notify Physician - If you experience excessive bleeding, unusual abdominal pain, fever, or chest pain, contact your doctor immediately. TANIA HERNANDEZ DO Apr 04, 2021 09:41
[2021-04-04 09:55] VITALS: BP 136/86
[2021-04-04 10:06] VITALS: BP 136/86
--- NOTE | 2021-04-04 12:50 | Anesthesia-General Post-Op ---
MAC Patient Condition Mental Status/LOC: Same as Preop Cardiovascular: Satisfactory Nausea/Vomiting: Absent Respiratory: Satisfactory Pain: Controlled Complications: Absent Post Op Complications Complications None Follow Up Care/Instructions Patient Instructions None needed. Anesthesiology Discharge Order Discharge Order Patient is doing well, no complaints, stable vital signs, no apparent adverse anesthesia problems. No complications reported per nursing. ANTONELLA FONSECA CRNA Apr 04, 2021 12:50
== END 2021-04-04 10:35 | disposition home or self-care (01) ==
LOC: ENDO 07:55
PROVIDERS: ATTEND Surgery
DX: K63.5 Polyp of colon (principal); D12.6 Benign neoplasm of colon, unspecified; K64.8 Other hemorrhoids; K57.90 Diverticulosis of intestine, part unspecified, without perforation or abscess without bleeding; K21.9 Gastro-esophageal reflux disease without esophagitis; K44.9 Diaphragmatic hernia without obstruction or gangrene; K58.1 Irritable bowel syndrome with constipation; K29.50 Unspecified chronic gastritis without bleeding; I10 Essential (primary) hypertension; F41.9 Anxiety disorder, unspecified; F32.A Depression, unspecified; M79.7 Fibromyalgia; G62.9 Polyneuropathy, unspecified; Z79.899 Other long term (current) drug therapy